=== PATIENT | male | born 1945 | race African-American/Black ===

== ENCOUNTER 2017-03-27 23:36 | Emergency (ER) | payer MEDICARE, MEDICAID ==
[2017-03-28] MEDS ORDERED: Cyclobenzaprine TAB* 10 MG PO ONE (02:02)
--- NOTE | 2017-03-28 02:02 | ED ---
Upper Extremity Pain - HPI Summary HPI Summary: 72M presents with right shoulder and neck pain since . He denies any injury. He denies any fever or headache. He denies any edema. He denies any numbness or tingling. He denies any weakness. He is right handed. He tried Tylenol without relief. He has history of back pain but denies any history of neck pain. He states the pain feels like stiffness and muscular. He has tried heat and cold without relief. He states movement makes it worst. - History of Current Complaint Chief Complaint: Rosa MariaVangie Stated Complaint: RT SHOULDER PAIN Time Seen by Provider: 03/28/17 01:44 - Allergies/Home Medications Allergies/Adverse Reactions: Allergies Allergy/AdvReac Type Severity Reaction Status Date / Time Cefazolin Allergy Severe See Comment Verified 01/21/16 09:44 Enalapril [From Vasotec] Allergy Severe Swelling Verified 01/21/16 09:44 Of Face,Lips,& Throat Levofloxacin [From Levaquin] Allergy Severe See Comment Verified 01/21/16 09:44 Tamsulosin [From Flomax] Allergy Unknown Unknown Verified 01/21/16 09:44 Reaction Details Pioglitazone [From Actos] AdvReac Mild See Comment Verified 01/21/16 09:44 PMH/Surg Hx/FS Hx/Imm Hx Endocrine/Hematology History: Reports: Hx Diabetes Cardiovascular History: Reports: Hx Coronary Artery Disease, Hx Hypercholesterolemia, Hx Hypertension, Hx Syncope - THIS ADMIT Respiratory History: Reports: Hx Sleep Apnea GI History: Reports: Hx Gastroesophageal Reflux Disease, Hx Ulcer History: Reports: Hx Benign Prostatic Hyperplasia - PROSTATE SURGERY Musculoskeletal History: Reports: Hx Arthritis, Hx Orthopedic Injury - right knee injury with chronic pain Neurological History: Reports: Hx Developmental Delay Denies: Hx Seizures, Hx Transient Ischemic Attacks (TIA) Psychiatric History: Reports: Hx Depression, Hx Inpatient Treatment - may 1992 for depression- 5 days Denies: Hx Anxiety, Hx Suicide Attempt, Hx Substance Abuse - Cancer History Cancer Type, Location and Year: PROSTATE 2006 Hx Chemotherapy: No Hx Radiation Therapy: No - Surgical History Surgery Procedure, Year, and Place: prostate surgery 2006 Hx Anesthesia Reactions: No - Immunization History Date of Tetanus Vaccine: unk Date of Influenza Vaccine: unk Infectious Disease History: No Infectious Disease History: Reports: Hx Hepatitis - B Denies: Traveled Outside the [place] in Last 30 Days - Family History Known Family History: Positive: Diabetes - Social History Alcohol Use: None Substance Use Type: Reports: None Smoking Status (MU): Never Smoked Tobacco Review of Systems Negative: Fever Negative: Chest Pain Negative: Shortness Of Breath Positive: Myalgia - neck pain and right shoulder pain All Other Systems Reviewed And Are Negative: Yes Physical Exam Triage Information Reviewed: Yes Vital Signs On Initial Exam: Initial Vitals Temp Pulse Resp BP Pulse Ox 98.5 F 86 18 159/88 95 03/27/17 23:44 03/27/17 23:44 03/27/17 23:44 03/27/17 23:44 03/27/17 23:44 Vital Signs Reviewed: Yes Appearance: Positive: Well-Appearing Skin: Positive: Warm, Dry Head/Face: Positive: Normal Head/Face Inspection Eyes: Positive: Normal, Conjunctiva Clear Respiratory/Lung Sounds: Positive: Clear to Auscultation, Breath Sounds Present Cardiovascular: Positive: Normal, RRR Musculoskeletal: Positive: Strength/ROM Intact - right shoulder with pain, Other - able to push off behind, neg stevens, neg yearsons, tenderness over right trapezius, no midline tenderness neck, good digital printer strength, sensation grossly intact, capillary refill<2 secs, good pulses Neurological: Positive: Sensory/Motor Intact - biceps - Dasia Coma Scale Coma Scale Total: 15 Diagnostics - Vital Signs Vital Signs Temp Pulse Resp BP Pulse Ox 03/27/17 23:44 98.5 F 86 18 159/88 95 - Laboratory Lab Statement: Any lab studies that have been ordered have been reviewed, and results considered in the medical decision making process. - Radiology shoulder Xray Interpretation: No Acute Changes Radiology Interpretation Completed By: ED Physician Course/Dx - Course Course Of Treatment: 72M presents with right shoulder and neck pain since . He denies any injury. He denies any fever or headache. He denies any edema. He denies any numbness or tingling. He denies any weakness. He is right handed. He tried Tylenol without relief. He has history of back pain but denies any history of neck pain. He states the pain feels like stiffness and muscular. He has tried heat and cold without relief. He states movement makes it worst.on exam has tenderness over right trapezius. full ROM of shoulder with pain, neurovascular intact. will try muscle relaxer and follow up with primary. patient understand and agrees with plan. - Diagnoses Differential Diagnosis/HQI/PQRI: Positive: Fracture (Closed), Strain, Sprain Provider Diagnoses: Right shoulder pain, Neck pain Discharge - Discharge Plan Condition: Good Disposition: HOME Prescriptions: Cyclobenzaprine TAB* [Flexeril 10 MG TAB*] 10 mg PO TID PRN #15 tab PRN Reason: Pain Patient Education Materials: Shoulder Pain (ED) Referrals: Arnaud Calloway MD [Primary Care Provider] - Additional Instructions: Take muscle relaxers three times a day, caution as can make drowsy Use Tylenol for pain every 6 hours ice/heat area, move as much as possible Follow up with primary within 5 days Return to ED if develop any new or worsening symptoms
[2017-03-28 03:05] VITALS: BP 170/85
--- NOTE | 2017-03-28 08:15 | RAD ---
HISTORY: Right shoulder pain COMPARISONS: None VIEWS: 4, Frontal internal rotation, external rotation, outlet, and axillary views of the right shoulder FINDINGS: BONE DENSITY: Normal. BONES: There is no displaced fracture. JOINTS: There is no arthropathy. ALIGNMENT: There is no dislocation. SOFT TISSUES: Unremarkable. OTHER FINDINGS: None. IMPRESSION: NO ACUTE OSSEOUS INJURY. IF SYMPTOMS PERSIST, RECOMMEND REPEAT IMAGING.
== END 2017-03-28 03:00 | disposition home or self-care (01) ==
LOC: ED 23:36
DX: M54.2 Cervicalgia (principal); M25.511 Pain in right shoulder; B19.10 Unspecified viral hepatitis B without hepatic coma; R62.50 Unspecified lack of expected normal physiological development in childhood; F32.9 Major depressive disorder, single episode, unspecified; Z85.46 Personal history of malignant neoplasm of prostate; E11.9 Type 2 diabetes mellitus without complications; I25.10 Atherosclerotic heart disease of native coronary artery without angina pectoris; K21.9 Gastro-esophageal reflux disease without esophagitis; E78.00 Pure hypercholesterolemia, unspecified; I10 Essential (primary) hypertension; N40.0 Benign prostatic hyperplasia without lower urinary tract symptoms; X58.XXXA Exposure to other specified factors, initial encounter; Y92.9 Unspecified place or not applicable
CPT/HCPCS: 99282; A9270-GY

== ENCOUNTER 2018-12-30 03:47 | Emergency (ER) | payer MEDICARE, MEDICAID ==
[2018-12-30] MEDS ORDERED: Ondansetron ODT TAB* 4 MG PO ONE (03:50)
[2018-12-30] MEDS ORDERED: Morphine 4 MG/ML VIAL (1 ml) 4 MG/ML VIAL IV ONE (03:50)
--- NOTE | 2018-12-30 04:04 | ED ---
Back Pain - HPI Summary HPI Summary: This pt is a 73 Y/ M presenting to [facility] brought in by EMS for a CC of low back pain. He states that his back pain has been present for the last 2 weeks and has been increasing since the onset. He states that he was walking to the bathroom today when he fell down and landed on his back [employer]. He states that he has both back and neck pain that was increased after the fall. He also states that he hit his L arm when he fell but denies pain. He denies any fevers, chills , N/V, SOB, headaches, and sore throat. He states that he has a PMHx of diabetes and HTN. He has no pertinent SHx. - History of Current Complaint Chief Complaint: EDFall Stated Complaint: FALL PER EMS Time Seen by Provider: 12/30/18 03:50 Hx Obtained From: Patient Onset/Duration: Sudden Onset Onset/Duration: Still Present Timing: Constant Back Pain Location: Is Diffuse Severity Initially: Severe Severity Currently: Severe Pain Intensity: 9 Pain Scale Used: 0-10 Numeric Character: Sharp Aggravating Symptom(s): Nothing Alleviating Symptom(s): Nothing Associated Signs And Symptoms: Positive: Negative - chills, N/V, SOB, headaches , and sore throat.. Negative: Fever - Allergies/Home Medications Allergies/Adverse Reactions: Allergies Allergy/AdvReac Type Severity Reaction Status Date / Time MS Cefazolin [Cefazolin] Allergy Severe See Comment Verified 01/21/16 09:44 MS Enalapril [From Vasotec] Allergy Severe Swelling Verified 01/21/16 09:44 Of Face,Lips,& Throat MS Levofloxacin Allergy Severe See Comment Verified 01/21/16 09:44 [From Levaquin] MS Tamsulosin [From Flomax] Allergy Unknown Unknown Verified 01/21/16 09:44 Reaction Details MS Pioglitazone [From Actos] AdvReac Mild See Comment Verified 01/21/16 09:44 PMH/Surg Hx/FS Hx/Imm Hx Previously Healthy: Yes Endocrine/Hematology History: Reports: Hx Diabetes Cardiovascular History: Reports: Hx Coronary Artery Disease, Hx Hypercholesterolemia, Hx Hypertension, Hx Syncope - THIS ADMIT Respiratory History: Reports: Hx Sleep Apnea GI History: Reports: Hx Gastroesophageal Reflux Disease, Hx Ulcer History: Reports: Hx Benign Prostatic Hyperplasia - PROSTATE SURGERY Musculoskeletal History: Reports: Hx Arthritis, Hx Orthopedic Injury - right knee injury with chronic pain Neurological History: Reports: Hx Developmental Delay Denies: Hx Seizures, Hx Transient Ischemic Attacks (TIA) Psychiatric History: Reports: Hx Depression, Hx Inpatient Treatment - may 1992 for depression- 5 days Denies: Hx Anxiety, Hx Suicide Attempt, Hx Substance Abuse - Cancer History Cancer Type, Location and Year: PROSTATE 2006 Hx Chemotherapy: No Hx Radiation Therapy: No - Surgical History Surgery Procedure, Year, and Place: prostate surgery 2006 Hx Anesthesia Reactions: No - Immunization History Date of Tetanus Vaccine: unk Date of Influenza Vaccine: unk Infectious Disease History: No Infectious Disease History: Reports: Hx Hepatitis - B Denies: Traveled Outside the [place] in Last 30 Days - Family History Known Family History: Positive: Diabetes - Social History Occupation: Retired Lives: Alone Alcohol Use: None Hx Substance Use: No Substance Use Type: Reports: None Hx Tobacco Use: No Smoking Status (MU): Never Smoked Tobacco Review of Systems Negative: Fever, Chills Negative: Sore Throat Negative: Shortness Of Breath Negative: Vomiting, Nausea Negative: Headache All Other Systems Reviewed And Are Negative: Yes Physical Exam - Summary Physical Exam Summary: Constitutional: Elderly no acute distress Skin: Warm, Dry HENT: Normocephalic, atraumatic. Midface stable, Dentition intact Eyes: EOM normal, PERRL Neck: Positive cervical spine tenderness. Trachea is midline. No stridor; No JVD; No step off; Cardio: Rhythm regular, rate normal Heart sounds normal; Intact distal pulses; The pedal pulses are 2+ and symmetric. Radial pulses are 2+ and symmetric. Pulmonary/Chest wall: Effort normal; Breath sounds normal; Equal chest rise; No flail segment; No rib tenderness; No sternal tenderness Abd: Soft, Appearance normal. No distension; No tenderness Musculoskeletal: Positive midline and paraspinal cervical, thoracic and lumbar tenderness. No step-offs or deformities . No tenderness of the hips, ankles, shoulders, elbows and knees; No joint swelling; Pelvis is stable to lateral compression and rock Neuro: Alert, Oriented x3, GCS 15. Strength 5/5 all extremities. Psych: Mood and affect Normal Triage Information Reviewed: Yes Vital Signs On Initial Exam: Initial Vitals Temp Pulse Resp BP Pulse Ox 97.6 F 102 18 170/105 96 12/30/18 03:52 12/30/18 03:52 12/30/18 03:52 12/30/18 03:52 12/30/18 03:52 Vital Signs Reviewed: Yes Procedures - Sedation Patient Received Moderate/Deep Sedation with Procedure: No Diagnostics - Vital Signs Vital Signs Temp Pulse Resp BP Pulse Ox 12/30/18 03:52 97.6 F 102 18 170/105 96 - Laboratory Lab Statement: Any lab studies that have been ordered have been reviewed, and results considered in the medical decision making process. - CT Thoracic CT CT Interpretation Completed By: Radiologist Summary of CT Findings: No evidence of thoracic spine fracture or dislocation. There is expansile lytic lesion noted of the right fourth rib. Findings are. concerning for a neoplastic process. ED physician has reviewed this report. Lumbar CT CT Interpretation Completed By: Radiologist Summary of CT Findings: There is a 1.3 x 1.2 cm lytic lesion noted involving the inferior L3 vertebral. body. Findings may represent a neoplastic process. ED physician has reviewed this report. Cervical CT CT Interpretation Completed By: Radiologist Summary of CT Findings: There is a chronic appearing defect noted of the posterior aspect of. C1. There is an expansile lytic lesion again noted of the third right rib. ED physician has reviewed this report. Re-Evaluation - Re-Evaluation First Eval Re-Evaluation Time: 06:00 Change: Improved - CT negative for fracture, concern for lytic lesions of the spine, we'll discuss with oncology and plan for outpatient follow-up. Patient ambulated with walker. C Spine Clearance Note Patient was evaluated today for clearance of C-spine precautions. Patient was awake and alert and cooperative for exam. Patient without neurologic symptoms or neck pain. Patient did not exhibit any focal tenderness to direct palpation of the cervical spine. Patient was able to move head in all directions without limitation in the range of motion or without inciting additional pain or discomfort. No midline tenderness. Denies pain, weakness or numbness with flexion, extension, or rotation of the neck. [place] collar removed. C-collar cleared by [employer] Criteria. Based on this examination, C-spine precautions are no longer required and may be discontinued. Back Pain Course/Dx - Course Course Of Treatment: 73 y/o male p/w back pain after fall. Primary survery intact. Secondary w CTL tenderness. No step offs or deformities. L arm abrasion no underlying tenderness. - Check CT CTL spine. Placed in c collar. - Diagnoses Provider Diagnoses: Fall, Back pain, Spinal cord lesion - Provider Notifications Discussed Care Of Patient With: Ashley Singh Time Discussed With Above Provider: 06:40 Instructed by Provider To: Have Pt Call For Appt. Discharge ED - Sign-Out/Discharge Documenting (check all that apply): Patient Departure - discharge - Discharge Plan Condition: Stable Disposition: HOME Prescriptions: Acetaminophen TAB* [Tylenol TAB*] 650 mg PO Q6H PRN #30 tab MDD 4 gm PRN Reason: Pain - Moderate Patient Education Materials: Back Pain (ED) Referrals: Arnaud Calloway MD [Primary Care Provider] - 2 Days Ashley Singh MD [Medical Doctor] - 2 Days Additional Instructions: You were seen in the emergency department for a fall and back pain. Your CT scan did not show any acute cause for pain, you did have some small lesions on your spine and one area of the ribs that or concerning and require follow up. You can follow up with your primary care doctor or oncologist (Dr. Singh) for further workup. If any studies were not completed at the time of discharge you will be called with the relevant results. Please follow up with your primary care doctor in next 2-3 days and return to emergency department for worsening pain, falls, numbness, weakness, bowel or bladder problems, or concerning symptoms. It was a pleasure taking care of you today. - Billing Disposition and Condition Condition: STABLE Disposition: Home - Attestation Statements Document Initiated by Martha: Yes Documenting Scribe: Philip Yadav Provider For Whom Martha is Documenting (Include Credential): Jennifer Martinez MD Scribe Attestation: Philip Proctor, scribed for Jennifer Martinez MD on 12/30/18 at 0715. Scribe Documentation Reviewed: Yes Provider Attestation: The documentation as recorded by the Philip hines accurately reflects the service I personally performed and the decisions made by Jennifer maciel MD Status of Scribe Document: Viewed
[2018-12-30] MEDS ORDERED: Acetaminophen TAB* 325 MG PO ONE (06:20)
[2018-12-30] MEDS ORDERED: Lidocaine PATCH 5%* 1 PATCH TRANSDERM SCH (07:00)
[2018-12-30 07:36] VITALS: BP 160/90
[2018-12-30] MEDS ORDERED: Lidocaine Patch REMOVE* 1 NOTE MISC PATCH OFF SCH (19:00)
== END 2018-12-30 06:45 | disposition home or self-care (01) ==
LOC: ED 03:47
DX: G95.9 Disease of spinal cord, unspecified (principal); W18.30XA Fall on same level, unspecified, initial encounter; Y92.9 Unspecified place or not applicable; E11.9 Type 2 diabetes mellitus without complications; I10 Essential (primary) hypertension; I25.10 Atherosclerotic heart disease of native coronary artery without angina pectoris; E78.00 Pure hypercholesterolemia, unspecified; K21.9 Gastro-esophageal reflux disease without esophagitis; N40.0 Benign prostatic hyperplasia without lower urinary tract symptoms; R62.50 Unspecified lack of expected normal physiological development in childhood; F32.9 Major depressive disorder, single episode, unspecified; Z88.1 Allergy status to other antibiotic agents; Z88.8 Allergy status to other drugs, medicaments and biological substances; Z79.82 Long term (current) use of aspirin; Z79.4 Long term (current) use of insulin; Z79.899 Other long term (current) drug therapy
CPT/HCPCS: 72125; 72128; 72131; 96374; 99282; A9270-GY; J2270

== ENCOUNTER 2018-12-31 08:47 | Emergency (ER) | payer MEDICARE, MEDICAID ==
--- NOTE | 2018-12-31 09:05 | ED ---
Back Pain - HPI Summary HPI Summary: The pt is a 73 yr old male [place] [facility] [place]o [place] and right sided lower back pain beginning several days [employer]. He states that he is weaker than usual and is afraid that he will fall at home. The pt was here yesterday with the same complaints and notes that he was supposed to receive a call from an ED provider yesterday but never received one. He rates his current pain intensity a 6/10. He notes that he takes several medications regularly but did not take them this morning. No aggravating or alleviating factors noted. He has Hx of anemia. - History of Current Complaint Stated Complaint: GENERALIZED WEAKNESS PER EMS Hx Obtained From: Patient Onset/Duration: Sudden Onset, Lasting Days, Still Present Onset/Duration: Started Days Ago, Still Present Timing: Constant, Lasting Days Back Pain Location: Is Discrete @ - right lower back Severity Initially: Moderate Severity Currently: Moderate Pain Intensity: 6 Pain Scale Used: 0-10 Numeric Aggravating Symptom(s): Nothing Alleviating Symptom(s): Nothing Associated Signs And Symptoms: Positive: Weakness - Allergies/Home Medications Allergies/Adverse Reactions: Allergies Allergy/AdvReac Type Severity Reaction Status Date / Time MS Cefazolin [Cefazolin] Allergy Severe See Comment Verified 01/21/16 09:44 MS Enalapril [From Vasotec] Allergy Severe Swelling Verified 01/21/16 09:44 Of Face,Lips,& Throat MS Levofloxacin Allergy Severe See Comment Verified 01/21/16 09:44 [From Levaquin] MS Tamsulosin [From Flomax] Allergy Unknown Unknown Verified 01/21/16 09:44 Reaction Details MS Pioglitazone [From Actos] AdvReac Mild See Comment Verified 01/21/16 09:44 PMH/Surg Hx/FS Hx/Imm Hx Endocrine/Hematology History: Reports: Hx Diabetes Cardiovascular History: Reports: Hx Coronary Artery Disease, Hx Hypercholesterolemia, Hx Hypertension, Hx Syncope - THIS ADMIT Respiratory History: Reports: Hx Sleep Apnea GI History: Reports: Hx Gastroesophageal Reflux Disease, Hx Ulcer History: Reports: Hx Benign Prostatic Hyperplasia - PROSTATE SURGERY Musculoskeletal History: Reports: Hx Arthritis, Hx Orthopedic Injury - right knee injury with chronic pain Neurological History: Reports: Hx Developmental Delay Denies: Hx Seizures, Hx Transient Ischemic Attacks (TIA) Psychiatric History: Reports: Hx Depression, Hx Inpatient Treatment - may 1992 for depression- 5 days Denies: Hx Anxiety, Hx Suicide Attempt, Hx Substance Abuse - Cancer History Cancer Type, Location and Year: PROSTATE 2006 Hx Chemotherapy: No Hx Radiation Therapy: No - Surgical History Surgery Procedure, Year, and Place: prostate surgery 2007 Hx Anesthesia Reactions: No - Immunization History Date of Tetanus Vaccine: unk Date of Influenza Vaccine: unk Infectious Disease History: No Infectious Disease History: Reports: Hx Hepatitis - B Denies: Traveled Outside the [place] in Last 30 Days - Family History Known Family History: Positive: Diabetes - Social History Alcohol Use: None Hx Substance Use: No Substance Use Type: Reports: None Hx Tobacco Use: No Smoking Status (MU): Never Smoked Tobacco Review of Systems Musculoskeletal: Other - pos - back pain Positive: Weakness All Other Systems Reviewed And Are Negative: Yes Physical Exam - Summary Physical Exam Summary: General: Patient is an obese male with some distress secondary to back pain. Skin: [place], warm, dry HEAD AND FACE: No signs of trauma. EYES: PERRLA, EOMI x 2. EARS: Hearing grossly intact. MOUTH: Oropharynx within normal limits. NECK: Supple, trachea is midline, no adenopathy, no JVD. CHEST: Symmetric, no tenderness at palpation LUNGS: CTA bilaterally, no rales, rhonchi or wheezing CVS: RRR, no murmur, rub, or gallop ABDOMEN: soft and Nontender without masses, no guarding or rebound. Bowel sounds are active. No Hepatosplenomegaly. No signs of inguinal hernias. BACK: Patient came in via ambulanve since he is unable to ambulate due to back pain. No signs of trauma, no soft tissue ecchymosis. Positive paraspinal muscle tenderness and vertebral tenderness in the lumbar spine. No masses palpated. No CVAT, no flank ecchymosis . No sacroiliac notch tenderness, No saddle anesthesia. ROM: flexion, extension, lateral bending and rotation limited secondary to pain. Straight Leg Raise: Positive at 45 degrees in the right side. Patellar reflexes: brisk, symmetric Muscle strength lower extremities: Dorsiflexion, plantar flexion of ankles normal. Pulses: Femoral, popliteal, posterior tibial, and pedal pulses strong and palpable. Rectal: Patient refused the exam. Triage Information Reviewed: Yes Vital Signs On Initial Exam: Initial Vitals Temp Pulse Resp BP Pulse Ox 98.0 F 90 16 148/92 97 12/31/18 08:48 12/31/18 08:48 12/31/18 08:48 12/31/18 08:48 12/31/18 08:48 Vital Signs Reviewed: Yes Procedures - Sedation Patient Received Moderate/Deep Sedation with Procedure: No Diagnostics - Vital Signs Vital Signs Temp Pulse Resp BP Pulse Ox 12/31/18 08:48 98.0 F 90 16 148/92 97 - Laboratory Result Diagrams: 12/31/18 09:35 12/31/18 09:35 Lab Statement: Any lab studies that have been ordered have been reviewed, and results considered in the medical decision making process. Back Pain Course/Dx - Course Assessment/Plan: Patient is a 73-year-old male who presents to the emergency room via ambulance with a chief complaint of severe back pain. The patient reports that he is unable to ambulate secondary to the pain. He denies any weakness or numbness in the extremities. He denies any urinary or focal dysfunction. The results are significant for a slight macrocytic normochromic anemia with a hemoglobin 11.9 and hematocrit 35, sodium 133, glucose 201, magnesium 1.3, AST 41, CRP 55.4, total protein 10.3, albumin 2.9, and globulin 7.4. T spine CT done 12/20/18: no evidence of toxic as planned fracture or dislocation. There are expansile lytic lesions noted in the 4th rib. The findings are concerning for a neoplastic process. C spine CT done 12/20/18: no acute cervical spine fracture or dislocation. There is expressible lytic lesions again noted in the third right rib. L spine CT done 12/20/18: there is a 1.31.2 lytic lesions noted involving the inferior L3 vertebral body. Findings may represent neoplastic process. Recommend clinical correlation with MRI may be performed for further evaluation. We ambulated the patient with his walker he has a good steady walk. I discussed my physical exam and findings with Dr. Short from oncology advises for the patient to be discharged home with follow-up with her on . Patient was given Decadron, Toradol and Norflex and actually he reported that the patients pain has significantly improved. He reports that he has pain medications at home. I discussed all the findings and test results with the patient. Patient was instructed to return to the emergency room immediately if any of the symptoms return worsens. Plan of care was discussed with the patient and understands and agrees. All questions were answered at patient satisfaction. There were no further complaints or concerns. Lung exam before discharge: CTA B/L. Good air exchange. No wheezing or crackles heard. CVS: S1 and S2 present. No murmurs appreciated. Patient is alert and oriented x 3. Patient is hemodynamically stable. Patient will be discharged home with follow up PCP in the next 2-3 days - Diagnoses Provider Diagnoses: Back pain - Provider Notifications Discussed Care Of Patient With: Ashley Sethi - Dr. Sethi recommends that pt be discharged home with follow-up with her next . Time Discussed With Above Provider: 13:11 Discharge ED - Sign-Out/Discharge Documenting (check all that apply): Patient Departure - discharge - Discharge Plan Condition: Stable Disposition: HOME Patient Education Materials: Back Pain (ED) Referrals: Arnaud Calloway MD [Primary Care Provider] - 3 Days Ashley Sethi MD [Medical Doctor] - 01/05/19 Additional Instructions: FOLLOW UP WITH YOUR PRIMARY CARE PROVIDER WITHIN [address] FOLLOW UP WITH DR. SETHI NEXT WEDNESDAY. RETURN TO THE ED FOR ANY WORSENING OR NEW SYMPTOMS. - Billing Disposition and Condition Condition: STABLE Disposition: Home - Attestation Statements Document Initiated by Scribe: Yes Documenting Scribe: Micky Rebolledo Provider For Whom Martha is Documenting (Include Credential): Pankaj Segura MD Scribe Attestation: Micky Proctor, scribed for Pankaj Segura MD on 12/31/18 at 1828. Scribe Documentation Reviewed: Yes Provider Attestation: The documentation as recorded by the Micky hines accurately reflects the service I personally performed and the decisions made by me, Pankaj Segura MD Status of Scribe Document: Viewed
[2018-12-31 09:47] LABS: ABS Lymphocytes 0.9 10^3/ul (1.0-4.8); ABS Monocytes 0.6 10^3/ul (0-0.8); ABS Neutrophils 3.6 10^3/ul (1.5-7.7); Eosinophil % 0.1 %; Hematocrit 35 % (42-52); Hemoglobin 11.9 g/dL (14.0-18.0); Lymphocyte % 17.6 %; Mean Corpuscular HGB Conc 35 g/dL (31-36); Mean Corpuscular Hemoglobin 35 pg (27-31); Mean Corpuscular Volume 100 fL (80-94); Mean Platelet Volume 9.9 fL (7.4-10.4); Nucleated Red Blood Cells % 0.1; Platelet Count 125 10^3/uL (150-450); Red Blood Count 3.44 10^6 /uL (4.18-5.48); Red Cell Distribution Width 14 % (10-15); White Blood Count 5.1 10^3/uL (3.5-10.8)
[2018-12-31 10:07] LABS: Albumin 2.9 g/dL (3.2-5.2); Albumin/Globulin Ratio 0.4 (1-3); BUN/Creatinine Ratio 13.6 (8-20); C Reactive Protein 55.49 mg/L (<8.01); Calcium 9.8 mg/dL (8.6-10.3); EGFR African American 79.8 (>60); Globulin 7.4 g/dL (2-4); Magnesium 1.3 mg/dL (1.9-2.7); Total Bilirubin 0.7 mg/dL (0.2-1.0); Total Protein 10.3 g/dL (6.4-8.9)
[2018-12-31] MEDS ORDERED: Magnesium Sulfate 2 GM IV* 2 GM/50 ML BAG IVPB ONE (10:22)
[2018-12-31 10:33] LABS: TSH (Thyroid Stimulating Horm) 0.68 mcIU/mL (0.34-5.60)
[2018-12-31] MEDS ORDERED: Dexamethasone IV* 4 MG/ML 1 ML (4 MG) IV SLOW PU ONE (10:34)
[2018-12-31] MEDS ORDERED: Orphenadrine Citrate IV* 30 MG/ML 2 ML VIAL IV ONE (10:35)
[2018-12-31] MEDS ORDERED: Ketorolac INJ* 30 MG/ML 1 ML VIAL IV PUSH ONE (10:35)
[2018-12-31 11:17] LABS: Urine Appearance Cloudy; Urine Bacteria Absent (Absent); Urine Bilirubin Negative (Negative); Urine Blood 2+ (Negative); Urine Color Yellow; Urine Glucose 3+(>=500 mg/dL) (Negative); Urine Ketones 1+ (Negative); Urine Nitrite Negative (Negative); Urine Protein 1+(30 mg/dL) (Negative); Urine Red Blood Cell 2+(6-10/hpf) (Absent); Urine Specific Gravity 1.014 (1.010-1.030); Urine Squamous Epithelial Cell Present (Absent); Urine Urobilinogen Negative (Negative); Urine White Blood Cell Trace(0-5/hpf) (Absent)
[2018-12-31] MEDS ORDERED: NS 0.9% 1000 ML** 1,000 ML IV ONE (11:46)
[2018-12-31 13:05] LABS: Erythrocyte Sed Rate > 120 mm/Hr (0-19)
[2018-12-31 14:15] VITALS: BP 168/95
== END 2018-12-31 14:15 | disposition home or self-care (01) ==
LOC: ED 08:47
DX: M54.5 Low back pain (principal); R53.1 Weakness; I25.10 Atherosclerotic heart disease of native coronary artery without angina pectoris; E11.9 Type 2 diabetes mellitus without complications; E78.00 Pure hypercholesterolemia, unspecified; I10 Essential (primary) hypertension; R55 Syncope and collapse; Z85.46 Personal history of malignant neoplasm of prostate; K21.9 Gastro-esophageal reflux disease without esophagitis
CPT/HCPCS: 36415; 80053; 81003; 81015; 82550; 83605; 83735; 84443; 85025; 85652; 86140; 87086; 96365; 96375; 99285; J1100; J1885; J2360; J3475

== ENCOUNTER 2019-01-05 15:07 | Inpatient (IN) | payer MEDICARE, MEDICAID ==
[2019-01-05] MEDS: [UNRECOGNIZED DRUG - OTHER] PO PRN (17:28)
[2019-01-05] MEDS: OXYCODONE PO PRN (17:28)
[2019-01-05] MEDS: Enoxaparin(*) 40 MG/0.4 ML SYR SUBCUT SCH (18:31)
[2019-01-05] MEDS ORDERED: Gadoteridol* (CONTRAST) 279.3 MG/ML 10 ML IV ONE (19:37)
[2019-01-05] MEDS: Acetaminophen ADULT LIQ* 650 MG/20.3 ML UDC PO PRN (20:57)
[2019-01-06] MEDS: OXYCODONE PO PRN ×2 (03:50→13:42)
[2019-01-06] MEDS: [UNRECOGNIZED DRUG - OTHER] PO PRN ×2 (03:50→13:42)
[2019-01-06] MEDS: Acetaminophen ADULT LIQ* 650 MG/20.3 ML UDC PO PRN (07:58)
[2019-01-06] MEDS ORDERED: Lorazepam PYXIS KEY PRN (10:35)
[2019-01-06] MEDS ORDERED: LORazepam INJ* 2 MG/ML 1 ML VIAL IV PUSH ONE (10:35)
--- NOTE | 2019-01-06 11:33 | BRIEFOPN ---
Brief Operative/Procedure Note - Operation Details Pre-Op Diagnosis: multiple myeloma Post-Op Diagnosis: multiple myeloma Procedures: bone marrow biopsy/aspiration Surgeon(s)/Proceduralists: Jaspal Hagan PA-C Anesthesia: 1% lidocaine - 15ml Estimated Blood Loss: <5ml Findings: adequate core sample and aspiration collected Complications: difficulty finding correct sampling location which resulted in 3 attempts to collect sample, the final attempt was successful
[2019-01-06] MEDS ORDERED: Dextrose 50% VIAL 50 ml IV PUSH PRN (11:41)
[2019-01-06] MEDS ORDERED: Dexamethasone IV* 4 MG/ML 1 ML (4 MG) IV SLOW PU SCH (12:00)
[2019-01-06] MEDS: Dexamethasone IV* 40 MG in NS 0.9% 50 ML* 50 ML IVPB SCH (13:24)
--- NOTE | 2019-01-06 17:00 | PN ---
Progress Note - Progress Note Date of Service: 01/06/19 SOAP: Subjective: [Alan continues to complain of pain. Somewhat better than yesterday. Otherwise feeling ok. MRI shows no cord impingement but does show an acute/ subacute compression fx of L3 which is likely causing his pain.] Objective: [ Vital Signs: Temp Pulse Resp BP Pulse Ox 97.3 F 81 14 144/71 89 01/06/19 15:15 01/06/19 15:15 01/06/19 15:15 01/06/19 15:15 01/06/19 15:15 Acetaminophen (Tylenol Adult Liq*) 650 mg PO Q6H PRN PRN Reason: PAIN - MILD Last Admin: 01/06/19 07:58 Dose: 650 mg Amlodipine Besylate (Norvasc Tab*) 5 mg PO DAILY [facility] Aspirin (Aspirin Ec Tab*) 81 mg PO DAILY [facility] Atorvastatin Calcium (Lipitor*) 20 mg PO DAILY [facility] Bupropion HCl (Wellbutrin Sr Tab*) 150 mg PO DAILY [facility] Citalopram Hydrobromide (Celexa Tab*) 20 mg PO DAILY [facility] Dextrose (Dextrose 50% Vial 50 Ml*) 25 ml IV PUSH .FOR FS < 60 - SS PRN PRN Reason: FS < 60 Docusate Sodium (Colace Cap*) 200 mg PO DAILY [facility] Enoxaparin Sodium (Lovenox(*)) 40 mg SUBCUT Q24H [facility] Last Admin: 01/05/19 18:31 Dose: 40 mg Gabapentin (Neurontin Cap(*)) 300 mg PO DAILY [facility] Glipizide (Glucotrol Tab*) 10 mg PO DAILY@0730 [facility] Dexamethasone Sodium Phosphate (40 mg/ Sodium Chloride) 60 mls @ 120 mls/hr IVPB DAILY [facility] Stop: 01/09/19 09:29 Last Admin: 01/06/19 13:24 Dose: 120 mls/hr Insulin Human Lispro (Humalog*) 0 units SUBCUT AC [facility]; Protocol Losartan Potassium (Cozaar Tab*) 100 mg PO DAILY [facility] Miscellaneous (Ativan Pyxis Gerard) 1 ea N/A .ATIVAN IV GERARD PRN PRN Reason: PYXIS GERARD Oxycodone HCl (Oxycodone Oral Syr*Concentrte*) 5 mg PO Q6H PRN PRN Reason: Pain - moderate Last Admin: 01/06/19 13:42 Dose: 5 mg Pantoprazole Sodium (Protonix Tab*) 40 mg PO DAILY [facility] Senna (Senokot 8.6 Mg Tab*) 2 tab PO DAILY [facility] Spironolactone (Aldactone Tab*) 25 mg PO DAILY [facility] Exam: Gen: 73 yo male in NAD, lying in hospital bed HEENT: MMM CV: RRR, no m/r/g Resp: CTA, no w/c/r Abd: soft, nonTTP Ext: non TTP Psych: developmental delay, alert and appropriately oriented] Assessment: [This is a 73 yo male with a mild developmental delay with a new diagnosis of multiple myeloma who was hospitalized for intractable pain. MRI does not show any cord compression, but he has multiple lytic lesions with a compression fracture at L3. ] Plan: [1. Back pain - reviewed case with Dr Cotter to consider palliative RT - cont prn oxycodone - start high dose dexamethasone 2. Multiple myeloma - completed staging bone marrow biopsy today (see separate note) - start high dose dexamethasone for palliation - plan to start systemic therapy ELIESER 3. NIDDM] - hold metformin due to elevated Cr - cont glipizide - monitor glucose with high dose dex and cover hyperglycemia with SS humalog 4. HTN - cont home medications 5. Developmental delay - has been living independently with community support Dispo: will likely require JESSICA, requested PT/OT evaluation
[2019-01-06] MEDS: Insulin LISPRO* 1 UNITS UNIT SUBCUT SCH (18:19)
[2019-01-06] MEDS: Enoxaparin(*) 40 MG/0.4 ML SYR SUBCUT SCH (18:21)
[2019-01-07 06:45] LABS: ABS Lymphocytes 0.5 10^3/ul (1.0-4.8); ABS Monocytes 0.3 10^3/ul (0-0.8); ABS Neutrophils 5.4 10^3/ul (1.5-7.7); Hematocrit 33 % (42-52); Hemoglobin 11.3 g/dL (14.0-18.0); Lymphocyte % 7.5 %; Mean Corpuscular HGB Conc 34 g/dL (31-36); Mean Corpuscular Hemoglobin 35 pg (27-31); Mean Corpuscular Volume 101 fL (80-94); Mean Platelet Volume 10.6 fL (7.4-10.4); Nucleated Red Blood Cells % 0.1; Platelet Count 113 10^3/uL (150-450); Red Blood Count 3.26 10^6 /uL (4.18-5.48); Red Cell Distribution Width 14 % (10-15); White Blood Count 6.2 10^3/uL (3.5-10.8)
[2019-01-07 07:07] LABS: Albumin 2.5 g/dL (3.2-5.2); Albumin/Globulin Ratio 0.4 (1-3); Calcium 9.2 mg/dL (8.6-10.3); EGFR African American 93.2 (>60); Globulin 6.7 g/dL (2-4); Potassium 4.3 mmol/L (3.5-5.0); Total Bilirubin 0.4 mg/dL (0.2-1.0); Total Protein 9.2 g/dL (6.4-8.9)
[2019-01-07] MEDS: Citalopram TAB* 20 MG PO SCH (08:18)
[2019-01-07] MEDS: Docusate CAP* 100 MG PO SCH (08:18)
[2019-01-07] MEDS: Aspirin EC TAB* 81 MG TAB.EC PO SCH (08:19)
[2019-01-07] MEDS: Pantoprazole TAB * 40 MG TAB PO SCH (08:19)
[2019-01-07] MEDS: Losartan TAB* 25 MG PO SCH (08:19)
[2019-01-07] MEDS: Senna TAB 8.6 mg* TAB PO SCH (08:19)
[2019-01-07] MEDS: Spironolactone TAB* 25 MG PO SCH (08:19)
[2019-01-07] MEDS: Atorvastatin* 20 MG TAB PO SCH (08:19)
[2019-01-07] MEDS: amLODIPine TAB* 5 MG PO SCH (08:19)
[2019-01-07] MEDS: glipiZIDE TAB* 5 MG PO SCH (08:19)
[2019-01-07] MEDS: Insulin LISPRO* 1 UNITS UNIT SUBCUT SCH ×3 (08:19→17:14)
[2019-01-07] MEDS: Gabapentin CAP(*) 300 MG PO SCH (08:19)
[2019-01-07] MEDS: buPROPion SR TAB.SR* 150 MG PO SCH (08:20)
[2019-01-07] MEDS: Dexamethasone IV* 40 MG in NS 0.9% 50 ML* 50 ML IVPB SCH (08:50)
[2019-01-07] MEDS: Magnesium Hydroxide LIQ* 30 ML UDC PO PRN ×2 (12:27→20:11)
--- NOTE | 2019-01-07 16:21 | PN ---
Progress Note - Progress Note Date of Service: 01/07/19 SOAP: Subjective: [Reports feeling much better today. He has minimal pain and was able to get up to a chair today. He is having trouble with constipation. Feels a little tired with use of the pain medication.] Objective: [ Vital Signs: Temp Pulse Resp BP Pulse Ox 98.2 F 83 18 128/63 98 01/07/19 15:15 01/07/19 15:15 01/07/19 11:15 01/07/19 15:15 01/07/19 15:15 Acetaminophen (Tylenol Adult Liq*) 650 mg PO Q6H PRN PRN Reason: PAIN - MILD Last Admin: 01/06/19 07:58 Dose: 650 mg Amlodipine Besylate (Norvasc Tab*) 5 mg PO DAILY [facility] Last Admin: 01/07/19 08:19 Dose: 5 mg Aspirin (Aspirin Ec Tab*) 81 mg PO DAILY [facility] Last Admin: 01/07/19 08:19 Dose: 81 mg Atorvastatin Calcium (Lipitor*) 20 mg PO DAILY [facility] Last Admin: 01/07/19 08:19 Dose: 20 mg Bupropion HCl (Wellbutrin Sr Tab*) 150 mg PO DAILY [facility] Last Admin: 01/07/19 08:20 Dose: 150 mg Citalopram Hydrobromide (Celexa Tab*) 20 mg PO DAILY [facility] Last Admin: 01/07/19 08:18 Dose: 20 mg Dextrose (Dextrose 50% Vial 50 Ml*) 25 ml IV PUSH .FOR FS < 60 - SS PRN PRN Reason: FS < 60 Docusate Sodium (Colace Cap*) 200 mg PO DAILY [facility] Last Admin: 01/07/19 08:18 Dose: 200 mg Enoxaparin Sodium (Lovenox(*)) 40 mg SUBCUT Q24H [facility] Last Admin: 01/06/19 18:21 Dose: 40 mg Gabapentin (Neurontin Cap(*)) 300 mg PO DAILY [facility] Last Admin: 01/07/19 08:19 Dose: 300 mg Glipizide (Glucotrol Tab*) 10 mg PO DAILY@0730 [facility] Last Admin: 01/07/19 08:19 Dose: 10 mg Dexamethasone Sodium Phosphate (40 mg/ Sodium Chloride) 60 mls @ 120 mls/hr IVPB DAILY [facility] Stop: 01/09/19 09:29 Last Admin: 01/07/19 08:50 Dose: 120 mls/hr Insulin Human Lispro (Humalog*) 0 units SUBCUT AC [facility]; Protocol Last Admin: 01/07/19 12:27 Dose: 12 units Losartan Potassium (Cozaar Tab*) 100 mg PO DAILY [facility] Last Admin: 01/07/19 08:19 Dose: 100 mg Magnesium Hydroxide (Milk Of Magnesia Liq*) 30 ml PO BID PRN PRN Reason: CONSTIPATION Last Admin: 01/07/19 12:27 Dose: 30 ml Miscellaneous (Ativan Pyxis Gerard) 1 ea N/A .ATIVAN IV GERARD PRN PRN Reason: PYXIS GERARD Oxycodone HCl (Oxycodone Oral Syr*Concentrte*) 5 mg PO Q6H PRN PRN Reason: Pain - moderate Last Admin: 01/06/19 13:42 Dose: 5 mg Pantoprazole Sodium (Protonix Tab*) 40 mg PO DAILY [facility] Last Admin: 01/07/19 08:19 Dose: 40 mg Senna (Senokot 8.6 Mg Tab*) 2 tab PO DAILY [facility] Last Admin: 01/07/19 08:19 Dose: 2 tab Spironolactone (Aldactone Tab*) 25 mg PO DAILY [facility] Last Admin: 01/07/19 08:19 Dose: 25 mg Laboratory Results - last 24 hr 01/06/19 01/07/19 01/07/19 17:40 06:22 06:22 WBC 6.2 RBC 3.26 L Hgb 11.3 L Hct 33 L MCV 101 H MCH 35 H MCHC 34 RDW 14 Plt Count 113 L MPV 10.6 H Neut % (Auto) 87.7 Lymph % (Auto) 7.5 Pender % (Auto) 4.7 Eos % (Auto) 0.0 Baso % (Auto) 0.1 Absolute Neuts (auto) 5.4 Absolute Lymphs (auto) 0.5 L Absolute Monos (auto) 0.3 Absolute Eos (auto) 0.0 Absolute Basos (auto) 0.0 Absolute Nucleated RBC 0.0 Nucleated RBC % 0.1 Sodium 130 L Potassium 4.3 Chloride 102 Carbon Dioxide 23 Anion Gap 5 BUN 24 Creatinine 0.96 Est GFR ( Amer) 93.2 Est GFR (Non-Af Amer) 77.0 BUN/Creatinine Ratio 25.0 H Glucose 306 H POC Glucose (mg/dL) 349 H Glucose Meter Confirm Calcium 9.2 Total Bilirubin 0.40 AST 32 ALT 25 Alkaline Phosphatase 78 Total Protein 9.2 H Albumin 2.5 L Globulin 6.7 H Albumin/Globulin Ratio 0.4 L 01/07/19 01/07/19 01/07/19 07:18 11:18 11:42 WBC RBC Hgb Hct MCV MCH MCHC RDW Plt Count MPV Neut % (Auto) Lymph % (Auto) Pender % (Auto) Eos % (Auto) Baso % (Auto) Absolute Neuts (auto) Absolute Lymphs (auto) Absolute Monos (auto) Absolute Eos (auto) Absolute Basos (auto) Absolute Nucleated RBC Nucleated RBC % Sodium Potassium Chloride Carbon Dioxide Anion Gap BUN Creatinine Est GFR ( Amer) Est GFR (Non-Af Amer) BUN/Creatinine Ratio Glucose POC Glucose (mg/dL) 361 H > 444 H* Glucose Meter Confirm 427 H Calcium Total Bilirubin AST ALT Alkaline Phosphatase Total Protein Albumin Globulin Albumin/Globulin Ratio Exam: Gen: 73 yo male in NAD, sitting up in a chair HEENT: MMM CV: RRR, no m/r/g Resp: CTA, no w/c/r Abd: soft, nonTTP Ext: non TTP Psych: developmental delay, alert and appropriately oriented] Assessment: [This is a 73 yo male with a mild developmental delay with a new diagnosis of multiple myeloma who was hospitalized for intractable pain. MRI does not show any cord compression, but he has multiple lytic lesions with a compression fracture at L3. Pain has improved with initiation of high dose dexamethasone. ] Plan: [1. Back pain - reviewed case with Dr Cotter to consider palliative RT - cont prn oxycodone - cont high dose dexamethasone (40 mg IV x 4d) 2. Multiple myeloma - bone marrow biopsy is pending - cont high dose dexamethasone for palliation - plan to start systemic therapy ELIESER 3. NIDDM] - resume metformin as Cr has improved - cont glipizide - monitor glucose with high dose dex and cover hyperglycemia with SS humalog 4. HTN - cont home medications 5. Developmental delay - has been living independently with community support Dispo: will likely require JESSICA, requested PT/OT evaluation. Pending RT consultation Plan: []
[2019-01-07] MEDS: Enoxaparin(*) 40 MG/0.4 ML SYR SUBCUT SCH (17:27)
[2019-01-07] MEDS ORDERED: Insulin LISPRO* 1 UNITS UNIT SUBCUT ONE (18:00)
[2019-01-07] MEDS: metFORMIN* 500 MG TAB PO SCH (20:13)
[2019-01-08] MEDS: Docusate CAP* 100 MG PO SCH (07:31)
[2019-01-08] MEDS: Losartan TAB* 25 MG PO SCH (07:32)
[2019-01-08] MEDS: Magnesium Hydroxide LIQ* 30 ML UDC PO PRN (07:32)
[2019-01-08] MEDS: Acetaminophen ADULT LIQ* 650 MG/20.3 ML UDC PO PRN (07:32)
[2019-01-08] MEDS: Pantoprazole TAB * 40 MG TAB PO SCH (07:32)
[2019-01-08] MEDS: Citalopram TAB* 20 MG PO SCH (07:32)
[2019-01-08] MEDS: metFORMIN* 500 MG TAB PO SCH ×2 (07:32→22:41)
[2019-01-08] MEDS: Aspirin EC TAB* 81 MG TAB.EC PO SCH (07:32)
[2019-01-08] MEDS: Senna TAB 8.6 mg* TAB PO SCH (07:32)
[2019-01-08] MEDS: glipiZIDE TAB* 5 MG PO SCH (07:32)
[2019-01-08] MEDS: Spironolactone TAB* 25 MG PO SCH (07:33)
[2019-01-08] MEDS: Atorvastatin* 20 MG TAB PO SCH (07:33)
[2019-01-08] MEDS: buPROPion SR TAB.SR* 150 MG PO SCH (07:33)
[2019-01-08] MEDS: amLODIPine TAB* 5 MG PO SCH (07:33)
[2019-01-08] MEDS: Gabapentin CAP(*) 300 MG PO SCH (07:33)
[2019-01-08] MEDS: Dexamethasone IV* 40 MG in NS 0.9% 50 ML* 50 ML IVPB SCH (08:13)
[2019-01-08] MEDS: Insulin LISPRO* 1 UNITS UNIT SUBCUT SCH ×3 (08:13→17:22)
[2019-01-08] MEDS ORDERED: Insulin GLARGINE(*) 1 UNITS UNIT SUBCUT SCH (10:00)
--- NOTE | 2019-01-08 10:29 | PN ---
Progress Note - Progress Note Date of Service: 01/08/19 SOAP: Subjective: [Feeling ok this am. He was able to move his bowels. Pain in his back/R side is slightly greater today. He was able to walk a bit with PT yesterday. Noted hyperglycemia with additional of dexamethasone.] Objective: [ Vital Signs: Temp Pulse Resp BP Pulse Ox 97.6 F 78 18 144/69 99 01/08/19 07:15 01/08/19 07:15 01/08/19 07:33 01/08/19 07:15 01/08/19 07:15 Acetaminophen (Tylenol Adult Liq*) 650 mg PO Q6H PRN PRN Reason: PAIN - MILD Last Admin: 01/08/19 07:32 Dose: 650 mg Amlodipine Besylate (Norvasc Tab*) 5 mg PO DAILY [facility] Last Admin: 01/08/19 07:33 Dose: 5 mg Aspirin (Aspirin Ec Tab*) 81 mg PO DAILY [facility] Last Admin: 01/08/19 07:32 Dose: 81 mg Atorvastatin Calcium (Lipitor*) 20 mg PO DAILY [facility] Last Admin: 01/08/19 07:33 Dose: 20 mg Bupropion HCl (Wellbutrin Sr Tab*) 150 mg PO DAILY [facility] Last Admin: 01/08/19 07:33 Dose: 150 mg Citalopram Hydrobromide (Celexa Tab*) 20 mg PO DAILY [facility] Last Admin: 01/08/19 07:32 Dose: 20 mg Dextrose (Dextrose 50% Vial 50 Ml*) 25 ml IV PUSH .FOR FS < 60 - SS PRN PRN Reason: FS < 60 Docusate Sodium (Colace Cap*) 200 mg PO DAILY [facility] Last Admin: 01/08/19 07:31 Dose: 200 mg Enoxaparin Sodium (Lovenox(*)) 40 mg SUBCUT Q24H [facility] Last Admin: 01/07/19 17:27 Dose: 40 mg Gabapentin (Neurontin Cap(*)) 300 mg PO DAILY [facility] Last Admin: 01/08/19 07:33 Dose: 300 mg Glipizide (Glucotrol Tab*) 10 mg PO DAILY@0730 [facility] Last Admin: 01/08/19 07:32 Dose: 10 mg Dexamethasone Sodium Phosphate (40 mg/ Sodium Chloride) 60 mls @ 120 mls/hr IVPB DAILY [facility] Stop: 01/09/19 09:29 Last Admin: 01/08/19 08:13 Dose: 120 mls/hr Insulin Glargine (Lantus(*)) 20 units SUBCUT Q24H [facility] Last Admin: 01/08/19 09:56 Dose: 20 units Insulin Human Lispro (Humalog*) 0 units SUBCUT AC [facility]; Protocol Last Admin: 01/08/19 08:13 Dose: 8 units Losartan Potassium (Cozaar Tab*) 100 mg PO DAILY [facility] Last Admin: 01/08/19 07:32 Dose: 100 mg Magnesium Hydroxide (Milk Of Magnesia Liq*) 30 ml PO BID PRN PRN Reason: CONSTIPATION Last Admin: 01/08/19 07:32 Dose: 30 ml Metformin HCl (Glucophage*) 1,000 mg PO BID [facility] Last Admin: 01/08/19 07:32 Dose: 1,000 mg Miscellaneous (Ativan Pyxis Gerard) 1 ea N/A .ATIVAN IV GERARD PRN PRN Reason: PYXIS GERARD Oxycodone HCl (Oxycodone Oral Syr*Concentrte*) 5 mg PO Q6H PRN PRN Reason: Pain - moderate Last Admin: 01/06/19 13:42 Dose: 5 mg Pantoprazole Sodium (Protonix Tab*) 40 mg PO DAILY [facility] Last Admin: 01/08/19 07:32 Dose: 40 mg Senna (Senokot 8.6 Mg Tab*) 2 tab PO DAILY [facility] Last Admin: 01/08/19 07:32 Dose: 2 tab Spironolactone (Aldactone Tab*) 25 mg PO DAILY [facility] Last Admin: 01/08/19 07:33 Dose: 25 mg Laboratory Results - last 24 hr 01/07/19 01/07/19 01/07/19 11:18 11:42 16:29 POC Glucose (mg/dL) > 444 H* > 444 H* Glucose Meter Confirm 427 H 01/07/19 01/08/19 16:38 07:09 POC Glucose (mg/dL) 340 H Glucose Meter Confirm 510 H* Exam: Gen: 73 yo male in NAD, lying comfortably in a hospital bed HEENT: MMM CV: RRR, no m/r/g Resp: CTA, no w/c/r Abd: soft, nonTTP Ext: non TTP Psych: developmental delay, alert and appropriately oriented] Assessment: [This is a 73 yo male with a mild developmental delay with a new diagnosis of multiple myeloma who was hospitalized for intractable pain. MRI does not show any cord compression, but he has multiple lytic lesions with a compression fracture at L3. Pain has improved with initiation of high dose dexamethasone. ] Plan: [1. Back pain - reviewed case with Dr Cotter to consider palliative RT, consult pending for Wednesday - cont prn oxycodone - cont high dose dexamethasone (40 mg IV x 4d), today is day 3 2. Multiple myeloma - bone marrow biopsy results are pending - cont high dose dexamethasone for palliation - plan to start systemic therapy ELIESER 3. NIDDM with steroid induced hyperglycemia - cont metformin/glipizide - monitor glucose with high dose dex and cover hyperglycemia with SS humalog - add Lantus today 4. HTN - cont home medications 5. Developmental delay - has been living independently with community support Dispo: will likely require JESSICA. Pending RT consultation
--- NOTE | 2019-01-08 11:46 | PN ---
Subjective - Subjective Reason for Note: Progress Note History: Primary care and endocrine consultation: I have been following the events surrounding Scott Rios's admission. We noted he had mild trilineage bone marrow suppression. We ruled out iron/ vitamin B12/folic acid deficiency. He has a slightly elevated reticulocyte count. US liver/spleen ruled out portal hypertension and hypersplenism. He had severe fibrosis of the liver that I initially interpreted as cryptogenic cirrhosis. We referred him to oncology for a bone marrow biopsy and work up for this mild trilineage bone marrow problem. Dr. Terence Singh diagnoses both multiple myeloma and chronic hepatitis B infection. He tells me he developed new, severe, low back pain on Dec 07, 2018. Steroids have helped with this pain. He has been failing as an outpatient. He has lost weight likely due to anorexia secondary to the myeloma and came off insulin therapy (he had taken this for years). He asked us last week if he could be admitted to a SNF as he was not coping. Today he is feeling better with the steroids. His pain is well controlled and his appetite is restored. He has marked hyperglycemia. 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 Compression fracture of L3 vertebra (Acute) S32.030A Diabetes mellitus type 2 (Acute) E11.9 Low back pain (Acute) M54.5 Lytic bone lesions on xray (Acute) M89.9 Multiple myeloma (Acute) C90.00 Steroid-induced hyperglycemia (Acute) R73.9, T38.0X5A Chronic hepatitis B (Chronic) B18.1 Dysconjugate gaze (Chronic) H51.8 Essential hypertension (Chronic) I10 Intellectual disability (Chronic) F79 Knee pain (Chronic) M25.569 Mental retardation (Chronic) F79 Sleep apnea (Chronic) G47.30 Current Medications: Current Medications Acetaminophen (Tylenol Adult Liq*) 650 mg PO Q6H PRN PRN Reason: PAIN - MILD Last Admin: 01/08/19 07:32 Dose: 650 mg Amlodipine Besylate (Norvasc Tab*) 5 mg PO DAILY [facility] Last Admin: 01/08/19 07:33 Dose: 5 mg Aspirin (Aspirin Ec Tab*) 81 mg PO DAILY [facility] Last Admin: 01/08/19 07:32 Dose: 81 mg Atorvastatin Calcium (Lipitor*) 20 mg PO DAILY [facility] Last Admin: 01/08/19 07:33 Dose: 20 mg Bupropion HCl (Wellbutrin Sr Tab*) 150 mg PO DAILY [facility] Last Admin: 01/08/19 07:33 Dose: 150 mg Citalopram Hydrobromide (Celexa Tab*) 20 mg PO DAILY [facility] Last Admin: 01/08/19 07:32 Dose: 20 mg Dextrose (Dextrose 50% Vial 50 Ml*) 25 ml IV PUSH .FOR FS < 60 - SS PRN PRN Reason: FS < 60 Docusate Sodium (Colace Cap*) 200 mg PO DAILY [facility] Last Admin: 01/08/19 07:31 Dose: 200 mg Enoxaparin Sodium (Lovenox(*)) 40 mg SUBCUT Q24H [facility] Last Admin: 01/07/19 17:27 Dose: 40 mg Gabapentin (Neurontin Cap(*)) 300 mg PO DAILY [facility] Last Admin: 01/08/19 07:33 Dose: 300 mg Glipizide (Glucotrol Tab*) 10 mg PO DAILY@0730 [facility] Last Admin: 01/08/19 07:32 Dose: 10 mg Dexamethasone Sodium Phosphate (40 mg/ Sodium Chloride) 60 mls @ 120 mls/hr IVPB DAILY [facility] Stop: 01/09/19 09:29 Last Admin: 01/08/19 08:13 Dose: 120 mls/hr Insulin Glargine (Lantus(*)) 20 units SUBCUT Q24H [facility] Last Admin: 01/08/19 09:56 Dose: 20 units Insulin Human Lispro (Humalog*) 0 units SUBCUT AC [facility]; Protocol Last Admin: 01/08/19 08:13 Dose: 8 units Losartan Potassium (Cozaar Tab*) 100 mg PO DAILY [facility] Last Admin: 01/08/19 07:32 Dose: 100 mg Magnesium Hydroxide (Milk Of Magnesia Liq*) 30 ml PO BID PRN PRN Reason: CONSTIPATION Last Admin: 01/08/19 07:32 Dose: 30 ml Metformin HCl (Glucophage*) 1,000 mg PO BID [facility] Last Admin: 01/08/19 07:32 Dose: 1,000 mg Miscellaneous (Ativan Pyxis Palacios) 1 ea N/A .ATIVAN IV PALACIOS PRN PRN Reason: PYXIS PALACIOS Oxycodone HCl (Oxycodone Oral Syr*Concentrte*) 5 mg PO Q6H PRN PRN Reason: Pain - moderate Last Admin: 01/06/19 13:42 Dose: 5 mg Pantoprazole Sodium (Protonix Tab*) 40 mg PO DAILY [facility] Last Admin: 01/08/19 07:32 Dose: 40 mg Senna (Senokot 8.6 Mg Tab*) 2 tab PO DAILY [facility] Last Admin: 01/08/19 07:32 Dose: 2 tab Spironolactone (Aldactone Tab*) 25 mg PO DAILY [facility] Last Admin: 01/08/19 07:33 Dose: 25 mg - Review of Systems Constitutional Symptoms: Yes: Weakness, Fatigue, No: Fever Pulmonary: Negative: Cough, Sputum, Respiratory Distress Cardiology: Negative: Chest Pain, Shortness of Breath, Palpitations, Swelling of Ankles Gastroenterology: Positive: Constipation Negative: Abdominal Pain, Nausea, Vomiting Genital - Urinary: Negative: Dysuria, Hematuria, Polyuria Home Medications: Home Medications Medication Instructions Recorded Confirmed Type Aspir-81 81 mg PO DAILY 03/07/12 01/05/19 History Celexa TAB* 20 mg PO DAILY 03/07/12 01/05/19 History Multi Complete 1 tab PO DAILY 03/07/12 01/05/19 History Naproxen TAB* 250 mg PO BID 03/07/12 01/05/19 History Prilosec CAP* 20 mg PO DAILY 03/07/12 01/05/19 History Spironolactone TAB* 25 mg PO DAILY 03/07/12 01/05/19 History Vitamin D-3 2,000 i.u. PO DAILY 03/07/12 01/05/19 History buPROPion TAB* 150 mg PO DAILY 03/07/12 01/05/19 History glipiZIDE TAB* 10 mg PO DAILY 03/07/12 01/05/19 History metFORMIN TAB* 1,000 mg PO BID 03/07/12 01/05/19 History Exenatide Microspheres [Bydureon] 2 mg SC WEEKLY 02/03/15 01/05/19 History Losartan TAB* [Cozaar TAB*] 100 mg PO DAILY 02/03/15 01/05/19 History Acetaminophen TAB* [Tylenol TAB*] 650 mg PO Q6H PRN #30 tab MDD 4 gm 12/30/18 Rx Atorvastatin Calcium [Lipitor] 20 mg PO DAILY 01/05/19 01/05/19 History Docusate Sodium 200 mg PO DAILY 01/05/19 01/05/19 History Gabapentin 300 mg PO DAILY 01/05/19 01/05/19 History Potassium Chlor TAB* [Klor Con ER 20 meq PO DAILY 01/05/19 01/05/19 History TAB*] Sennosides [Senna] 2 tab PO DAILY 01/05/19 01/05/19 History amLODIPine TAB* [Norvasc 5 mg TAB*] 5 mg PO DAILY 01/05/19 01/05/19 History Allergies: Allergies Allergy/AdvReac Type Severity Reaction Status Date / Time cefazolin Allergy Severe See Comment Verified 01/05/19 15:08 enalapril Allergy Severe Swelling Verified 01/05/19 15:08 Of Face,Lips,& Throat levofloxacin [From Levaquin] Allergy Severe See Comment Verified 01/05/19 15:08 pioglitazone [From Actos] Allergy Mild See Comment Verified 01/05/19 15:08 tamsulosin [From Flomax] Allergy Unknown Unknown Verified 01/05/19 15:08 Reaction Details Objective - Vital Signs Vital Signs: Vital Signs 01/07/19 01/07/19 01/07/19 15:15 20:13 20:28 Temperature 98.2 F 97.9 F Pulse Rate 83 90 Respiratory 18 20 Rate Blood Pressure 128/63 134/57 (mmHg) O2 Sat by Pulse 98 98 Oximetry 01/08/19 01/08/19 01/08/19 00:18 02:55 06:48 Temperature 97.7 F 97.4 F Pulse Rate 75 87 Respiratory 16 20 18 Rate Blood Pressure 134/60 143/77 (mmHg) O2 Sat by Pulse 97 97 Oximetry 01/08/19 01/08/19 07:15 07:33 Temperature 97.6 F Pulse Rate 78 Respiratory 20 18 Rate Blood Pressure 144/69 (mmHg) O2 Sat by Pulse 99 Oximetry - Intake and Output Intake and Output: Intake & Output 01/05/19 01/06/19 01/07/19 01/08/19 11:59 11:59 11:59 10:59 Intake Total 785 039 9827 Output Total 300 2045 Balance 550 905 -825 Weight 206 lb 7 oz Intake: IV Fluids 20 85 25 NS (0.9%) 20 85 25 IVPB 60 65 NS (0.9%) 60 65 Oral 462 865 2936 Output: Urine 300 2045 Other: Estimated Void Small Medium Date of Last Bowel [id number] Movement # Bowel Movements 0 # Voids 2 3 ADLs: Meal Record Start: 01/05/19 16: 34 Freq: DAILY@0900,1400,1800 Status: Active Protocol: Created 01/05/19 16:34 System (Rec: 01/05/19 16:34 System [id number]) Document 01/05/19 18:00 [id number] (Rec: 01/05/19 19:19 [id number] MED-C09) Document 01/06/19 09:00 [id number] (Rec: 01/06/19 09:18 [id number] MED-C09) Document 01/06/19 14:00 [id number] (Rec: 01/06/19 14:11 [id number] MED-C09) Document 01/06/19 18:00 [id number] (Rec: 01/06/19 18:13 [id number] MED-C09) Document 01/07/19 09:00 [id number] (Rec: 01/07/19 09:58 [id number] MED-C09) Document 01/07/19 14:00 [id number] (Rec: 01/07/19 14:21 [id number] MED-C11) Document 01/08/19 09:00 [id number] (Rec: 01/08/19 11:02 [id number] MED-C09) Intake and Output Start: 01/05/19 16: 34 Freq: DAILY@0600,1400,2200 Status: Active Protocol: Created 01/05/19 16:34 System (Rec: 01/05/19 16:34 System [id number]) Document 01/05/19 22:00 [id number] (Rec: 01/06/19 04:06 [id number] MED-C09) Document 01/06/19 05:53 [id number] (Rec: 01/06/19 05:54 [id number] MED-C09) Document 01/06/19 14:00 [id number] (Rec: 01/06/19 14:24 [id number] MED-M04) Document 01/06/19 22:00 [id number] (Rec: 01/07/19 06:06 [id number] [facility]-C09) Document 01/07/19 06:00 [id number] (Rec: 01/07/19 06:09 [id number] MED-C09) Document 01/07/19 14:00 JULY5 (Rec: 01/07/19 14:21 JULY5 MED-C11) Document 01/07/19 22:00 [id number] (Rec: 01/07/19 22:49 [id number] [facility]-C09) Document 01/08/19 06:00 [id number] (Rec: 01/08/19 06:18 [id number] MED-C04) - Physical Exam General Physical Exam Comment: Alert and oriented, conversational. He is in no acute distress. Foot examination - dystrophic toe nails and dry skin. No ulcers or infections General: No Cyanosis, No Anemia, No Jaundice, No Clubbing Eye Exam: bilateral: EOMI - dysconjugate eye movements Endocrine: No Acromegaly, No Vitiligo, No Flushing, No Acanthosis nigricans, No Violaceious striae, No Bruce Syndrome Lungs and Chest: Yes: Chest Expansion Full, Chest Expansion Symetrica, Percussion Note Resonant, Vessicular Breath Sounds. No: Crackles, Wheezes Heart Rate and Rhythm: Regular Additional Cardiovascular: Yes: Normal Heart Sounds. No: Heart Murmur, Pedal Edema Abdominal Exam: Yes: Soft, Bowel Sounds Present. No: Distention, Abdominal Tenderness - Extremities Cranial Nerves II-XII Intact: Yes Limbs: Normal Tone, Abnormal Power - generalized decreased strength - mild - Neuro Orientation: A/O x3 Psychiatric: Normal Speech: Normal Results - Results Lab Results: Laboratory Results - last 24 hr 01/07/19 01/07/19 01/08/19 16:29 16:38 07:09 POC Glucose (mg/dL) > 444 H* 340 H Glucose Meter Confirm 510 H* 01/08/19 11:13 POC Glucose (mg/dL) 372 H Glucose Meter Confirm Laboratory Tests 01/07/19 01/07/19 01/07/19 06:22 06:22 16:38 WBC 6.2 Hgb 11.3 L Hct 33 L Plt Count 113 L Neut % (Auto) 87.7 Sodium 130 L Potassium 4.3 Chloride 102 Carbon Dioxide 23 BUN 24 Creatinine 0.96 Est GFR ( Amer) 93.2 Glucose 306 H Glucose Meter Confirm 510 H* Calcium 9.2 AST 32 ALT 25 Alkaline Phosphatase 78 Total Protein 9.2 H Albumin 2.5 L Globulin 6.7 H Radiology Results: Patient Name: SCOTT RIOS Medical Record#: [id number] Ordering Physician: Ange Brewer FILM REPRODUCER Acct.#: [id number] : 1945 Age: 73 Sex: M Location: [address] [place] [address] Exam Date: 01/05/19 152 ADM Status: ADM IN Order Information: MRI LUMBAR SPINE W/WO Accession Number: [id number] CPT: 14976 PROCEDURE INFORMATION: Exam: MR Lumbar Spine Without and With Contrast. Exam date and time: 01/05/2019 8:09 PM Clinical history: 73 years old, male; Low back pain; Patient HX: PT has had lower back and pelvic pain for the last week. PT has multiple myeloma; Additional info: Right sided weakness, pain, mult. Myeloma TECHNIQUE: Imaging protocol: Multiplanar magnetic resonance images of the lumbar spine without and with intravenous contrast. Contrast material: PROHANCE; Contrast volume: 19 ml; Contrast route: IV; COMPARISON: SP L WO CT SPINE LUMBAR W/O 12/30/2018 4:31 AM FINDINGS: Mild/moderate compression fracture involving L3 with edema. No significant osseous retropulsion. 1.7 cm focus of abnormal signal and enhancement involving the L2 vertebral body. Remaining marrow signal is heterogeneous. Conus medullaris terminates at T12-L1. No epidural fluid collection. L1-L2: Mild disc bulge without significant central or foraminal stenosis. L2-L3: Mild disc bulge and mild bilateral facet joint arthropathy. No significant central or foraminal stenosis. L3-L4: Mild disc bulge and mild bilateral facet joint arthropathy. No significant central canal stenosis. There is mild bilateral foraminal stenosis. L4-L5: Mild disc bulge with posterior annular tear. There is mild facet joint arthropathy and posterior laxity of ligamentum flavum. Borderline central canal stenosis, moderate right foraminal stenosis and mild to moderate left foraminal stenosis. L5-S1: Mild disc bulge and mild bilateral facet joint arthropathy. No significant central canal stenosis. There is mild to moderate bilateral foraminal stenosis. IMPRESSION: 1. Mild to moderate L3 compression fracture with edema, acute/subacute and progressed from recent CT study. No significant osseous retropulsion. 2. 1.7 cm focus of abnormal signal and enhancement involving the L2 vertebral body corresponding to lytic lesion on CT. Findings is worrisome for neoplasia. Patient Name: SCOTT RIOS Medical Record#: [id number] Ordering Physician: Ange Brewer NP Acct.#: [id number] : 1945 Age: 73 Sex: M Location: [address] [place] [address] Exam Date: 01/05/19 152 ADM Status: ADM IN Order Information: MRI PELVIS W/WO Accession Number: [id number] CPT: 11039 PROCEDURE INFORMATION: Exam: MR Pelvis Without and With Contrast, Musculoskeletal Exam date and time: 01/05/2019 7:53 PM Clinical history: 73 years old, male; Patient HX: PT has had lower back and pelvic pain for the last week. PT has multiple myeloma; Additional info: Right sided weakness, pain, mult. Myeloma TECHNIQUE: Imaging protocol: Magnetic resonance images of the pelvis without and with intravenous contrast. Exam focused on the musculoskeletal system. Contrast material: PROHANCE; Contrast volume: 19 ml; Contrast route: IV; COMPARISON: A/P WO CT ABD/PEL W/O 09/07/2012 2:25 AM FINDINGS: Bladder: Mildly thickwalled urinary bladder which is trabeculated. No producing or stranding. Reproductive: Surgically absent prostate and seminal vesicles. Bones/joints: There are numerous marrow lesions which are hyperintense on T2 and STIR and hypointense on T1 which show enhancement. No associated pathologic fractures. No Soft tissues: Normal. Bowel: Visualized bowel is normal in caliber. Distal colonic diverticula without adjacent inflammatory changes or associated wall thickening. IMPRESSION: 1. Numerous marrow lesions consistent with known multiple myeloma. 2. Distal colonic diverticulosis. To contact [facility] with a general question: [facility] - [phone] For direct physician to physician contact: Physician Hotline - [phone] [facility] ([facility] Facility ID #[id number]) <Electronically signed by Jocelyn Samuel MD in OV> 01/05/192133 Dictated By: Jocelyn Samuel MD Dictated Date/Time: 01/05/191952 Transcribed Date/Time: 01/05/191952 Copy to: Assessment - Problem List Assessment: Patient Problems Bone marrow depression (Acute) Compression fracture of L3 vertebra (Acute) Diabetes mellitus type 2 (Acute) Low back pain (Acute) Lytic bone lesions on xray (Acute) Multiple myeloma (Acute) Steroid-induced hyperglycemia (Acute) Chronic hepatitis B (Chronic) Dysconjugate gaze (Chronic) Essential hypertension (Chronic) Intellectual disability (Chronic) Knee pain (Chronic) Mental retardation (Chronic) Sleep apnea (Chronic) Plan: Diabetes mellitus type 2 (Acute)Steroid-induced hyperglycemia (Acute) He only recently stopped insulin. Has only had basal insulin as an outpatient as he is unable to manage prandial insulin. I think while he is on steroids he should be on a basal/bolus regimen. I will help adjust this. Bone marrow depression (Acute) Compression fracture of L3 vertebra (Acute) Low back pain (Acute) Lytic bone lesions on xray (Acute)Multiple myeloma (Acute) Per BEN Patterson and Ashley Singh MD. Chronic hepatitis B (Chronic) This is likely chronic. He has severe fibrosis of his liver, but no evidence of portal hypertension. Secondary diagnoses Dysconjugate gaze (Chronic) Essential hypertension (Chronic) Intellectual disability (Chronic) Knee pain (Chronic) Mental retardation (Chronic) Sleep apnea (Chronic) I spoke with Scott Rios about the above. He has some insight into his condition and was able to ask me appropriate questions about the treatment. He is interested in medical management. He has a home at [facility], though right now he doesn't feel capable of living there independently. With treatment of his back pain and the myeloma, together with subacute rehabilitation, I think he may be able to return home. I discussed his case at length with BEN Patterson.
[2019-01-08] MEDS ORDERED: Dextrose 50% VIAL 50 ml IV PUSH PRN (12:08)
[2019-01-08] MEDS: Enoxaparin(*) 40 MG/0.4 ML SYR SUBCUT SCH (17:22)
--- NOTE | 2019-01-08 20:21 | RADMED ---
CC: Dr. Calloway; Dr. Singh * RADIATION ONCOLOGY INPATIENT CONSULTATION NOTE: DATE OF CONSULT: 01/06/19 - ROOM #419 DIAGNOSIS: Multiple myeloma. HISTORY OF PRESENT ILLNESS: Alan Rios is a 74-year-old gentleman with history of prostate cancer, found to have bone marrow suppression and recently diagnosed multiple myeloma. He presents with uncontrolled low back pain, and MRI of the lumbar spine performed 01/05/19 identifies pathological compression fracture in the L3 vertebral body. He was referred for consultation regarding palliative radiation therapy. Bone marrow biopsy was performed earlier today, results pending. PAST MEDICAL HISTORY: Diabetes, hyperlipidemia, hypertension, arthritis, hepatitis. MEDICATIONS: Inpatient: 1. Tylenol. 2. Norvasc. 3. Aspirin. 4. Lipitor. 5. Wellbutrin. 6. Celexa. 7. Dexamethasone. 8. Colace. 9. Lovenox. 10. Neurontin. 11. Insulin. 12. Glipizide. 13. Cozaar. 14. Metformin. 15. Oxycodone. 16. Protonix. 17. Aldactone. ALLERGIES: CEFAZOLIN, ENALAPRIL, LEVAQUIN, PIOGLITAZONE, TAMSULOSIN. FAMILY HISTORY: Significant for his sister who had cancer. SOCIAL HISTORY: He is a nonsmoker. REVIEW OF SYSTEMS: As in the history of present illness, otherwise complete review of systems is asked to the patient, without additional contributing findings. PHYSICAL EXAM: Vital Signs: Temperature 97.7, pulse rate 88, respiratory rate 16, blood pressure 144/71. In general, he is awake and alert and responsive, oriented to his medical situation to some degree. Normocephalic, atraumatic. Sclerae are anicteric. Neck is supple. Full range of motion. Midline trachea. No mass palpable in the neck or thyroid. Lungs: Symmetric air entry bilaterally. Cardiovascular: S1, S2. Regular. Abdomen: Soft, nontender. No mass. No organomegaly. Extremities: No cyanosis. Musculoskeletal: Tenderness to palpation over the mid low back, reproducing his pain. Neurologic Exam: Disconjugate gaze. Strength is intact in the upper extremities and symmetrical, with decreased hip flexion on the right lower extremity, potentially limited by pain. ASSESSMENT AND PLAN: Alan Rios is a 74-year-old gentleman with recently diagnosed multiple myeloma and severe back pain attributable to pathological compression fracture in the L3 vertebral body. I did review his history as well as the pathologic and radiographic findings, and discussed at some length with the patient. I explained the potential use of palliative radiation therapy to the spine to try to improve pain control including the logistics and rationale for treatment, risks, benefits, and alternatives as well as the acute and long-term frequent and uncommon toxicities. I did answer his questions to the best of my ability. He is inclined to proceed with palliative radiation therapy as discussed, and did sign informed consent. He will undergo CT simulation today to facilitate treatment planning. For his situation, I recommend 2000 cGy at 400 cGy per fraction, tentative treatment start date 01/09. Thank you for giving me the opportunity to participate in the care of this very pleasant gentleman. [id number]/[facility] #: [id number] HARL[place]
[2019-01-09 06:24] LABS: ABS Lymphocytes 0.5 10^3/ul (1.0-4.8); ABS Monocytes 0.5 10^3/ul (0-0.8); ABS Neutrophils 7.2 10^3/ul (1.5-7.7); Hematocrit 33 % (42-52); Hemoglobin 11.3 g/dL (14.0-18.0); Lymphocyte % 5.6 %; Mean Corpuscular HGB Conc 35 g/dL (31-36); Mean Corpuscular Hemoglobin 35 pg (27-31); Mean Corpuscular Volume 101 fL (80-94); Mean Platelet Volume 11.2 fL (7.4-10.4); Platelet Count 113 10^3/uL (150-450); Red Blood Count 3.22 10^6 /uL (4.18-5.48); Red Cell Distribution Width 14 % (10-15); White Blood Count 8.1 10^3/uL (3.5-10.8)
[2019-01-09 06:42] LABS: Albumin 2.5 g/dL (3.2-5.2); Albumin/Globulin Ratio 0.4 (1-3); BUN/Creatinine Ratio 38.3 (8-20); Calcium 9.2 mg/dL (8.6-10.3); EGFR Non-African American 59.5 (>60); Globulin 5.9 g/dL (2-4); Potassium 4.4 mmol/L (3.5-5.0); Total Bilirubin 0.3 mg/dL (0.2-1.0); Total Protein 8.4 g/dL (6.4-8.9); Uric Acid 8.7 mg/dL (4.4-7.6)
[2019-01-09] MEDS ORDERED: Dexamethasone IV* 4 MG/ML 5 ML VIAL (20 MG) ONE (08:20)
--- NOTE | 2019-01-09 08:30 | PN ---
Subjective - Subjective Reason for Note: Consultation Note History: Endocrinology/primary care: He remains hyperglycemic with FS > 300 mg/dl. He has a good appetite. He has had some pain in his right abdomen radiating from his back. Otherwise, he has no new complaints Current Medications: Current Medications Acetaminophen (Tylenol Adult Liq*) 650 mg PO Q6H PRN PRN Reason: PAIN - MILD Last Admin: 01/08/19 07:32 Dose: 650 mg Amlodipine Besylate (Norvasc Tab*) 5 mg PO DAILY [facility] Last Admin: 01/08/19 07:33 Dose: 5 mg Aspirin (Aspirin Ec Tab*) 81 mg PO DAILY [facility] Last Admin: 01/08/19 07:32 Dose: 81 mg Atorvastatin Calcium (Lipitor*) 20 mg PO DAILY [facility] Last Admin: 01/08/19 07:33 Dose: 20 mg Bupropion HCl (Wellbutrin Sr Tab*) 150 mg PO DAILY [facility] Last Admin: 01/08/19 07:33 Dose: 150 mg Citalopram Hydrobromide (Celexa Tab*) 20 mg PO DAILY [facility] Last Admin: 01/08/19 07:32 Dose: 20 mg Dextrose (Dextrose 50% Vial 50 Ml*) 25 ml IV PUSH .FOR FS < 60 - SS PRN PRN Reason: FS < 60 Docusate Sodium (Colace Cap*) 200 mg PO DAILY [facility] Last Admin: 01/08/19 07:31 Dose: 200 mg Enoxaparin Sodium (Lovenox(*)) 40 mg SUBCUT Q24H [facility] Last Admin: 01/08/19 17:22 Dose: 40 mg Gabapentin (Neurontin Cap(*)) 300 mg PO DAILY [facility] Last Admin: 01/08/19 07:33 Dose: 300 mg Glipizide (Glucotrol Tab*) 10 mg PO DAILY@0730 [facility] Last Admin: 01/08/19 07:32 Dose: 10 mg Dexamethasone Sodium Phosphate (40 mg/ Sodium Chloride) 60 mls @ 120 mls/hr IVPB DAILY [facility] Stop: 01/09/19 09:29 Last Admin: 01/08/19 08:13 Dose: 120 mls/hr Insulin Glargine (Lantus(*)) 20 units SUBCUT Q24H [facility] Last Admin: 01/08/19 09:56 Dose: 20 units Insulin Human Lispro (Humalog*) 12 units SUBCUT [facility]; Protocol Last Admin: 01/08/19 17:22 Dose: 12 units Losartan Potassium (Cozaar Tab*) 100 mg PO DAILY [facility] Last Admin: 01/08/19 07:32 Dose: 100 mg Magnesium Hydroxide (Milk Of Magnesia Liq*) 30 ml PO BID PRN PRN Reason: CONSTIPATION Last Admin: 01/08/19 07:32 Dose: 30 ml Metformin HCl (Glucophage*) 1,000 mg PO BID [facility] Last Admin: 01/08/19 22:41 Dose: 1,000 mg Miscellaneous (Ativan Pyxis Gerard) 1 ea N/A .ATIVAN IV GERARD PRN PRN Reason: PYXIS GERARD Oxycodone HCl (Oxycodone Oral Syr*Concentrte*) 5 mg PO Q6H PRN PRN Reason: Pain - moderate Last Admin: 01/06/19 13:42 Dose: 5 mg Pantoprazole Sodium (Protonix Tab*) 40 mg PO DAILY [facility] Last Admin: 01/08/19 07:32 Dose: 40 mg Senna (Senokot 8.6 Mg Tab*) 2 tab PO DAILY [facility] Last Admin: 01/08/19 07:32 Dose: 2 tab Spironolactone (Aldactone Tab*) 25 mg PO DAILY [facility] Last Admin: 01/08/19 07:33 Dose: 25 mg Home Medications: Home Medications Medication Instructions Recorded Confirmed Type Aspir-81 81 mg PO DAILY 03/07/12 01/05/19 History Celexa TAB* 20 mg PO DAILY 03/07/12 01/05/19 History Multi Complete 1 tab PO DAILY 03/07/12 01/05/19 History Naproxen TAB* 250 mg PO BID 03/07/12 01/05/19 History Prilosec CAP* 20 mg PO DAILY 03/07/12 01/05/19 History Spironolactone TAB* 25 mg PO DAILY 03/07/12 01/05/19 History Vitamin D-3 2,000 i.u. PO DAILY 03/07/12 01/05/19 History buPROPion TAB* 150 mg PO DAILY 03/07/12 01/05/19 History glipiZIDE TAB* 10 mg PO DAILY 03/07/12 01/05/19 History metFORMIN TAB* 1,000 mg PO BID 03/07/12 01/05/19 History Exenatide Microspheres [Bydureon] 2 mg SC WEEKLY 02/03/15 01/05/19 History Losartan TAB* [Cozaar TAB*] 100 mg PO DAILY 02/03/15 01/05/19 History Acetaminophen TAB* [Tylenol TAB*] 650 mg PO Q6H PRN #30 tab MDD 4 gm 12/30/18 Rx Atorvastatin Calcium [Lipitor] 20 mg PO DAILY 01/05/19 01/05/19 History Docusate Sodium 200 mg PO DAILY 01/05/19 01/05/19 History Gabapentin 300 mg PO DAILY 01/05/19 01/05/19 History Potassium Chlor TAB* [Klor Con ER 20 meq PO DAILY 01/05/19 01/05/19 History TAB*] Sennosides [Senna] 2 tab PO DAILY 01/05/19 01/05/19 History amLODIPine TAB* [Norvasc 5 mg TAB*] 5 mg PO DAILY 01/05/19 01/05/19 History Allergies: Allergies Allergy/AdvReac Type Severity Reaction Status Date / Time cefazolin Allergy Severe See Comment Verified 01/05/19 15:08 enalapril Allergy Severe Swelling Verified 01/05/19 15:08 Of Face,Lips,& Throat levofloxacin [From Levaquin] Allergy Severe See Comment Verified 01/05/19 15:08 pioglitazone [From Actos] Allergy Mild See Comment Verified 01/05/19 15:08 tamsulosin [From Flomax] Allergy Unknown Unknown Verified 01/05/19 15:08 Reaction Details Objective - Vital Signs Vital Signs: Vital Signs 01/08/19 01/08/19 01/08/19 11:15 15:15 19:58 Temperature 97.6 F 97.7 F 97.7 F Pulse Rate 71 91 79 Respiratory 18 18 18 Rate Blood Pressure 118/64 111/60 133/65 (mmHg) O2 Sat by Pulse 98 99 97 Oximetry 01/08/19 01/08/19 01/09/19 22:41 23:18 02:49 Temperature 97.6 F 97.2 F Pulse Rate 77 81 Respiratory 20 16 16 Rate Blood Pressure 151/68 148/76 (mmHg) O2 Sat by Pulse 97 97 Oximetry 01/09/19 07:18 Temperature 97.4 F Pulse Rate 75 Respiratory 18 Rate Blood Pressure 142/71 (mmHg) O2 Sat by Pulse 97 Oximetry - Intake and Output Intake and Output: Intake & Output 01/06/19 01/07/19 01/08/19 01/09/19 12:59 12:59 11:59 11:59 Intake Total 1740 Output Total 1950 Balance -210 Weight Intake: IV Fluids NS (0.9%) IVPB NS (0.9%) Oral 1740 Output: Urine 1950 Other: Estimated Void Date of Last Bowel Movement # Bowel Movements 0 Estimated Stool Amount Large # Voids ADLs: Meal Record Start: 01/05/19 16: 34 Freq: DAILY@0900,1400,1800 Status: Active Protocol: Created 01/05/19 16:34 System (Rec: 01/05/19 16:34 System [id number]) Document 01/05/19 18:00 [id number] (Rec: 01/05/19 19:19 [id number] MED-C09) Document 01/06/19 09:00 [id number] (Rec: 01/06/19 09:18 [id number] MED-C09) Document 01/06/19 14:00 [id number] (Rec: 01/06/19 14:11 [id number] MED-C09) Document 01/06/19 18:00 [id number] (Rec: 01/06/19 18:13 [id number] MED-C09) Document 01/07/19 09:00 [id number] (Rec: 01/07/19 09:58 [id number] MED-C09) Document 01/07/19 14:00 [id number] (Rec: 01/07/19 14:21 [id number] MED-C11) Document 01/08/19 09:00 [id number] (Rec: 01/08/19 11:02 [id number] MED-C09) Document 01/08/19 14:00 [id number] (Rec: 01/08/19 14:14 [id number] MED-C09) Document 01/08/19 18:00 [id number] (Rec: 01/08/19 18:46 [id number] MED-C09) Intake and Output Start: 01/05/19 16: 34 Freq: DAILY@0600,1400,2200 Status: Active Protocol: Created 01/05/19 16:34 System (Rec: 01/05/19 16:34 System [id number]) Document 01/05/19 22:00 [id number] (Rec: 01/06/19 04:06 [id number] MED-C09) Document 01/06/19 05:53 [id number] (Rec: 01/06/19 05:54 [id number] MED-C09) Document 01/06/19 14:00 [id number] (Rec: 01/06/19 14:24 [id number] MED-M04) Document 01/06/19 22:00 [id number] (Rec: 01/07/19 06:06 [id number] MED-C09) Document 01/07/19 06:00 [id number] (Rec: 01/07/19 06:09 [id number] MED-C09) Document 01/07/19 14:00 [id number] (Rec: 01/07/19 14:21 [id number] MED-C11) Document 01/07/19 22:00 [id number] (Rec: 01/07/19 22:49 [id number] MED-C09) Document 01/08/19 06:00 [id number] (Rec: 01/08/19 06:18 [id number] MED-C04) Document 01/08/19 14:00 [id number] (Rec: 01/08/19 14:16 [id number] MED-C09) Document 01/08/19 22:00 [id number] (Rec: 01/09/19 02:11 [id number] MED-C09) Document 01/09/19 06:00 [id number] (Rec: 01/09/19 06:16 [id number] MED-C09) Document 01/09/19 07:19 [id number] (Rec: 01/09/19 07:19 [id number] MED-M09) - Physical Exam General Physical Exam Comment: Alert and conversant - aware of his situation General: No Cyanosis, No Anemia, No Jaundice, No Clubbing Lungs and Chest: Yes: Chest Expansion Full, Chest Expansion Symetrica, Vessicular Breath Sounds. No: Crackles, Wheezes Heart Rate and Rhythm: Regular Additional Cardiovascular: Yes: Normal Heart Sounds. No: Heart Murmur, Pedal Edema Abdominal Exam: Yes: Soft, Bowel Sounds Present. No: Distention, Abdominal Tenderness Results - Results Lab Results: Laboratory Results - last 24 hr 01/08/19 01/08/19 01/08/19 11:13 16:16 16:26 WBC RBC Hgb Hct MCV MCH MCHC RDW Plt Count MPV Neut % (Auto) Lymph % (Auto) [place] % (Auto) Eos % (Auto) Baso % (Auto) Absolute Neuts (auto) Absolute Lymphs (auto) Absolute Monos (auto) Absolute Eos (auto) Absolute Basos (auto) Absolute Nucleated RBC Nucleated RBC % Sodium Potassium Chloride Carbon Dioxide Anion Gap BUN Creatinine Est GFR ( Amer) Est GFR (Non-Af Amer) BUN/Creatinine Ratio Glucose POC Glucose (mg/dL) 372 H > 444 H* Glucose Meter Confirm 459 H Uric Acid Calcium Total Bilirubin AST ALT Alkaline Phosphatase Total Protein Albumin Globulin Albumin/Globulin Ratio 01/09/19 01/09/19 01/09/19 05:24 05:24 07:42 WBC 8.1 RBC 3.22 L Hgb 11.3 L Hct 33 L MCV 101 H MCH 35 H MCHC 35 RDW 14 Plt Count 113 L MPV 11.2 H Neut % (Auto) 88.2 Lymph % (Auto) 5.6 [place] % (Auto) 6.2 Eos % (Auto) 0.0 Baso % (Auto) 0.0 Absolute Neuts (auto) 7.2 Absolute Lymphs (auto) 0.5 L Absolute Monos (auto) 0.5 Absolute Eos (auto) 0.0 Absolute Basos (auto) 0.0 Absolute Nucleated RBC 0.0 Nucleated RBC % 0.0 Sodium 131 L Potassium 4.4 Chloride 103 Carbon Dioxide 23 Anion Gap 5 BUN 46 H Creatinine 1.20 H Est GFR ( Amer) 72.0 Est GFR (Non-Af Amer) 59.5 BUN/Creatinine Ratio 38.3 H Glucose 325 H POC Glucose (mg/dL) 332 H Glucose Meter Confirm Uric Acid 8.7 H Calcium 9.2 Total Bilirubin 0.30 AST 27 ALT 27 Alkaline Phosphatase 118 H Total Protein 8.4 Albumin 2.5 L Globulin 5.9 H Albumin/Globulin Ratio 0.4 L Assessment - Problem List Assessment: Patient Problems Bone marrow depression (Acute) Compression fracture of L3 vertebra (Acute) Diabetes mellitus type 2 (Acute) Low back pain (Acute) Lytic bone lesions on xray (Acute) Multiple myeloma (Acute) Steroid-induced hyperglycemia (Acute) Chronic hepatitis B (Chronic) Dysconjugate gaze (Chronic) Essential hypertension (Chronic) Intellectual disability (Chronic) Knee pain (Chronic) Mental retardation (Chronic) Sleep apnea (Chronic) Plan: T2D and steroid induced hyperglycemia: We have not caught up with his insulin requirements. I will significantly increase his basal/bolus protocol Bone marrow depression (Acute) Compression fracture of L3 vertebra (Acute) Low back pain (Acute) Lytic bone lesions on xray (Acute) Multiple myeloma (Acute) I note his uric acid is elevated. I will start him on allopurinol 100 mg. Secondary diagnoses. Chronic hepatitis B (Chronic) Dysconjugate gaze (Chronic) Essential hypertension (Chronic) - BP at the upper end. I will consider altering his medication if this is sustained with the steroid treatment Intellectual disability (Chronic) Knee pain (Chronic) Mental retardation (Chronic) Sleep apnea (Chronic) I discussed the above with the patient.
[2019-01-09] MEDS: Insulin LISPRO* 1 UNITS UNIT SUBCUT SCH (08:48)
[2019-01-09] MEDS: glipiZIDE TAB* 5 MG PO SCH (08:49)
[2019-01-09] MEDS: Gabapentin CAP(*) 300 MG PO SCH (08:51)
[2019-01-09] MEDS: Citalopram TAB* 20 MG PO SCH (08:51)
[2019-01-09] MEDS: Losartan TAB* 25 MG PO SCH (08:51)
[2019-01-09] MEDS: Aspirin EC TAB* 81 MG TAB.EC PO SCH (08:52)
[2019-01-09] MEDS: metFORMIN* 500 MG TAB PO SCH ×2 (08:52→20:27)
[2019-01-09] MEDS: Atorvastatin* 20 MG TAB PO SCH (08:52)
[2019-01-09] MEDS: amLODIPine TAB* 5 MG PO SCH (08:52)
[2019-01-09] MEDS: Spironolactone TAB* 25 MG PO SCH (08:52)
[2019-01-09] MEDS: Docusate CAP* 100 MG PO SCH (08:53)
[2019-01-09] MEDS: Pantoprazole TAB * 40 MG TAB PO SCH (08:53)
[2019-01-09] MEDS: Senna TAB 8.6 mg* TAB PO SCH (08:53)
[2019-01-09] MEDS: Allopurinol TAB* 100 MG PO SCH (08:54)
[2019-01-09] MEDS: buPROPion SR TAB.SR* 150 MG PO SCH (08:58)
[2019-01-09] MEDS ORDERED: Insulin GLARGINE(*) 1 UNITS UNIT SUBCUT SCH (09:00)
[2019-01-09] MEDS: Dexamethasone IV* 40 MG in NS 0.9% 50 ML* 50 ML IVPB SCH (10:40)
[2019-01-09] MEDS ORDERED: Insulin LISPRO* 1 UNITS UNIT SUBCUT SCH ×2 (11:30→12:39)
--- NOTE | 2019-01-09 12:26 | CONS ---
DATE OF CONSULTATION: 01/09/2019. REQUESTING PROVIDER: BEN Patterson. CONSULTING SERVICE: Infectious Disease. REASON FOR CONSULTATION: Hepatitis B infection. IMPRESSION: 1. Chronic hepatitis B, immune intolerant phase, F2-3 by elastography, needing immunosuppressive treatment for myeloma in the near future. 2. Type 2 diabetes. 3. Hyperlipidemia. 4. Recent diagnosis of multiple myeloma. RECOMMENDATIONS: 1. He should be on hepatitis B treatment with upcoming chemotherapy. Because he has a slight increase in his creatinine, I will plan to avoid Tenofovir in the TDF formulation, so his alternatives are Tenofovir TAF or Entecavir. There is no clear benefit to either. Will plan on Entecavir at this point if HIV is negative. 2. Check an HIV antibody HISTORY OF PRESENT ILLNESS: This 74-year-old with some limitation in his ability to provide history which was obtained instead from review of the medical record and discussion with BEN Patterson. He had recent hepatitis B serologies that showed him to be surface antigen positive, core IgM negative with a DNA of 1.4 million, no e antigen or antibody. His hep C antibody was negative. He did not have an HIV antibody. He is here now with pain and to initiate of radiation therapy related to his myeloma diagnosis. Plan is chemotherapy to start in the next week or two. His creatinine here was 1.2, ALT is 27. He did live in group homes as a child. Not sure about blood transfusions. He has no abdominal pain, abdominal distention, or swelling in his legs. He had a CT of his abdomen December 29 that showed low attenuation liver without hepatic masses. He did have an elastography on September 15 that showed an echogenic focus in the right lobe that led to the CT. The fibrosis level is between F2 and F3. PAST MEDICAL HISTORY: Type 2 diabetes, chronic hepatitis B, hyperlipidemia, hypertension, osteoarthritis, prostate cancer status post prostatectomy. MEDICATIONS: 1. Tylenol as needed. 2. Allopurinol. 3. Amlodipine. 4. Aspirin. 5. Lipitor. 6. Bupropion. 7. Citalopram. 8. Docusate. 9. Enoxaparin. 10. Gabapentin. 11. Insulin Glargine. 12. Insulin Lispro. 13. Losartan. 14. Metformin. 15. Pantoprazole. 16. Spironolactone. ALLERGIES: CEFAZOLIN, ENALAPRIL, LEVOFLOXACIN, PIOGLITAZONE, TAMSULOSIN. FAMILY HISTORY: No recurrent infections. His parents are both when he was a child. SOCIAL HISTORY: Lives at [facility]. He has medication support there. He is a nonsmoker. REVIEW OF SYSTEMS: All negative except as noted above to a 12 point review of systems. PHYSICAL EXAM: General: He is awake, not in distress. Vital Signs: Temperature 36.3, heart rate 70, respiratory rate 18, blood pressure 142/71, oxygen saturation 97 percent on room air. Neurologic: He is oriented times three. Follows commands. Answers questions appropriately. HEENT: There is no conjunctival hemorrhage. Oropharynx without lesions. Neck: Supple without mass. Heart: Regular rate and rhythm without murmurs, rubs, or gallops. Lungs : Clear to auscultation bilaterally. Abdomen: Soft, nontender, nondistended. There are bowel sounds present. Skin: There is no rash or splinter hemorrhages. Musculoskeletal: There is no spine tenderness to palpation or joint synovitis. LABORATORY DATA: White blood cell count 8, hemoglobin 11, platelets 113, creatinine 1.2, ALT 27. Please see impressions and recommended as outline above. Thank you for asking me to see Mr. Rios in consultation. [id number]/[facility] #: [id number] HARLAN
[2019-01-09 15:54] LABS: HIV 4th Generation Nonreactive (Nonreactive)
--- NOTE | 2019-01-09 17:24 | PN ---
Progress Note - Progress Note Date of Service: 01/09/19 SOAP: Subjective: [Doing well. Up walking with PT today. Plans to start palliative RT.] Objective: [ Vital Signs: Temp Pulse Resp BP Pulse Ox 97.2 F 91 18 119/59 99 01/09/19 11:29 01/09/19 11:29 01/09/19 11:29 01/09/19 11:29 01/09/19 11:29 Acetaminophen (Tylenol Adult Liq*) 650 mg PO Q6H PRN PRN Reason: PAIN - MILD Last Admin: 01/08/19 07:32 Dose: 650 mg Allopurinol (Zyloprim Tab*) 100 mg PO DAILY [facility] Last Admin: 01/09/19 08:54 Dose: 100 mg Amlodipine Besylate (Norvasc Tab*) 5 mg PO DAILY [facility] Last Admin: 01/09/19 08:52 Dose: 5 mg Aspirin (Aspirin Ec Tab*) 81 mg PO DAILY [facility] Last Admin: 01/09/19 08:52 Dose: 81 mg Atorvastatin Calcium (Lipitor*) 20 mg PO DAILY [facility] Last Admin: 01/09/19 08:52 Dose: 20 mg Bupropion HCl (Wellbutrin Sr Tab*) 150 mg PO DAILY [facility] Last Admin: 01/09/19 08:58 Dose: 150 mg Citalopram Hydrobromide (Celexa Tab*) 20 mg PO DAILY [facility] Last Admin: 01/09/19 08:51 Dose: 20 mg Dextrose (Dextrose 50% Vial 50 Ml*) 25 ml IV PUSH .FOR FS < 60 - SS PRN PRN Reason: FS < 60 Docusate Sodium (Colace Cap*) 200 mg PO DAILY [facility] Last Admin: 01/09/19 08:53 Dose: 200 mg Enoxaparin Sodium (Lovenox(*)) 40 mg SUBCUT Q24H [facility] Last Admin: 01/08/19 17:22 Dose: 40 mg Gabapentin (Neurontin Cap(*)) 300 mg PO DAILY [facility] Last Admin: 01/09/19 08:51 Dose: 300 mg Insulin Glargine (Lantus(*)) 30 units SUBCUT Q12H [facility] Last Admin: 01/09/19 08:49 Dose: 30 units Insulin Human Lispro (Humalog*) 20 units SUBCUT AC [facility] Losartan Potassium (Cozaar Tab*) 100 mg PO DAILY [facility] Last Admin: 01/09/19 08:51 Dose: 100 mg Magnesium Hydroxide (Milk Of Magnesia Liq*) 30 ml PO BID PRN PRN Reason: CONSTIPATION Last Admin: 01/08/19 07:32 Dose: 30 ml Metformin HCl (Glucophage*) 1,000 mg PO BID [facility] Last Admin: 01/09/19 08:52 Dose: 1,000 mg Miscellaneous (Ativan Pyxis Gerard) 1 ea N/A .ATIVAN IV GERARD PRN PRN Reason: PYXIS GERARD Oxycodone HCl (Oxycodone Oral Syr*Concentrte*) 5 mg PO Q6H PRN PRN Reason: Pain - moderate Last Admin: 01/06/19 13:42 Dose: 5 mg Pantoprazole Sodium (Protonix Tab*) 40 mg PO DAILY [facility] Last Admin: 01/09/19 08:53 Dose: 40 mg Senna (Senokot 8.6 Mg Tab*) 2 tab PO DAILY [facility] Last Admin: 01/09/19 08:53 Dose: 2 tab Spironolactone (Aldactone Tab*) 25 mg PO DAILY [facility] Last Admin: 01/09/19 08:52 Dose: 25 mg Laboratory Results - last 24 hr 01/06/19 01/09/19 01/09/19 11:21 05:24 05:24 WBC 8.1 RBC 3.22 L Hgb 11.3 L Hct 33 L MCV 101 H MCH 35 H MCHC 35 RDW 14 Plt Count 113 L MPV 11.2 H Neut % (Auto) 88.2 Lymph % (Auto) 5.6 [place] % (Auto) 6.2 Eos % (Auto) 0.0 Baso % (Auto) 0.0 Absolute Neuts (auto) 7.2 Absolute Lymphs (auto) 0.5 L Absolute Monos (auto) 0.5 Absolute Eos (auto) 0.0 Absolute Basos (auto) 0.0 Absolute Nucleated RBC 0.0 Nucleated RBC % 0.0 Sodium 131 L Potassium 4.4 Chloride 103 Carbon Dioxide 23 Anion Gap 5 BUN 46 H Creatinine 1.20 H Est GFR ( Amer) 72.0 Est GFR (Non-Af Amer) 59.5 BUN/Creatinine Ratio 38.3 H Glucose 325 H POC Glucose (mg/dL) Uric Acid 8.7 H Calcium 9.2 Total Bilirubin 0.30 AST 27 ALT 27 Alkaline Phosphatase 118 H Total Protein 8.4 Albumin 2.5 L Globulin 5.9 H Albumin/Globulin Ratio 0.4 L Flow Intrp 2-8 Markers TNP Flow Intrp 9-15 Marker Flow Intrp 16+ Markers TNP 01/09/19 01/09/19 07:42 12:26 WBC RBC Hgb Hct MCV MCH MCHC RDW Plt Count MPV Neut % (Auto) Lymph % (Auto) [place] % (Auto) Eos % (Auto) Baso % (Auto) Absolute Neuts (auto) Absolute Lymphs (auto) Absolute Monos (auto) Absolute Eos (auto) Absolute Basos (auto) Absolute Nucleated RBC Nucleated RBC % Sodium Potassium Chloride Carbon Dioxide Anion Gap BUN Creatinine Est GFR ( Amer) Est GFR (Non-Af Amer) BUN/Creatinine Ratio Glucose POC Glucose (mg/dL) 332 H 301 H Uric Acid Calcium Total Bilirubin AST ALT Alkaline Phosphatase Total Protein Albumin Globulin Albumin/Globulin Ratio Flow Intrp 2-8 Markers Flow Intrp 9-15 Marker Flow Intrp 16+ Markers Exam: Gen: 73 yo male in NAD, walking with the use of walker with PT assistance HEENT: MMM CV: RRR, no m/r/g Resp: CTA, no w/c/r Abd: soft, nonTTP Ext: non TTP Psych: developmental delay, alert and appropriately oriented] Assessment: [This is a 73 yo male with a mild developmental delay with a new diagnosis of multiple myeloma who was hospitalized for intractable pain. MRI does not show any cord compression, but he has multiple lytic lesions with a compression fracture at L3. Pain has improved with initiation of high dose dexamethasone. ] Plan: [1. Back pain - reviewed case with Dr Cotter who plans to initiate palliative RT to L3 compression fx today - cont prn oxycodone - cont high dose dexamethasone (40 mg IV x 4d), today is day 4 2. Multiple myeloma - bone marrow biopsy results show a hypercellular marrow with 50% cellularity with 44% plasma cells - cont high dose dexamethasone for palliation - plan to start systemic therapy ELIESER 3. Hepatitis B - this is a new dx with associated liver fibrosis - requested ID consultation to help manage in the setting of initiating immune suppressive agents 3. NIDDM with steroid induced hyperglycemia - appreciated Dr Calloway's involvement, cont insulin per Dr Calloway 4. HTN - cont home medications 5. Developmental delay - has been living independently with community support Dispo: will likely require JESSICA. Start palliative RT today]
[2019-01-09] MEDS ORDERED: Insulin LISPRO* 1 UNITS UNIT SUBCUT ONE (17:47)
[2019-01-09] MEDS: Insulin GLARGINE(*) 1 UNITS UNIT SUBCUT SCH (17:50)
[2019-01-09] MEDS: Enoxaparin(*) 40 MG/0.4 ML SYR SUBCUT SCH (17:51)
[2019-01-10] MEDS: Insulin GLARGINE(*) 1 UNITS UNIT SUBCUT SCH (05:03)
[2019-01-10] MEDS ORDERED: Insulin LISPRO* 1 UNITS UNIT SUBCUT SCH (07:30)
--- NOTE | 2019-01-10 07:51 | PN ---
Subjective - Subjective Reason for Note: Consultation Note History: Endocrinology/primary care He stopped his dexamethasone yesterday and his glucose has come down (also with considerably more insulin). He is feeling hungry. He has 3/10 pain in his lower back and right side. Otherwise, he has no new problems. His BP remains a little high Active Problems: Active Problems Hyperuricemia (Acute) E79.0 Current Medications: Current Medications Acetaminophen (Tylenol Adult Liq*) 650 mg PO Q6H PRN PRN Reason: PAIN - MILD Last Admin: 01/08/19 07:32 Dose: 650 mg Allopurinol (Zyloprim Tab*) 100 mg PO DAILY [facility] Last Admin: 01/09/19 08:54 Dose: 100 mg Amlodipine Besylate (Norvasc Tab*) 5 mg PO DAILY [facility] Last Admin: 01/09/19 08:52 Dose: 5 mg Aspirin (Aspirin Ec Tab*) 81 mg PO DAILY [facility] Last Admin: 01/09/19 08:52 Dose: 81 mg Atorvastatin Calcium (Lipitor*) 20 mg PO DAILY [facility] Last Admin: 01/09/19 08:52 Dose: 20 mg Bupropion HCl (Wellbutrin Sr Tab*) 150 mg PO DAILY [facility] Last Admin: 01/09/19 08:58 Dose: 150 mg Citalopram Hydrobromide (Celexa Tab*) 20 mg PO DAILY [facility] Last Admin: 01/09/19 08:51 Dose: 20 mg Dextrose (Dextrose 50% Vial 50 Ml*) 25 ml IV PUSH .FOR FS < 60 - SS PRN PRN Reason: FS < 60 Docusate Sodium (Colace Cap*) 200 mg PO DAILY [facility] Last Admin: 01/09/19 08:53 Dose: 200 mg Enoxaparin Sodium (Lovenox(*)) 40 mg SUBCUT Q24H [facility] Last Admin: 01/09/19 17:51 Dose: 40 mg Gabapentin (Neurontin Cap(*)) 300 mg PO DAILY [facility] Last Admin: 01/09/19 08:51 Dose: 300 mg Insulin Glargine (Lantus(*)) 40 units SUBCUT Q12H [facility] Last Admin: 01/10/19 05:03 Dose: 40 units Insulin Human Lispro (Humalog*) 25 units SUBCUT AC [facility] Losartan Potassium (Cozaar Tab*) 100 mg PO DAILY [facility] Last Admin: 01/09/19 08:51 Dose: 100 mg Magnesium Hydroxide (Milk Of Magnesia Liq*) 30 ml PO BID PRN PRN Reason: CONSTIPATION Last Admin: 01/08/19 07:32 Dose: 30 ml Metformin HCl (Glucophage*) 1,000 mg PO BID [facility] Last Admin: 01/09/19 20:27 Dose: 1,000 mg Miscellaneous (Ativan Pyxis Palacios) 1 ea N/A .ATIVAN IV PALACIOS PRN PRN Reason: PYXIS PALACIOS Oxycodone HCl (Oxycodone Oral Syr*Concentrte*) 5 mg PO Q6H PRN PRN Reason: Pain - moderate Last Admin: 01/06/19 13:42 Dose: 5 mg Pantoprazole Sodium (Protonix Tab*) 40 mg PO DAILY [facility] Last Admin: 01/09/19 08:53 Dose: 40 mg Senna (Senokot 8.6 Mg Tab*) 2 tab PO DAILY [facility] Last Admin: 01/09/19 08:53 Dose: 2 tab Spironolactone (Aldactone Tab*) 25 mg PO DAILY [facility] Last Admin: 01/09/19 08:52 Dose: 25 mg Home Medications: Home Medications Medication Instructions Recorded Confirmed Type Aspir-81 81 mg PO DAILY 03/07/12 01/05/19 History Celexa TAB* 20 mg PO DAILY 03/07/12 01/05/19 History Multi Complete 1 tab PO DAILY 03/07/12 01/05/19 History Naproxen TAB* 250 mg PO BID 03/07/12 01/05/19 History Prilosec CAP* 20 mg PO DAILY 03/07/12 01/05/19 History Spironolactone TAB* 25 mg PO DAILY 03/07/12 01/05/19 History Vitamin D-3 2,000 i.u. PO DAILY 03/07/12 01/05/19 History buPROPion TAB* 150 mg PO DAILY 03/07/12 01/05/19 History glipiZIDE TAB* 10 mg PO DAILY 03/07/12 01/05/19 History metFORMIN TAB* 1,000 mg PO BID 03/07/12 01/05/19 History Exenatide Microspheres [Bydureon] 2 mg SC WEEKLY 02/03/15 01/05/19 History Losartan TAB* [Cozaar TAB*] 100 mg PO DAILY 02/03/15 01/05/19 History Acetaminophen TAB* [Tylenol TAB*] 650 mg PO Q6H PRN #30 tab MDD 4 gm 12/30/18 Rx Atorvastatin Calcium [Lipitor] 20 mg PO DAILY 01/05/19 01/05/19 History Docusate Sodium 200 mg PO DAILY 01/05/19 01/05/19 History Gabapentin 300 mg PO DAILY 01/05/19 01/05/19 History Potassium Chlor TAB* [Klor Con ER 20 meq PO DAILY 01/05/19 01/05/19 History TAB*] Sennosides [Senna] 2 tab PO DAILY 01/05/19 01/05/19 History amLODIPine TAB* [Norvasc 5 mg TAB*] 5 mg PO DAILY 01/05/19 01/05/19 History Allergies: Allergies Allergy/AdvReac Type Severity Reaction Status Date / Time cefazolin Allergy Severe See Comment Verified 01/05/19 15:08 enalapril Allergy Severe Swelling Verified 01/05/19 15:08 Of Face,Lips,& Throat levofloxacin [From Levaquin] Allergy Severe See Comment Verified 01/05/19 15:08 pioglitazone [From Actos] Allergy Mild See Comment Verified 01/05/19 15:08 tamsulosin [From Flomax] Allergy Unknown Unknown Verified 01/05/19 15:08 Reaction Details Objective - Vital Signs Vital Signs: Vital Signs 01/09/19 01/09/19 01/09/19 08:00 08:51 11:00 Temperature Pulse Rate Respiratory 17 17 18 Rate Blood Pressure (mmHg) O2 Sat by Pulse Oximetry 01/09/19 01/09/19 01/09/19 11:29 19:32 20:00 Temperature 97.2 F 97.5 F Pulse Rate 91 89 Respiratory 18 17 17 Rate Blood Pressure 119/59 134/69 (mmHg) O2 Sat by Pulse 99 99 Oximetry 01/09/19 01/10/19 01/10/19 23:18 03:10 07:15 Temperature 97.8 F 97.9 F 97.8 F Pulse Rate 83 76 73 Respiratory 20 20 18 Rate Blood Pressure 135/75 135/69 151/79 (mmHg) O2 Sat by Pulse 99 98 99 Oximetry - Intake and Output Intake and Output: Intake & Output 11/0201/08/19 01/09/19 01/10/19 12:59 11:59 11:59 11:59 Intake Total 2200 285 Output Total 2250 875 Balance -50 -590 Intake: IV Fluids 30 NS (0.9%) 30 IVPB 75 Dexamethasone 75 NS (0.9%) Oral 2200 180 Output: Urine 2250 875 Other: Estimated Void Medium Date of Last Bowel Movement # Bowel Movements 0 0 Estimated Stool Amount Large Large # Voids 1 ADLs: Meal Record Start: 01/05/19 16: 34 Freq: DAILY@0900,1400,1800 Status: Active Protocol: Created 01/05/19 16:34 System (Rec: 01/05/19 16:34 System [id number]) Document 01/05/19 18:00 [id number] (Rec: 01/05/19 19:19 [id number] MED-C09) Document 01/06/19 09:00 [id number] (Rec: 01/06/19 09:18 [id number] MED-C09) Document 01/06/19 14:00 [id number] (Rec: 01/06/19 14:11 [id number] MED-C09) Document 01/06/19 18:00 [id number] (Rec: 01/06/19 18:13 [id number] MED-C09) Document 01/07/19 09:00 [id number] (Rec: 01/07/19 09:58 [id number] MED-C09) Document 01/07/19 14:00 [id number] (Rec: 01/07/19 14:21 [id number] MED-C11) Document 01/08/19 09:00 [id number] (Rec: 01/08/19 11:02 [id number] MED-C09) Document 01/08/19 14:00 [id number] (Rec: 01/08/19 14:14 [id number] MED-C09) Document 01/08/19 18:00 [id number] (Rec: 01/08/19 18:46 [id number] MED-C09) Document 01/09/19 09:00 [id number] (Rec: 01/09/19 11:52 [id number] MED-M09) Document 01/09/19 14:00 [id number] (Rec: 01/09/19 14:20 [id number] MED-C15) Intake and Output Start: 01/05/19 16: 34 Freq: DAILY@0600,1400,2200 Status: Active Protocol: Created 01/05/19 16:34 System (Rec: 01/05/19 16:34 System [id number]) Document 01/05/19 22:00 [id number] (Rec: 01/06/19 04:06 [id number] MED-C09) Document 01/06/19 05:53 [id number] (Rec: 01/06/19 05:54 [id number] MED-C09) Document 01/06/19 14:00 [id number] (Rec: 01/06/19 14:24 [id number] MED-M04) Document 01/06/19 22:00 [id number] (Rec: 01/07/19 06:06 [id number] MED-C09) Document 01/07/19 06:00 [id number] (Rec: 01/07/19 06:09 [id number] MED-C09) Document 01/07/19 14:00 [id number] (Rec: 01/07/19 14:21 [id number] MED-C11) Document 01/07/19 22:00 [id number] (Rec: 01/07/19 22:49 [id number] MED-C09) Document 01/08/19 06:00 [id number] (Rec: 01/08/19 06:18 [id number] MED-C04) Document 01/08/19 14:00 [id number] (Rec: 01/08/19 14:16 [id number] MED-C09) Document 01/08/19 22:00 [id number] (Rec: 01/09/19 02:11 [id number] MED-C09) Document 01/09/19 06:00 [id number] (Rec: 01/09/19 06:16 [id number] MED-C09) Document 01/09/19 07:19 [id number] (Rec: 01/09/19 07:19 [id number] MED-M09) Document 01/09/19 08:00 [id number] (Rec: 01/09/19 14:32 [id number] MED-C15) Document 01/09/19 14:46 [id number] (Rec: 01/09/19 14:46 [id number] MED-C11) Document 01/09/19 19:00 [id number] (Rec: 01/09/19 19:01 [id number] MED-C09) Document 01/10/19 04:07 [id number] (Rec: 01/10/19 04:07 [id number] MED-C11) Document 01/10/19 06:00 [id number] (Rec: 01/10/19 06:28 [id number] MED-C11) Document 01/10/19 07:35 [id number] (Rec: 01/10/19 07:35 [id number] MED-C15) Results - Results Lab Results: Laboratory Results - last 24 hr 01/06/19 01/09/19 01/09/19 11:21 07:42 11:47 POC Glucose (mg/dL) 332 H HIV 1&2 Ab/P24 Ag 4thGn Nonreactive Flow Intrp 2-8 Markers TNP Flow Intrp 9-15 Marker Flow Intrp 16+ Markers TNP 01/09/19 01/09/19 01/10/19 12:26 17:27 04:58 POC Glucose (mg/dL) 301 H 332 H 157 H HIV 1&2 Ab/P24 Ag 4thGn Flow Intrp 2-8 Markers Flow Intrp 9-15 Marker Flow Intrp 16+ Markers 01/10/19 07:26 POC Glucose (mg/dL) 107 H HIV 1&2 Ab/P24 Ag 4thGn Flow Intrp 2-8 Markers Flow Intrp 9-15 Marker Flow Intrp 16+ Markers Radiology Results: Patient Name: SCOTT TOLEDO Medical Record#: [id number] Ordering Physician: Arnaud Calloway MD Acct.#: [id number] : 1945 Age: 74 Sex: M Location: [address] [place] [address] MEDICAL Exam Date: 01/08/19 120 ADM Status: ADM IN Order Information: CHEST PA & LAT 2 VWS Accession Number: [id number] CPT: 43025 INDICATION: Multiple myeloma COMPARISON: March 07, 2012 chest radiograph and December 30, [address] TECHNIQUE: Dual-energy PA and lateral views of the chest were obtained. FINDINGS: The lungs are clear. There is no pleural effusion. The cardiomediastinal silhouette is within normal limits. The upper abdominal contents are normal. Osseous structures are unremarkable. The known right fourth rib lesion is better characterized by recent thoracic spine CT IMPRESSION: 1. No acute cardiac pulmonary process by radiograph. 2. Known right fourth rib lesion better characterized by comparison imaging. <Electronically signed by Alton Estrada MD in OV> 01/08/19 1343 Dictated By: Alton Estrada MD Dictated Date/Time: 01/08/19 1340 Transcribed Date/Time: 01/08/19 1340 Copy to: CC:Arnaud Calloway MD; Issac Hankins MD; Ashley Singh MD Imaging - [facility] Imaging - [facility] Urgent [facility] [address] [address] ph ([phone]) ph ([phone]) ph ([phone]) This report is only to be considered final once signed by the Provider(s) as displayed in the "<Electronically Signed by >" field (s). Absence of a signature indicates the report is in a draft status and still needs to be finalized. In the event this document was created by someone other than the signing Provider, the individual initiating the document will be listed in the "Entered by:" or "Dictated by:" cormier. 1 of 1 EKG Report: EKG 71 sinus rhythm, [place] 177 QTc 430 QRS axis 10 Non-specific T wave abnormalities Assessment - Problem List Assessment: Patient Problems Hyperuricemia (Acute) Bone marrow depression (Acute) Compression fracture of L3 vertebra (Acute) Diabetes mellitus type 2 (Acute) Low back pain (Acute) Lytic bone lesions on xray (Acute) Multiple myeloma (Acute) Steroid-induced hyperglycemia (Acute) Chronic hepatitis B (Chronic) Dysconjugate gaze (Chronic) Essential hypertension (Chronic) Intellectual disability (Chronic) Knee pain (Chronic) Mental retardation (Chronic) Sleep apnea (Chronic) Plan: Steroid-induced hyperglycemia (Acute)Diabetes mellitus type 2 (Acute) Now that he has stopped dexamethasone, I will taper insulin Hyperuricemia (Acute) I started him on allopurinol Bone marrow depression (Acute) Compression fracture of L3 vertebra (Acute) Low back pain (Acute) Per oncology Lytic bone lesions on xray (Acute). Multiple myeloma (Acute) I checked a CXR yesterday -4th rib fracture visualized - already known. Chronic hepatitis B (Chronic) I reviewed Dr. Issac Hankins's consultation. Essential hypertension (Chronic) His BP is a little high, but I expect it will correct now that dexamethasone is stopped. Secondary diagnoses Dysconjugate gaze (Chronic) Intellectual disability (Chronic) Knee pain (Chronic) Mental retardation (Chronic) Sleep apnea (Chronic) I discussed the above with the patient and I agree with the management plan
[2019-01-10] MEDS ORDERED: Insulin GLARGINE(*) 1 UNITS UNIT SUBCUT SCH (08:30)
[2019-01-10] MEDS: buPROPion SR TAB.SR* 150 MG PO SCH (08:38)
[2019-01-10] MEDS: Pantoprazole TAB * 40 MG TAB PO SCH (08:38)
[2019-01-10] MEDS: Citalopram TAB* 20 MG PO SCH (08:38)
[2019-01-10] MEDS: Gabapentin CAP(*) 300 MG PO SCH (08:38)
[2019-01-10] MEDS: Allopurinol TAB* 100 MG PO SCH (08:38)
[2019-01-10] MEDS: Senna TAB 8.6 mg* TAB PO SCH (08:39)
[2019-01-10] MEDS: Docusate CAP* 100 MG PO SCH (08:39)
[2019-01-10] MEDS: Losartan TAB* 25 MG PO SCH (08:39)
[2019-01-10] MEDS: metFORMIN* 500 MG TAB PO SCH ×2 (08:39→20:28)
[2019-01-10] MEDS: amLODIPine TAB* 5 MG PO SCH (08:40)
[2019-01-10] MEDS: Atorvastatin* 20 MG TAB PO SCH (08:40)
[2019-01-10] MEDS: Spironolactone TAB* 25 MG PO SCH (08:40)
[2019-01-10] MEDS: Aspirin EC TAB* 81 MG TAB.EC PO SCH (08:40)
[2019-01-10 08:51] LABS: Calcium 9.1 mg/dL (8.6-10.3); EGFR Non-African American 69.4 (>60); Potassium 4.2 mmol/L (3.5-5.0)
[2019-01-10] MEDS: Acetaminophen ADULT LIQ* 650 MG/20.3 ML UDC PO PRN (09:35)
--- NOTE | 2019-01-10 11:02 | PN ---
Progress Note - Progress Note Date of Service: 01/10/19 SOAP: Subjective: []Still having some pain. Asking about cancer diagnosis. "Can it go away?" Medications: Acetaminophen (Tylenol Adult Liq*) 650 mg PO Q6H PRN PRN Reason: PAIN - MILD Last Admin: 01/10/19 09:35 Dose: 650 mg Allopurinol (Zyloprim Tab*) 100 mg PO DAILY [facility] Last Admin: 01/10/19 08:38 Dose: 100 mg Amlodipine Besylate (Norvasc Tab*) 5 mg PO DAILY [facility] Last Admin: 01/10/19 08:40 Dose: 5 mg Aspirin (Aspirin Ec Tab*) 81 mg PO DAILY [facility] Last Admin: 01/10/19 08:40 Dose: 81 mg Atorvastatin Calcium (Lipitor*) 20 mg PO DAILY [facility] Last Admin: 01/10/19 08:40 Dose: 20 mg Bupropion HCl (Wellbutrin Sr Tab*) 150 mg PO DAILY [facility] Last Admin: 01/10/19 08:38 Dose: 150 mg Citalopram Hydrobromide (Celexa Tab*) 20 mg PO DAILY [facility] Last Admin: 01/10/19 08:38 Dose: 20 mg Dextrose (Dextrose 50% Vial 50 Ml*) 25 ml IV PUSH .FOR FS < 60 - SS PRN PRN Reason: FS < 60 Docusate Sodium (Colace Cap*) 200 mg PO DAILY [facility] Last Admin: 01/10/19 08:39 Dose: 200 mg Enoxaparin Sodium (Lovenox(*)) 40 mg SUBCUT Q24H [facility] Last Admin: 01/09/19 17:51 Dose: 40 mg Gabapentin (Neurontin Cap(*)) 300 mg PO DAILY [facility] Last Admin: 01/10/19 08:38 Dose: 300 mg Insulin Glargine (Lantus(*)) 30 units SUBCUT Q24H [facility] Last Admin: 01/10/19 08:12 Dose: Not Given Insulin Human Lispro (Humalog*) 12 units SUBCUT AC [facility] Losartan Potassium (Cozaar Tab*) 100 mg PO DAILY [facility] Last Admin: 01/10/19 08:39 Dose: 100 mg Magnesium Hydroxide (Milk Of Magnesia Liq*) 30 ml PO BID PRN PRN Reason: CONSTIPATION Last Admin: 01/08/19 07:32 Dose: 30 ml Metformin HCl (Glucophage*) 1,000 mg PO BID [facility] Last Admin: 01/10/19 08:39 Dose: 1,000 mg Miscellaneous (Ativan Pyxis Gerard) 1 ea N/A .ATIVAN IV GERARD PRN PRN Reason: PYXIS GERARD Oxycodone HCl (Oxycodone Oral Syr*Concentrte*) 5 mg PO Q6H PRN PRN Reason: Pain - moderate Last Admin: 01/06/19 13:42 Dose: 5 mg Pantoprazole Sodium (Protonix Tab*) 40 mg PO DAILY [facility] Last Admin: 01/10/19 08:38 Dose: 40 mg Senna (Senokot 8.6 Mg Tab*) 2 tab PO DAILY [facility] Last Admin: 01/10/19 08:39 Dose: 2 tab Spironolactone (Aldactone Tab*) 25 mg PO DAILY [facility] Last Admin: 01/10/19 08:40 Dose: 25 mg Objective: [] Vital Signs Temp Pulse Resp BP Pulse Ox 97.8 F 73 16 151/79 99 01/10/19 07:15 01/10/19 07:15 01/10/19 08:38 01/10/19 07:15 01/10/19 07:15 A&O, Developmental delay, but asking appropriate questions HRR, S1S2 LS clear +BS, abd. soft and non-tender Laboratory Results - last 24 hr 01/06/19 01/09/19 01/09/19 11:21 11:47 12:26 Sodium Potassium Chloride Carbon Dioxide Anion Gap BUN Creatinine Est GFR ( Amer) Est GFR (Non-Af Amer) BUN/Creatinine Ratio Glucose POC Glucose (mg/dL) 301 H Calcium HIV 1&2 Ab/P24 Ag 4thGn Nonreactive Flow Intrp 2-8 Markers TNP Flow Intrp 9-15 Marker Flow Intrp 16+ Markers TNP 01/09/19 01/10/19 01/10/19 17:27 04:58 07:26 Sodium Potassium Chloride Carbon Dioxide Anion Gap BUN Creatinine Est GFR ( Amer) Est GFR (Non-Af Amer) BUN/Creatinine Ratio Glucose POC Glucose (mg/dL) 332 H 157 H 107 H Calcium HIV 1&2 Ab/P24 Ag 4thGn Flow Intrp 2-8 Markers Flow Intrp 9-15 Marker Flow Intrp 16+ Markers 01/10/19 08:24 Sodium 132 L Potassium 4.2 Chloride 105 Carbon Dioxide 26 Anion Gap 1 L BUN 41 H Creatinine 1.05 Est GFR ( Amer) 84.0 Est GFR (Non-Af Amer) 69.4 BUN/Creatinine Ratio 39.0 H Glucose 92 POC Glucose (mg/dL) Calcium 9.1 HIV 1&2 Ab/P24 Ag 4thGn Flow Intrp 2-8 Markers Flow Intrp 9-15 Marker Flow Intrp 16+ Markers Assessment: []73 yo male with newly diagnosed multiple myeloma admitted for intractable pain 2/2 lytic lesion with pathologic fracture @ L3 without cord compression. He received 4 days of high dose IV dex. and has started palliative RT, day 2 of planned 5 fractions today. Plan: []1. Back pain - cont. RT per Dr. [place] of [facility] - cont prn oxycodone - s/p high dose dex 2. Multiple myeloma: reviewed diagnosis with pt. and used analogy of treating diabetes to control the disease, but it would not go away. Usually we can help patients feel better with treatment. - mutations pending, s/p 4 days high dose dex, currently receiving palliative RT , plane to initiate system therapy ELIESER - Preferred treatment would be Daratumumab (IV), Lenalidomide (PO), and Dexamethasone (PO): Daratumumab is a carve out and Lenalidomide and dexamethasone would be covered under drug benefit - Regimen per Lola et al, 2019, N Engl J Med. 2018August 04;380(80):9621-1554. doi: 10.1056/[id number]: IV tanner weekly x8, q2wks x8, then monthly, PO Lenalidomide d1-21 q28d, PO dex. weekly - Other reasonable option would be single agent Lenalidomide D1-21 q28d with PO dex. weekly - Additionally could consider Daratumumab/Bortezomib/Dexamethasone as this would all occur under Medicare benefit and occur in clinic (in terms of SNF requirements) 3. Hepatitis B - new dx with associated liver fibrosis - ID has recommended antiviral during tx. with Entecavir 3. NIDDM with steroid induced hyperglycemia - appreciated Dr Calloway's involvement, cont insulin per Dr Calloway 4. HTN - cont home medications Dispo: bed offer @ [facility] pending d/t planned systemic therapy
[2019-01-10] MEDS: OXYCODONE PO PRN (13:35)
[2019-01-10] MEDS: Insulin LISPRO* 1 UNITS UNIT SUBCUT SCH ×5 (13:35→19:28)
[2019-01-10] MEDS: [UNRECOGNIZED DRUG - OTHER] PO PRN (13:35)
[2019-01-10] MEDS: Ondansetron ODT TAB* 4 MG SL PRN (13:35)
--- NOTE | 2019-01-10 14:28 | PN ---
Progress Note - Progress Note Date of Service: 01/10/19 SOAP: Subjective: CC: hepatitis B HPI: 74 year old man with chronic hepatitis B, recent diagnoses of myeloma and upcoming chemotherapy with risk of flair of hepatitis B. He feels well and has no abdominal pain or decreased appetite. Objective: Vital Signs Temp 36.6 C 01/10/19 07:15 Pulse 73 01/10/19 07:15 Resp 18 01/10/19 13:35 BP 151/79 01/10/19 07:15 Pulse Ox 99 01/10/19 07:15 Intake & Output 01/09/19 01/10/19 01/10/19 18:59 06:59 18:59 Intake Total 565 180 50 Output Total 800 775 100 Balance -235 -595 -50 Intake: IV Fluids 30 NS (0.9%) 30 IVPB 75 Dexamethasone 75 Oral 460 180 50 Output: Urine 800 775 100 Other: Estimated Void Medium # Bowel Movements 1 0 Estimated Stool Amount Large # Voids 1 Gen:awake, no distress HEENT: no thrush Heart:RRR no murmur Lungs:CTA BL Abd:+BS NTND soft Skin: no rash Laboratory Results - last 24 hr 01/06/19 01/09/19 01/09/19 11:21 11:47 17:27 Sodium Potassium Chloride Carbon Dioxide Anion Gap BUN Creatinine Est GFR ( Amer) Est GFR (Non-Af Amer) BUN/Creatinine Ratio Glucose POC Glucose (mg/dL) 332 H Calcium HIV 1&2 Ab/P24 Ag 4thGn Nonreactive Flow Intrp 2-8 Markers TNP Flow Intrp 9-15 Marker Flow Intrp 16+ Markers TNP 01/10/19 01/10/19 01/10/19 04:58 07:26 08:24 Sodium 132 L Potassium 4.2 Chloride 105 Carbon Dioxide 26 Anion Gap 1 L BUN 41 H Creatinine 1.05 Est GFR ( Amer) 84.0 Est GFR (Non-Af Amer) 69.4 BUN/Creatinine Ratio 39.0 H Glucose 92 POC Glucose (mg/dL) 157 H 107 H Calcium 9.1 HIV 1&2 Ab/P24 Ag 4thGn Flow Intrp 2-8 Markers Flow Intrp 9-15 Marker Flow Intrp 16+ Markers 01/10/19 12:57 Sodium Potassium Chloride Carbon Dioxide Anion Gap BUN Creatinine Est GFR ( Amer) Est GFR (Non-Af Amer) BUN/Creatinine Ratio Glucose POC Glucose (mg/dL) 154 H Calcium HIV 1&2 Ab/P24 Ag 4thGn Flow Intrp 2-8 Markers Flow Intrp 9-15 Marker Flow Intrp 16+ Markers Assessment: 1. chronic hepatitis B, ALT normal, HIV negative 2. hepatic fibrosis, F2-3 by elastography 3. multiple myeloma with plans for immunosuppressive treatment Plan: 1. entecavir .5 mg by mouth daily, checking with pharmacy on availability. 2. Check HBeAg/Ab Discussed with Ange Brewer NP
[2019-01-10] MEDS: Enoxaparin(*) 40 MG/0.4 ML SYR SUBCUT SCH (17:36)
[2019-01-10 18:09] LABS: Hepatitis B Surface Antigen Positive (Nonreactive)
[2019-01-10] MEDS ORDERED: Dextrose 50% VIAL 50 ml IV PUSH PRN (18:14)
[2019-01-10 18:27] LABS: Hepatitis B Surface Ab Not Immune (Immune)
[2019-01-11 06:59] LABS: Calcium 9.1 mg/dL (8.6-10.3); EGFR African American 76.4 (>60); EGFR Non-African American 63.1 (>60)
[2019-01-11] MEDS: Insulin LISPRO* 1 UNITS UNIT SUBCUT SCH ×3 (07:40→16:45)
--- NOTE | 2019-01-11 07:47 | PN ---
Subjective - Subjective Reason for Note: Progress Note History: He had some pain last night, but has none this morning. He is hypoglycemic now he has completed the dexamethasone pulse. Otherwise, he is feeling fine. 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 Low back pain (Acute) M54.5 Lytic bone lesions on xray (Acute) M89.9 Compression fracture of L3 vertebra (Acute) S32.030A Multiple myeloma (Acute) C90.00 Diabetes mellitus type 2 (Acute) E11.9 Essential hypertension (Chronic) I10 Knee pain (Chronic) M25.569 Mental retardation (Chronic) F79 Hyperuricemia (Chronic) E79.0 Current Medications: Current Medications Acetaminophen (Tylenol Adult Liq*) 650 mg PO Q6H PRN PRN Reason: PAIN - MILD Last Admin: 01/10/19 09:35 Dose: 650 mg Allopurinol (Zyloprim Tab*) 100 mg PO DAILY [facility] Last Admin: 01/10/19 08:38 Dose: 100 mg Amlodipine Besylate (Norvasc Tab*) 5 mg PO DAILY [facility] Last Admin: 01/10/19 08:40 Dose: 5 mg Aspirin (Aspirin Ec Tab*) 81 mg PO DAILY [facility] Last Admin: 01/10/19 08:40 Dose: 81 mg Atorvastatin Calcium (Lipitor*) 20 mg PO DAILY [facility] Last Admin: 01/10/19 08:40 Dose: 20 mg Bupropion HCl (Wellbutrin Sr Tab*) 150 mg PO DAILY [facility] Last Admin: 01/10/19 08:38 Dose: 150 mg Citalopram Hydrobromide (Celexa Tab*) 20 mg PO DAILY [facility] Last Admin: 01/10/19 08:38 Dose: 20 mg Dextrose (Dextrose 50% Vial 50 Ml*) 25 ml IV PUSH .FOR FS < 60 - SS PRN PRN Reason: FS < 60 Docusate Sodium (Colace Cap*) 200 mg PO DAILY [facility] Last Admin: 01/10/19 08:39 Dose: 200 mg Enoxaparin Sodium (Lovenox(*)) 40 mg SUBCUT Q24H [facility] Last Admin: 01/10/19 17:36 Dose: 40 mg Entecavir (Baraclude (Nf)) 0.5 mg PO DAILY@1000 [facility] Gabapentin (Neurontin Cap(*)) 300 mg PO DAILY [facility] Last Admin: 01/10/19 08:38 Dose: 300 mg Insulin Glargine (Lantus(*)) 30 units SUBCUT Q24H [facility] Last Admin: 01/10/19 08:12 Dose: Not Given Insulin Human Lispro (Humalog*) 0 units SUBCUT [facility]; Protocol Last Admin: 01/11/19 07:40 Dose: Not Given Losartan Potassium (Cozaar Tab*) 100 mg PO DAILY [facility] Last Admin: 01/10/19 08:39 Dose: 100 mg Magnesium Hydroxide (Milk Of Magnesia Liq*) 30 ml PO BID PRN PRN Reason: CONSTIPATION Last Admin: 01/08/19 07:32 Dose: 30 ml Metformin HCl (Glucophage*) 1,000 mg PO BID [facility] Last Admin: 01/10/19 20:28 Dose: 1,000 mg Miscellaneous (Ativan Pyxis Gerard) 1 ea N/A .ATIVAN IV GERARD PRN PRN Reason: PYXIS GERARD Ondansetron HCl (Zofran Odt Tab*) 4 mg SL Q6H PRN PRN Reason: NAUSEA/VOMITING Last Admin: 01/10/19 13:35 Dose: 4 mg Oxycodone HCl (Oxycodone Oral Syr*Concentrte*) 5 mg PO Q6H PRN PRN Reason: Pain - moderate Last Admin: 01/10/19 13:35 Dose: 5 mg Pantoprazole Sodium (Protonix Tab*) 40 mg PO DAILY [facility] Last Admin: 01/10/19 08:38 Dose: 40 mg Senna (Senokot 8.6 Mg Tab*) 2 tab PO DAILY [facility] Last Admin: 01/10/19 08:39 Dose: 2 tab Spironolactone (Aldactone Tab*) 25 mg PO DAILY [facility] Last Admin: 01/10/19 08:40 Dose: 25 mg Home Medications: Home Medications Medication Instructions Recorded Confirmed Type Aspir-81 81 mg PO DAILY 03/07/12 01/05/19 History Celexa TAB* 20 mg PO DAILY 03/07/12 01/05/19 History Multi Complete 1 tab PO DAILY 03/07/12 01/05/19 History Naproxen TAB* 250 mg PO BID 03/07/12 01/05/19 History Prilosec CAP* 20 mg PO DAILY 03/07/12 01/05/19 History Spironolactone TAB* 25 mg PO DAILY 03/07/12 01/05/19 History Vitamin D-3 2,000 i.u. PO DAILY 03/07/12 01/05/19 History buPROPion TAB* 150 mg PO DAILY 03/07/12 01/05/19 History glipiZIDE TAB* 10 mg PO DAILY 03/07/12 01/05/19 History metFORMIN TAB* 1,000 mg PO BID 03/07/12 01/05/19 History Exenatide Microspheres [Bydureon] 2 mg SC WEEKLY 02/03/15 01/05/19 History Losartan TAB* [Cozaar TAB*] 100 mg PO DAILY 02/03/15 01/05/19 History Acetaminophen TAB* [Tylenol TAB*] 650 mg PO Q6H PRN #30 tab MDD 4 gm 12/30/18 Rx Atorvastatin Calcium [Lipitor] 20 mg PO DAILY 01/05/19 01/05/19 History Docusate Sodium 200 mg PO DAILY 01/05/19 01/05/19 History Gabapentin 300 mg PO DAILY 01/05/19 01/05/19 History Potassium Chlor TAB* [Klor Con ER 20 meq PO DAILY 01/05/19 01/05/19 History TAB*] Sennosides [Senna] 2 tab PO DAILY 01/05/19 01/05/19 History amLODIPine TAB* [Norvasc 5 mg TAB*] 5 mg PO DAILY 01/05/19 01/05/19 History Allergies: Allergies Allergy/AdvReac Type Severity Reaction Status Date / Time cefazolin Allergy Severe See Comment Verified 01/05/19 15:08 enalapril Allergy Severe Swelling Verified 01/05/19 15:08 Of Face,Lips,& Throat levofloxacin [From Levaquin] Allergy Severe See Comment Verified 01/05/19 15:08 pioglitazone [From Actos] Allergy Mild See Comment Verified 01/05/19 15:08 tamsulosin [From Flomax] Allergy Unknown Unknown Verified 01/05/19 15:08 Reaction Details Objective - Vital Signs Vital Signs: Vital Signs 01/10/19 01/10/19 01/10/19 08:00 08:38 12:20 Temperature Pulse Rate Respiratory 17 16 16 Rate Blood Pressure (mmHg) O2 Sat by Pulse Oximetry 01/10/19 01/10/19 01/10/19 13:35 15:15 15:30 Temperature 97.5 F Pulse Rate 75 Respiratory 18 16 16 Rate Blood Pressure 107/49 (mmHg) O2 Sat by Pulse 98 Oximetry 01/10/19 01/10/19 01/10/19 19:15 20:00 23:58 Temperature 97.6 F 97.6 F Pulse Rate 73 70 Respiratory 19 19 18 Rate Blood Pressure 119/61 140/66 (mmHg) O2 Sat by Pulse 97 98 Oximetry 01/11/19 03:15 Temperature 97.8 F Pulse Rate 68 Respiratory 19 Rate Blood Pressure 123/69 (mmHg) O2 Sat by Pulse 97 Oximetry - Intake and Output Intake and Output: Intake & Output 01/08/19 01/09/19 01/10/19 01/11/19 11:59 11:59 11:59 11:59 Intake Total 2200 285 1210 Output Total 2250 875 350 Balance -50 -590 860 Intake: IV Fluids 30 NS (0.9%) 30 IVPB 75 Dexamethasone 75 NS (0.9%) Oral 2200 180 1210 Output: Urine 2250 875 350 Other: Estimated Void Medium Medium Date of Last Bowel Movement # Bowel Movements 0 0 0 Estimated Stool Amount Large Large # Voids 1 1 ADLs: Meal Record Start: 01/05/19 16: 34 Freq: DAILY@0900,1400,1800 Status: Active Protocol: Created 01/05/19 16:34 System (Rec: 01/05/19 16:34 System [id number]) Document 01/05/19 18:00 [id number] (Rec: 01/05/19 19:19 [id number] MED-C09) Document 01/06/19 09:00 [id number] (Rec: 01/06/19 09:18 [id number] MED-C09) Document 01/06/19 14:00 [id number] (Rec: 01/06/19 14:11 [id number] MED-C09) Document 01/06/19 18:00 [id number] (Rec: 01/06/19 18:13 [id number] MED-C09) Document 01/07/19 09:00 [id number] (Rec: 01/07/19 09:58 [id number] MED-C09) Document 01/07/19 14:00 [id number] (Rec: 01/07/19 14:21 [id number] MED-C11) Document 01/08/19 09:00 [id number] (Rec: 01/08/19 11:02 [id number] MED-C09) Document 01/08/19 14:00 [id number] (Rec: 01/08/19 14:14 [id number] MED-C09) Document 01/08/19 18:00 [id number] (Rec: 01/08/19 18:46 [id number] MED-C09) Document 01/09/19 09:00 [id number] (Rec: 01/09/19 11:52 [id number] MED-M09) Document 01/09/19 14:00 [id number] (Rec: 01/09/19 14:20 [id number] MED-C15) Document 01/10/19 09:00 [id number] (Rec: 01/10/19 12:34 [id number] MED-C09) Document 01/10/19 13:40 [id number] (Rec: 01/10/19 13:43 [id number] MED-C15) Document 01/10/19 18:00 [id number] (Rec: 01/10/19 21:44 [id number] MED-C11) Intake and Output Start: 01/05/19 16: 34 Freq: DAILY@0600,1400,2200 Status: Active Protocol: Created 01/05/19 16:34 System (Rec: 01/05/19 16:34 System [id number]) Document 01/05/19 22:00 [id number] (Rec: 01/06/19 04:06 [id number] MED-C09) Document 01/06/19 05:53 [id number] (Rec: 01/06/19 05:54 [id number] MED-C09) Document 01/06/19 14:00 [id number] (Rec: 01/06/19 14:24 [id number] MED-M04) Document 01/06/19 22:00 [id number] (Rec: 01/07/19 06:06 [id number] MED-C09) Document 01/07/19 06:00 [id number] (Rec: 01/07/19 06:09 [id number] MED-C09) Document 01/07/19 14:00 [id number] (Rec: 01/07/19 14:21 [id number] MED-C11) Document 01/07/19 22:00 [id number] (Rec: 01/07/19 22:49 [id number] MED-C09) Document 01/08/19 06:00 [id number] (Rec: 01/08/19 06:18 [id number] MED-C04) Document 01/08/19 14:00 [id number] (Rec: 01/08/19 14:16 [id number] MED-C09) Document 01/08/19 22:00 [id number] (Rec: 01/09/19 02:11 [id number] MED-C09) Document 01/09/19 06:00 [id number] (Rec: 01/09/19 06:16 [id number] MED-C09) Document 01/09/19 07:19 [id number] (Rec: 01/09/19 07:19 [id number] MED-M09) Document 01/09/19 08:00 [id number] (Rec: 01/09/19 14:32 [id number] MED-C15) Document 01/09/19 14:46 [id number] (Rec: 01/09/19 14:46 [id number] MED-C11) Document 01/09/19 19:00 [id number] (Rec: 01/09/19 19:01 [id number] MED-C09) Document 01/10/19 04:07 [id number] (Rec: 01/10/19 04:07 [id number] MED-C11) Document 01/10/19 06:00 [id number] (Rec: 01/10/19 06:28 [id number] MED-C11) Document 01/10/19 07:35 [id number] (Rec: 01/10/19 07:35 [id number] MED-C15) Document 01/10/19 14:00 MDW3608 (Rec: 01/10/19 17:44 [id number] MED-C09) Document 01/10/19 18:00 [id number] (Rec: 01/10/19 19:42 [id number] MED-M26) Document 01/10/19 21:44 [id number] (Rec: 01/10/19 21:45 [id number] MED-C11) Document 01/11/19 06:00 [id number] (Rec: 01/11/19 06:27 [id number] MED-C11) - Physical Exam General: No Cyanosis, No Anemia, No Jaundice, No Clubbing Lungs and Chest: Yes: Chest Expansion Full, Chest Expansion Symetrica, Percussion Note Resonant, Vessicular Breath Sounds. No: Crackles, Wheezes Heart Rate and Rhythm: Regular Additional Cardiovascular: Yes: Normal Heart Sounds. No: Heart Murmur, Pedal Edema Abdominal Exam: Yes: Soft. No: Distention, Abdominal Tenderness Results - Results Lab Results: Laboratory Results - last 24 hr 01/06/19 01/10/19 01/10/19 11:21 08:24 08:24 Sodium 132 L Potassium 4.2 Chloride 105 Carbon Dioxide 26 Anion Gap 1 L BUN 41 H Creatinine 1.05 Est GFR ( Amer) 84.0 Est GFR (Non-Af Amer) 69.4 BUN/Creatinine Ratio 39.0 H Glucose 92 POC Glucose (mg/dL) Calcium 9.1 Hepatitis B Antibody Not immune A Hep Bs Antigen Positive A Flow Intrp 2-8 Markers TNP Flow Intrp 9-15 Marker Flow Intrp 16+ Markers TNP 01/10/19 01/10/19 01/10/19 12:57 16:56 20:28 Sodium Potassium Chloride Carbon Dioxide Anion Gap BUN Creatinine Est GFR ( Amer) Est GFR (Non-Af Amer) BUN/Creatinine Ratio Glucose POC Glucose (mg/dL) 154 H 69 L 169 H Calcium Hepatitis B Antibody Hep Bs Antigen Flow Intrp 2-8 Markers Flow Intrp 9-15 Marker Flow Intrp 16+ Markers 01/11/19 01/11/19 06:18 07:25 Sodium 132 L Potassium 4.0 Chloride 105 Carbon Dioxide 25 Anion Gap 2 BUN 41 H Creatinine 1.14 Est GFR ( Amer) 76.4 Est GFR (Non-Af Amer) 63.1 BUN/Creatinine Ratio 36.0 H Glucose 59 L POC Glucose (mg/dL) 82 Calcium 9.1 Hepatitis B Antibody Hep Bs Antigen Flow Intrp 2-8 Markers Flow Intrp 9-15 Marker Flow Intrp 16+ Markers Assessment - Problem List Assessment: Patient Problems Sleep apnea (Chronic) Chronic hepatitis B (Chronic) Dysconjugate gaze (Chronic) Intellectual disability (Chronic) Bone marrow depression (Acute) Low back pain (Acute) Lytic bone lesions on xray (Acute) Compression fracture of L3 vertebra (Acute) Multiple myeloma (Acute) Diabetes mellitus type 2 (Acute) Essential hypertension (Chronic) Knee pain (Chronic) Mental retardation (Chronic) Hyperuricemia (Chronic) Plan: Diabetes mellitus type 2 (Acute) He now has some hypoglycemia. I will stop his lantus and restart glipizide. Bone marrow depression (Acute) Low back pain (Acute)Lytic bone lesions on xray (Acute)Compression fracture of L3 vertebra (Acute)Multiple myeloma (Acute) Per oncology Secondary diagnoses Sleep apnea (Chronic) Chronic hepatitis B (Chronic) Dysconjugate gaze (Chronic) Intellectual disability (Chronic) Essential hypertension (Chronic) Knee pain (Chronic) Mental retardation (Chronic) Hyperuricemia (Chronic) I discussed diabetic control and mobilization with Alan Rios.
[2019-01-11] MEDS: Aspirin EC TAB* 81 MG TAB.EC PO SCH (09:50)
[2019-01-11] MEDS: glipiZIDE TAB* 5 MG PO SCH ×2 (09:50→17:05)
[2019-01-11] MEDS: Senna TAB 8.6 mg* TAB PO SCH (09:50)
[2019-01-11] MEDS: metFORMIN* 500 MG TAB PO SCH ×2 (09:50→22:26)
[2019-01-11] MEDS: buPROPion SR TAB.SR* 150 MG PO SCH (09:50)
[2019-01-11] MEDS: Pantoprazole TAB * 40 MG TAB PO SCH (09:50)
[2019-01-11] MEDS: Citalopram TAB* 20 MG PO SCH (09:50)
[2019-01-11] MEDS: Losartan TAB* 25 MG PO SCH (09:51)
[2019-01-11] MEDS: Spironolactone TAB* 25 MG PO SCH (09:51)
[2019-01-11] MEDS: Docusate CAP* 100 MG PO SCH (09:51)
[2019-01-11] MEDS: Atorvastatin* 20 MG TAB PO SCH (09:52)
[2019-01-11] MEDS: Gabapentin CAP(*) 300 MG PO SCH (09:52)
[2019-01-11] MEDS: Acetaminophen ADULT LIQ* 650 MG/20.3 ML UDC PO PRN ×2 (09:54→17:05)
[2019-01-11] MEDS: Allopurinol TAB* 100 MG PO SCH (09:54)
[2019-01-11] MEDS: amLODIPine TAB* 5 MG PO SCH (09:54)
[2019-01-11] MEDS: ENTECAVIR 0.5 MG PO SCH (09:55)
[2019-01-11 11:36] LABS: Albumin 28 %; Albumin/Globulin Ratio 0.38; Gamma Globulin 42 %; Total Protein Concentration 34 mg/dL; Total Protein(PEP) Urine 510 mg/24 h (<229)
[2019-01-11 11:57] LABS: Urine Appearance Clear; Urine Bilirubin Negative (Negative); Urine Blood Negative (Negative); Urine Color Yellow; Urine Glucose Negative (Negative); Urine Ketones Negative (Negative); Urine Nitrite Negative (Negative); Urine Protein Negative (Negative); Urine Specific Gravity 1.021 (1.010-1.030); Urine Urobilinogen Negative (Negative)
[2019-01-11] MEDS: OXYCODONE PO PRN (13:23)
[2019-01-11] MEDS: [UNRECOGNIZED DRUG - OTHER] PO PRN (13:23)
--- NOTE | 2019-01-11 15:38 | PN ---
Progress Note - Progress Note Date of Service: 01/11/19 SOAP: Subjective: feels "lousy"today with right sided lower back pain. continues to have little insight into illness "so you can take it away?" "so you can cure it". continues to report baseline foot numbness and tingling Objective: Vital Signs Temp Pulse Resp BP Pulse Ox 97.2 F 67 18 128/68 99 01/11/19 11:15 01/11/19 11:15 01/11/19 15:25 01/11/19 11:15 01/11/19 11:15 Perr eomi op poor dentition cta s1 s2 nl soft obese nt no LE edema did not ambulate clear developmental delay Laboratory Results - last 24 hr 01/07/19 01/10/19 01/10/19 00:00 08:24 16:56 Sodium Potassium Chloride Carbon Dioxide Anion Gap BUN Creatinine Est GFR ( Amer) Est GFR (Non-Af Amer) BUN/Creatinine Ratio Glucose POC Glucose (mg/dL) 69 L Calcium Urine Color Urine Appearance Urine pH Ur Specific Coats Urine Protein Urine Ketones Urine Blood Urine Nitrate Urine Bilirubin Urine Urobilinogen Ur Leukocyte Esterase U Collection Duration 24 Urine Total Volume 1500 Ur Total Protein Conc 34 Urine Glucose Urine Total Protein 510 H Urine Albumin (PEP) 28 Ur Albumin/Globulin 0.38 U Inerd-0-Fblorjhb 5 U Pdxma-9-Tyobfian 10 U Beta Globulin 15 U Gamma Globulin 42 U PEP M-Russ 88 U PEP M-Russ 2 83 Urine PEP Impression See comment Hepatitis B Antibody Not immune A Hep Bs Antigen Positive A 01/10/19 01/11/19 01/11/19 20:28 06:18 07:25 Sodium 132 L Potassium 4.0 Chloride 105 Carbon Dioxide 25 Anion Gap 2 BUN 41 H Creatinine 1.14 Est GFR ( Amer) 76.4 Est GFR (Non-Af Amer) 63.1 BUN/Creatinine Ratio 36.0 H Glucose 59 L POC Glucose (mg/dL) 169 H 82 Calcium 9.1 Urine Color Urine Appearance Urine pH Ur Specific Coats Urine Protein Urine Ketones Urine Blood Urine Nitrate Urine Bilirubin Urine Urobilinogen Ur Leukocyte Esterase U Collection Duration Urine Total Volume Ur Total Protein Conc Urine Glucose Urine Total Protein Urine Albumin (PEP) Ur Albumin/Globulin U Etpgr-6-Ansrcwer U Mhldw-0-Lkmtctbc U Beta Globulin U Gamma Globulin U PEP M-Russ U PEP M-Russ 2 Urine PEP Impression Hepatitis B Antibody Hep Bs Antigen 01/11/19 01/11/19 11:16 11:48 Sodium Potassium Chloride Carbon Dioxide Anion Gap BUN Creatinine Est GFR ( Amer) Est GFR (Non-Af Amer) BUN/Creatinine Ratio Glucose POC Glucose (mg/dL) 124 H Calcium Urine Color Yellow Urine Appearance Clear Urine pH 5.0 Ur Specific Coats 1.021 Urine Protein Negative Urine Ketones Negative Urine Blood Negative Urine Nitrate Negative Urine Bilirubin Negative Urine Urobilinogen Negative Ur Leukocyte Esterase Negative U Collection Duration Urine Total Volume Ur Total Protein Conc Urine Glucose Negative Urine Total Protein Urine Albumin (PEP) Ur Albumin/Globulin U Egjmn-3-Vlulgtlz U Qdmbt-1-Puwykyth U Beta Globulin U Gamma Globulin U PEP M-Russ U PEP M-Russ 2 Urine PEP Impression Hepatitis B Antibody Hep Bs Antigen Acetaminophen (Tylenol Adult Liq*) 650 mg PO Q6H PRN PRN Reason: PAIN - MILD Last Admin: 01/11/19 09:54 Dose: 650 mg Allopurinol (Zyloprim Tab*) 100 mg PO DAILY [facility] Last Admin: 01/11/19 09:54 Dose: 100 mg Amlodipine Besylate (Norvasc Tab*) 5 mg PO DAILY [facility] Last Admin: 01/11/19 09:54 Dose: 5 mg Aspirin (Aspirin Ec Tab*) 81 mg PO DAILY [facility] Last Admin: 01/11/19 09:50 Dose: 81 mg Atorvastatin Calcium (Lipitor*) 20 mg PO DAILY [facility] Last Admin: 01/11/19 09:52 Dose: 20 mg Bupropion HCl (Wellbutrin Sr Tab*) 150 mg PO DAILY [facility] Last Admin: 01/11/19 09:50 Dose: 150 mg Citalopram Hydrobromide (Celexa Tab*) 20 mg PO DAILY [facility] Last Admin: 01/11/19 09:50 Dose: 20 mg Dextrose (Dextrose 50% Vial 50 Ml*) 25 ml IV PUSH .FOR FS < 60 - SS PRN PRN Reason: FS < 60 Docusate Sodium (Colace Cap*) 200 mg PO DAILY [facility] Last Admin: 01/11/19 09:51 Dose: 200 mg Enoxaparin Sodium (Lovenox(*)) 40 mg SUBCUT Q24H [facility] Last Admin: 01/10/19 17:36 Dose: 40 mg Entecavir (Baraclude (Nf)) 0.5 mg PO DAILY@1000 [facility] Last Admin: 01/11/19 09:55 Dose: 0.5 mg Gabapentin (Neurontin Cap(*)) 300 mg PO DAILY [facility] Last Admin: 01/11/19 09:52 Dose: 300 mg Glipizide (Glucotrol Tab*) 5 mg PO 0800,1700 [facility] Last Admin: 01/11/19 09:50 Dose: 5 mg Insulin Human Lispro (Humalog*) 0 units SUBCUT [facility]; Protocol Last Admin: 01/11/19 11:52 Dose: Not Given Losartan Potassium (Cozaar Tab*) 100 mg PO DAILY [facility] Last Admin: 01/11/19 09:51 Dose: 100 mg Magnesium Hydroxide (Milk Of Magnesia Liq*) 30 ml PO BID PRN PRN Reason: CONSTIPATION Last Admin: 01/08/19 07:32 Dose: 30 ml Metformin HCl (Glucophage*) 1,000 mg PO BID [facility] Last Admin: 01/11/19 09:50 Dose: 1,000 mg Miscellaneous (Ativan Pyxis Gerard) 1 ea N/A .ATIVAN IV GERARD PRN PRN Reason: PYXIS GERARD Ondansetron HCl (Zofran Odt Tab*) 4 mg SL Q6H PRN PRN Reason: NAUSEA/VOMITING Last Admin: 01/10/19 13:35 Dose: 4 mg Oxycodone HCl (Oxycodone Oral Syr*Concentrte*) 5 mg PO Q6H PRN PRN Reason: Pain - moderate Last Admin: 01/11/19 13:23 Dose: 5 mg Pantoprazole Sodium (Protonix Tab*) 40 mg PO DAILY [facility] Last Admin: 01/11/19 09:50 Dose: 40 mg Senna (Senokot 8.6 Mg Tab*) 2 tab PO DAILY [facility] Last Admin: 01/11/19 09:50 Dose: 2 tab Spironolactone (Aldactone Tab*) 25 mg PO DAILY [facility] Last Admin: 01/11/19 09:51 Dose: 25 mg Assessment: 73 yo male with newly diagnosed multiple myeloma admitted for intractable pain 2 /2 lytic lesion with pathologic fracture @ L3 without cord compression. He received 4 days of high dose IV dex. and has started palliative RT, day 3 of planned 5 fractions today. His disposition is complicated by his limited ability to participate in his own care (cannot self administer meds) and limited regimens that do not require oral therapy. He can NOT get velcade 2/2 baseline neuropathy. I have asked social work to discuss with DSS what options we have. Plan: 1. Back pain - cont. RT per Dr. Cotter of [facility] - cont prn oxycodone - s/p high dose dex 2. Multiple myeloma: reviewed for the 4th time with the patient that this is not curable and our hopes would be to minimize disease burden and prolong life. He does not understand this clearly. - mutations pending, s/p 4 days high dose dex, currently receiving palliative RT , plane to initiate system therapy ELIES[facility] - Preferred treatment would be Daratumumab (IV), Lenalidomide (PO), and Dexamethasone (PO): Daratumumab is a carve out and Lenalidomide and dexamethasone would be covered under drug benefit - Regimen per Lola et al, 2019, N Engl J Med. 2018August 04;380(79):8378-2234. doi: 10.1056/[id number]: IV tanner weekly x8, q2wks x8, then monthly, PO Lenalidomide d1-21 q28d, PO dex. weekly - Other reasonable option would be single agent Lenalidomide D1-21 q28d with PO dex. weekly unclear if he can get these while residing in a SNF. 3. Hepatitis B - new dx with associated liver fibrosis - ID has recommended antiviral during tx. with Entecavir (which is also a relatively costly PO medication) 3. NIDDM with steroid induced hyperglycemia - appreciated Dr Calloway's involvement, cont insulin per Dr Calloway 4. HTN - cont home medications
[2019-01-11] MEDS: Enoxaparin(*) 40 MG/0.4 ML SYR SUBCUT SCH (17:05)
[2019-01-12 05:35] LABS: ABS Lymphocytes 0.7 10^3/ul (1.0-4.8); ABS Monocytes 0.4 10^3/ul (0-0.8); ABS Neutrophils 2.8 10^3/ul (1.5-7.7); Eosinophil % 0.3 %; Hematocrit 35 % (42-52); Hemoglobin 11.7 g/dL (14.0-18.0); Lymphocyte % 17.1 %; Mean Corpuscular HGB Conc 34 g/dL (31-36); Mean Corpuscular Hemoglobin 35 pg (27-31); Mean Corpuscular Volume 103 fL (80-94); Mean Platelet Volume 11.1 fL (7.4-10.4); Nucleated Red Blood Cells % 0.2; Platelet Count 113 10^3/uL (150-450); Red Blood Count 3.39 10^6 /uL (4.18-5.48); Red Cell Distribution Width 14 % (10-15); White Blood Count 3.9 10^3/uL (3.5-10.8)
[2019-01-12 05:50] LABS: Albumin 2.5 g/dL (3.2-5.2); Albumin/Globulin Ratio 0.5 (1-3); BUN/Creatinine Ratio 29.7 (8-20); EGFR African American 87.9 (>60); EGFR Non-African American 72.6 (>60); Potassium 4.1 mmol/L (3.5-5.0); Total Bilirubin 0.4 mg/dL (0.2-1.0); Total Protein 7.5 g/dL (6.4-8.9)
[2019-01-12] MEDS: Insulin LISPRO* 1 UNITS UNIT SUBCUT SCH ×3 (07:41→17:39)
[2019-01-12] MEDS: glipiZIDE TAB* 5 MG PO SCH ×2 (07:53→17:40)
--- NOTE | 2019-01-12 09:27 | PN ---
Progress Note - Progress Note Date of Service: 01/12/19 SOAP: Subjective: []Feeling well. Pain mostly controlled. No questions today. Medications: Acetaminophen (Tylenol Adult Liq*) 650 mg PO Q6H PRN PRN Reason: PAIN - MILD Last Admin: 01/11/19 17:05 Dose: 650 mg Allopurinol (Zyloprim Tab*) 100 mg PO DAILY [facility] Last Admin: 01/11/19 09:54 Dose: 100 mg Amlodipine Besylate (Norvasc Tab*) 5 mg PO DAILY [facility] Last Admin: 01/11/19 09:54 Dose: 5 mg Aspirin (Aspirin Ec Tab*) 81 mg PO DAILY [facility] Last Admin: 01/11/19 09:50 Dose: 81 mg Atorvastatin Calcium (Lipitor*) 20 mg PO DAILY [facility] Last Admin: 01/11/19 09:52 Dose: 20 mg Bupropion HCl (Wellbutrin Sr Tab*) 150 mg PO DAILY [facility] Last Admin: 01/11/19 09:50 Dose: 150 mg Citalopram Hydrobromide (Celexa Tab*) 20 mg PO DAILY [facility] Last Admin: 01/11/19 09:50 Dose: 20 mg Dextrose (Dextrose 50% Vial 50 Ml*) 25 ml IV PUSH .FOR FS < 60 - SS PRN PRN Reason: FS < 60 Docusate Sodium (Colace Cap*) 200 mg PO DAILY [facility] Last Admin: 01/11/19 09:51 Dose: 200 mg Enoxaparin Sodium (Lovenox(*)) 40 mg SUBCUT Q24H [facility] Last Admin: 01/11/19 17:05 Dose: 40 mg Entecavir (Baraclude (Nf)) 0.5 mg PO DAILY@1000 [facility] Last Admin: 01/11/19 09:55 Dose: 0.5 mg Gabapentin (Neurontin Cap(*)) 300 mg PO DAILY [facility] Last Admin: 01/11/19 09:52 Dose: 300 mg Glipizide (Glucotrol Tab*) 5 mg PO 0800,1700 [facility] Last Admin: 01/12/19 07:53 Dose: 5 mg Insulin Human Lispro (Humalog*) 0 units SUBCUT AC [facility]; Protocol Last Admin: 01/12/19 07:41 Dose: Not Given Losartan Potassium (Cozaar Tab*) 100 mg PO DAILY [facility] Last Admin: 01/11/19 09:51 Dose: 100 mg Magnesium Hydroxide (Milk Of Magnesia Liq*) 30 ml PO BID PRN PRN Reason: CONSTIPATION Last Admin: 01/08/19 07:32 Dose: 30 ml Metformin HCl (Glucophage*) 1,000 mg PO BID [facility] Last Admin: 01/11/19 22:26 Dose: 1,000 mg Miscellaneous (Ativan Pyxis Gerard) 1 ea N/A .ATIVAN IV GERARD PRN PRN Reason: PYXIS GERARD Ondansetron HCl (Zofran Odt Tab*) 4 mg SL Q6H PRN PRN Reason: NAUSEA/VOMITING Last Admin: 01/10/19 13:35 Dose: 4 mg Oxycodone HCl (Oxycodone Oral Syr*Concentrte*) 5 mg PO Q6H PRN PRN Reason: Pain - moderate Last Admin: 01/11/19 13:23 Dose: 5 mg Pantoprazole Sodium (Protonix Tab*) 40 mg PO DAILY [facility] Last Admin: 01/11/19 09:50 Dose: 40 mg Senna (Senokot 8.6 Mg Tab*) 2 tab PO DAILY [facility] Last Admin: 01/11/19 09:50 Dose: 2 tab Spironolactone (Aldactone Tab*) 25 mg PO DAILY [facility] Last Admin: 01/11/19 09:51 Dose: 25 mg Objective: [] Vital Signs Temp Pulse Resp BP Pulse Ox 98.0 F 75 14 148/75 99 01/12/19 07:17 01/12/19 07:17 01/12/19 07:17 01/12/19 07:17 01/12/19 07:17 Alert and oriented HRR, S1S2 LS clear +BS, abd. soft and non-tender Laboratory Results - last 24 hr 01/07/19 01/11/19 01/11/19 00:00 11:16 11:48 WBC RBC Hgb Hct MCV MCH MCHC RDW Plt Count MPV Neut % (Auto) Lymph % (Auto) [place] % (Auto) Eos % (Auto) Baso % (Auto) Absolute Neuts (auto) Absolute Lymphs (auto) Absolute Monos (auto) Absolute Eos (auto) Absolute Basos (auto) Absolute Nucleated RBC Nucleated RBC % Sodium Potassium Chloride Carbon Dioxide Anion Gap BUN Creatinine Est GFR ( Amer) Est GFR (Non-Af Amer) BUN/Creatinine Ratio Glucose POC Glucose (mg/dL) 124 H Calcium Total Bilirubin AST ALT Alkaline Phosphatase Total Protein Albumin Globulin Albumin/Globulin Ratio Urine Color Yellow Urine Appearance Clear Urine pH 5.0 Ur Specific [place] 1.021 Urine Protein Negative Urine Ketones Negative Urine Blood Negative Urine Nitrate Negative Urine Bilirubin Negative Urine Urobilinogen Negative Ur Leukocyte Esterase Negative U Collection Duration 24 Urine Total Volume 1500 Ur Total Protein Conc 34 Urine Glucose Negative Urine Total Protein 510 H Urine Albumin (PEP) 28 Ur Albumin/Globulin 0.38 U Owjfq-1-Uvbomont 5 U Uwdhh-5-Hlthaiwm 10 U Beta Globulin 15 U Gamma Globulin 42 U PEP M-Russ 88 U PEP M-Russ 2 83 Urine PEP Impression See comment 01/11/19 01/12/19 01/12/19 16:37 04:50 04:50 WBC 3.9 RBC 3.39 L Hgb 11.7 L Hct 35 L MCV 103 H MCH 35 H MCHC 34 RDW 14 Plt Count 113 L MPV 11.1 H Neut % (Auto) 71.7 Lymph % (Auto) 17.1 [place] % (Auto) 10.8 Eos % (Auto) 0.3 Baso % (Auto) 0.1 Absolute Neuts (auto) 2.8 Absolute Lymphs (auto) 0.7 L Absolute Monos (auto) 0.4 Absolute Eos (auto) 0.0 Absolute Basos (auto) 0.0 Absolute Nucleated RBC 0.0 Nucleated RBC % 0.2 Sodium 133 L Potassium 4.1 Chloride 106 Carbon Dioxide 24 Anion Gap 3 BUN 30 H Creatinine 1.01 Est GFR ( Amer) 87.9 Est GFR (Non-Af Amer) 72.6 BUN/Creatinine Ratio 29.7 H Glucose 74 POC Glucose (mg/dL) 109 H Calcium 9.0 Total Bilirubin 0.40 AST 24 ALT 24 Alkaline Phosphatase 81 Total Protein 7.5 Albumin 2.5 L Globulin 5.0 H Albumin/Globulin Ratio 0.5 L Urine Color Urine Appearance Urine pH Ur Specific [place] Urine Protein Urine Ketones Urine Blood Urine Nitrate Urine Bilirubin Urine Urobilinogen Ur Leukocyte Esterase U Collection Duration Urine Total Volume Ur Total Protein Conc Urine Glucose Urine Total Protein Urine Albumin (PEP) Ur Albumin/Globulin U Udmnb-5-Ylnyucku U Sksfn-0-Siuhpmzm U Beta Globulin U Gamma Globulin U PEP M-Russ U PEP M-Russ 2 Urine PEP Impression Assessment: []73 yo male with newly diagnosed multiple myeloma admitted for intractable pain 2/2 lytic lesion with pathologic fracture @ L3 without cord compression. He received 4 days of high dose IV dex. and has started palliative RT, day 4 of planned 5 fractions today with pain appearing improved. Plan: []1. Back pain 2/2 pathologic compression fracture @ L3 - cont. RT per Dr. Cotter of [facility] - cont prn oxycodone - s/p high dose dex 2. Multiple myeloma - bone marrow with 44% plasma cell, LDH 212, albumin 2.5 beta-2 microglobulin pending, mutations pending - Preferred treatment would be Daratumumab (IV), Lenalidomide (PO), and Dexamethasone (PO): Daratumumab is a carve out and Lenalidomide and dexamethasone would be covered under drug benefit - Regimen per Lola et al, 2019, N Engl J Med. 2018August 04;380(02):[id number]. doi: 10.1056/[id number]: IV tanner weekly x8, q2wks x8, then monthly, PO Lenalidomide d1-21 q28d, PO dex. weekly - Other reasonable option would be single agent Lenalidomide D1-21 q28d with PO dex. weekly 3. Hepatitis B - new dx with associated liver fibrosis - ID has recommended antiviral during tx. with Entecavir 3. NIDDM with steroid induced hyperglycemia - cont insulin per Dr Calloway 4. HTN - cont home medications Dispo: should be stable for d/c to [facility] 01/13 after RT, however complicated by limited cognitive ability and need for oral chemotherapy in the future. Case management assisting with safe discharge, bed offers pending
[2019-01-12 09:44] LABS: Magnesium 1.4 mg/dL (1.9-2.7)
[2019-01-12] MEDS: metFORMIN* 500 MG TAB PO SCH ×2 (09:52→21:12)
[2019-01-12] MEDS: Spironolactone TAB* 25 MG PO SCH (09:52)
[2019-01-12] MEDS: Pantoprazole TAB * 40 MG TAB PO SCH (10:00)
[2019-01-12] MEDS: buPROPion SR TAB.SR* 150 MG PO SCH (10:01)
[2019-01-12] MEDS: Atorvastatin* 20 MG TAB PO SCH (10:02)
[2019-01-12] MEDS: ENTECAVIR 0.5 MG PO SCH (10:04)
[2019-01-12] MEDS: Losartan TAB* 25 MG PO SCH (10:05)
[2019-01-12] MEDS: Allopurinol TAB* 100 MG PO SCH (10:05)
[2019-01-12] MEDS: Docusate CAP* 100 MG PO SCH (10:06)
[2019-01-12] MEDS: Gabapentin CAP(*) 300 MG PO SCH (10:06)
[2019-01-12] MEDS: Aspirin EC TAB* 81 MG TAB.EC PO SCH (10:07)
[2019-01-12] MEDS: Senna TAB 8.6 mg* TAB PO SCH (10:09)
[2019-01-12] MEDS: amLODIPine TAB* 5 MG PO SCH (10:10)
[2019-01-12] MEDS: Citalopram TAB* 20 MG PO SCH (10:10)
[2019-01-12] MEDS: Acetaminophen ADULT LIQ* 650 MG/20.3 ML UDC PO PRN ×2 (13:28→21:12)
[2019-01-12] MEDS: Enoxaparin(*) 40 MG/0.4 ML SYR SUBCUT SCH (17:40)
[2019-01-13] MEDS: Insulin LISPRO* 1 UNITS UNIT SUBCUT SCH ×3 (07:38→18:14)
[2019-01-13] MEDS: Acetaminophen ADULT LIQ* 650 MG/20.3 ML UDC PO PRN ×2 (08:36→20:38)
[2019-01-13] MEDS: Docusate CAP* 100 MG PO SCH (08:38)
[2019-01-13] MEDS: buPROPion SR TAB.SR* 150 MG PO SCH (08:39)
[2019-01-13] MEDS: Atorvastatin* 20 MG TAB PO SCH (08:40)
[2019-01-13] MEDS: Spironolactone TAB* 25 MG PO SCH (08:40)
[2019-01-13] MEDS: Losartan TAB* 25 MG PO SCH (08:41)
[2019-01-13] MEDS: glipiZIDE TAB* 5 MG PO SCH ×2 (08:42→18:15)
[2019-01-13] MEDS: Aspirin EC TAB* 81 MG TAB.EC PO SCH (08:42)
[2019-01-13] MEDS: Gabapentin CAP(*) 300 MG PO SCH (08:42)
[2019-01-13] MEDS: Pantoprazole TAB * 40 MG TAB PO SCH (08:43)
[2019-01-13] MEDS: amLODIPine TAB* 5 MG PO SCH (08:43)
[2019-01-13] MEDS: Allopurinol TAB* 100 MG PO SCH (08:43)
[2019-01-13] MEDS: Citalopram TAB* 20 MG PO SCH (08:44)
[2019-01-13] MEDS: Senna TAB 8.6 mg* TAB PO SCH (08:45)
[2019-01-13] MEDS: metFORMIN* 500 MG TAB PO SCH ×2 (08:46→20:38)
[2019-01-13] MEDS: ENTECAVIR 0.5 MG PO SCH (10:33)
--- NOTE | 2019-01-13 10:38 | PN ---
Progress Note - Progress Note Date of Service: 01/13/19 SOAP: Subjective: CC: Chronic Hepatitis B HPI: Mr. Rios is a 74 yo male with PMH significant myeloma, and chronic hepatitis B. Reports right hip pain, feels it is better with ice. No complaints. Denies fever, chills, nausea, vomiting, diarrhea, or ABD pain. Objective: Vital Signs - 8 hr 01/13/19 01/13/19 01/13/19 03:53 07:15 07:38 Temperature 97.6 F 97.9 F Pulse Rate 80 77 Respiratory 16 16 16 Rate Blood Pressure 146/77 139/72 (mmHg) O2 Sat by Pulse 100 100 Oximetry Physical Exam: General: NAD, sitting up in chair Neurological: Alert and Oriented x 3 HEENT: Moist MM, no thrush Cardiovascular: Heart rate regular Respiratory: Lung sounds clear Abdominal: Bowel sounds present; ABD soft, large, non tender Skin: No rash Laboratory Last Values WBC 3.9 10^3/uL (3.5-10.8) 01/12/19 04:50 RBC 3.39 10^6 /uL (4.18-5.48) L 01/12/19 04:50 Hgb 11.7 g/dL (14.0-18.0) L 01/12/19 04:50 Hct 35 % (42-52) L 01/12/19 04:50 MCV 103 fL (80-94) H 01/12/19 04:50 MCH 35 pg (27-31) H 01/12/19 04:50 MCHC 34 g/dL (31-36) 01/12/19 04:50 RDW 14 % (10-15) 01/12/19 04:50 Plt Count 113 10^3/uL (150-450) L 01/12/19 04:50 MPV 11.1 fL (7.4-10.4) H 01/12/19 04:50 Neut % (Auto) 71.7 % 01/12/19 04:50 Lymph % (Auto) 17.1 % 01/12/19 04:50 [place] % (Auto) 10.8 % 01/12/19 04:50 Eos % (Auto) 0.3 % 01/12/19 04:50 Baso % (Auto) 0.1 % 01/12/19 04:50 Absolute Neuts (auto) 2.8 10^3/ul (1.5-7.7) 01/12/19 04:50 Absolute Lymphs (auto) 0.7 10^3/ul (1.0-4.8) L 01/12/19 04:50 Absolute Monos (auto) 0.4 10^3/ul (0-0.8) 01/12/19 04:50 Absolute Eos (auto) 0.0 10^3/ul (0-0.6) 01/12/19 04:50 Absolute Basos (auto) 0.0 10^3/ul (0-0.2) 01/12/19 04:50 Absolute Nucleated RBC 0.0 10^3/ul 01/12/19 04:50 Nucleated RBC % 0.2 01/12/19 04:50 Sodium 133 mmol/L (135-145) L 01/12/19 04:50 Potassium 4.1 mmol/L (3.5-5.0) 01/12/19 04:50 Chloride 106 mmol/L (101-111) 01/12/19 04:50 Carbon Dioxide 24 mmol/L (22-32) 01/12/19 04:50 Anion Gap 3 mmol/L (2-11) 01/12/19 04:50 BUN 30 mg/dL (6-24) H 01/12/19 04:50 Creatinine 1.01 mg/dL (0.67-1.17) 01/12/19 04:50 Est GFR ( Amer) 87.9 (>60) 01/12/19 04:50 Est GFR (Non-Af Amer) 72.6 (>60) 01/12/19 04:50 BUN/Creatinine Ratio 29.7 (8-20) H 01/12/19 04:50 Glucose 74 mg/dL (70-100) 01/12/19 04:50 POC Glucose (mg/dL) 114 mg/dL (70-100) H 01/13/19 07:30 Glucose Meter Confirm 459 mg/dL (70-100) H 01/08/19 16:26 Uric Acid 8.7 mg/dL (4.4-7.6) H 01/09/19 05:24 Calcium 9.0 mg/dL (8.6-10.3) 01/12/19 04:50 Magnesium 1.4 mg/dL (1.9-2.7) L 01/12/19 04:50 Total Bilirubin 0.40 mg/dL (0.2-1.0) 01/12/19 04:50 AST 24 U/L (13-39) 01/12/19 04:50 ALT 24 U/L (7-52) 01/12/19 04:50 Alkaline Phosphatase 81 U/L (34-104) 01/12/19 04:50 Total Protein 7.5 g/dL (6.4-8.9) 01/12/19 04:50 Albumin 2.5 g/dL (3.2-5.2) L 01/12/19 04:50 Globulin 5.0 g/dL (2-4) H 01/12/19 04:50 Albumin/Globulin Ratio 0.5 (1-3) L 01/12/19 04:50 Urine Color Yellow 01/11/19 11:16 Urine Appearance Clear 01/11/19 11:16 Urine pH 5.0 (5-9) 01/11/19 11:16 Ur Specific [place] 1.021 (1.010-1.030) 01/11/19 11:16 Urine Protein Negative (Negative) 01/11/19 11:16 Urine Ketones Negative (Negative) 01/11/19 11:16 Urine Blood Negative (Negative) 01/11/19 11:16 Urine Nitrate Negative (Negative) 01/11/19 11:16 Urine Bilirubin Negative (Negative) 01/11/19 11:16 Urine Urobilinogen Negative (Negative) 01/11/19 11:16 Ur Leukocyte Esterase Negative (Negative) 01/11/19 11:16 U Collection Duration 24 h 01/07/19 00:00 Urine Total Volume 1500 mL 01/07/19 00:00 Ur Total Protein Conc 34 mg/dL 01/07/19 00:00 Urine Glucose Negative (Negative) 01/11/19 11:16 Urine Total Protein 510 mg/24 h (<229) H 01/07/19 00:00 Urine Albumin (PEP) 28 % 01/07/19 00:00 Ur Albumin/Globulin 0.38 01/07/19 00:00 U Hjoux-2-Lfqwpeml 5 % 01/07/19 00:00 U Evfxg-4-Noqeyhdg 10 % 01/07/19 00:00 U Beta Globulin 15 % 01/07/19 00:00 U Gamma Globulin 42 % 01/07/19 00:00 U PEP M-Russ 88 mg/24 h 01/07/19 00:00 U PEP M-Russ 2 83 mg/24 h 01/07/19 00:00 Urine PEP Impression See comment 01/07/19 00:00 Hepatitis B Antibody Not immune (Immune) A 01/10/19 08:24 Hep Bs Antigen Positive (Nonreactive) A 01/10/19 08:24 HIV 1&2 Ab/P24 Ag 4thGn Nonreactive (Nonreactive) 01/09/19 11:47 Flow Intrp 2-8 Markers TNP 01/06/19 11:21 Flow Intrp 9-15 Marker 01/06/19 11:21 Flow Intrp 16+ Markers TNP 01/06/19 11:21 Assessment: 1. Chronic hepatitis B. With hepatic fibrosis - F2-3 by elastography. Normal ALT. HIV negative. HBeAg/Ab pending. 2. Multiple myeloma. Plans for immunosuppressive treatment Plan: Continue Entecavir daily. Discussed with EBN Patterson.
[2019-01-13] MEDS ORDERED: oxyCODONE ORAL.SOLN* 5 MG/5 ML UDC PO PRN (11:53)
[2019-01-13] MEDS: Ondansetron ODT TAB* 4 MG SL PRN (12:48)
[2019-01-13] MEDS ORDERED: oxyCODONE ORAL.SOLN* 5 MG/5 ML UDC PO ONE (13:15)
[2019-01-13 14:19] LABS: Plasma Cell Dis Res Summary Abnormal; Plasma Cell Prolif Dis Source RPIC
--- NOTE | 2019-01-13 17:09 | PN ---
Progress Note - Progress Note Date of Service: 01/13/19 SOAP: Subjective: [No changes today. Reports that he still has significant R sided back pain. Getting up with PT. ] Objective: [ Vital Signs: Temp Pulse Resp BP Pulse Ox 98 F 82 16 129/63 100 01/13/19 11:13 01/13/19 11:13 01/13/19 13:34 01/13/19 11:13 01/13/19 11:13 Acetaminophen (Tylenol Adult Liq*) 650 mg PO Q6H PRN PRN Reason: PAIN - MILD Last Admin: 01/13/19 08:36 Dose: 650 mg Allopurinol (Zyloprim Tab*) 100 mg PO DAILY [facility] Last Admin: 01/13/19 08:43 Dose: 100 mg Amlodipine Besylate (Norvasc Tab*) 5 mg PO DAILY [facility] Last Admin: 01/13/19 08:43 Dose: 5 mg Aspirin (Aspirin Ec Tab*) 81 mg PO DAILY [facility] Last Admin: 01/13/19 08:42 Dose: 81 mg Atorvastatin Calcium (Lipitor*) 20 mg PO DAILY [facility] Last Admin: 01/13/19 08:40 Dose: 20 mg Bupropion HCl (Wellbutrin Sr Tab*) 150 mg PO DAILY [facility] Last Admin: 01/13/19 08:39 Dose: 150 mg Citalopram Hydrobromide (Celexa Tab*) 20 mg PO DAILY [facility] Last Admin: 01/13/19 08:44 Dose: 20 mg Dextrose (Dextrose 50% Vial 50 Ml*) 25 ml IV PUSH .FOR FS < 60 - SS PRN PRN Reason: FS < 60 Docusate Sodium (Colace Cap*) 200 mg PO DAILY [facility] Last Admin: 01/13/19 08:38 Dose: 200 mg Enoxaparin Sodium (Lovenox(*)) 40 mg SUBCUT Q24H [facility] Last Admin: 01/12/19 17:40 Dose: 40 mg Entecavir (Baraclude (Nf)) 0.5 mg PO DAILY@1000 [facility] Last Admin: 01/13/19 10:33 Dose: 0.5 mg Gabapentin (Neurontin Cap(*)) 300 mg PO DAILY [facility] Last Admin: 01/13/19 08:42 Dose: 300 mg Glipizide (Glucotrol Tab*) 5 mg PO 0800,1700 [facility] Last Admin: 01/13/19 08:42 Dose: 5 mg Insulin Human Lispro (Humalog*) 0 units SUBCUT AC [facility]; Protocol Last Admin: 01/13/19 12:29 Dose: 2 units Losartan Potassium (Cozaar Tab*) 100 mg PO DAILY [facility] Last Admin: 01/13/19 08:41 Dose: 100 mg Magnesium Hydroxide (Milk Of Magnesia Liq*) 30 ml PO BID PRN PRN Reason: CONSTIPATION Last Admin: 01/08/19 07:32 Dose: 30 ml Metformin HCl (Glucophage*) 1,000 mg PO BID [facility] Last Admin: 01/13/19 08:46 Dose: 1,000 mg Miscellaneous (Ativan Pyxis Gerard) 1 ea N/A .ATIVAN IV GERARD PRN PRN Reason: PYXIS GERARD Ondansetron HCl (Zofran Odt Tab*) 4 mg SL Q6H PRN PRN Reason: NAUSEA/VOMITING Last Admin: 01/13/19 12:48 Dose: 4 mg Oxycodone HCl (Oxycodone Oral.Soln*) 5 mg PO Q4H PRN PRN Reason: PAIN - MODERATE Last Admin: 01/13/19 12:30 Dose: 5 mg Pantoprazole Sodium (Protonix Tab*) 40 mg PO DAILY [facility] Last Admin: 01/13/19 08:43 Dose: 40 mg Senna (Senokot 8.6 Mg Tab*) 2 tab PO DAILY [facility] Last Admin: 01/13/19 08:45 Dose: 2 tab Spironolactone (Aldactone Tab*) 25 mg PO DAILY [facility] Last Admin: 01/13/19 08:40 Dose: 25 mg Exam: Gen: relatively well appearing, sitting up in a chair in NAD HEENT: MMM CV: RRR, no m/r/g Resp: CTA, no w/c/r Abd: soft nonTTP Assessment: []73 yo male with newly diagnosed multiple myeloma admitted for intractable pain 2/2 lytic lesion with pathologic fracture @ L3 without cord compression. He received 4 days of high dose IV dex. and has started palliative RT, day 5 of planned 5 fractions today with pain appearing improved. Plan: []1. Back pain 2/2 pathologic compression fracture @ L3 - cont. RT per Dr. Cotter of [facility] - cont prn oxycodone - s/p high dose dex 2. Multiple myeloma - bone marrow with 44% plasma cell, LDH 212, albumin 2.5 beta-2 microglobulin pending, mutations pending - Preferred treatment would be Daratumumab (IV), Lenalidomide (PO), and Dexamethasone (PO): Daratumumab is a carve out and Lenalidomide and dexamethasone would be covered under drug benefit - Regimen per Shereeon et al, 2019, N Engl J Med. 2018August 04;380(03):9559-2338. doi: 10.1056/[id number]: IV tanner weekly x8, q2wks x8, then monthly, PO Lenalidomide d1-21 q28d, PO dex. weekly - Other reasonable option would be single agent Lenalidomide D1-21 q28d with PO dex. weekly 3. Hepatitis B - new dx with associated liver fibrosis - ID has recommended antiviral during tx. with Entecavir 3. NIDDM with steroid induced hyperglycemia - cont insulin per Dr Calloway 4. HTN - cont home medications Dispo: appropriate for [facility], CM/SW involved in dc planning
[2019-01-13] MEDS: Enoxaparin(*) 40 MG/0.4 ML SYR SUBCUT SCH (18:15)
[2019-01-13] MEDS: oxyCODONE ORAL.SOLN* 5 MG/5 ML UDC PO PRN (20:46)
[2019-01-13 21:35] LABS: Kappa Free Light Chain 8.91 mg/dL; Lambda Free Light Chain 0.56 mg/dL
[2019-01-14] MEDS: Ondansetron ODT TAB* 4 MG SL PRN ×2 (07:31→21:31)
[2019-01-14] MEDS: Insulin LISPRO* 1 UNITS UNIT SUBCUT SCH ×3 (08:25→16:50)
[2019-01-14] MEDS: amLODIPine TAB* 5 MG PO SCH (08:43)
[2019-01-14] MEDS: glipiZIDE TAB* 5 MG PO SCH ×2 (08:44→17:25)
[2019-01-14] MEDS: Gabapentin CAP(*) 300 MG PO SCH (08:44)
[2019-01-14] MEDS: Aspirin EC TAB* 81 MG TAB.EC PO SCH (08:44)
[2019-01-14] MEDS: Citalopram TAB* 20 MG PO SCH (08:44)
[2019-01-14] MEDS: Pantoprazole TAB * 40 MG TAB PO SCH (08:45)
[2019-01-14] MEDS: Losartan TAB* 25 MG PO SCH (08:45)
[2019-01-14] MEDS: Spironolactone TAB* 25 MG PO SCH (08:45)
[2019-01-14] MEDS: buPROPion SR TAB.SR* 150 MG PO SCH (08:46)
[2019-01-14] MEDS: Docusate CAP* 100 MG PO SCH (08:46)
[2019-01-14] MEDS: Atorvastatin* 20 MG TAB PO SCH (08:46)
[2019-01-14] MEDS: metFORMIN* 500 MG TAB PO SCH ×2 (08:46→21:31)
[2019-01-14] MEDS: Senna TAB 8.6 mg* TAB PO SCH (08:46)
[2019-01-14] MEDS: Allopurinol TAB* 100 MG PO SCH (10:44)
[2019-01-14] MEDS: ENTECAVIR 0.5 MG PO SCH (10:45)
[2019-01-14] MEDS: oxyCODONE ORAL.SOLN* 5 MG/5 ML UDC PO PRN ×2 (11:08→21:33)
[2019-01-14] MEDS: Enoxaparin(*) 40 MG/0.4 ML SYR SUBCUT SCH (17:25)
[2019-01-14] MEDS: Acetaminophen ADULT LIQ* 650 MG/20.3 ML UDC PO PRN (21:32)
[2019-01-15] MEDS: Insulin LISPRO* 1 UNITS UNIT SUBCUT SCH ×3 (07:47→17:48)
[2019-01-15] MEDS: oxyCODONE ORAL.SOLN* 5 MG/5 ML UDC PO PRN ×2 (09:12→17:47)
[2019-01-15] MEDS: Aspirin EC TAB* 81 MG TAB.EC PO SCH (09:15)
[2019-01-15] MEDS: amLODIPine TAB* 5 MG PO SCH (09:15)
[2019-01-15] MEDS: metFORMIN* 500 MG TAB PO SCH ×2 (09:17→19:23)
[2019-01-15] MEDS: Ondansetron ODT TAB* 4 MG SL PRN (09:19)
[2019-01-15] MEDS: glipiZIDE TAB* 5 MG PO SCH ×2 (10:15→17:48)
[2019-01-15] MEDS: Spironolactone TAB* 25 MG PO SCH (10:16)
[2019-01-15] MEDS: Losartan TAB* 25 MG PO SCH (10:17)
[2019-01-15] MEDS: Pantoprazole TAB * 40 MG TAB PO SCH (10:18)
[2019-01-15] MEDS: Gabapentin CAP(*) 300 MG PO SCH (10:18)
[2019-01-15] MEDS: Citalopram TAB* 20 MG PO SCH (11:14)
[2019-01-15] MEDS: Atorvastatin* 20 MG TAB PO SCH (11:14)
[2019-01-15] MEDS: ENTECAVIR 0.5 MG PO SCH (11:15)
[2019-01-15] MEDS: buPROPion SR TAB.SR* 150 MG PO SCH (11:15)
[2019-01-15] MEDS: Docusate CAP* 100 MG PO SCH (11:16)
[2019-01-15] MEDS: Allopurinol TAB* 100 MG PO SCH (11:18)
[2019-01-15] MEDS: Senna TAB 8.6 mg* TAB PO SCH (11:18)
[2019-01-15] MEDS: Enoxaparin(*) 40 MG/0.4 ML SYR SUBCUT SCH (17:48)
[2019-01-15] MEDS ORDERED: [UNRECOGNIZED DRUG - OTHER] PO ONE (21:00)
[2019-01-15] MEDS ORDERED: OXYCODONE PO ONE (21:00)
[2019-01-16] MEDS: oxyCODONE ORAL.SOLN* 5 MG/5 ML UDC PO PRN ×4 (03:04→21:20)
[2019-01-16] MEDS: Ondansetron ODT TAB* 4 MG SL PRN (08:04)
[2019-01-16] MEDS: Insulin LISPRO* 1 UNITS UNIT SUBCUT SCH ×3 (08:05→17:24)
[2019-01-16] MEDS: glipiZIDE TAB* 5 MG PO SCH ×2 (08:06→17:24)
[2019-01-16] MEDS: Gabapentin CAP(*) 300 MG PO SCH (08:06)
[2019-01-16] MEDS: Pantoprazole TAB * 40 MG TAB PO SCH (08:06)
[2019-01-16] MEDS: Spironolactone TAB* 25 MG PO SCH (08:07)
[2019-01-16] MEDS: Losartan TAB* 25 MG PO SCH (08:59)
[2019-01-16] MEDS: Atorvastatin* 20 MG TAB PO SCH (09:38)
[2019-01-16] MEDS: Citalopram TAB* 20 MG PO SCH (09:38)
[2019-01-16] MEDS: metFORMIN* 500 MG TAB PO SCH ×2 (09:38→21:20)
[2019-01-16] MEDS: amLODIPine TAB* 5 MG PO SCH (10:43)
[2019-01-16] MEDS: Allopurinol TAB* 100 MG PO SCH (10:43)
[2019-01-16] MEDS: Aspirin EC TAB* 81 MG TAB.EC PO SCH (10:44)
[2019-01-16] MEDS: Docusate CAP* 100 MG PO SCH (10:45)
[2019-01-16] MEDS: buPROPion SR TAB.SR* 150 MG PO SCH (11:14)
[2019-01-16] MEDS: Senna TAB 8.6 mg* TAB PO SCH (11:21)
[2019-01-16] MEDS: ENTECAVIR 0.5 MG PO SCH (11:21)
--- NOTE | 2019-01-16 11:31 | PN ---
Progress Note - Progress Note Date of Service: 01/16/19 SOAP: Subjective: []Still having pain despite use of oxycodone liquid, 10 mg, though routinely only getting approx. 2x/day. BM yesterday and denies upset stomach. Up walking with nursing, no difficulty. No other concerns voiced. Medications: Acetaminophen (Tylenol Adult Liq*) 650 mg PO Q6H PRN PRN Reason: PAIN - MILD Last Admin: 01/14/19 21:32 Dose: 650 mg Allopurinol (Zyloprim Tab*) 100 mg PO DAILY [facility] Last Admin: 01/16/19 10:43 Dose: 100 mg Amlodipine Besylate (Norvasc Tab*) 5 mg PO DAILY [facility] Last Admin: 01/16/19 10:43 Dose: 5 mg Aspirin (Aspirin Ec Tab*) 81 mg PO DAILY [facility] Last Admin: 01/16/19 10:44 Dose: 81 mg Atorvastatin Calcium (Lipitor*) 20 mg PO DAILY [facility] Last Admin: 01/16/19 09:38 Dose: 20 mg Bupropion HCl (Wellbutrin Sr Tab*) 150 mg PO DAILY [facility] Last Admin: 01/16/19 11:14 Dose: 150 mg Citalopram Hydrobromide (Celexa Tab*) 20 mg PO DAILY [facility] Last Admin: 01/16/19 09:38 Dose: 20 mg Dextrose (Dextrose 50% Vial 50 Ml*) 25 ml IV PUSH .FOR FS < 60 - SS PRN PRN Reason: FS < 60 Docusate Sodium (Colace Cap*) 200 mg PO DAILY [facility] Last Admin: 01/16/19 10:45 Dose: 200 mg Enoxaparin Sodium (Lovenox(*)) 40 mg SUBCUT Q24H [facility] Last Admin: 01/15/19 17:48 Dose: 40 mg Entecavir (Baraclude (Nf)) 0.5 mg PO DAILY@1000 [facility] Last Admin: 01/16/19 11:21 Dose: 0.5 mg Gabapentin (Neurontin Cap(*)) 300 mg PO DAILY [facility] Last Admin: 01/16/19 08:06 Dose: 300 mg Glipizide (Glucotrol Tab*) 5 mg PO 0800,1700 [facility] Last Admin: 01/16/19 08:06 Dose: 5 mg Insulin Human Lispro (Humalog*) 0 units SUBCUT [facility]; Protocol Last Admin: 01/16/19 08:05 Dose: Not Given Losartan Potassium (Cozaar Tab*) 100 mg PO DAILY [facility] Last Admin: 01/16/19 08:59 Dose: 100 mg Magnesium Hydroxide (Milk Of Magndelmy Liq*) 30 ml PO BID PRN PRN Reason: CONSTIPATION Last Admin: 01/08/19 07:32 Dose: 30 ml Metformin HCl (Glucophage*) 1,000 mg PO BID [facility] Last Admin: 01/16/19 09:38 Dose: 1,000 mg Miscellaneous (Ativan Pyxis Gerard) 1 ea N/A .ATIVAN IV GERARD PRN PRN Reason: PYXIS GERARD Ondansetron HCl (Zofran Odt Tab*) 4 mg SL Q6H PRN PRN Reason: NAUSEA/VOMITING Last Admin: 01/16/19 08:04 Dose: 4 mg Oxycodone HCl (Oxycodone Oral.Soln*) 10 mg PO Q4H PRN PRN Reason: PAIN - MODERATE Last Admin: 01/16/19 08:03 Dose: 10 mg Pantoprazole Sodium (Protonix Tab*) 40 mg PO DAILY [facility] Last Admin: 01/16/19 08:06 Dose: 40 mg Senna (Senokot 8.6 Mg Tab*) 2 tab PO DAILY [facility] Last Admin: 01/16/19 11:21 Dose: 2 tab Spironolactone (Aldactone Tab*) 25 mg PO DAILY [facility] Last Admin: 01/16/19 08:07 Dose: 25 mg Objective: [] Vital Signs Temp Pulse Resp BP Pulse Ox 97.5 F 80 16 131/60 96 01/16/19 11:22 01/16/19 11:22 01/16/19 11:22 01/16/19 11:22 01/16/19 11:22 Alert and oriented, cognitive limitation HRR, S1S2 LS clear +BS, abd. soft and non-tender Laboratory Results - last 24 hr 01/15/19 01/15/19 01/16/19 12:27 16:23 07:56 POC Glucose (mg/dL) 186 H 195 H 89 Assessment: []73 yo male with newly diagnosed multiple myeloma admitted for intractable pain 2/2 lytic lesion with pathologic fracture @ L3 without cord compression. He received 4 days of high dose IV dex. and palliative RT 5/5 fractions completed 01/13. Pain has improved, though remains fairly persistent despite use of oxycodone. Plan: []1. Back pain 2/2 pathologic compression fracture @ L3 - s/p RT and high dose dex - recommend adding Fentanyl 12 mcg q72hrs, monitoring for new onset confusion with low threshold to stop - cont prn oxycodone 2. Multiple myeloma - bone marrow with 44% plasma cell, LDH 212, albumin 2.5 beta-2 microglobulin 3.42, kappa light chains 8.91, kappa/lamda ratio 15.9 - Preferred treatment would be Daratumumab (IV), Lenalidomide (PO), and Dexamethasone (PO): Daratumumab is a carve out and Lenalidomide and dexamethasone would be covered under drug benefit - Regimen per Lola et al, 2019, N Engl J Med. 2018August 04;380(87):5610-6813. doi: 10.1056/[id number]: IV tanner weekly x8, q2wks x8, then monthly, PO Lenalidomide d1-21 q28d, PO dex. weekly - Other reasonable option would be single agent Lenalidomide D1-21 q28d with PO dex. weekly 3. Hepatitis B - new dx with associated liver fibrosis - ID has recommended antiviral during tx. with Entecavir 3. NIDDM with steroid induced hyperglycemia - cont insulin per Dr Calloway 4. HTN - cont home medications Dispo: appropriate for [facility], CM/SW involved in dc planning
[2019-01-16] MEDS: fentaNYL PATCH 12 MCG/HR TRANSDERM SCH (12:25)
[2019-01-16] MEDS: Enoxaparin(*) 40 MG/0.4 ML SYR SUBCUT SCH (17:24)
[2019-01-16] MEDS: fentaNYL Patch Check Q Shift 1 NOTE SCH (19:43)
[2019-01-16 20:32] LABS: Urine TP Concentration 13 mg/dL
[2019-01-17] MEDS: oxyCODONE ORAL.SOLN* 5 MG/5 ML UDC PO PRN ×3 (01:35→20:45)
[2019-01-17] MEDS: fentaNYL Patch Check Q Shift 1 NOTE SCH ×2 (06:24→18:37)
[2019-01-17] MEDS: Losartan TAB* 25 MG PO SCH (08:20)
[2019-01-17] MEDS: metFORMIN* 500 MG TAB PO SCH ×2 (08:20→20:45)
[2019-01-17] MEDS: Allopurinol TAB* 100 MG PO SCH (08:20)
[2019-01-17] MEDS: Pantoprazole TAB * 40 MG TAB PO SCH (08:21)
[2019-01-17] MEDS: Docusate CAP* 100 MG PO SCH (08:21)
[2019-01-17] MEDS: buPROPion SR TAB.SR* 150 MG PO SCH (08:21)
[2019-01-17] MEDS: Aspirin EC TAB* 81 MG TAB.EC PO SCH (08:21)
[2019-01-17] MEDS: Atorvastatin* 20 MG TAB PO SCH (08:21)
[2019-01-17] MEDS: Senna TAB 8.6 mg* TAB PO SCH (08:21)
[2019-01-17] MEDS: Gabapentin CAP(*) 300 MG PO SCH (08:21)
[2019-01-17] MEDS: amLODIPine TAB* 5 MG PO SCH (08:21)
[2019-01-17] MEDS: glipiZIDE TAB* 5 MG PO SCH ×2 (08:21→17:27)
[2019-01-17] MEDS: Citalopram TAB* 20 MG PO SCH (08:21)
[2019-01-17] MEDS: Spironolactone TAB* 25 MG PO SCH (08:22)
[2019-01-17] MEDS: Insulin LISPRO* 1 UNITS UNIT SUBCUT SCH ×3 (08:22→17:27)
[2019-01-17] MEDS: Ondansetron ODT TAB* 4 MG SL PRN (08:30)
[2019-01-17] MEDS: ENTECAVIR 0.5 MG PO SCH (10:19)
--- NOTE | 2019-01-17 10:34 | PN ---
Progress Note - Progress Note Date of Service: 01/17/19 SOAP: Subjective: []Tells me pain is a little better today. No questions or concerns. Medications: Acetaminophen (Tylenol Adult Liq*) 650 mg PO Q6H PRN PRN Reason: PAIN - MILD Last Admin: 01/14/19 21:32 Dose: 650 mg Allopurinol (Zyloprim Tab*) 100 mg PO DAILY [facility] Last Admin: 01/17/19 08:20 Dose: 100 mg Amlodipine Besylate (Norvasc Tab*) 5 mg PO DAILY [facility] Last Admin: 01/17/19 08:21 Dose: 5 mg Aspirin (Aspirin Ec Tab*) 81 mg PO DAILY [facility] Last Admin: 01/17/19 08:21 Dose: 81 mg Atorvastatin Calcium (Lipitor*) 20 mg PO DAILY [facility] Last Admin: 01/17/19 08:21 Dose: 20 mg Bupropion HCl (Wellbutrin Sr Tab*) 150 mg PO DAILY [facility] Last Admin: 01/17/19 08:21 Dose: 150 mg Citalopram Hydrobromide (Celexa Tab*) 20 mg PO DAILY [facility] Last Admin: 01/17/19 08:21 Dose: 20 mg Dextrose (Dextrose 50% Vial 50 Ml*) 25 ml IV PUSH .FOR FS < 60 - SS PRN PRN Reason: FS < 60 Docusate Sodium (Colace Cap*) 200 mg PO DAILY [facility] Last Admin: 01/17/19 08:21 Dose: 200 mg Enoxaparin Sodium (Lovenox(*)) 40 mg SUBCUT Q24H [facility] Last Admin: 01/16/19 17:24 Dose: 40 mg Entecavir (Baraclude (Nf)) 0.5 mg PO DAILY@1000 [facility] Last Admin: 01/16/19 11:21 Dose: 0.5 mg Fentanyl (Duragesic Patch 12 Mcg/Hr *) 12 mcg TRANSDERM Q72H [facility] Last Admin: 01/16/19 12:25 Dose: 12 mcg Gabapentin (Neurontin Cap(*)) 300 mg PO DAILY [facility] Last Admin: 01/17/19 08:21 Dose: 300 mg Glipizide (Glucotrol Tab*) 5 mg PO 0800,1700 [facility] Last Admin: 01/17/19 08:21 Dose: 5 mg Insulin Human Lispro (Humalog*) 0 units SUBCUT AC [facility]; Protocol Last Admin: 01/17/19 08:22 Dose: 1 units Losartan Potassium (Cozaar Tab*) 100 mg PO DAILY [facility] Last Admin: 01/17/19 08:20 Dose: 100 mg Magnesium Hydroxide (Milk Of Magnesia Liq*) 30 ml PO BID PRN PRN Reason: CONSTIPATION Last Admin: 01/08/19 07:32 Dose: 30 ml Metformin HCl (Glucophage*) 1,000 mg PO BID [facility] Last Admin: 01/17/19 08:20 Dose: 1,000 mg Miscellaneous (Ativan Pyxis Gerard) 1 ea N/A .ATIVAN IV GERARD PRN PRN Reason: PYXIS GERARD Ondansetron HCl (Zofran Odt Tab*) 4 mg SL Q6H PRN PRN Reason: NAUSEA/VOMITING Last Admin: 01/17/19 08:30 Dose: 4 mg Oxycodone HCl (Oxycodone Oral.Soln*) 10 mg PO Q4H PRN PRN Reason: PAIN - MODERATE Last Admin: 01/17/19 01:35 Dose: 10 mg Pantoprazole Sodium (Protonix Tab*) 40 mg PO DAILY [facility] Last Admin: 01/17/19 08:21 Dose: 40 mg Pharmacy Profile Note (Fentanyl Patch Check Q Shift) 1 note N/A 0700,1900 [facility] Last Admin: 01/17/19 06:24 Dose: 1 note Senna (Senokot 8.6 Mg Tab*) 2 tab PO DAILY [facility] Last Admin: 01/17/19 08:21 Dose: 2 tab Spironolactone (Aldactone Tab*) 25 mg PO DAILY [facility] Last Admin: 01/17/19 08:22 Dose: 25 mg Objective: [] Vital Signs Temp Pulse Resp BP Pulse Ox 97.8 F 81 16 141/68 95 01/17/19 07:15 01/17/19 07:15 01/17/19 10:17 01/17/19 07:15 01/17/19 07:15 Alert and oriented, cognitive limitations HRR, S1S2 LS clear +BS, abd. soft and non-tender +PP=bilat., no edema Laboratory Results - last 24 hr 01/16/19 01/16/19 01/16/19 11:31 16:29 17:06 POC Glucose (mg/dL) 142 H 150 H Urine Collection Time 24 Urine Total Volume 950 Ur Total Protein Conc 13 Ur Total Protein 24 Hr 123 01/17/19 07:12 POC Glucose (mg/dL) 138 H Urine Collection Time Urine Total Volume Ur Total Protein Conc Ur Total Protein 24 Hr Assessment: []73 yo male with newly diagnosed multiple myeloma admitted for intractable pain 2/2 lytic lesion with pathologic fracture @ L3 without cord compression. He received 4 days of high dose IV dex. and palliative RT 5/5 fractions completed 01/13. Remains inpt. d/t need for SNF placement. Pain slightly improved today with addition of Fentanyl patch yesterday. Plan: []1. Back pain 2/2 pathologic compression fracture @ L3 - s/p RT and high dose dex - Fentanyl 12 mcg q72hrs, monitor closely for confusion with low threshold to stop - cont prn oxycodone 2. Multiple myeloma: goal of starting therapy next week - bone marrow with 44% plasma cell, LDH 212, albumin 2.5 beta-2 microglobulin 3.42, kappa light chains 8.91, kappa/lamda ratio 15.9 - Preferred treatment would be Daratumumab (IV), Lenalidomide (PO), and Dexamethasone (PO): Daratumumab is a carve out and Lenalidomide and dexamethasone would be covered under drug benefit - Regimen per Facon et al, 2019, N Engl J Med. 2018August 04;380(29):9168-0114. doi: 10.1056/[id number]: IV tanner weekly x8, q2wks x8, then monthly, PO Lenalidomide d1-21 q28d, PO dex. weekly - Other reasonable option would be single agent Lenalidomide D1-21 q28d with PO dex. weekly 3. Hepatitis B - new dx with associated liver fibrosis - ID has recommended antiviral during tx. with Entecavir 3. NIDDM with steroid induced hyperglycemia - cont insulin per Dr Calloway 4. HTN - cont home medications Dispo: CM/SW involved in dc planning for placement
--- NOTE | 2019-01-17 10:54 | PN ---
Progress Note - Progress Note Date of Service: 01/17/19 SOAP: Subjective: CC: Chronic Hepatitis B HPI: Mr. Rios is a 74 yo male with PMH significant myeloma, and chronic hepatitis B. Reports right hip pain, feels it is better with ice. No complaints. Denies fever, chills, nausea, vomiting, diarrhea, or ABD pain. Continues to have right back/side pain this is in the setting of compression fracture and recent bone bx. States that the pain is improving. Objective: Vital Signs - 8 hr 01/17/19 01/17/19 01/17/19 03:15 03:48 07:15 Temperature 97.8 F 97.8 F Pulse Rate 86 81 Respiratory 19 18 20 Rate Blood Pressure 131/73 141/68 (mmHg) O2 Sat by Pulse 96 95 Oximetry Physical Exam: General: NAD, sitting up in chair Neurological: Alert and Oriented x 3 HEENT: Moist MM, no thrush Cardiovascular: Heart rate regular Respiratory: Lung sounds clear Abdominal: Bowel sounds present; ABD soft, large, non tender Skin: No rash Laboratory Last Values WBC 3.9 10^3/uL (3.5-10.8) 01/12/19 04:50 RBC 3.39 10^6 /uL (4.18-5.48) L 01/12/19 04:50 Hgb 11.7 g/dL (14.0-18.0) L 01/12/19 04:50 Hct 35 % (42-52) L 01/12/19 04:50 MCV 103 fL (80-94) H 01/12/19 04:50 MCH 35 pg (27-31) H 01/12/19 04:50 MCHC 34 g/dL (31-36) 01/12/19 04:50 RDW 14 % (10-15) 01/12/19 04:50 Plt Count 113 10^3/uL (150-450) L 01/12/19 04:50 MPV 11.1 fL (7.4-10.4) H 01/12/19 04:50 Neut % (Auto) 71.7 % 01/12/19 04:50 Lymph % (Auto) 17.1 % 01/12/19 04:50 [place] % (Auto) 10.8 % 01/12/19 04:50 Eos % (Auto) 0.3 % 01/12/19 04:50 Baso % (Auto) 0.1 % 01/12/19 04:50 Absolute Neuts (auto) 2.8 10^3/ul (1.5-7.7) 01/12/19 04:50 Absolute Lymphs (auto) 0.7 10^3/ul (1.0-4.8) L 01/12/19 04:50 Absolute Monos (auto) 0.4 10^3/ul (0-0.8) 01/12/19 04:50 Absolute Eos (auto) 0.0 10^3/ul (0-0.6) 01/12/19 04:50 Absolute Basos (auto) 0.0 10^3/ul (0-0.2) 01/12/19 04:50 Absolute Nucleated RBC 0.0 10^3/ul 01/12/19 04:50 Nucleated RBC % 0.2 01/12/19 04:50 Sodium 133 mmol/L (135-145) L 01/12/19 04:50 Potassium 4.1 mmol/L (3.5-5.0) 01/12/19 04:50 Chloride 106 mmol/L (101-111) 01/12/19 04:50 Carbon Dioxide 24 mmol/L (22-32) 01/12/19 04:50 Anion Gap 3 mmol/L (2-11) 01/12/19 04:50 BUN 30 mg/dL (6-24) H 01/12/19 04:50 Creatinine 1.01 mg/dL (0.67-1.17) 01/12/19 04:50 Est GFR ( Amer) 87.9 (>60) 01/12/19 04:50 Est GFR (Non-Af Amer) 72.6 (>60) 01/12/19 04:50 BUN/Creatinine Ratio 29.7 (8-20) H 01/12/19 04:50 Glucose 74 mg/dL (70-100) 01/12/19 04:50 POC Glucose (mg/dL) 138 mg/dL (70-100) H 01/17/19 07:12 Glucose Meter Confirm 459 mg/dL (70-100) H 01/08/19 16:26 Uric Acid 8.7 mg/dL (4.4-7.6) H 01/09/19 05:24 Calcium 9.0 mg/dL (8.6-10.3) 01/12/19 04:50 Magnesium 1.4 mg/dL (1.9-2.7) L 01/12/19 04:50 Total Bilirubin 0.40 mg/dL (0.2-1.0) 01/12/19 04:50 AST 24 U/L (13-39) 01/12/19 04:50 ALT 24 U/L (7-52) 01/12/19 04:50 Alkaline Phosphatase 81 U/L (34-104) 01/12/19 04:50 Total Protein 7.5 g/dL (6.4-8.9) 01/12/19 04:50 Albumin 2.5 g/dL (3.2-5.2) L 01/12/19 04:50 Globulin 5.0 g/dL (2-4) H 01/12/19 04:50 Albumin/Globulin Ratio 0.5 (1-3) L 01/12/19 04:50 Dggd-6-Cuuofccstjnbv 3.42 mcg/mL H 01/12/19 11:44 Urine Color Yellow 01/11/19 11:16 Urine Appearance Clear 01/11/19 11:16 Urine pH 5.0 (5-9) 01/11/19 11:16 Ur Specific [place] 1.021 (1.010-1.030) 01/11/19 11:16 Urine Protein Negative (Negative) 01/11/19 11:16 Urine Ketones Negative (Negative) 01/11/19 11:16 Urine Blood Negative (Negative) 01/11/19 11:16 Urine Nitrate Negative (Negative) 01/11/19 11:16 Urine Bilirubin Negative (Negative) 01/11/19 11:16 Urine Urobilinogen Negative (Negative) 01/11/19 11:16 Ur Leukocyte Esterase Negative (Negative) 01/11/19 11:16 Urine Collection Time 24 hr 01/16/19 16:29 Urine Total Volume 950 mL 01/16/19 16:29 U Collection Duration 24 h 01/07/19 00:00 Urine Total Volume 1500 mL 01/07/19 00:00 Ur Total Protein Conc 13 mg/dL 01/16/19 16:29 Ur Total Protein 24 Hr 123 mg/24Hr (0-165) 01/16/19 16:29 Urine Glucose Negative (Negative) 01/11/19 11:16 Urine Total Protein 510 mg/24 h (<229) H 01/07/19 00:00 Urine Albumin (PEP) 28 % 01/07/19 00:00 Ur Albumin/Globulin 0.38 01/07/19 00:00 U Saqal-6-Dwrkajdv 5 % 01/07/19 00:00 U Udfju-1-Achuzyth 10 % 01/07/19 00:00 U Beta Globulin 15 % 01/07/19 00:00 U Gamma Globulin 42 % 01/07/19 00:00 U PEP M-Russ 88 mg/24 h 01/07/19 00:00 U PEP M-Russ 2 83 mg/24 h 01/07/19 00:00 Urine PEP Impression See comment 01/07/19 00:00 [place] Light Chain 8.91 mg/dL H 01/12/19 11:44 Lambda Light Chain 0.5600 mg/dL L 01/12/19 11:44 [place]/Lambda Ratio 15.9 H 01/12/19 11:44 Hepatitis B Antibody Not immune (Immune) A 01/10/19 08:24 Hep Bs Antigen Positive (Nonreactive) A 01/10/19 08:24 HIV 1&2 Ab/P24 Ag 4thGn Nonreactive (Nonreactive) 01/09/19 11:47 Plas Cell Prol Dis Spec Bone marrow 01/06/19 11:21 Plas Cell Prol Dis Source Rpic 01/06/19 11:21 Plas Cell Prol Ref Reason See comment 01/06/19 11:21 Plas Cell Prol Dis Method See comment 01/06/19 11:21 Plasma Cell Prolif Disord See comment 01/06/19 11:21 Plas Cell Prol Res Sum Abnormal 01/06/19 11:21 Plas Cell Prol Res Table See comment 01/06/19 11:21 Plas Cell Prol Dis Interp See comment 01/06/19 11:21 Plas Cell Prol Add Info Not Reportable 01/06/19 11:21 Plas Cell Prol Disclaimer See comment 01/06/19 11:21 Plas Cell ProlReleased By See comment 01/06/19 11:21 Flow Intrp 2-8 Markers TNP 01/06/19 11:21 Flow Intrp 9-15 Marker 01/06/19 11:21 Flow Intrp 16+ Markers TNP 01/06/19 11:21 Assessment: 1. Chronic hepatitis B. With hepatic fibrosis - F2-3 by elastography. Normal ALT. HIV negative. HBeAg/Ab pending (will be drawn today). 2. Multiple myeloma. Plans for immunosuppressive treatment Plan: Continue Entecavir daily, will continue indefinite due to the risk of a Hepatitis B flair if the medication is stopped.
[2019-01-17] MEDS: Enoxaparin(*) 40 MG/0.4 ML SYR SUBCUT SCH (17:27)
[2019-01-18] MEDS: fentaNYL Patch Check Q Shift 1 NOTE SCH ×2 (06:09→19:00)
[2019-01-18] MEDS: oxyCODONE ORAL.SOLN* 5 MG/5 ML UDC PO PRN ×3 (06:13→21:02)
[2019-01-18] MEDS: amLODIPine TAB* 5 MG PO SCH (08:47)
[2019-01-18] MEDS: Allopurinol TAB* 100 MG PO SCH (08:48)
[2019-01-18] MEDS: Spironolactone TAB* 25 MG PO SCH (08:48)
[2019-01-18] MEDS: Aspirin EC TAB* 81 MG TAB.EC PO SCH (08:48)
[2019-01-18] MEDS: Docusate CAP* 100 MG PO SCH (08:48)
[2019-01-18] MEDS: Atorvastatin* 20 MG TAB PO SCH (08:48)
[2019-01-18] MEDS: Pantoprazole TAB * 40 MG TAB PO SCH (08:48)
[2019-01-18] MEDS: ENTECAVIR 0.5 MG PO SCH (08:48)
[2019-01-18] MEDS: Losartan TAB* 25 MG PO SCH (08:48)
[2019-01-18] MEDS: Citalopram TAB* 20 MG PO SCH (08:48)
[2019-01-18] MEDS: metFORMIN* 500 MG TAB PO SCH ×2 (08:48→20:13)
[2019-01-18] MEDS: Senna TAB 8.6 mg* TAB PO SCH (08:48)
[2019-01-18] MEDS: buPROPion SR TAB.SR* 150 MG PO SCH (08:49)
[2019-01-18] MEDS: Gabapentin CAP(*) 300 MG PO SCH (08:49)
[2019-01-18] MEDS: glipiZIDE TAB* 5 MG PO SCH ×2 (08:49→17:21)
[2019-01-18] MEDS: Insulin LISPRO* 1 UNITS UNIT SUBCUT SCH ×3 (08:59→17:16)
--- NOTE | 2019-01-18 12:50 | PN ---
Progress Note - Progress Note Date of Service: 01/18/19 SOAP: Subjective: continues to have little insight into his disease. reports that he has RLQ pain but then says he is doing much better walking around today Objective: Vital Signs Temp Pulse Resp BP Pulse Ox 97.7 F 90 16 136/57 99 01/18/19 11:15 01/18/19 11:15 01/18/19 11:15 01/18/19 11:15 01/18/19 11:15 sitting up in nad perr eomi op dry CTA bl s1 s2 nl soft nt +Bs no le edema grossly nonfocal pleasant but clearly impaired Laboratory Results - last 24 hr 01/17/19 01/18/19 01/18/19 17:15 08:22 11:42 POC Glucose (mg/dL) 185 H 142 H 172 H Acetaminophen (Tylenol Adult Liq*) 650 mg PO Q6H PRN PRN Reason: PAIN - MILD Last Admin: 01/14/19 21:32 Dose: 650 mg Allopurinol (Zyloprim Tab*) 100 mg PO DAILY [facility] Last Admin: 01/18/19 08:48 Dose: 100 mg Amlodipine Besylate (Norvasc Tab*) 5 mg PO DAILY [facility] Last Admin: 01/18/19 08:47 Dose: 5 mg Aspirin (Aspirin Ec Tab*) 81 mg PO DAILY [facility] Last Admin: 01/18/19 08:48 Dose: 81 mg Atorvastatin Calcium (Lipitor*) 20 mg PO DAILY [facility] Last Admin: 01/18/19 08:48 Dose: 20 mg Bupropion HCl (Wellbutrin Sr Tab*) 150 mg PO DAILY [facility] Last Admin: 01/18/19 08:49 Dose: 150 mg Citalopram Hydrobromide (Celexa Tab*) 20 mg PO DAILY [facility] Last Admin: 01/18/19 08:48 Dose: 20 mg Dextrose (Dextrose 50% Vial 50 Ml*) 25 ml IV PUSH .FOR FS < 60 - SS PRN PRN Reason: FS < 60 Docusate Sodium (Colace Cap*) 200 mg PO DAILY [facility] Last Admin: 01/18/19 08:48 Dose: 200 mg Enoxaparin Sodium (Lovenox(*)) 40 mg SUBCUT Q24H [facility] Last Admin: 01/17/19 17:27 Dose: 40 mg Entecavir (Baraclude (Nf)) 0.5 mg PO DAILY@1000 [facility] Last Admin: 01/18/19 08:48 Dose: 0.5 mg Fentanyl (Duragesic Patch 12 Mcg/Hr *) 12 mcg TRANSDERM Q72H [facility] Last Admin: 01/16/19 12:25 Dose: 12 mcg Gabapentin (Neurontin Cap(*)) 300 mg PO DAILY [facility] Last Admin: 01/18/19 08:49 Dose: 300 mg Glipizide (Glucotrol Tab*) 5 mg PO 0800,1700 [facility] Last Admin: 01/18/19 08:49 Dose: 5 mg Insulin Human Lispro (Humalog*) 0 units SUBCUT [facility]; Protocol Last Admin: 01/18/19 12:22 Dose: 2 units Losartan Potassium (Cozaar Tab*) 100 mg PO DAILY [facility] Last Admin: 01/18/19 08:48 Dose: 100 mg Magnesium Hydroxide (Milk Of Magnesia Liq*) 30 ml PO BID PRN PRN Reason: CONSTIPATION Last Admin: 01/08/19 07:32 Dose: 30 ml Metformin HCl (Glucophage*) 1,000 mg PO BID [facility] Last Admin: 01/18/19 08:48 Dose: 1,000 mg Miscellaneous (Ativan Pyxis Gerard) 1 ea N/A .ATIVAN IV GERARD PRN PRN Reason: PYXIS GERARD Ondansetron HCl (Zofran Odt Tab*) 4 mg SL Q6H PRN PRN Reason: NAUSEA/VOMITING Last Admin: 01/17/19 08:30 Dose: 4 mg Oxycodone HCl (Oxycodone Oral.Soln*) 10 mg PO Q4H PRN PRN Reason: PAIN - MODERATE Last Admin: 01/18/19 06:13 Dose: 10 mg Pantoprazole Sodium (Protonix Tab*) 40 mg PO DAILY [facility] Last Admin: 01/18/19 08:48 Dose: 40 mg Pharmacy Profile Note (Fentanyl Patch Check Q Shift) 1 note N/A 0700,1900 [facility] Last Admin: 01/18/19 06:09 Dose: 1 note Senna (Senokot 8.6 Mg Tab*) 2 tab PO DAILY [facility] Last Admin: 01/18/19 08:48 Dose: 2 tab Spironolactone (Aldactone Tab*) 25 mg PO DAILY [facility] Last Admin: 01/18/19 08:48 Dose: 25 mg Assessment: 73 yo male with newly diagnosed multiple myeloma admitted for intractable pain 2 /2 lytic lesion with pathologic fracture @ L3 without cord compression. He received 4 days of high dose IV dex. and palliative RT 5/5 fractions completed 01/13. Remains inpt. d/t need for SNF placement. Patient will need SW, case management and DSS involved as if he can not receive treatment in the SNF he should be hospice, and it is not clear to me that this is appropriate just based on inability to receive medication due to cost. He will need to stay inpatient until this is decided. Plan: 1. Back pain 2/2 pathologic compression fracture @ L3 - s/p RT and high dose dex - Fentanyl 12 mcg q72hrs, monitor closely for confusion with low threshold to stop - cont prn oxycodone 2. Multiple myeloma: goal of starting therapy next week if able to figure out above - bone marrow with 44% plasma cell, LDH 212, albumin 2.5 beta-2 microglobulin 3.42, kappa light chains 8.91, kappa/lamda ratio 15.9 - Preferred treatment would be Daratumumab (IV), Lenalidomide (PO), and Dexamethasone (PO): Daratumumab is a carve out and Lenalidomide and dexamethasone would be covered under drug benefit - Regimen per Sheereon et al, 2019, N Engl J Med. 2018August 04;380(77):[id number]. doi: 10.1056/[id number]: IV tanenr weekly x8, q2wks x8, then monthly, PO Lenalidomide d1-21 q28d, PO dex. weekly - Other reasonable option would be single agent Lenalidomide D1-21 q28d with PO dex. weekly 3. Hepatitis B - new dx with associated liver fibrosis - ID has recommended antiviral during tx. with Entecavir 3. NIDDM with steroid induced hyperglycemia - cont insulin per Dr Calloway 4. HTN - cont home medications Dispo: CM/SW involved in dc planning for placement, would involve DSS as well
[2019-01-18 12:56] LABS: Hepatitis Be Antigen Negative (Negative)
[2019-01-18 13:14] LABS: Hepatitis Be Antibody Positive (Negative)
[2019-01-18 13:25] LABS: BM Chromosome Source RPIC; BM Result Summary Abnormal
[2019-01-18] MEDS: Magnesium Hydroxide LIQ* 30 ML UDC PO PRN (14:24)
[2019-01-18] MEDS: Enoxaparin(*) 40 MG/0.4 ML SYR SUBCUT SCH (17:20)
[2019-01-18] MEDS: Ondansetron ODT TAB* 4 MG SL PRN (20:33)
[2019-01-19 06:09] LABS: ABS Eosinophils 0.1 10^3/ul (0-0.6); ABS Lymphocytes 0.7 10^3/ul (1.0-4.8); ABS Monocytes 0.6 10^3/ul (0-0.8); Eosinophil % 2.6 %; Hematocrit 30 % (42-52); Hemoglobin 10.4 g/dL (14.0-18.0); Lymphocyte % 20.4 %; Mean Corpuscular HGB Conc 35 g/dL (31-36); Mean Corpuscular Hemoglobin 36 pg (27-31); Mean Corpuscular Volume 101 fL (80-94); Mean Platelet Volume 10.8 fL (7.4-10.4); Platelet Count 110 10^3/uL (150-450); Red Blood Count 2.92 10^6 /uL (4.18-5.48); Red Cell Distribution Width 14 % (10-15); White Blood Count 3.4 10^3/uL (3.5-10.8)
[2019-01-19 06:29] LABS: Albumin 2.5 g/dL (3.2-5.2); Albumin/Globulin Ratio 0.6 (1-3); BUN/Creatinine Ratio 20.7 (8-20); Calcium 8.6 mg/dL (8.6-10.3); EGFR African American 97.9 (>60); EGFR Non-African American 80.9 (>60); Globulin 4.4 g/dL (2-4); Potassium 4.1 mmol/L (3.5-5.0); Total Bilirubin 0.3 mg/dL (0.2-1.0); Total Protein 6.9 g/dL (6.4-8.9)
[2019-01-19] MEDS: fentaNYL Patch Check Q Shift 1 NOTE SCH ×2 (06:58→19:32)
[2019-01-19] MEDS: oxyCODONE ORAL.SOLN* 5 MG/5 ML UDC PO PRN ×2 (07:17→21:57)
[2019-01-19] MEDS: Insulin LISPRO* 1 UNITS UNIT SUBCUT SCH ×3 (07:17→18:33)
[2019-01-19] MEDS: Ondansetron ODT TAB* 4 MG SL PRN ×2 (07:17→21:56)
[2019-01-19] MEDS: glipiZIDE TAB* 5 MG PO SCH ×2 (07:38→18:33)
[2019-01-19] MEDS: Allopurinol TAB* 100 MG PO SCH (09:00)
[2019-01-19] MEDS: amLODIPine TAB* 5 MG PO SCH (09:01)
[2019-01-19] MEDS: Losartan TAB* 25 MG PO SCH (09:01)
[2019-01-19] MEDS: Atorvastatin* 20 MG TAB PO SCH (09:03)
[2019-01-19] MEDS: Citalopram TAB* 20 MG PO SCH (09:03)
--- NOTE | 2019-01-19 09:11 | PN ---
Progress Note - Progress Note Date of Service: 01/19/19 SOAP: Subjective: []Pain is a little better today. Hopeful he "can get the medication Dr. Singh is working on." No concerns voiced by nursing in rounds. Medications: Acetaminophen (Tylenol Adult Liq*) 650 mg PO Q6H PRN PRN Reason: PAIN - MILD Last Admin: 01/14/19 21:32 Dose: 650 mg Allopurinol (Zyloprim Tab*) 100 mg PO DAILY [facility] Last Admin: 01/19/19 09:00 Dose: 100 mg Amlodipine Besylate (Norvasc Tab*) 5 mg PO DAILY [facility] Last Admin: 01/19/19 09:01 Dose: 5 mg Aspirin (Aspirin Ec Tab*) 81 mg PO DAILY [facility] Last Admin: 01/18/19 08:48 Dose: 81 mg Atorvastatin Calcium (Lipitor*) 20 mg PO DAILY [facility] Last Admin: 01/19/19 09:03 Dose: 20 mg Bupropion HCl (Wellbutrin Sr Tab*) 150 mg PO DAILY [facility] Last Admin: 01/18/19 08:49 Dose: 150 mg Citalopram Hydrobromide (Celexa Tab*) 20 mg PO DAILY [facility] Last Admin: 01/19/19 09:03 Dose: 20 mg Dextrose (Dextrose 50% Vial 50 Ml*) 25 ml IV PUSH .FOR FS < 60 - SS PRN PRN Reason: FS < 60 Docusate Sodium (Colace Cap*) 200 mg PO DAILY [facility] Last Admin: 01/18/19 08:48 Dose: 200 mg Enoxaparin Sodium (Lovenox(*)) 40 mg SUBCUT Q24H [facility] Last Admin: 01/18/19 17:20 Dose: 40 mg Entecavir (Baraclude (Nf)) 0.5 mg PO DAILY@1000 [facility] Last Admin: 01/18/19 08:48 Dose: 0.5 mg Fentanyl (Duragesic Patch 12 Mcg/Hr *) 12 mcg TRANSDERM Q72H [facility] Last Admin: 01/16/19 12:25 Dose: 12 mcg Gabapentin (Neurontin Cap(*)) 300 mg PO DAILY [facility] Last Admin: 01/18/19 08:49 Dose: 300 mg Glipizide (Glucotrol Tab*) 5 mg PO 0800,1700 [facility] Last Admin: 01/19/19 07:38 Dose: 5 mg Insulin Human Lispro (Humalog*) 0 units SUBCUT [facility]; Protocol Last Admin: 01/19/19 07:17 Dose: Not Given Losartan Potassium (Cozaar Tab*) 100 mg PO DAILY [facility] Last Admin: 01/19/19 09:01 Dose: 100 mg Magnesium Hydroxide (Milk Of Magnesia Liq*) 30 ml PO BID PRN PRN Reason: CONSTIPATION Last Admin: 01/18/19 14:24 Dose: 30 ml Metformin HCl (Glucophage*) 1,000 mg PO BID [facility] Last Admin: 01/18/19 20:13 Dose: 1,000 mg Miscellaneous (Ativan Pyxis Palacios) 1 ea N/A .ATIVAN IV PALACIOS PRN PRN Reason: PYXIS PALACIOS Ondansetron HCl (Zofran Odt Tab*) 4 mg SL Q6H PRN PRN Reason: NAUSEA/VOMITING Last Admin: 01/19/19 07:17 Dose: 4 mg Oxycodone HCl (Oxycodone Oral.Soln*) 10 mg PO Q4H PRN PRN Reason: PAIN - MODERATE Last Admin: 01/19/19 07:17 Dose: 10 mg Pantoprazole Sodium (Protonix Tab*) 40 mg PO DAILY [facility] Last Admin: 01/18/19 08:48 Dose: 40 mg Pharmacy Profile Note (Fentanyl Patch Check Q Shift) 1 note N/A 0700,1900 [facility] Last Admin: 01/19/19 06:58 Dose: 1 note Senna (Senokot 8.6 Mg Tab*) 2 tab PO DAILY [facility] Last Admin: 01/18/19 08:48 Dose: 2 tab Spironolactone (Aldactone Tab*) 25 mg PO DAILY [facility] Last Admin: 01/18/19 08:48 Dose: 25 mg Objective: [] Vital Signs Temp Pulse Resp BP Pulse Ox 98.4 F 80 10 132/65 98 01/19/19 08:22 01/19/19 08:22 01/19/19 08:22 01/19/19 08:22 01/19/19 08:22 Alert and involved in discussion but is not able to understand situation in depth HRR, S1S2 LS clear +BS, abd. soft and non-tender Laboratory Results - last 24 hr 01/06/19 01/17/19 01/18/19 11:21 12:22 11:42 WBC RBC Hgb Hct MCV MCH MCHC RDW Plt Count MPV Neut % (Auto) Lymph % (Auto) Weakley % (Auto) Eos % (Auto) Baso % (Auto) Absolute Neuts (auto) Absolute Lymphs (auto) Absolute Monos (auto) Absolute Eos (auto) Absolute Basos (auto) Absolute Nucleated RBC Nucleated RBC % Sodium Potassium Chloride Carbon Dioxide Anion Gap BUN Creatinine Est GFR ( Amer) Est GFR (Non-Af Amer) BUN/Creatinine Ratio Glucose POC Glucose (mg/dL) 172 H Calcium Total Bilirubin AST ALT Alkaline Phosphatase Total Protein Albumin Globulin Albumin/Globulin Ratio Hepatitis Be Antibody Positive A Hepatitis Be Antigen Negative BM Chromosome Specimen Bone marrow BM Chromo Refer Reason See comment BM Chromosome Source Rpic BM Chromosome Method See comment Banding Technique See comment BM Chromosome Analysis See comment BM Chromosome Res Sum Abnormal BM Chromosome Interp See comment BM Chromo Add Info Not Reportable BM Chromo Release By See comment 01/18/19 01/18/19 01/19/19 15:31 17:12 05:21 WBC 3.4 L RBC 2.92 L Hgb 10.4 L Hct 30 L MCV 101 H MCH 36 H MCHC 35 RDW 14 Plt Count 110 L MPV 10.8 H Neut % (Auto) 59.8 Lymph % (Auto) 20.4 Weakley % (Auto) 17.1 Eos % (Auto) 2.6 Baso % (Auto) 0.1 Absolute Neuts (auto) 2.0 Absolute Lymphs (auto) 0.7 L Absolute Monos (auto) 0.6 Absolute Eos (auto) 0.1 Absolute Basos (auto) 0.0 Absolute Nucleated RBC 0.0 Nucleated RBC % 0.0 Sodium Potassium Chloride Carbon Dioxide Anion Gap BUN Creatinine Est GFR ( Amer) Est GFR (Non-Af Amer) BUN/Creatinine Ratio Glucose POC Glucose (mg/dL) 160 H 124 H Calcium Total Bilirubin AST ALT Alkaline Phosphatase Total Protein Albumin Globulin Albumin/Globulin Ratio Hepatitis Be Antibody Hepatitis Be Antigen BM Chromosome Specimen BM Chromo Refer Reason BM Chromosome Source BM Chromosome Method Banding Technique BM Chromosome Analysis BM Chromosome Res Sum BM Chromosome Interp BM Chromo Add Info BM Chromo Release By 01/19/19 01/19/19 05:21 07:16 WBC RBC Hgb Hct MCV MCH MCHC RDW Plt Count MPV Neut % (Auto) Lymph % (Auto) Weakley % (Auto) Eos % (Auto) Baso % (Auto) Absolute Neuts (auto) Absolute Lymphs (auto) Absolute Monos (auto) Absolute Eos (auto) Absolute Basos (auto) Absolute Nucleated RBC Nucleated RBC % Sodium 132 L Potassium 4.1 Chloride 104 Carbon Dioxide 26 Anion Gap 2 BUN 19 Creatinine 0.92 Est GFR ( Amer) 97.9 Est GFR (Non-Af Amer) 80.9 BUN/Creatinine Ratio 20.7 H Glucose 80 POC Glucose (mg/dL) 84 Calcium 8.6 Total Bilirubin 0.30 AST 26 ALT 28 Alkaline Phosphatase 77 Total Protein 6.9 Albumin 2.5 L Globulin 4.4 H Albumin/Globulin Ratio 0.6 L Hepatitis Be Antibody Hepatitis Be Antigen BM Chromosome Specimen BM Chromo Refer Reason BM Chromosome Source BM Chromosome Method Banding Technique BM Chromosome Analysis BM Chromosome Res Sum BM Chromosome Interp BM Chromo Add Info BM Chromo Release By Assessment: []73 yo male with newly diagnosed multiple myeloma admitted for intractable pain 2/2 lytic lesion with pathologic fracture @ L3 without cord compression. He received 4 days of high dose IV dex. and palliative RT 5/5 fractions completed 01/13. He is doing very well and remains inpt. due to difficulty with placement. Discussed with case management and SW at length today regarding safe plan. Mr. Rios's cognitive ability limits his understanding of his diagnosis and ability to manage medications. His pain has been limiting his functional ability, however he is improving s/p RT and with improved pain management and PT. I recommend JESSICA for 1 more week with plan to transition to long-term care at which time Rx coverage should not be an issue. SW will review with DSS ( [facility] the [facility]) that if we are not able to secure placement it would not be possible to treat him effectively and he would ultimately need hospice, a measure that we feel is inappropriate in the setting of a new diagnosis of Multiple Myeloma not having failed first line therapy, without complete bone marrow and renal failure, and a R-ISS score of 1 with OS 82% and PFS 52%. In any event his DSS team will need to be involved with further decision making ( such as consents versus code status). Plan: []1. Back pain 2/2 pathologic compression fracture @ L3 - s/p RT and high dose dex - Fentanyl 12 mcg q72hrs, appears to be tolerating well - cont prn oxycodone 2. Multiple myeloma: goal of starting therapy within a week or so - see above recommendations - bone marrow with 44% plasma cell, LDH 212, albumin 2.5, beta-2 microglobulin 3.42, kappa light chains 8.91, kappa/lamda ratio 15.9, FISH neg. for del(17p), t (4;14), and t(14;16) - Preferred treatment would be Daratumumab (IV), Lenalidomide (PO), and Dexamethasone (PO): Daratumumab is a carve out and Lenalidomide and dexamethasone would be covered under drug benefit - Regimen per Lola et al, 2019, N Engl J Med. 2018August 04;380(26):9143-4124. doi: 10.1056/[id number]: IV tanner weekly x8, q2wks x8, then monthly, PO Lenalidomide d1-21 q28d, PO dex. weekly - Other reasonable option would be single agent Lenalidomide D1-21 q28d with PO dex. weekly 3. Hepatitis B - new dx with associated liver fibrosis - ID has recommended antiviral during tx. with Entecavir 3. NIDDM with steroid induced hyperglycemia - cont insulin per Dr Calloway 4. HTN - cont home medications Dispo: CM/SW involved in dc planning for placement, requested DSS become more aggressively involved d/t placement now holding up d/c
[2019-01-19] MEDS: buPROPion SR TAB.SR* 150 MG PO SCH (10:07)
[2019-01-19] MEDS: metFORMIN* 500 MG TAB PO SCH ×2 (11:00→21:47)
[2019-01-19] MEDS: ENTECAVIR 0.5 MG PO SCH (11:01)
[2019-01-19] MEDS: Aspirin EC TAB* 81 MG TAB.EC PO SCH (11:01)
[2019-01-19] MEDS: Spironolactone TAB* 25 MG PO SCH (11:01)
[2019-01-19] MEDS: Docusate CAP* 100 MG PO SCH (11:01)
[2019-01-19] MEDS: Gabapentin CAP(*) 300 MG PO SCH (11:01)
[2019-01-19] MEDS: Pantoprazole TAB * 40 MG TAB PO SCH (11:06)
[2019-01-19] MEDS: Senna TAB 8.6 mg* TAB PO SCH (11:07)
[2019-01-19] MEDS: fentaNYL PATCH 12 MCG/HR TRANSDERM SCH (11:43)
[2019-01-19] MEDS: Enoxaparin(*) 40 MG/0.4 ML SYR SUBCUT SCH (18:33)
[2019-01-20] MEDS: Acetaminophen ADULT LIQ* 650 MG/20.3 ML UDC PO PRN (06:38)
[2019-01-20] MEDS: fentaNYL Patch Check Q Shift 1 NOTE SCH ×2 (07:02→19:08)
[2019-01-20] MEDS: ENTECAVIR 0.5 MG PO SCH (09:43)
[2019-01-20] MEDS: Ondansetron ODT TAB* 4 MG SL PRN (09:44)
[2019-01-20] MEDS: amLODIPine TAB* 5 MG PO SCH (09:45)
[2019-01-20] MEDS: Gabapentin CAP(*) 300 MG PO SCH (09:45)
[2019-01-20] MEDS: Docusate CAP* 100 MG PO SCH (09:45)
[2019-01-20] MEDS: Citalopram TAB* 20 MG PO SCH (09:45)
[2019-01-20] MEDS: Atorvastatin* 20 MG TAB PO SCH (09:46)
[2019-01-20] MEDS: Aspirin EC TAB* 81 MG TAB.EC PO SCH (09:46)
[2019-01-20] MEDS: Allopurinol TAB* 100 MG PO SCH (09:46)
[2019-01-20] MEDS: buPROPion SR TAB.SR* 150 MG PO SCH (09:46)
[2019-01-20] MEDS: glipiZIDE TAB* 5 MG PO SCH ×2 (09:47→17:43)
[2019-01-20] MEDS: Pantoprazole TAB * 40 MG TAB PO SCH (09:47)
[2019-01-20] MEDS: Losartan TAB* 25 MG PO SCH (09:47)
[2019-01-20] MEDS: Spironolactone TAB* 25 MG PO SCH (09:47)
[2019-01-20] MEDS: metFORMIN* 500 MG TAB PO SCH ×2 (09:47→22:25)
[2019-01-20] MEDS: Senna TAB 8.6 mg* TAB PO SCH (09:48)
[2019-01-20] MEDS: oxyCODONE ORAL.SOLN* 5 MG/5 ML UDC PO PRN (09:48)
[2019-01-20] MEDS: Insulin LISPRO* 1 UNITS UNIT SUBCUT SCH ×3 (09:50→17:43)
--- NOTE | 2019-01-20 12:29 | PN ---
Progress Note - Progress Note Date of Service: 01/20/19 SOAP: Subjective: [Still in pain. He had trouble sleeping last night because of the pain. Seems to be tolerating the fentanyl patch well. He reports he's not taking the oral pain medication freq because he doesn't think it helps much.] Objective: [ Vital Signs: Temp Pulse Resp BP Pulse Ox 97.5 F 87 18 119/63 98 01/20/19 11:09 01/20/19 11:09 01/20/19 11:09 01/20/19 11:09 01/20/19 11:09 Acetaminophen (Tylenol Adult Liq*) 650 mg PO Q6H PRN PRN Reason: PAIN - MILD Last Admin: 01/20/19 06:38 Dose: 650 mg Allopurinol (Zyloprim Tab*) 100 mg PO DAILY [facility] Last Admin: 01/20/19 09:46 Dose: 100 mg Amlodipine Besylate (Norvasc Tab*) 5 mg PO DAILY [facility] Last Admin: 01/20/19 09:45 Dose: 5 mg Aspirin (Aspirin Ec Tab*) 81 mg PO DAILY [facility] Last Admin: 01/20/19 09:46 Dose: 81 mg Atorvastatin Calcium (Lipitor*) 20 mg PO DAILY [facility] Last Admin: 01/20/19 09:46 Dose: 20 mg Bupropion HCl (Wellbutrin Sr Tab*) 150 mg PO DAILY [facility] Last Admin: 01/20/19 09:46 Dose: 150 mg Citalopram Hydrobromide (Celexa Tab*) 20 mg PO DAILY [facility] Last Admin: 01/20/19 09:45 Dose: 20 mg Dextrose (Dextrose 50% Vial 50 Ml*) 25 ml IV PUSH .FOR FS < 60 - SS PRN PRN Reason: FS < 60 Docusate Sodium (Colace Cap*) 200 mg PO DAILY [facility] Last Admin: 01/20/19 09:45 Dose: 200 mg Enoxaparin Sodium (Lovenox(*)) 40 mg SUBCUT Q24H [facility] Last Admin: 01/19/19 18:33 Dose: 40 mg Entecavir (Baraclude (Nf)) 0.5 mg PO DAILY@1000 [facility] Last Admin: 01/20/19 09:43 Dose: 0.5 mg Fentanyl (Duragesic Patch 12 Mcg/Hr *) 25 mcg TRANSDERM Q72H [facility] Gabapentin (Neurontin Cap(*)) 300 mg PO DAILY [facility] Last Admin: 01/20/19 09:45 Dose: 300 mg Glipizide (Glucotrol Tab*) 5 mg PO 0800,1700 [facility] Last Admin: 01/20/19 09:47 Dose: 5 mg Insulin Human Lispro (Humalog*) 0 units SUBCUT [facility]; Protocol Last Admin: 01/20/19 09:50 Dose: 1 units Losartan Potassium (Cozaar Tab*) 100 mg PO DAILY [facility] Last Admin: 01/20/19 09:47 Dose: 100 mg Magnesium Hydroxide (Milk Of Magnesia Liq*) 30 ml PO BID PRN PRN Reason: CONSTIPATION Last Admin: 01/18/19 14:24 Dose: 30 ml Metformin HCl (Glucophage*) 1,000 mg PO BID [facility] Last Admin: 01/20/19 09:47 Dose: 1,000 mg Miscellaneous (Ativan Pyxis Gerard) 1 ea N/A .ATIVAN IV GERARD PRN PRN Reason: PYXIS GERARD Ondansetron HCl (Zofran Odt Tab*) 4 mg SL Q6H PRN PRN Reason: NAUSEA/VOMITING Last Admin: 01/20/19 09:44 Dose: 4 mg Oxycodone HCl (Oxycodone Oral.Soln*) 10 mg PO Q4H PRN PRN Reason: PAIN - MODERATE Last Admin: 01/20/19 09:48 Dose: 10 mg Pantoprazole Sodium (Protonix Tab*) 40 mg PO DAILY [facility] Last Admin: 01/20/19 09:47 Dose: 40 mg Pharmacy Profile Note (Fentanyl Patch Check Q Shift) 1 note N/A 0700,1900 [facility] Last Admin: 01/20/19 07:02 Dose: 1 note Senna (Senokot 8.6 Mg Tab*) 2 tab PO DAILY [facility] Last Admin: 01/20/19 09:48 Dose: 2 tab Spironolactone (Aldactone Tab*) 25 mg PO DAILY [facility] Last Admin: 01/20/19 09:47 Dose: 25 mg Laboratory Results - last 24 hr 01/19/19 01/19/19 01/20/19 11:48 17:41 07:46 POC Glucose (mg/dL) 192 H 173 H 135 H 01/20/19 11:56 POC Glucose (mg/dL) 194 H Assessment: []73 yo male with newly diagnosed multiple myeloma admitted for intractable pain 2/2 lytic lesion with pathologic fracture @ L3 without cord compression. He received 4 days of high dose IV dex. and palliative RT 5/5 fractions completed 01/13. He continues to complain of pain, clinically doing well and remains inpt. due to difficulty with placement. Plan: []1. Back pain 2/2 pathologic compression fracture @ L3 - s/p 5 fractions RT and high dose dex - increase Fentanyl patch to 25 mcg q72hrs, appears to be tolerating well - cont prn oxycodone 2. Multiple myeloma: goal of starting therapy following completion of subacute rehab (within 30d of discharge from the hospital) - bone marrow with 44% plasma cell, LDH 212, albumin 2.5, beta-2 microglobulin 3.42, kappa light chains 8.91, kappa/lamda ratio 15.9, FISH neg. for del(17p), t (4;14), and t(14;16) - Preferred treatment would be Daratumumab (IV), Revlimid (PO), and Dexamethasone (PO): Daratumumab is a carve out and Revlimid and dexamethasone would be covered under drug benefit (authorization obtained) - Regimen per Facon et al, 2019, N Engl J Med. 2018August 04;380(72):5355-7494. doi: 10.1056/[id number]: IV tanner weekly x8, q2wks x8, then monthly, PO Lenalidomide d1-21 q28d, PO dex. weekly - Other reasonable option would be single agent Lenalidomide D1-21 q28d with PO dex. weekly 3. Hepatitis B - new dx with associated liver fibrosis - ID has recommended antiviral during tx. with Entecavir 3. NIDDM with steroid induced hyperglycemia - cont insulin per Dr Calloway 4. HTN - cont home medications Dispo: CM/SW involved in dc planning for placement. Reviewed case with [facility] and hopeful for a bed offer soon. Reviewed plan of care with primary oncologist, Dr Ashley Singh, who agrees with the above.
[2019-01-20] MEDS ORDERED: fentaNYL PATCH 25 MCG/HR TRANSDERM SCH (13:00)
[2019-01-20] MEDS: Enoxaparin(*) 40 MG/0.4 ML SYR SUBCUT SCH (17:43)
--- NOTE | 2019-01-20 21:12 | DS ---
CC: Dr. Arnaud Calloway * DISCHARGE SUMMARY: DATE OF ADMISSION: 01/05/19 DATE OF DISCHARGE: 01/20/19 PRIMARY CARE PROVIDER: Dr. Arnaud Calloway. CONSULTING RADIATION ONCOLOGIST: Dr. Wiley Cotter. ATTENDING PHYSICIAN AND PRIMARY ONCOLOGIST: Dr. Francisco MD * (DICTATED BY BEN URIBE) DISCHARGING PROVIDER: BEN Uribe PRIMARY DISCHARGE DIAGNOSES: 1. Intractable back pain secondary to pathologic fracture at L3 secondary to multiple myeloma. 2. Hepatitis B with associated liver fibrosis. 3. Msr-[id number] diabetes complicated by steroid-induced hyperglycemia this hospitalization. 4. Hypertension. HOSPITAL IMAGING: Lumbar spine MRI on 01/05/19 shows mild to moderate L3 compression fracture with edema, acute/subacute and progressed from recent CT study, no significant osseous retropulsion and a 1.7 cm focus of abnormal signal and enhancement involving the L2 vertebral body corresponding to a lytic lesion on CT. Pelvis MRI on 01/05/19 shows numerous marrow lesions consistent with known multiple myeloma and distal colonic diverticulosis. Chest x-ray on 01/08/19 shows no acute findings. HOSPITAL COURSE: This is a 74-year-old gentleman recently referred to Dr. Singh for pancytopenia found to have multiple myeloma and noted to have a new diagnosis of hepatitis B. The patient presented to the oncology office for routine followup and was very uncomfortable with complaints of back pain. He had been seen on approximately 3 occasions over the preceding couple of weeks in the emergency department with complaints of back pain. He was subsequently admitted to the hospital for pain management and further evaluation of his multiple myeloma. The patient was subsequently found to have pathologic fracture of L3 and subsequently received 5 fractions of palliative radiation on 01/09/19 through and palliative high-dose dexamethasone over that period of time as well. The patient was subsequently titrated up immediate release oxycodone and eventually added a fentanyl patch for pain control with reasonable results. The patient has a significant developmental delay, but has been able to live independently in the community out of [place] with his medications dispensed by [facility] and close monitoring by his primary care provider, Dr. Calloway as well as involvement of [facility]. During this hospitalization, it became quite clear that the patient was unable to continue to thrive in an independent setting and required additional nursing supervision at least while initiating systemic therapy for his multiple myeloma due to disability from this disease. The patient participated in physical therapy during this hospitalization and was able to regain some of his lost mobility. Cornerstone of treating multiple myeloma is systemic therapy generally with a combination of oral and IV medications. Dr. Singh recommended a regimen with daratumumab, Revlimid, and dexamethasone. Due to the extreme expense of these medications, discharge planning was a major barrier during this hospitalization. After extensive coordination with Social Work and case management, the patient was offered a bed at [facility] where he was planning on participating in subacute rehab with transition to long-term placement. DISPOSITION AND FOLLOWUP PLAN: The patient is being discharged to [facility] for subacute rehab in anticipation of his transitioning to a long-term care scenario. The patient would very much like to return to the independent setting of his apartment if at possible in the future. He will follow up with Dr. Singh in approximately 2 weeks to reevaluate his performance status and initiate systemic therapy when he has completed the rehab phase of his retirement placement. BEN URIBE [id number]/[facility] #: [id number] HARL[place]
[2019-01-20] MEDS: Magnesium Hydroxide LIQ* 30 ML UDC PO PRN (22:36)
[2019-01-21] MEDS: fentaNYL Patch Check Q Shift 1 NOTE SCH (06:55)
[2019-01-21] MEDS: Ondansetron ODT TAB* 4 MG SL PRN (07:55)
[2019-01-21] MEDS: Docusate CAP* 100 MG PO SCH (07:55)
[2019-01-21] MEDS: Losartan TAB* 25 MG PO SCH (07:55)
[2019-01-21] MEDS: Pantoprazole TAB * 40 MG TAB PO SCH (07:55)
[2019-01-21] MEDS: Citalopram TAB* 20 MG PO SCH (07:56)
[2019-01-21] MEDS: buPROPion SR TAB.SR* 150 MG PO SCH (07:56)
[2019-01-21] MEDS: Gabapentin CAP(*) 300 MG PO SCH (07:56)
[2019-01-21] MEDS: metFORMIN* 500 MG TAB PO SCH (07:56)
[2019-01-21] MEDS: Senna TAB 8.6 mg* TAB PO SCH (07:56)
[2019-01-21] MEDS: Aspirin EC TAB* 81 MG TAB.EC PO SCH (07:57)
[2019-01-21] MEDS: Spironolactone TAB* 25 MG PO SCH (07:57)
[2019-01-21] MEDS: Allopurinol TAB* 100 MG PO SCH (07:57)
[2019-01-21] MEDS: amLODIPine TAB* 5 MG PO SCH (07:57)
[2019-01-21] MEDS: glipiZIDE TAB* 5 MG PO SCH (07:57)
[2019-01-21] MEDS: Insulin LISPRO* 1 UNITS UNIT SUBCUT SCH ×2 (07:57→11:55)
[2019-01-21] MEDS: Atorvastatin* 20 MG TAB PO SCH (08:34)
[2019-01-21] MEDS: ENTECAVIR 0.5 MG PO SCH (08:35)
[2019-01-21 12:07] VITALS: BP 106/62
== END 2019-01-21 14:28 | disposition home or self-care (01) | DRG 841 ==
LOC: MED 15:22
PROVIDERS: ADMIT Internal Medicine Hematology & Oncology; ATTEND Internal Medicine Hematology & Oncology
PROC: 07DR3ZX Extraction of Iliac Bone Marrow, Percutaneous Approach, Diagnostic (ICD-10-PCS; principal; 2019-01-06)
PROC: DPYC7ZZ Contact Radiation of Other Bone (ICD-10-PCS; 2019-01-09)
DX: C90.00 Multiple myeloma not having achieved remission (principal); F70 Mild intellectual disabilities; G47.30 Sleep apnea, unspecified; M84.58XA Pathological fracture in neoplastic disease, other specified site, initial encounter for fracture; B18.1 Chronic viral hepatitis B without delta-agent; E11.65 Type 2 diabetes mellitus with hyperglycemia; K74.0 Hepatic fibrosis; K57.30 Diverticulosis of large intestine without perforation or abscess without bleeding; Y92.239 Unspecified place in hospital as the place of occurrence of the external cause; T38.0X5A Adverse effect of glucocorticoids and synthetic analogues, initial encounter; E78.5 Hyperlipidemia, unspecified; I10 Essential (primary) hypertension; M19.90 Unspecified osteoarthritis, unspecified site; Z85.46 Personal history of malignant neoplasm of prostate; Z90.79 Acquired absence of other genital organ(s); Z88.1 Allergy status to other antibiotic agents; Z88.8 Allergy status to other drugs, medicaments and biological substances
CPT/HCPCS: 36415; 38222; 71046; 72158; 72197; 77014; 80048; 80053; 81003; 81479; 82232; 82947; 83735; 83883; 84156; 84166; 84550; 85025; 85060; 85097; 86706; 86707; 87340; 87350; 87389; 88184; 88187; 88188; 88189; 88237; 88271; 88305; 88311; 88313; 93005; 97530; 99223; 99232; 99233; A9270-GY; A9579; G8978-GP-CK; G8979-GP-CH; G8979-GP-CI; J1100; J1650; J1815; J2060

== ENCOUNTER 2019-03-01 21:01 | Emergency (ER) | payer MEDICARE, MEDICAID ==
[2019-03-01] MEDS ORDERED: NS 0.9% 1000 ML** 1,000 ML IV ONE ×2 (21:18→22:12)
--- NOTE | 2019-03-01 21:26 | ED ---
Complex/Multi-Sys Presentation - HPI Summary HPI Summary: This patient is a 74 year old male presenting to [facility] from intermediate with a chief complaint of general weakness. Patient is undergoing chemotherapy for multiple myeloma. Patient has a developmental delay and is a poor historian. He reports back pain. This patient is a level 5 caveat due to developmental delay. - History Of Current Complaint Chief Complaint: EDWeakness Time Seen by Provider: 03/01/19 21:18 Hx Obtained From: Patient Hx From Patient Unobtainable Due To: Other - Developmental Delay Associated Signs And Symptoms: Positive: Weakness - Allergies/Home Medications Allergies/Adverse Reactions: Allergies Allergy/AdvReac Type Severity Reaction Status Date / Time cefazolin Allergy Severe See Comment Verified 01/05/19 15:08 enalapril Allergy Severe Swelling Verified 01/05/19 15:08 Of Face,Lips,& Throat levofloxacin [From Levaquin] Allergy Severe See Comment Verified 01/05/19 15:08 pioglitazone [From Actos] Allergy Mild See Comment Verified 01/05/19 15:08 tamsulosin [From Flomax] Allergy Unknown Unknown Verified 01/05/19 15:08 Reaction Details PMH/Surg Hx/FS Hx/Imm Hx Endocrine/Hematology History: Reports: Hx Diabetes Cardiovascular History: Reports: Hx Coronary Artery Disease, Hx Hypercholesterolemia, Hx Hypertension, Hx Syncope - THIS ADMIT Denies: Hx Pacemaker/ICD Respiratory History: Reports: Hx Sleep Apnea GI History: Reports: Hx Gastroesophageal Reflux Disease, Hx Ulcer History: Reports: Hx Benign Prostatic Hyperplasia - PROSTATE SURGERY Denies: Hx Dialysis, Hx Renal Disease Musculoskeletal History: Reports: Hx Arthritis, Hx Orthopedic Injury - right knee injury with chronic pain Sensory History: Reports: Hx Contacts or Glasses Denies: Hx Hearing Aid Opthamlomology History: Reports: Hx Contacts or Glasses Neurological History: Reports: Hx Developmental Delay Denies: Hx Seizures, Hx Transient Ischemic Attacks (TIA) Psychiatric History: Reports: Hx Depression, Hx Inpatient Treatment - may 1992 for depression- 5 days Denies: Hx Anxiety, Hx Panic Disorder, Hx Suicide Attempt, Hx Substance Abuse - Cancer History Cancer Type, Location and Year: PROSTATE 2006 Hx Chemotherapy: No Hx Radiation Therapy: No - Surgical History Surgery Procedure, Year, and Place: prostate surgery 2006. right cataract Hx Anesthesia Reactions: No - Immunization History Date of Tetanus Vaccine: unk Date of Influenza Vaccine: unk Infectious Disease History: Unable to Obtain/Confirm Infectious Disease History: Reports: Hx Hepatitis - B Denies: Traveled Outside the [place] in Last 30 Days - Family History Known Family History: Positive: Diabetes - Social History Alcohol Use: None Hx Substance Use: No Substance Use Type: Reports: None Hx Tobacco Use: No Smoking Status (MU): Never Smoked Tobacco - Additional Comments History Additional Comments: PMH is a level 5 caveat due to developmental delay. Review of Systems - ROS Summary Review of Systems Summary: ROS is a level 5 caveat due to developmental delay. Aspir-81 81 mg PO DAILY 03/07/12 [History Confirmed 01/05/19] Celexa TAB* 20 mg PO DAILY 03/07/12 [History Confirmed 01/05/19] Multi Complete 1 tab PO DAILY 03/07/12 [History Confirmed 01/05/19] Naproxen TAB* 250 mg PO BID 03/07/12 [History Confirmed 01/05/19] Prilosec CAP* 20 mg PO DAILY 03/07/12 [History Confirmed 01/05/19] Spironolactone TAB* 25 mg PO DAILY 03/07/12 [History Confirmed 01/05/19] Vitamin D-3 2,000 i.u. PO DAILY 03/07/12 [History Confirmed 01/05/19] buPROPion TAB* 150 mg PO DAILY 03/07/12 [History Confirmed 01/05/19] glipiZIDE TAB* 10 mg PO DAILY 03/07/12 [History Confirmed 01/05/19] metFORMIN TAB* 1,000 mg PO BID 03/07/12 [History Confirmed 01/05/19] Exenatide Microspheres [Bydureon Pen] 2 mg SC WEEKLY 02/03/15 [History Confirmed 01/05/19] Losartan TAB* [Cozaar TAB*] 100 mg PO DAILY 02/03/15 [History Confirmed 01/05/19 ] Acetaminophen TAB* [Tylenol TAB*] 650 mg PO Q6H PRN #30 tab MDD 4 gm 12/30/18 [ Rx Confirmed 01/05/19] Atorvastatin Calcium [Lipitor] 20 mg PO DAILY 01/05/19 [History Confirmed ] Docusate Sodium 200 mg PO DAILY 01/05/19 [History Confirmed 01/05/19] Gabapentin 300 mg PO DAILY 01/05/19 [History Confirmed 01/05/19] Potassium Chlor TAB* [Klor Con ER TAB 10 MEQ*] 20 meq PO DAILY 01/05/19 [ History Confirmed 01/05/19] Sennosides [Senna] 2 tab PO DAILY 01/05/19 [History Confirmed 01/05/19] amLODIPine TAB* [Norvasc 5 mg TAB*] 5 mg PO DAILY 01/05/19 [History Confirmed ] Allopurinol TAB* [Zyloprim 100 MG TAB*] 100 mg PO DAILY tab 01/20/19 [Rx] Entecavir(NF) [Baraclude (NF)] 0.5 mg PO DAILY@1000 tab 01/20/19 [Rx] fentaNYL PATCH 25 MCG/HR* [Duragesic PATCH 25 Mcg/Hr*] 25 mcg TRANSDERM Q72H patch 01/20/19 [Rx] oxyCODONE ORAL.SOLN* [Oxycodone ORAL.SOLN 5 mg/5 ml *] 10 mg PO Q4H PRN udc [Rx] Positive: Other - Back pain Positive: Weakness All Other Systems Reviewed And Are Negative: No Physical Exam - Summary Physical Exam Summary: General: Elderly Male, mildly ill appearing. Sleepy, difficult to understand. HEENT: Normocephalic, Atraumatic. Eyes: Conjuctiva normal, PERRL. Oropharynx: Clear, mucous membranes very dry, (-) exudates. Neck: Soft, FROM, (-) lymphadenopathy, (-) thyromegaly, (-) JVD. Cardiovascular: Normal sinus rhythm, (-) murmur. Lungs: Clear to auscultation, decreased breath sounds bilaterally (-) wheezes, ( -) rales, roncherus chough. Abdomen: Soft, non-tender, non-distended, (-) organomegaly, normal bowel sounds. Back: (-) CVA tenderness Extremities: No edema. Skin: Warm, dry, (-) rash. Neuro: No focal deficits, patient awakens to voice. Psychiatric: Mood normal, flat affect very sleepy. Triage Information Reviewed: Yes Vital Signs On Initial Exam: Initial Vitals Temp Pulse Resp BP Pulse Ox 98.5 F 117 24 152/96 94 03/01/19 21:08 03/01/19 21:08 03/01/19 21:08 03/01/19 21:08 03/01/19 21:08 Vital Signs Reviewed: Yes Procedures - Sedation Patient Received Moderate/Deep Sedation with Procedure: No Diagnostics - Vital Signs Vital Signs Temp Pulse Resp BP Pulse Ox 03/01/19 21:08 98.5 F 117 24 152/96 94 - Laboratory Result Diagrams: 03/01/19 21:42 03/01/19 21:42 Lab Statement: Any lab studies that have been ordered have been reviewed, and results considered in the medical decision making process. - EKG 2145 Cardiac Rate: Tachycardia - 119 BPM EKG Rhythm: Sinus Tachycardia Summary of EKG Findings: No STEMI. ED Physician has reviewed and interpreted this EKG. Complex Multi-Symp Course/Dx Course Of Treatment: 74-year-old male arrives by ambulance from intermediate for weakness and dehydration. Patient is a chemotherapy patient for multiple myeloma. Has not been eating or drinking. Patient is alert and oriented upon arrival and answering questions from the nurse. When I saw the patient he is sleepy and somewhat uncooperative. His workup demonstrates persistent low white blood cell count. Normal lactic acid. Negative chest x-ray and urine. Patient given 2 L normal saline. Morphine for pain. Discharged back to intermediate. Follow up with PCP. Follow-up sooner for any worsening symptoms. - Diagnoses Provider Diagnoses: Weakness, Dehydration Discharge ED - Sign-Out/Discharge Documenting (check all that apply): Patient Departure - Discharge - Discharge Plan Condition: Stable Disposition: HOME Patient Education Materials: Dehydration (ED) Referrals: Arnaud Calloway MD [Primary Care Provider] - Additional Instructions: Return to ED with new or worsening symptoms. - Billing Disposition and Condition Condition: STABLE Disposition: Home - Attestation Statements Document Initiated by Martha: Yes Documenting Scribe: Chicho Addison Provider For Whom Martha is Documenting (Include Credential): Svitlana Coy MD Scribe Attestation: Chicho Proctor scribed for Svitlana Coy MD on 03/02/19 at 0513. Scribe Documentation Reviewed: Yes Provider Attestation: The documentation as recorded by the Chicho hines accurately reflects the service I personally performed and the decisions made by me, Svitlana Coy MD Status of Scribe Document: Viewed
[2019-03-01] MEDS ORDERED: Albuterol/Ipratropium NEB.SOL* Albuterol 2.5 MG/Ipratropium 0.5 MG 3 ML INH ONE (21:52)
--- OUTSIDE RECORDS SUMMARY | 2019-03-01 22:05 | XMS REPORT ---
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 04-24 Rosas mellitus mellitus [id number] without without complicatio complicatio ns ns Athscl Athscl Diagnosis Active Keke heart heart 04-24 Rosas disease of disease of [id number] [place] coronary coronary artery w/o artery w/o ang pctrs ang 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 [facility]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 Keke (current) (current) 04-24 Ralph use of use of [id number] insulin insulin Obstructive Obstructive Diagnosis Active Keke sleep apnea sleep apnea 04-24 Ralph (adult) (adult) [id number] (pediatric) (pediatric) F70 F70 Diagnosis Active Keke 04-24 Ralph [id number] Cardio edema Cardiovasc Resolve 2018-10-06 Mayuri pérez d 2 15:05:00 Laratta 15:00: [id number] Cardio knowledge/s Cardiovasc Resolve 2018-10-06 Mayuri pérez d 04-24 15:05:00 Laratta deficit: pt 15:00: [id number] 00 Respiratory lung sounds Respirator Resolve 2018-10-06 Mayuri deficit y d 04-24 15:05:00 Laratta 15:00: [id number] 00 Endo/Chuck insulin Endo/Chuck Resolve 2017-04-15 Mayuri admn d 2 09:00:00 Laratta dependence 15:00: [id number] 00 Endo/Chuck diabetic Endo/Chuck Resolve 2017-04-15 Mayuri foot care d 2-17 09:00:00 Laratta 15:00: [id number] 00 Endo/Chuck knowledge/s Endo/Chuck Resolve 2016-2017-04-15 Mayuri kill d 2-17 09:00:00 Laratta deficit 15:00: [id number] hypo/hyperg 00 lycemia: pt Elimination urinary Eliminatio Resolve 2017-04-15 Mayuri incontinenc n d 2-17 09:00:00 Laratta e 15:00: [id number] 00 Safety knowledge/s Safety Resolve 2017-01-27 Mayuri kill d 2-17 12:05:00 Laratta deficit: pt 15:00: [id number] 00 Safety fall risk Safety Resolve 2017-01-27 Mayuri factor d 2-17 12:05:00 Laratta present 15:00: [id number] 00 Safety risk for Safety Resolve 2017-01-27 Mayuri hospitaliza d 2-17 12:05:00 Laratta tion 15:00: [id number] 00 Medication oral med Meds Resolve 2017-02-16 Mayuri assistance d 2-17 13:30:00 Laratta required 15:00: [id number] 00 Medication injectable Meds Resolve 2017-02-16 Mayuri med d 2-17 13:30:00 Laratta assistance 15:00: [id number] required 00 Medication knowledge/s Meds Resolve 2017-02-16 Mayuri kill d 2-17 13:30:00 Laratta deficit: pt 15:00: [id number] 00 Diagnoses knowledge/s Diagnoses Resolve 2018-10-06 Mayuri kill d 2-17 15:05:00 Laratta deficit: pt 15:00: [id number] 00 Musculoskel knowledge/s Musculoske Resolve 2017-01-27 Mayuri etal kill letal d 2-17 12:05:00 Laratta deficit: pt 15:00: [id number] 00 Musculoskel requires Musculoske Resolve 2017-01-27 Mayuri etal human letal d 2-17 12:05:00 Laratta assist to 15:00: [id number] leave home 00 Elimination catheter Eliminatio Resolve 2016-10-27 Mayuri present n d 6-16 12:40:00 Laratta 15:00: [id number] 00 Integument skin Integument Resolve 2018-10-06 Georgina integrity d 8- 15:05:00 Goldy risk 12:40: [id number] 00 Medication potential Meds Resolve 2017-02-16 Sara clinically d 9-12 13:30:00 Seager significant 15:00: [id number] medication 00 issue Elimination urinary Eliminatio Unknown 2016-03 Meghann incontinenc n - Claus e 12:05: [id number] 00 Safety risk for Safety Resolve 2016-032017-02-16 Sara hospitaliza d - 13:30:00 Seager tion 15:00: [id number] 00 Neuro impaired Neuro/Emot Resolve 2016-032018-10-06 Meghann anderson-ma ion d 04-19 15:05:00 Claus angle 13:30: [id number] 00 Safety fall risk Safety Resolve 2016-032017-02-16 Meghann factor d - 13:30:00 Claus present 13:30: [id number] 00 Safety risk for Safety Resolve 2016-032017-03-23 Sara hospitaliza d -19 14:10:00 Seager tion 15:00: [id number] 00 Medication knowledge/s Meds Resolve 2016-032017-03-23 Sara kill d - 14:10:00 Seager deficit: pt 15:00: [id number] 00 Nutrition nutritional Nutrition Resolve 2017-04-15 Meghann restriction d -16 09:00:00 Claus s 14:10: [id number] 00 Medication oral med Meds Resolve 2018-10-06 Meghann assistance d -16 15:05:00 Claus required 14:10: [id number] 00 Medication injectable Meds Resolve 2018-10-06 Meghann med d -16 15:05:00 Claus assistance 14:10: [id number] required 00 Safety risk for Safety Resolve 2017-05-19 Meghann hospitaliza d 1-19 10:47:00 Claus tion 11:30: [id number] 00 Pain knowledge/s Pain Mgmt Resolve 2017-04-15 Sara kill d 1-23 09:00:00 Seager deficit: pt 10:47: [id number] 00 Safety fall risk Safety Resolve 2017-05-19 Meghann factor d 2-08 10:47:00 Claus present 09:00: [id number] 00 Pain knowledge/s Pain Mgmt Resolve 2018-02-08 Sara kill d 2-13 14:48:00 Seager deficit: pt 15:00: [id number] 00 Endo/Chuck anti-coagul Endo/Chuck Resolve 2018-10-06 Meghann ation d 3-14 15:05:00 Claus therapy 10:47: [id number] 00 Nutrition nutritional Nutrition Resolve 2018-10-06 Meghann restriction d 3-14 15:05:00 Claus s 10:47: [id number] 00 Elimination urinary Eliminatio Resolve 2018-10-06 Meghann incontinenc n d 3-14 15:05:00 Claus e 10:47: [id number] 00 Safety risk for Safety Resolve 2018-08-09 Sara hospitaliza d 3-20 13:00:00 Seager tion 14:00: [id number] 00 Endo/Chuck glucose Endo/Chuck Resolve 2018-10-06 Yoselyn testing d 4-13 15:05:00 Cathie dependence 12:00: [id number] 00 Activity ADL Activity Resolve 2018-10-06 Yoselyn assistance d 4-13 15:05:00 Cathie required 12:00: [id number] 00 Safety fall risk Safety Resolve 2018-08-09 Yoselyn factor d 4-13 13:00:00 Cathie present 12:00: [id number] 00 Musculoskel transfer Musculoske Resolve 2018-10-06 Jovana etal assistance letal d 4-13 15:05:00 Guidelli required 12:00: [id number] 00 Pain frequent Pain Mgmt Resolve 2018-08-09 Meghann pain d 6-12 13:00:00 Reba 13:29: [id number] 00 Safety safety Safety Resolve 2018-08-09 Bonnie hazards d 6-15 13:00:00 Samuel present 14:31: [id number] 00 Safety sanitation Safety Resolve 2018-08-09 Bonnie hazards d 6 13:00:00 Samuel present 14:31: [id number] 00 Safety knowledge/s Safety Resolve 2018-08-09 Bonnie kill d 6 13:00:00 Samuel deficit: pt 14:31: [id number] 00 Balance/End balance/internship coordinator PT/OT: Resolve 2017-09-24 Bonnie mishra rdination Balance/En d 08-20 11:05:00 Samuel deficit durance 14:31: [id number] 00 Balance/End endurance PT/OT: Resolve 2017-09-24 Bonnie mishra deficit Balance/En d 08-20 11:05:00 Samuel durance 14:31: [id number] 00 Balance/End knowledge/s PT/OT: Resolve 2017-09-24 Bonnie mishra kill Balance/En d 08-20 11:05:00 Samuel deficit: pt durance 14:31: [id number] 00 Environment knowledge/s PT/OT: Resolve 2017-09-24 Bonniedafne cunningham Environmen d 08-20 11:05:00 Samuel deficit: pt t 14:31: [id number] 00 Gait/Locomo knowledge/s PT/OT: Resolve 2017-09-24 Bonnie tion kill Gait/Locom d 08-20 11:05:00 Samuel problems deficit: pt otion 14:31: [id number] 00 Endo/Chuck insulin Endo/Chuck Resolve 2018-10-06 Meghann admn d 09-07 15:05:00 Reba dependence 15:04: [id number] 00 Balance/End knowledge/s PT/OT: Resolve 2017-09-24 Bonnie mishra kill Balance/En d 09-24 11:05:00 Samuel deficit: cg durance 11:05: [id number] 00 Gait/Locomo gait PT/OT: Active Bonnie tion deficit Gait/Locom 09-24 Samuel problems otion 11:05: [id number] 00 Pain knowledge/s Pain Mgmt Resolve 2018-08-09 Rhiannon Smith kill d 2- 13:00:00 Temo deficit: pt 15:00: [id number] 00 Musculoskel requires Musculoske Resolve 2018-10-06 Meghann etal human letal d 2 15:05:00 Claus assist to 15:00: [id number] leave home 00 Medication potential Meds Resolve 2018-10-06 Sara clinically d 2 15:05:00 Seager significant 14:30: [id number] medication 00 issue Activity self-care Activity Resolve 2018-10-06 Meghann deficit d 4- 15:05:00 Platinum 13:25: [id number] 00 Safety can be left Safety Resolve 2018-10-06 Meghann alone for d 06-09 15:05:00 Platinum only short 13:25: [id number] periods 00 Safety fire risk Safety Resolve 2018-08-09 Meghann present d 5-14 13:00:00 Platinum 14:34: [id number] 00 Safety knowledge/s Safety Resolve 2018-10-06 Sara kill d 6- 15:05:00 Seager deficit: pt 13:34: [id number] 00 Safety risk for Safety Resolve 2018-10-06 Sara hospitaliza d 6-11 15:05:00 Seager tion 13:34: [id number] 00 Pain frequent Pain Mgmt Resolve 2018-10-06 Meghann pain d 10-06 15:05:00 Reba 15:05: [id number] 00 Safety fall risk Safety Resolve 2018-10-06 Viridiana factor d 8 15:05:00 Regeczi present 15:05: [id number] 00 Pain knowledge/s Pain Mgmt Resolve 2018-11-08 Sara kill d 8- 14:38:00 Seager deficit: pt 09:24: [id number] 00 Diagnoses knowledge/s Diagnoses Active Sara kill 8-13 Seager deficit: pt 09:30: [id number] 00 Safety knowledge/s Safety Active Sonja A. kill 8-20 Gehm-Nemir deficit: pt 11:13: e 00 [id number] Safety risk for Safety Active Sonja bertrand 8-20 Ge-Nemir tion 11:13: e 00 [id number] Safety can be left Safety Active Keke alone for 9-03 Rosas only short 14:38: [id number] periods 00 Pain frequent Pain Mgmt Active 2018-03 Keke pain 0-01 Rosas 14:00: [id number] 00 Respiratory lung sounds Respirator Active 2018-03 Keke deficit y 0- Rosas 14:00: [id number] 00 Safety fall risk Safety Active 2018-03 Keke factor 0- Rosas present 14:00: [id number] 00 Safety cannot be Safety Active 2018-03 Keke left alone 0- Rosas 20:00: [id number] 00 Safety fire risk Safety Active 2018-03 Keke present 0- Rosas 20:00: [id number] 00 Allergies, Adverse Reactions, Alerts Allergy Name Allergy Status Severity Reaction(s) Onset Inactive Treating Comments Type Date Date Clinician cefazolin Base Active Unknown Reaction Mayuri Ingredient Unknown 2- Laratta [id number] enalapril Base Active Unknown Reaction Mayuri Ingredient Unknown 2- Laratta [id number] levofloxacin Base Active Unknown Reaction Mayuri Ingredient Unknown - Laratta [id number] tamsulosin Base Active Unknown Reaction Mayuri Ingredient Unknown 2- Laratta [id number] Medications Ordered Filled Start Stop Current Ordering Indication Dosage Frequency Signature Comments Components Medication Medication Date Date Medication? Clinician (SIG) Name Name naproxen naproxen 2019- No Law 1 Unknown 250 mg 250 mg 04-24 MD,Arnaud tablet tablet tablet PriLOSEC 20 PriLOSEC 20 2019- No Law 1 Unknown mg mg 04-24 MD,Arnaud capsule capsule,del capsule,del ayed ayed release release spironolact spironolact 2019- No Law 1 Unknown one 25 mg one 25 mg 04-24 MD,Arnaud tablet tablet tablet Tylenol 325 Tylenol 325 2019- No Law 2 Unknown mg tablet mg tablet 04-24 MD,Arnaud tablets glipiZIDE glipiZIDE 2019- No Law 1 Unknown 10 mg 10 mg 04-24 MD,Arnaud tablet tablet tablet metFORMIN metFORMIN 2018- No Law 2 Unknown 500 mg 500 mg 04-24 MD,Arnaud tablets tablet tablet Daily Daily 2019- No Law 1 Unknown Vitamins/Ir Vitamins/Ir 04-24 MD,Arnaud tablet on/Beta on/Beta Carot Carot Wellbutrin Wellbutrin 2019- No Law 1 Unknown SR 150 mg SR 150 mg 04-24 MD,Arnaud tablet tablet, 12 tablet, 12 hr hr sustained-r sustained-r elease elease Aspirin Aspirin 2019- No Law 1 Unknown Low-Strengt Low-Strengt 04-24 MD,Arnaud tablet h 81 mg h 81 mg chewable chewable tablet tablet Ventolin Ventolin 2017- No Law 2 puffs Unknown HFA 90 HFA 90 04-24 MD,Arnaud mcg/actuati mcg/actuati on aerosol on aerosol inhaler inhaler Vitamin D3 Vitamin D3 2018- No Law 1 Unknown 2,000 unit 2,000 unit 04-24 MD,Arnaud tablet tablet tablet Miralax 17 Miralax 17 2019- No Law 1 cap Unknown gram/dose gram/dose 04-24 MD,Arnaud full in oral powder oral powder liquid Tessalon Tessalon 2019- No Law 1 Unknown Perles 100 Perles 100 04-24 MD,Arnaud capsule mg capsule mg capsule econazole 1 econazole 1 2019- No Law 1 Cream Unknown % topical % topical 04-24 MD,Arnaud cream cream Bydureon 2 Bydureon 2 2018- No Law 2 MG SC Unknown mg/0.65 mL mg/0.65 mL 04-24 MD,Arnaud subcutaneou subcutaneou s pen s pen injector injector losartan losartan 2019- No Law 1 Unknown 100 mg 100 mg 04-24 MD,Arnaud tablet tablet tablet atenolol 50 atenolol 50 2017- No Law 1 Unknown mg tablet mg tablet 04-24 MD,Arnaud tablet ammonium ammonium 2019- No Law 1 Unknown lactate 12 lactate 12 04-24 MD,Arnaud Externa % lotion % lotion l Cream Lasix 40 mg Lasix 40 mg 2019- No Law 1 Unknown tablet tablet 04-24 MD,Arnaud tablet potassium potassium 2018- No Law 1 Unknown chloride ER chloride ER 04-24 MD,Arnaud tablet 20 mEq 20 mEq tablet,exte tablet,exte nded nded release release gabapentin gabapentin 2019- No Law 1 Unknown 300 mg 300 mg 04-24 MD,Arnaud capsule capsule capsule Lantus Lantus 2017- No Law 30 Unknown U-100 U-100 04-24 MD,Arnaud solutio Insulin 100 Insulin 100 n unit/mL unit/mL subcutaneou subcutaneou s solution s solution CeleXA 20 CeleXA 20 2019- No Law 1 Unknown mg tablet mg tablet 04-24 MD,Arnaud tablet atorvastati atorvastati 2019- No Law 1 tab Unknown n 20 mg n 20 mg 04-24 MD,Arnaud tablet tablet Doc-Q-Lace Doc-Q-Lace 2018- No Law 1 Unknown 100 mg 100 mg 07-21 MD,Arnaud capsule capsule capsule Tylenol-Cod Tylenol-Cod 2019- No Law 1 Unknown eine #3 300 eine #3 300 07-21 MD,Arnaud tablet mg-30 mg mg-30 mg tablet tablet methylPREDN methylPREDN 2017- No Law Unknown Unknown ISolone 4 ISolone 4 07-31 MD,Arnaud mg tablets mg tablets in a dose in a dose pack pack amLODIPine amLODIPine 2017- No Law 1 Unknown 10 mg 10 mg 08-06 MD,Arnaud tablet tablet tablet CPAP CPAP 2019- No Law room Unknown 10-27 MD,Arnaud air Lantus Lantus 2017- No Law 35 unit Unknown U-100 U-100 11-13 MD,Arnaud Insulin 100 Insulin 100 unit/mL unit/mL subcutaneou subcutaneou s solution s solution Lantus Lantus 2018- No Law 32 unit Unknown U-100 U-100 11-17 MD,Arnaud Insulin 100 Insulin 100 unit/mL unit/mL subcutaneou subcutaneou s solution s solution Doc-Q-Lace Doc-Q-Lace 2018- No Law 1 Unknown 100 mg 100 mg 03-19 04- MD,Arnaud capsule capsule capsule cyclobenzap cyclobenzap 2019- No Law 1 Unknown rine 10 mg rine 10 mg 03-30 08- MD,Arnaud tablet tablet tablet Lantus Lantus 2018- No Law 32 unit Unknown U-100 U-100 03-23 MD,Arnaud Insulin 100 Insulin 100 unit/mL unit/mL subcutaneou subcutaneou s solution s solution Lantus Lantus 2018- No Law 28 unit Unknown U-100 U-100 05-18 MD,Arnaud Insulin 100 Insulin 100 unit/mL unit/mL subcutaneou subcutaneou s solution s solution Lantus Lantus 2018- No Law 23 unit Unknown U-100 U-100 06-01 07 MD,Arnaud Insulin 100 Insulin 100 unit/mL unit/mL subcutaneou subcutaneou s solution s solution Doc-Q-Lace Doc-Q-Lace 2018- No Law 2 caps Unknown 100 mg 100 mg 06-11- MD,Arnaud capsule capsule senna 8.6 senna 8.6 2018- No Law 2 Unknown mg tablet mg tablet 06-11- MD,Arnaud tablets amLODIPine amLODIPine 2018- No Law Unknown Unknown 10 mg 10 mg 08-31- MD,Arnaud tablet tablet Lantus Lantus 2018- No Law Unknown Unknown U-100 U-100 09-14 12- MD,Arnaud Insulin 100 Insulin 100 unit/mL unit/mL subcutaneou subcutaneou s solution s solution potassium potassium 2017-03- No Law Unknown Unknown chloride ER chloride ER 0- MD,Arnaud 10 mEq 10 mEq tablet,exte tablet,exte nded nded release release Bydureon 2 Bydureon 2 2017-03- No Law Unknown Unknown mg/0.65 mL mg/0.65 mL 0- MD,Arnaud subcutaneou subcutaneou s pen s pen injector injector amLODIPine amLODIPine 2017-03- No Law Unknown Unknown 5 mg tablet 5 mg tablet 01-05 MD,Arnaud Tameztus 2017-03- No Law Unknown Unknown U-100 U-100 04-18 MD,Arnaud Insulin 100 Insulin 100 unit/mL unit/mL subcutaneou subcutaneou s solution s solution CeleXA 20 CeleXA 20 2018- No Law Unknown Unknown mg tablet mg tablet 04-26 MD,Arnaud glipiZIDE glipiZIDE 2018- No Law Unknown Unknown 10 mg 10 mg 05-10 MD,Arnaud tablet tablet Lantus Lantus 2018- No Law Unknown Unknown U-100 U-100 05-10 MD,Arnaud Insulin 100 Insulin 100 unit/mL unit/mL subcutaneou subcutaneou s solution s solution CeleXA 20 CeleXA 20 2018- No Law Unknown Unknown mg tablet mg tablet 04-26 MD,Arnaud glipiZIDE glipiZIDE 2018- No Law Unknown Unknown 10 mg 10 mg 05-10 MD,Arnaud tablet tablet ibuprofen ibuprofen 2018- No Law Unknown Unknown 200 mg 200 mg 10-11 MD,Arnaud tablet tablet Vital Signs Vital Name Observation Time Observation Value Comments SYSTOLIC mm[Hg] 2018-04-13 18:04:10 180 mm[Hg] mm[Hg] Method: Stand DIASTOLIC mm[Hg] 2018-04-13 18:04:10 90 mm[Hg] mm[Hg] Method: Stand Procedures This patient has no known procedures. Results This patient has no known results.
[2019-03-01 22:08] LABS: Hematocrit 30 % (42-52); Hemoglobin 10.3 g/dL (14.0-18.0); Mean Corpuscular HGB Conc 34 g/dL (31-36); Mean Corpuscular Hemoglobin 35 pg (27-31); Mean Corpuscular Volume 103 fL (80-94); Mean Platelet Volume 11.3 fL (7.4-10.4); Platelet Count 126 10^3/uL (150-450); Red Blood Count 2.91 10^6 /uL (4.18-5.48); Red Cell Distribution Width 15 % (10-15); White Blood Count 2.3 10^3/uL (3.5-10.8)
[2019-03-01 22:11] LABS: Albumin 2.9 g/dL (3.2-5.2); Albumin/Globulin Ratio 0.5 (1-3); BUN/Creatinine Ratio 36.7 (8-20); Calcium 10.9 mg/dL (8.6-10.3); EGFR African American 66.8 (>60); EGFR Non-African American 55.2 (>60); Globulin 5.6 g/dL (2-4); Potassium 4.3 mmol/L (3.5-5.0); Total Bilirubin 0.7 mg/dL (0.2-1.0); Total Protein 8.5 g/dL (6.4-8.9)
[2019-03-01 22:14] LABS: Troponin I 0.01 ng/mL (<0.03)
[2019-03-01 22:35] LABS: Urine Appearance Cloudy; Urine Bilirubin Negative (Negative); Urine Blood 1+ (Negative); Urine Color Yellow; Urine Glucose 3+(>=500 mg/dL) (Negative); Urine Ketones Trace (Negative); Urine Nitrite Negative (Negative); Urine Protein Negative (Negative); Urine Specific Gravity 1.024 (1.010-1.030); Urine Urobilinogen Negative (Negative)
[2019-03-01 22:38] LABS: ABS Lymphocytes 0.2 10^3/ul (1.0-4.8); ABS Monocytes 0.5 10^3/ul (0-0.8); ABS Neutrophils 1.5 10^3/ul (1.5-7.7); Eosinophil % 0.4 %; Lymphocyte % 8.9 %; Nucleated Red Blood Cells % 0.1
[2019-03-01 22:41] LABS: Urine Bacteria Absent (Absent); Urine Red Blood Cell 1+(3-5/hpf) (Absent); Urine White Blood Cell Trace(0-5/hpf) (Absent)
[2019-03-02] MEDS ORDERED: Morphine 4 MG/ML VIAL (1 ml) 4 MG/ML VIAL IV ONE (00:15)
[2019-03-02 04:17] VITALS: BP 152/89
== END 2019-03-02 02:54 | disposition home or self-care (01) ==
LOC: ED 21:01
DX: E86.0 Dehydration (principal); E11.9 Type 2 diabetes mellitus without complications; I25.10 Atherosclerotic heart disease of native coronary artery without angina pectoris; E78.00 Pure hypercholesterolemia, unspecified; I10 Essential (primary) hypertension; K21.9 Gastro-esophageal reflux disease without esophagitis; N40.0 Benign prostatic hyperplasia without lower urinary tract symptoms; R62.50 Unspecified lack of expected normal physiological development in childhood; Z79.82 Long term (current) use of aspirin; Z79.84 Long term (current) use of oral hypoglycemic drugs; Z79.899 Other long term (current) drug therapy; Z88.1 Allergy status to other antibiotic agents; Z88.8 Allergy status to other drugs, medicaments and biological substances
CPT/HCPCS: 36415; 80053; 81003; 81015; 83605; 84484; 85025; 85060; 87040; 87086; 93005; 96361; 96374; 99284; A9270-GY; J2270

== ENCOUNTER 2019-03-02 14:01 | Emergency (ER) | payer MEDICARE, MEDICAID ==
--- NOTE | 2019-03-02 14:32 | ED ---
Altered Mental Status - HPI Summary HPI Summary: The patient is a 74 y/o M arriving by ambulance to [facility] with a chief complaint of AMS and weakness. custodial states that he is not ambulating as usual, and all of his extremities are weak. He was seen in the ED last night for similar symptoms and was administered 2L IV fluids, Morphine, and Albuterol, and he had an EKG. He states back pain. PMHx: DM, CAD, HLD, HTN, COPD, BPH, developmental delay, hepatitis B, multiple myeloma with chemotherapy. Nonsmoker , no EtOH, no substance use. Medications reviewed. Allergies noted. Level 5 Caveat: patient presents with AMS and has history of developmental delay , he is a poor historian. History obtained from medical records and EMS. - History Of Current Complaint Stated Complaint: AMS/POS STROKE PER EMS Time Seen by Provider: 03/02/19 14:23 Hx Obtained From: EMS, Medical Records Hx From Patient Unobtainable Due To: Altered Mental Status - Level 5 Caveat Onset/Duration: Unknown, Still Present Associated Signs And Symptoms: Positive: Weakness Related History: Other: - in ED last night for similar symptoms - Allergies/Home Medications Allergies/Adverse Reactions: Allergies Allergy/AdvReac Type Severity Reaction Status Date / Time cefazolin Allergy Severe See Comment Verified 01/05/19 15:08 enalapril Allergy Severe Swelling Verified 01/05/19 15:08 Of Face,Lips,& Throat levofloxacin [From Levaquin] Allergy Severe See Comment Verified 01/05/19 15:08 pioglitazone [From Actos] Allergy Mild See Comment Verified 01/05/19 15:08 tamsulosin [From Flomax] Allergy Unknown Unknown Verified 01/05/19 15:08 Reaction Details Home Medications: Home Medications Aspirin EC TAB* [Ecotrin EC Low Dose 81 MG*] 81 mg PO DAILY 03/02/19 [History Confirmed 03/02/19] Atorvastatin* [Lipitor*] 20 mg PO DAILY 03/02/19 [History Confirmed 03/02/19] Bupropion XL* [Wellbutrin XL *] 150 mg PO DAILY 03/02/19 [History Confirmed ] Cholecalciferol (Vitamin D3) [Vitamin D3] 2,000 unit PO DAILY 03/02/19 [History Confirmed 03/02/19] Citalopram TAB* [CeleXA TAB*] 20 mg PO DAILY 03/02/19 [History Confirmed ] Docusate CAP* [Colace Cap*] 100 mg PO DAILY 03/02/19 [History Confirmed 03/02/19 ] Emollient Combination No.72 [Eucerin Intensive Repair] 1 applic TOPICAL BID [History Confirmed 03/02/19] Entecavir(NF) [Baraclude (NF)] 0.5 mg PO DAILY 03/02/19 [History Confirmed 03/02] Exenatide Microspheres [Bydureon] 2 mg SUBCUT MO 03/02/19 [History Confirmed ] Gabapentin CAP(*) [Neurontin 300 CAP(*)] 300 mg PO DAILY 03/02/19 [History Confirmed 03/02/19] Lenalidomide (NF) [Revlimid (NF)] 25 mg PO DAILY 03/02/19 [History Confirmed ] Multivitamins/Minerals TAB* [Theragran/minerals TAB*] 1 tab PO DAILY 03/02/19 [ History Confirmed 03/02/19] Naproxen TAB* [Naprosyn 250 mg TAB*] 250 mg PO BID 03/02/19 [History Confirmed 03/02/19] Omeprazole CAP (NF) [Prilosec CAP* 20 MG] 20 mg PO DAILY 03/02/19 [History Confirmed 03/02/19] Ondansetron TAB* [Zofran 4 MG Tab*] 4 mg PO Q8HR PRN 03/02/19 [History Confirmed 03/02/19] Polyethylene Glycol 3350* [Miralax*] 17 gm PO DAILY 03/02/19 [History Confirmed 03/02/19] Senna TAB 8.6 mg* [Senokot 8.6 mg TAB*] 2 tab PO DAILY 03/02/19 [History Confirmed 03/02/19] Spironolactone TAB* [Aldactone TAB*] 25 mg PO DAILY 03/02/19 [History Confirmed 03/02/19] glipiZIDE TAB* [Glucotrol TAB*] 10 mg PO DAILY 03/02/19 [History Confirmed 03/02] guaiFENesin ER TAB [Mucinex*] 600 mg PO BID PRN 03/02/19 [History Confirmed ] metFORMIN* [Glucophage 1000 MG TAB *] 1,000 mg PO BID 03/02/19 [History Confirmed 03/02/19] traMADol TAB* [Ultram*] 50 mg PO Q6HR PRN 03/02/19 [History Confirmed 03/02/19] PMH/Surg Hx/FS Hx/Imm Hx Endocrine/Hematology History: Reports: Hx Diabetes Cardiovascular History: Reports: Hx Coronary Artery Disease, Hx Hypercholesterolemia, Hx Hypertension, Hx Syncope - THIS ADMIT Denies: Hx Pacemaker/ICD Respiratory History: Reports: Hx Chronic Obstructive Pulmonary Disease (COPD), Hx Sleep Apnea Denies: Hx Asthma GI History: Reports: Hx Gastroesophageal Reflux Disease, Hx Ulcer History: Reports: Hx Benign Prostatic Hyperplasia - PROSTATE SURGERY Denies: Hx Dialysis, Hx Renal Disease Musculoskeletal History: Reports: Hx Arthritis, Hx Orthopedic Injury - right knee injury with chronic pain Sensory History: Reports: Hx Contacts or Glasses Denies: Hx Hearing Aid Opthamlomology History: Reports: Hx Contacts or Glasses Neurological History: Reports: Hx Developmental Delay Denies: Hx Seizures, Hx Transient Ischemic Attacks (TIA) Psychiatric History: Reports: Hx Depression, Hx Inpatient Treatment - may 1992 for depression- 5 days Denies: Hx Anxiety, Hx Panic Disorder, Hx Suicide Attempt, Hx Substance Abuse - Cancer History Cancer Type, Location and Year: PROSTATE 2006 Hx Chemotherapy: No Hx Radiation Therapy: No - Surgical History Surgical History: Yes Surgery Procedure, Year, and Place: prostate surgery 2006. right cataract Hx Anesthesia Reactions: No - Immunization History Date of Tetanus Vaccine: unk Date of Influenza Vaccine: unk Infectious Disease History: Reports: Hx Hepatitis - B - Family History Known Family History: Positive: Diabetes - Social History Alcohol Use: None Hx Substance Use: No Substance Use Type: Reports: None Hx Tobacco Use: No Smoking Status (MU): Never Smoked Tobacco Review of Systems Positive: Other - back pain Neurological: Other - AMS, not amulating as usual Positive: Weakness All Other Systems Reviewed And Are Negative: No - Comments Additional Review of Systems Comments: Level 5 Caveat secondary to AMS Physical Exam - Summary Physical Exam Summary: Appearance: The patient is well-nourished in no acute distress and in no acute pain. Skin: The skin is warm and dry, and skin color reflects adequate perfusion. HEENT: The head is normocephalic and atraumatic. The pupils are equal and reactive. The conjunctivae are clear and without drainage. Nares are patent and without drainage. Mouth reveals moist mucous membranes, and the throat is without erythema and exudate. The external ears are intact. The ear canals are patent and without drainage. The tympanic membranes are intact. Neck: The neck is supple with full range of motion and non-tender. There are no carotid bruits. There is no neck vein distension. Respiratory: Chest is non-tender. Lungs are clear to auscultation and breath sounds are symmetrical and equal. Cardiovascular: Heart is regular rate and rhythm. There is no murmur or rub auscultated. There is no peripheral edema and pulses are symmetrical and equal. Abdomen: The abdomen is soft and non-tender. There are normal bowel sounds heard in all four quadrants and there is no organomegaly palpated. Musculoskeletal: There is no back tenderness noted. Extremities are non-tender with full range of motion. There is good capillary refill. There is no peripheral edema or calf tenderness elicited. Neurological: Patient is uncooperative, but he has his eyes open. Patient seems to use his right upper extremity less than the left one. We are unable to get him to use either lower extremity. Cranial nerves are grossly intact. Deep tendon reflexes are symmetrical and equal in all four extremities. Psychiatric: The patient has an appropriate affect and does not exhibit any anxiety or depression. Triage Information Reviewed: Yes Vital Signs Reviewed: Yes Completion Of Physical Exam Limited Due To: Altered Mental Status, Level 5 - [place] Coma Scale Best Eye Response: 4 - Spontaneous Best Motor Response: 1 - None Best Verbal Response: 4 - Confused Coma Scale Total: 9 Procedures - Sedation Patient Received Moderate/Deep Sedation with Procedure: No Diagnostics - Laboratory Result Diagrams: 03/02/19 14:46 03/02/19 14:46 Lab Statement: Any lab studies that have been ordered have been reviewed, and results considered in the medical decision making process. - Radiology CXR (Screening for MRI) Radiology Interpretation Completed By: Radiologist Summary of Radiographic Findings: Impression: No metallic foreign body. ED physician has reviewed this report. Skull XR (Screening for MRI) Radiology Interpretation Completed By: Radiologist Summary of Radiographic Findings: Impression: No metallic foreign body. ED physician has reviewed this report. KUB XR (Screening for MRI) Radiology Interpretation Completed By: Radiologist Summary of Radiographic Findings: Impression: No radiographic contraindication to MRI. ED physician has reviewed this report. Brain MRI Radiology Interpretation Completed By: Radiologist Summary of Radiographic Findings: Impression: 1. Tiny acute lacunar infarct left thalamus. 2. Age-related atrophy and moderate chronic small vessel ischemic disease. ED physician has reviewed this report. Cervical Spine MRI Radiology Interpretation Completed By: Radiologist Summary of Radiographic Findings: Impression: 1. Moderate multilevel cervical spondylopathy including cord compression and myelopathy at C3-C4. Possible compression of the bilateral C4, left C5, and bilateral C7 nerve roots. 2. Diffuse osseous metastases. ED physician has reviewed this report. - CT Brain CT CT Interpretation Completed By: Radiologist Summary of CT Findings: Impression: Age-appropriate atrophy. Chronic ischemic white matter change is noted. ED physician has reviewed this report. Altered Mental Statu Course/Dx - Course Course Of Treatment: Mr. Rios was not moving his right arm or his bilateral legs on arrival to the department. Because of his history there is a concern for cervical lesions and ordered MRI scan. I spoke with Dr. Martinez who recommended the MRI be with contrast. MRI returned with cord compression from metastatic lesions cervical spine forward placed in hard collar. At this point I have contacted [facility] for transfer as we have no neurosurgeons available at this time and we're awaiting a call back. - Diagnoses Provider Diagnoses: Cervical spinal cord compression - Provider Notifications Discussed Care Of Patient With: Marce Martinez - neurology Time Discussed With Above Provider: 16:00 Instructed by Provider To: Other - I discussed the patient's case with Dr. Martinez , and he will come see the patient in the ED. He recommends MRIs of the brain and c-spine with contrast. Transfer initiated at 2200 with [facility]. Reason For Transfer: Specialty available at [facility] but not electronic prepress operator. - patient needs neurosurgery - Critical Care Time Critical Care Time: 30-74 min Discharge ED - Sign-Out/Discharge Documenting (check all that apply): Patient Departure - Discharge Plan Condition: Guarded Disposition: TRANS HIGHER LVL OF CARE FAC Referrals: Arnaud Calloway MD [Primary Care Provider] - - Billing Disposition and Condition Condition: GUARDED Disposition: Trans Higher Lvl of Care Fac - Attestation Statements Document Initiated by Scribe: Yes Documenting Scribe: Marilee Gay Provider For Whom Scribe is Documenting (Include Credential): Dr. Kartik Lopez MD Scribe Attestation: I, Marilee Gay, scribed for Dr. Kartik Lopez MD on 03/02/19 at 2231. Scribe Documentation Reviewed: Yes Provider Attestation: The documentation as recorded by the Marilee hines accurately reflects the service I personally performed and the decisions made by me, Dr. Kartik Lopez MD Status of Scrzoë Document: Viewed
[2019-03-02 15:27] LABS: Albumin 2.7 g/dL (3.2-5.2); Albumin/Globulin Ratio 0.6 (1-3); BUN/Creatinine Ratio 41.9 (8-20); C Reactive Protein 360.59 mg/L (<8.01); EGFR African American 74.1 (>60); EGFR Non-African American 61.3 (>60); Globulin 4.7 g/dL (2-4); Potassium 3.9 mmol/L (3.5-5.0); Total Bilirubin 0.6 mg/dL (0.2-1.0); Total Protein 7.4 g/dL (6.4-8.9)
[2019-03-02] MEDS: NS 0.9% 1000 ML** 1,000 ML IV ONE (15:42)
[2019-03-02 15:43] LABS: Hematocrit 28 % (42-52); Hemoglobin 9.7 g/dL (14.0-18.0); Mean Corpuscular HGB Conc 34 g/dL (31-36); Mean Corpuscular Hemoglobin 35 pg (27-31); Mean Corpuscular Volume 103 fL (80-94); Mean Platelet Volume 11.6 fL (7.4-10.4); Platelet Count 115 10^3/uL (150-450); Red Blood Count 2.73 10^6 /uL (4.18-5.48); Red Cell Distribution Width 15 % (10-15)
[2019-03-02] MEDS: NS 0.45% 1000 ML BAG* 1,000 ML IV SCH (16:15)
[2019-03-02 16:49] LABS: Microcytosis 1+; Polychromasia 1+
[2019-03-02 16:50] LABS: ABS Lymphocytes 0.1 10^3/ul (1.0-4.8); ABS Monocytes 0.6 10^3/ul (0-0.8); ABS Neutrophils 1.2 10^3/ul (1.5-7.7); Eosinophil % 1.7 %; Lymphocyte % 7.2 %; Nucleated Red Blood Cells % 0.1
--- NOTE | 2019-03-02 18:55 | PN ---
Subjective Date of Service: 03/02/19 Length of Stay: 1 Days This is a Neurology Consultation note. Neurology was consulted by Dr. Kartik Lopez to evaluate the patient's generalized weakness. Interval History: History of Present Illness: 74-year-old right-handed man who lives in a jail, ambulates with a walker at baseline, who presented with generalized weakness, predominately involving the right upper and bilateral lower extremities. The patient cannot provide a medical history due to underlying psychomotor slowing and unable to speak fluently. He mumbled to the examiner during the interview, at times appropriately. The patient was recently diagnosed with multiple myeloma 01/2019 and hepatitis B. He was evaluated by Dr. Singh and Dr. Vinson last month. He presented in January with back pain and was found to have a pathological compression fracture at L3. Pain control was recommended and he was sent back to rehab/ jail. The patient presented to the ED on 03/01/2019 for generalized weakness. He was infused with IV fluids and sent back to his living facility. He presents again with worsening weakness. The patient is barely moving the right arm or legs. He can move the left arm but still with weakness. He has dysconjugate gaze which I don't know if it's new or old. He has severe psychomotor delay and responds inconsistently to command. He is incontinent of both urine and stool. He reports that this is new. He denied any double vision or headaches. The patient's CT head without contrast showed diffuse severe extensive white matter small vessel disease involving the right more than the left subcortical region. He also has moderate to severe cerebellar atrophy. I reviewed a CT of the cervical spine completed on 01/2019. While the report read as "multilevel degenerative disc disease" the image shows severe multilevel spinal stenosis. The patient's CRP today was significant high in the 360. The patient is pancytopenic. He is afebrile. Review of Systems: The patient cannot provide a ROS due to cognitive slowing. Family History: Unchanged from Admission - Both parents when he was a child. The patient is unable to provide further details. Social History: Unchanged from Admission - None smoker. Lives in a jail since childhood. Past Medical History: Unchanged from Admission - Multiple myeloma, hypertension , dyslipidemia, BPH, developmental delay Objective Active Medications: Sodium Chloride (Ns 0.45% 1000 Ml Bag*) 1,000 mls @ 175 mls/hr IV PER RATE SAVAGE Last Admin: 03/02/19 16:15 Dose: 175 mls/hr Home medications: Losartan TAB* [Cozaar TAB*] 100 mg PO DAILY 02/03/15 [History Confirmed 03/02/19 ] Acetaminophen TAB* [Tylenol TAB*] 650 mg PO Q6H PRN #30 tab MDD 4 gm 12/30/18 [ Rx Confirmed 03/02/19] Potassium Chlor TAB* [Klor Con ER TAB 10 MEQ*] 20 meq PO DAILY 01/05/19 [ History Confirmed 03/02/19] amLODIPine TAB* [Norvasc 5 mg TAB*] 5 mg PO DAILY 01/05/19 [History Confirmed ] Allopurinol TAB* [Zyloprim 100 MG TAB*] 100 mg PO DAILY tab 01/20/19 [Rx Confirmed 03/02/19] fentaNYL PATCH 25 MCG/HR* [Duragesic PATCH 25 Mcg/Hr*] 25 mcg TRANSDERM Q72H patch 01/20/19 [Rx Confirmed 03/02/19] Aspirin EC TAB* [Ecotrin EC Low Dose 81 MG*] 81 mg PO DAILY 03/02/19 [History Confirmed 03/02/19] Atorvastatin* [Lipitor*] 20 mg PO DAILY 03/02/19 [History Confirmed 03/02/19] Bupropion XL* [Wellbutrin XL *] 150 mg PO DAILY 03/02/19 [History Confirmed ] Cholecalciferol (Vitamin D3) [Vitamin D3] 2,000 unit PO DAILY 03/02/19 [History Confirmed 03/02/19] Citalopram TAB* [CeleXA TAB*] 20 mg PO DAILY 03/02/19 [History Confirmed ] Docusate CAP* [Colace Cap*] 100 mg PO DAILY 03/02/19 [History Confirmed 03/02/19 ] Emollient Combination No.72 [Eucerin Intensive Repair] 1 applic TOPICAL BID [History Confirmed 03/02/19] Entecavir(NF) [Baraclude (NF)] 0.5 mg PO DAILY 03/02/19 [History Confirmed 03/02] Exenatide Microspheres [Bydureon] 2 mg SUBCUT MO 03/02/19 [History Confirmed ] Gabapentin CAP(*) [Neurontin 300 CAP(*)] 300 mg PO DAILY 03/02/19 [History Confirmed 03/02/19] Lenalidomide (NF) [Revlimid (NF)] 25 mg PO DAILY 03/02/19 [History Confirmed ] Multivitamins/Minerals TAB* [Theragran/minerals TAB*] 1 tab PO DAILY 03/02/19 [ History Confirmed 03/02/19] Naproxen TAB* [Naprosyn 250 mg TAB*] 250 mg PO BID 03/02/19 [History Confirmed 03/02/19] Omeprazole CAP (NF) [Prilosec CAP* 20 MG] 20 mg PO DAILY 03/02/19 [History Confirmed 03/02/19] Ondansetron TAB* [Zofran 4 MG Tab*] 4 mg PO Q8HR PRN 03/02/19 [History Confirmed 03/02/19] Polyethylene Glycol 3350* [Miralax*] 17 gm PO DAILY 03/02/19 [History Confirmed 03/02/19] Senna TAB 8.6 mg* [Senokot 8.6 mg TAB*] 2 tab PO DAILY 03/02/19 [History Confirmed 03/02/19] Spironolactone TAB* [Aldactone TAB*] 25 mg PO DAILY 03/02/19 [History Confirmed 03/02/19] glipiZIDE TAB* [Glucotrol TAB*] 10 mg PO DAILY 03/02/19 [History Confirmed 03/02] guaiFENesin ER TAB [Mucinex*] 600 mg PO BID PRN 03/02/19 [History Confirmed ] metFORMIN* [Glucophage 1000 MG TAB *] 1,000 mg PO BID 03/02/19 [History Confirmed 03/02/19] traMADol TAB* [Ultram*] 50 mg PO Q6HR PRN 03/02/19 [History Confirmed 03/02/19] Vital Signs 03/02/19 03/02/19 03/02/19 14:10 14:33 14:34 Temperature 99.6 F Pulse Rate 107 109 108 Respiratory 25 25 26 Rate Blood Pressure 143/81 143/81 (mmHg) O2 Sat by Pulse 97 96 97 Oximetry 03/02/19 03/02/19 03/02/19 15:02 15:03 15:33 Temperature Pulse Rate 104 105 Respiratory 11 21 23 Rate Blood Pressure 126/76 131/91 (mmHg) O2 Sat by Pulse 97 Oximetry 03/02/19 03/02/19 03/02/19 16:00 16:03 16:33 Temperature Pulse Rate 102 101 Respiratory 23 22 23 Rate Blood Pressure 142/80 139/82 (mmHg) O2 Sat by Pulse 93 89 Oximetry 03/02/19 03/02/19 03/02/19 17:00 17:03 17:33 Temperature Pulse Rate 96 Respiratory 27 23 21 Rate Blood Pressure 140/85 151/87 (mmHg) O2 Sat by Pulse 94 Oximetry 03/02/19 18:00 Temperature Pulse Rate 99 Respiratory 26 Rate Blood Pressure (mmHg) O2 Sat by Pulse 92 Oximetry Intake and Output Last 24 Hours 02/28/19 03/01/19 03/02/19 03/03/19 06:59 06:59 06:59 06:59 Weight 240 lb Neurology Exam: General: Chronic ill appearing man who is disheveled and has foul odor. HEENT: Normocephelic/atraumatic, sclera anicteric, mucous membranes moist Neck: Supple Chest: Clear to auscultation bilaterally Cardiovascular: Regular rate and rhythm without murmurs, rubs, gallops Extremities: No clubbing, cyanosis, or edema Neurological Findings: Awake, alert to self but not place or time. He has moderate-severe psychomotor slowing. Speech: moderate dysarthria. Cranial Nerve: PERRL. Bilateral dysconjugate gaze with weakness to right more than left medial adduction bilaterally. Motor: R/L: Shoulder abduction:2/4 elbow flexion and extension:3 and 3/4 and 4 Wrist flexion and extension: 3 and 3 / 4 and 4 Finger abduction: 3/4 Hip flexion: 2/2 knee flexion and extension: 2 and 2/ 2 and 2 Ankle dorsiflexion and plantar flexion: 1 and 1 /2 and 2 Sensation: patient does not cooperate Deep Tendon Reflex: absent throughout Coordination: does not cooperate Gait: unable to ambulate due to generalized weakness Result Diagrams: 03/02/19 14:46 03/02/19 14:46 Assessment/Plan Mr. Alan Rios is a 74-year-old man with reported history developmental delay, who was recently placed on antiviral therapy for hepatitis, and was diagnosed with multiple myeloma with L3 pathological compression fracture who presents with worsening gait and generalized weakness. The patient's examination is notable for dysconjugate gaze with bilateral EMETERIO ( unclear if this is old or new but it was not noted on previous hospitalization) , quadriparesis involving the right arm and bilateral lower extremities to a greater extent, and incontinence. A CT of the cervical spine completed on 12/2018 is notable for multilevel degenerative disc disease of the cervical spine, worse at C3-4. MRI C spine was not done at that time. On laboratory, the patient has an elevated CRP suggestive of an underlying inflammatory process. Other causes of elevated inflammatory marker would be due to multiple myeloma or hepatitis. However, I would suspect the elevation in CRP would be the same as last month, unless it correlates with disease progression. The patient is presenting with multiple medical issues that are outlined below: 1. Quadriparesis of unclear duration: evaluate for cervical spondylosis with spinal cord compression, leptomeningeal myelomatosis, or cervical abscess in he setting of positive inflammatory markers. 2. Dysconjugate gaze: it's unclear if this is a new finding on examination. Depending on the acutely of the symptom, leptomeningeal carcinomatosis or cranial nerve palsies, or pontine stroke should be further evaluated. 3. Elevated CRP attributable to multiple myeloma, hepatitis B, but underlying inflammatory/infectious conditions needs to be ruled out. Recommendations: - Stat MRI brain and C spine with and without contrast. If there is evidence of spinal cord compression, the patient needs urgent neurosurgical consultation. - If the above imaging is negative, the patient needs an LP to evaluate for leptomeningeal disease or cryptococcal meningitis. - The patient should not be hospitalized until we rule out any NSG causes of his presentation as we don't have neurosurgical coverage at [facility]. - Neuro checks every one hour - Please obtain B12 and ESR levels. - Please contact me with the results once imaging studies are completed. Discussed in details with Dr. Lopez. ADDENDUM: the patient was found to have cervical spinal cord compression at C3- 4. He was transferred to a tertiary center where neurosurgery coverage is available.
[2019-03-02] MEDS: Gadoteridol* (CONTRAST) 279.3 MG/ML 10 ML IV ONE (21:04)
--- NOTE | 2019-03-02 22:51 | ED ---
Progress - Progress Note Progress Note: Receiving sign-out from Dr. Lopez at shift change 2200 pending transfer acceptance to [facility]. Dr. Tellez, Emergency Physician at [facility], accepted the patient for transfer to their emergency room. Course/Dx - Course Course Of Treatment: Mr. Rios was not moving his right arm or his bilateral legs on arrival to the department. Because of his history there is a concern for cervical lesions and ordered MRI scan. I spoke with Dr. Martinez who recommended the MRI be with contrast. MRI returned with cord compression from metastatic lesions cervical spine forward placed in hard collar. At this point I have contacted [facility] for transfer as we have no neurosurgeons available at this time and we're awaiting a call back. Signout received from Dr. Lopez. I personally spoke to the ED at [facility] and they accepted patient for transfer. - Diagnoses Provider Diagnoses: Cervical spinal cord compression - Provider Notifications Time Discussed With Above Provider: 16:00 Instructed by Provider To: Other - I discussed the patient's case with Dr. Martinez , and he will come see the patient in the ED. He recommends MRIs of the brain and c-spine with contrast. Transfer initiated at 2200 with [facility]. Reason For Transfer: Specialty available at [facility] but not property consultant. - patient needs neurosurgery - Critical Care Time Critical Care Time: 30-74 min Discharge ED - Sign-Out/Discharge Documenting (check all that apply): Patient Departure - Transfer - Discharge Plan Condition: Guarded Disposition: TRANS HIGHER LVL OF CARE FAC Referrals: Arnaud Calloway MD [Primary Care Provider] - - Billing Disposition and Condition Condition: GUARDED Disposition: Trans Higher Lvl of Care Fac - Attestation Statements Document Initiated by Martha: Yes Documenting Scribe: Chicho Addison Provider For Whom Martha is Documenting (Include Credential): Morales Huitron MD Scribe Attestation: Chicho Proctor scribed for Morales Huitron MD on 03/03/19 at 0050. Scribe Documentation Reviewed: Yes Provider Attestation: The documentation as recorded by the Chicho hines accurately reflects the service I personally performed and the decisions made by me, Morales Huitron MD Status of Scribe Document: Viewed
[2019-03-03 03:11] VITALS: BP 147/78
== END 2019-03-03 03:11 | disposition short-term general hospital (02) ==
LOC: ED 14:01
DX: G95.29 Other cord compression (principal); E11.9 Type 2 diabetes mellitus without complications; I25.10 Atherosclerotic heart disease of native coronary artery without angina pectoris; E78.5 Hyperlipidemia, unspecified; E78.00 Pure hypercholesterolemia, unspecified; I10 Essential (primary) hypertension; J44.9 Chronic obstructive pulmonary disease, unspecified; N40.0 Benign prostatic hyperplasia without lower urinary tract symptoms; R62.50 Unspecified lack of expected normal physiological development in childhood; K21.9 Gastro-esophageal reflux disease without esophagitis; F32.9 Major depressive disorder, single episode, unspecified; Z86.19 Personal history of other infectious and parasitic diseases; Z85.79 Personal history of other malignant neoplasms of lymphoid, hematopoietic and related tissues; Z79.82 Long term (current) use of aspirin; Z79.84 Long term (current) use of oral hypoglycemic drugs; Z79.899 Other long term (current) drug therapy; Z88.1 Allergy status to other antibiotic agents; Z88.8 Allergy status to other drugs, medicaments and biological substances
CPT/HCPCS: 36415; 70250; 70450; 70551; 71045; 72156; 74018; 80053; 85025; 85060; 86140; 96360; 96361; 99285; A9579

== ENCOUNTER 2019-04-19 23:12 | Emergency (ER) | payer MEDICARE, OTHER, MEDICAID ==
--- NOTE | 2019-04-19 23:25 | ED ---
Upper Extremity Pain - HPI Summary HPI Summary: This pt is a 74 Y/O M presenting to [facility] following a fall he sustained out of bed [employer]. Pt was brought in by EMS after he was found face down on the floor by the [facility] staff. He states that he fell on his R shoulder and currently has increased pain that is rated a 5/10 in severity and swelling to his R shoulder as well. Pt arrives in a neck brace. He denies any headaches, N/V , or pain to his lower extremities. He has a PMHx of a recent R shoulder fracture, CAD, HTN, and current anticoagulation medications. He states that movement and palpitations aggravate his pain but states no alleviating factors. - History of Current Complaint Chief Complaint: EDFall Stated Complaint: FALL PER EMS Time Seen by Provider: 04/19/19 23:14 Hx Obtained From: Patient Mechanism Of Injury: Other - fell out of bed Onset/Duration: Still Present Timing: Constant Severity Initially: Moderate Severity Currently: Moderate - 5/10 Pain Location: Shoulder - R Aggravating Factor(s): Movement, Other - palpitation Alleviating Factor(s): Nothing Associated Signs & Symptoms: Positive: Negative - headache, lower extremity pain , Swelling - R shoulder. Negative: Nausea, Vomiting - Allergies/Home Medications Allergies/Adverse Reactions: Allergies Allergy/AdvReac Type Severity Reaction Status Date / Time cefazolin Allergy Severe See Comment Verified 01/05/19 15:08 enalapril Allergy Severe Swelling Verified 01/05/19 15:08 Of Face,Lips,& Throat levofloxacin [From Levaquin] Allergy Severe See Comment Verified 01/05/19 15:08 pioglitazone [From Actos] Allergy Mild See Comment Verified 01/05/19 15:08 tamsulosin [From Flomax] Allergy Unknown Unknown Verified 01/05/19 15:08 Reaction Details PMH/Surg Hx/FS Hx/Imm Hx Previously Healthy: Yes Endocrine/Hematology History: Reports: Hx Diabetes Cardiovascular History: Reports: Hx Coronary Artery Disease, Hx Hypercholesterolemia, Hx Hypertension, Hx Syncope - THIS ADMIT Denies: Hx Pacemaker/ICD Respiratory History: Reports: Hx Chronic Obstructive Pulmonary Disease (COPD), Hx Sleep Apnea Denies: Hx Asthma GI History: Reports: Hx Gastroesophageal Reflux Disease, Hx Ulcer History: Reports: Hx Benign Prostatic Hyperplasia - PROSTATE SURGERY Denies: Hx Dialysis, Hx Renal Disease Musculoskeletal History: Reports: Hx Arthritis, Hx Orthopedic Injury - right knee injury with chronic pain Sensory History: Reports: Hx Contacts or Glasses Denies: Hx Hearing Aid Opthamlomology History: Reports: Hx Contacts or Glasses Neurological History: Reports: Hx Developmental Delay Denies: Hx Seizures, Hx Transient Ischemic Attacks (TIA) Psychiatric History: Reports: Hx Depression, Hx Inpatient Treatment - may 1992 for depression- 5 days Denies: Hx Anxiety, Hx Panic Disorder, Hx Suicide Attempt, Hx Substance Abuse - Cancer History Cancer Type, Location and Year: PROSTATE 2006 Hx Chemotherapy: No Hx Radiation Therapy: No - Surgical History Surgical History: Yes Surgery Procedure, Year, and Place: prostate surgery 2006. right cataract Hx Anesthesia Reactions: No - Immunization History Date of Tetanus Vaccine: unk Date of Influenza Vaccine: unk Immunizations Up to Date: Yes Infectious Disease History: No Infectious Disease History: Reports: Hx Hepatitis - B Denies: Traveled Outside the in Last 30 Days - Family History Known Family History: Positive: Diabetes - Social History Occupation: Disabled Lives: At [facility] Alcohol Use: None Hx Substance Use: No Substance Use Type: Reports: None Hx Tobacco Use: No Smoking Status (MU): Never Smoked Tobacco Review of Systems Negative: Vomiting, Nausea Musculoskeletal: Negative - Lower Extremitiy pain Positive: Other - R shoudler swelling and pain Negative: Headache All Other Systems Reviewed And Are Negative: Yes Physical Exam - Summary Physical Exam Summary: Appearance: Well-appearing, Well-nourished, lying in bed comfortably Skin: Warm, dry, no obvious rash Eyes: sclera anicteric, no conjunctival pallor ENT: mucous membranes moist, pharynx appears normal, dry blood about the nares and mouth without active bleeding. No other signs of head trauma Neck: Supple, nontender Respiratory: Clear to auscultation, no signs of respiratory distress Cardiovascular: Normal S1, S2. No murmurs. Normal distal pulses in tibial and radial bilaterally. Abdomen: Soft, nontender, normal active bowel sounds present Musculoskeletal: swelling and tenderness about the proximal humerus and an inability to move the R arm due to pain, remainder of his extremity exam is normal and without signs of trauma. Neurological: A&Ox3, awake and alert, mentation is normal, speech is fluent and appropriate Psychiatric: affect is normal, does not appear anxious or depressed GCS: 15 Triage Information Reviewed: Yes Vital Signs On Initial Exam: Initial Vitals Temp Pulse Resp BP Pulse Ox 97.4 F 88 19 154/85 95 04/19/19 23:13 04/19/19 23:13 04/19/19 23:13 04/19/19 23:13 04/19/19 23:13 Vital Signs Reviewed: Yes - [place] Coma Scale Best Eye Response: 4 - Spontaneous Best Motor Response: 6 - Obeys Commands Best Verbal Response: 5 - Oriented Coma Scale Total: 15 Procedures - Sedation Patient Received Moderate/Deep Sedation with Procedure: No Diagnostics - Vital Signs Vital Signs Temp Pulse Resp BP Pulse Ox 04/19/19 23:13 97.4 F 88 19 154/85 95 - Laboratory Lab Statement: Any lab studies that have been ordered have been reviewed, and results considered in the medical decision making process. - Radiology Shoulder X-Ray Radiology Interpretation Completed By: ED Physician Summary of Radiographic Findings: No acute fracture or break. Pending offical review. Course/Dx - Course Course Of Treatment: This pt is a 74 Y/O M presenting to [facility] following a fall he sustained out of bed [employer]. Pt was brought in by EMS after he was found face down on the floor by the [facility] staff. He states that he fell on his R shoulder and currently has increased pain that is rated a 5/10 in severity and swelling to his R shoulder as well. Pt arrives in a neck brace. He denies any headaches, N/V, or pain to his lower extremities. He has a PMHx of a recent R shoulder fracture, CAD, HTN, and current anticoagulation medications. His PE found that he has swelluing and tenderness about the proximal humerous and an inability to move the R arm due to pain. He has dry blood about the nares and mouth wuithout active bleeding. No other signs of head trauma. The remainder of his extremity exam is normal and without signs of truama. His Shoulder X-Ray shows no acute fracture or break. He will be discharged home with a Dx of a shoulder Sprain. - Diagnoses Provider Diagnoses: Shoulder sprain Discharge ED - Sign-Out/Discharge Documenting (check all that apply): Patient Departure - discharge - Discharge Plan Condition: Good Disposition: HOME Patient Education Materials: Shoulder Sprain (ED) Referrals: Anne Dyer MD [Primary Care Provider] - If Needed Additional Instructions: PLEASE FOLLOW UP WITH YOUR PRIMARY CARE PROVIDER IF NEEDED AND RETURN TO THE EMERGENCY DEPARTMENT FOR ANY NEW OR WORSENING SYMPTOMS. - Billing Disposition and Condition Condition: GOOD Disposition: Home - Attestation Statements Document Initiated by Martha: Yes Documenting Scribe: Philip Yadav Provider For Whom Martha is Documenting (Include Credential): Kartik Danielle MD Scribe Attestation: Philip Proctor, scribed for Kartik Danielle MD on 04/21/19 at 0355. Scribe Documentation Reviewed: Yes Provider Attestation: The documentation as recorded by the Philip hines accurately reflects the service I personally performed and the decisions made by me, Kartik Danielle MD Status of Scribe Document: Viewed
--- OUTSIDE RECORDS SUMMARY | 2019-04-20 00:14 | XMS REPORT | Summary of Care ---
:1945 Author Organization [facility] Address [address] [place] [address] Care Team Providers Name Role Phone Arnaud Calloway MD Primary Care Provider Encounter Details Date Type Department Care Team Description 03/17/2019 Procedure visit [facility] RADIATION Chicho Amaya Multiple myeloma not ONCOLOGY A, having achieved [address] [facility] remission (Primary [facility] Cancer Room 222 Dx) Center [address] [place] [phone] Allergies Active Allergy Reactions Severity Noted Date Comments Cefazolin 03/03/2019 Enalapril 03/03/2019 Levofloxacin 03/03/2019 Pioglitazone 03/03/2019 Tamsulosin 03/03/2019 documented as of this encounter (statuses as of 03/17/2019) Medications Medication Sig Dispensed Refills Start Date End Date Status Losartan Potassium 50 Take 100 mg by 0 Suspended MG Oral Tablet mouth daily (COZAAR) Potassium Chloride Take 20 mEq by 0 Suspended Taylor ER 20 MEQ Oral mouth Two Times Tablet Extended Daily Release (K-DUR,KLOR-CON) amLODIPine Besylate 5 Take 5 mg by 0 Suspended MG Oral Tablet mouth daily (NORVASC) Aspirin 81 MG Oral Take 81 mg by 0 Suspended Tablet mouth daily Atorvastatin Calcium Take 20 mg by 0 Suspended 20 MG Oral Tablet mouth daily (LIPITOR) buPROPion HCl ER (SR) Take 150 mg by 0 Suspended 150 MG Oral Tablet mouth Two Times Extended Release 12 Daily Hour (WELLBUTRIN SR) Vitamin D Take 2,000 Units 0 Suspended (Cholecalciferol) 25 by mouth daily MCG (1000 UT) Oral Capsule Citalopram Take 20 mg by 0 Suspended Hydrobromide 20 MG mouth daily Oral Tablet (CELEXA) Docusate Sodium 100 Take 100 mg by 0 Suspended MG Oral Capsule mouth Two Times (COLACE) Daily Emollient Base Apply topically 0 Suspended External Cream as needed (BIAFINE) Entecavir 0.5 MG Oral Take 0.5 mg by 0 Suspended Tablet (BARACLUDE) mouth daily Exenatide ER 2 MG Inject 2 mg into 0 Suspended Subcutaneous the skin every 7 Pen-injector (seven) days (BYDUREON) Gabapentin 300 MG Take 300 mg by 0 Suspended Oral Capsule mouth Three (NEURONTIN) times daily Lenalidomide 25 MG Take by mouth 0 Suspended Oral Capsule Multiple Take by mouth 0 Suspended Vitamins-Minerals (MULTIVITAMIN ADULT PO) Naproxen 250 MG Oral Take 250 mg by 0 Suspended Tablet (NAPROSYN) mouth Two times daily with meals Omeprazole 20 MG Oral Take 20 mg by 0 Suspended Capsule Delayed mouth daily Release (PriLOSEC) Ondansetron HCl 4 MG Take 4 mg by 0 Suspended Oral Tablet (ZOFRAN) mouth every 8 (eight) hours as needed for Nausea Polyethylene Glycol Take 17 g by 0 Suspended 3350 Oral Packet mouth daily (MIRALAX) Please substitute bottle for packets, if packets are unavailable. Senna 8.6 MG Oral Take 2 tablets 0 Suspended Tablet by mouth nightly Spironolactone 25 MG Take 25 mg by 0 Suspended Oral Tablet mouth daily (ALDACTONE) glipiZIDE 5 MG Oral Take 10 mg by 0 Suspended Tablet (GLUCOTROL) mouth Two times daily before breakfast and dinner guaiFENesin ER 600 MG Take 1,200 mg by 0 Suspended Oral Tablet Extended mouth Two Times Release 12 Hour Daily (MUCINEX) metFORMIN HCl 1000 MG Take 1,000 mg by 0 Suspended Oral Tablet mouth Two times (GLUCOPHAGE) daily with meals traMADol HCl 50 MG Take 50 mg by 0 Suspended Oral Tablet (ULTRAM) mouth every 6 (six) hours as needed for Pain documented as of this encounter (statuses as of 03/17/2019) Active Problems Problem Noted Date Oropharyngeal dysphagia 03/15/2019 Ischemic stroke 03/04/2019 Multiple myeloma in relapse 03/04/2019 Acute encephalopathy 03/04/2019 Spinal stenosis of lumbar region with neurogenic claudication 03/04/2019 Hypernatremia 03/04/2019 Atelectasis, right 03/04/2019 Type 2 diabetes mellitus, without long-term current use of insulin 03/04/2019 Essential hypertension 03/04/2019 Major depressive disorder 03/04/2019 Gastroesophageal reflux disease without esophagitis 03/04/2019 Hypercholesterolemia 03/04/2019 Spinal cord compression 03/03/2019 Cervical spinal cord compression 03/03/2019 Diagnosis unknown documented as of this encounter (statuses as of 03/17/2019) Social History Tobacco Use Types Packs/Day Years Used Date Never Smoker Alcohol Use Drinks/Week oz/Week Comments Not Currently Sex Assigned at Date Recorded Not on file Job Start Date Occupation Industry Not on file Not on file Not on file Travel History Travel Start Travel End No recent travel history available. documented as of this encounter Last Filed Vital Signs Not on filedocumented in this encounter Progress Notes Chicho Amaya MD - 03/17/2019 12:45 PM EST Radiation Oncology On-Treatment Visit Note Alan is currently undergoing a course of Radiation Therapy. He was seen by me after treatment today. Image Guided Radiation Therapy imaging reviewed. Diagnosis: Multiple myeloma ECOG Performance Status: 4 - Bedbound Prior Therapy: Treatment Site: T7-T9 spine Treatment intent: Palliative Dose in cGy No. of fractions Current Dose 2400 8 Prescribed Dose 3000 10 There is not a planned External beam boost boost. He is not receiving concurrent systemic therapy. No flowsheet data found. Vitals: Vitals - 1 value per visit 03/03/2019 03/06/2019 03/17/2019 SYSTOLIC - - 148 DIASTOLIC - - 81 PULSE - - 91 TEMPERATURE - - 97.9 RESPIRATIONS - - 18 Weight (kg) 91.309 kg - - HEIGHT - 182.9 cm - SPO2 - - 97 BODY MASS INDEX 27.3 kg/m2 - - PAIN SCALE - SCORE - - 0 Medications: No current facility-administered medications for this visit. No current outpatient medications on file. Facility-Administered Medications Ordered in Other Visits Medication Dose Route Frequency Provider Last Rate Last Dose acetaminophen (TYLENOL) 160 MG/5ML solution (ADULT) 650 mg 650 mg Oral Q6H Yoselyn Cantu NP 650 mg at 03/17/19 1636 aspirin chewable tablet 81 mg 81 mg Oral Daily Sasha Perez MD Stopped at 03/15/19 1507 atorvastatin (LIPITOR) tablet 20 mg 20 mg Oral Daily Sasha Perez MD Stopped at 03/15/19 1507 buPROPion (WELLBUTRIN) tablet 75 mg 75 mg Oral BID Sathish Covington MD Stopped at 03/15/19 1508 citalopram (CELEXA) tablet 20 mg 20 mg Oral Daily Sasha Perez MD 20 mg at 03/14/19 0952 clopidogrel (PLAVIX) tablet 75 mg 75 mg Oral Daily Mina Summers MD Stopped at 03/15/19 1508 dexamethasone (DECADRON) injection 4 mg 4 mg Intravenous Q6H Elijah Mota, DO 4 mg at 03/17/19 1636 dextrose 5 % infusion Intravenous Continuous Elijah Mota, DO 75 mL/ hr at 03/17/19 1346 dextrose 50 % IV solution 25 mL 25 mL Intravenous PRN KWAN Olivas enoxaparin sodium (LOVENOX) injection 40 mg 40 mg Subcutaneous Daily Saad Baer Jr., MD 40 mg at 03/17/19 0952 entecavir (BARACLUDE) tablet 0.5 mg 0.5 mg Oral Daily Sasha Perez MD Stopped at 03/15/201409 glucagon (human recombinant) (GLUCAGEN) injection 1 mg 1 mg Intramuscular PRN KWAN Olivas glucose (GLUTOSE) 40 % oral gel 15 g 15 g Oral PRN KWAN Olivas sodium chloride (preservative free) 0.9 % flush 10 mL 10 mL Intravenous PRN Mina Summers MD 10 mL at 03/09/19 1242 And heparin lock flush 10 UNIT/ML injection 20 Units 20 Units Intravenous PRN Mina Summers MD20 Units at 03/13/19 0922 And sodium chloride (preservative free) 0.9 % flush 10 mL 10 mL Intravenous Q12H Mina Summers MD 10 mL at 03/17/19 0511 And heparin lock flush 10 UNIT/ML injection 20 Units 20 Units Intravenous Q12H Mina Summers MD 20 Units at 03/17/19 0508 sodium chloride (preservative free) 0.9 % flush 10 mL 10 mL Intravenous PRN KWAN Kim And heparin lock flush 10 UNIT/ML injection 20 Units 20 Units Intravenous PRN KWAN Kim And sodium chloride (preservative free) 0.9 % flush 10 mL 10 mL Intravenous Q12H Melikindra Ayers, MICHELEBS 10 mL at 03/17/19 1347 And heparin lock flush 10 UNIT/ML injection 20 Units 20 Units Intravenous Q12H Melikindra Ayers, MBBS 20 Units at 03/17/19 1347 insulin glargine (LANTUS) injection 20 Units 20 Units Subcutaneous QAM Jasmin Ocasio MD 20Units at 03/17/19 0952 insulin lispro (HumaLOG) injection MEDIUM DOSE EATING INSULIN patients 1- 16 Units 1-16 UnitsSubcutaneous 3 x Daily with Meals Vernon Stringer MD lidocaine (XYLOCAINE) 1 % injection 5 mL 5 mL Subcutaneous Once PRN Mina Summers MD 4 mL at 03/05/19 1649 lidocaine (XYLOCAINE) 1 % injection 5 mL 5 mL Subcutaneous Once PRN KWAN Kim lidocaine (XYLOCAINE) 1 % injection 5 mL 5 mL Subcutaneous Once PRN Sohail Ghotra MD losartan (COZAAR) tablet 100 mg 100 mg Oral Daily Sasha Perez MD Stopped at 03/15/19 1509 pantoprazole (PROTONIX) injection 40 mg 40 mg Intravenous Daily Sathish Covington MD 40 mgat 03/17/19 0951 senna 8.6 MG 2 tablet 2 tablet Oral Nightly Sasha Perez MD 2 tablet at 03/11/19 2228 sodium chloride (preservative free) 0.9 % flush 10 mL 10 mL Intravenous PRN Sohail Ghotra MD And sodium chloride (preservative free) 0.9 % flush 10 mL 10 mL Intravenous PRN Sohail Ghotra MD sodium chloride 0.9 % bolus 1,000 mL 1,000 mL Intravenous Once Jaz Vann NP [START ON 03/18/2019] vancomycin (VANCOCIN) infusion 1,500 mg/300 mL ( premix) 1,500 mg Intravenous Q24H Zev R Strait, PharmD Clinical Evaluation: Subjective He is tolerating therapy without difficulty.He opens eyes and says yes and no, can not lift legs gainst gravity. He is having Cspine MRI Image Review Reviewed images have been satisfactory. Changes made as necessary. Impression and Plan: Alan is tolerating radiation therapy as expected. We reviewed what to expect from ongoing treatment. He was counseled, encouraged , and questions wereaddressed. We will continue radiation therapy as planned. Chicho Amaya M.D., documented in this encounter Plan of Treatment Health Maintenance Due Date Last Done Comments MMR Vaccines (1 of 1 - Standard 01/08/1946 series) Varicella Vaccines (1 of 2 - 01/08/1946 2-dose childhood series) DTaP,Tdap,and Td Vaccines (1 - 1954 Tdap) Diabetic Foot Exam 1965 Dilated Retinal Exam 1965 Urine Microalbumin 1965 Hepatitis B Vaccines (1 of 3 - 1966 Risk 3-dose series) Colon Cancer Screening 10 yrs 1997 Zoster Vaccines (1 of 2) 1997 Pneumococcal Vaccine: 65+ Years (1 01/08/2012 of 2 - PCV13) Influenza Vaccine 12/06/2018 Hemoglobin A1c 09/02/2019 03/03/2019 Lipid Disorder Screening 03/04/2020 03/04/2019 Hepatitis C Screening (B. Completed 03/03/201919448527-8167) HIB Vaccines Aged Out No longer eligible based on patient's age to complete this topic Hepatitis A Vaccines Aged Out No longer eligible based on patient's age to complete this topic IPV Vaccines Aged Out No longer eligible based on patient's age to complete this topic Pneumococcal Vaccine: Pediatrics Aged Out No longer eligible based on (0 to 5 Years) and At-Risk patient's age to complete Patients (6 to 64 Years) this topic documented as of this encounter Results Not on filedocumented in this encounter Visit Diagnoses Diagnosis Multiple myeloma not having achieved remission - Primary Multiple myeloma, without mention of having achieved remission documented in this encounter Additional Health Concerns Infection Noted Time Resolved Time 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
--- OUTSIDE RECORDS SUMMARY | 2019-04-20 00:14 | XMS REPORT | Summary of Care ---
:1945 Author Organization [facility] Address [address] [place] [address] Care Team Providers Name Role Phone Arnaud Calloway MD Primary Care Provider Reason for Visit Reason Comments Simulation Encounter Details Date Type Department Care Team Description 03/06/2019 Procedure visit [facility] RADIATION Lara Bai, Spinal cord ONCOLOGY compression [address] [facility] [address] [facility] [address] Center 1[address] [place] [phone] Allergies Active Allergy Reactions Severity Noted Date Comments Cefazolin 03/03/2019 Enalapril 03/03/2019 Levofloxacin 03/03/2019 Pioglitazone 03/03/2019 Tamsulosin 03/03/2019 documented as of this encounter (statuses as of 03/06/2019) Medications Medication Sig Dispensed Refills Start Date [...] as of this encounter (statuses as of 03/06/2019) Active Problems Problem Noted Date Ischemic stroke 03/04/2019 Multiple myeloma in relapse 03/04/2019 Acute encephalopathy 03/04/2019 Spinal stenosis of lumbar region with neurogenic claudication 03/04/2019 Hypernatremia 03/04/2019 Atelectasis, right 03/04/2019 Type 2 diabetes mellitus, without long-term current use of insulin 03/04/2019 Essential hypertension 03/04/2019 Major depressive disorder 03/04/2019 Gastroesophageal reflux disease without esophagitis 03/04/2019 Hypercholesterolemia 03/04/2019 Spinal cord compression 03/03/2019 Cervical spinal cord compression 03/03/2019 documented as of this encounter (statuses as of 03/06/2019) Social History Tobacco Use Types Packs/Day Years [...] on filedocumented in this encounter Progress Notes Danni Hines MD - 03/06/2019 11:00 AM EST Radiation Oncology CT Simulation Note Indication Alan Rios is a 74 y.o. male who was diagnosed with multiple myeloma. He presents 03/06/[address] Simulation to plan a course of radiation therapy. CT Simulation Note He was placed on the CT simulator table in the supine position. The thorax was centered in the fieldof view.A Wing board was used for positioning. Radiopaque BB's were used to vicki the approximate isocenter. CT floor polisher was obtained to ensure that the intended treatment area was included in scan. No contrast was administered. Multiple axial images were obtained from the entire region of interest which were reviewed for image quality. The scanned images were transmitted to the treatment planning system. Alan tolerated the simulationwithout any complications. Lara Becerril MD. was present for the entire procedure. Danni Hines MD Radiation Oncology Resident, PGY-IV I was present for the entire procedure and I agree with the resident's note. Lara Bai MD Clinical Microbiologist Department of Radiation Oncology [facility] documented in this encounter Plan of Treatment Not on filedocumented as of this encounter Procedures Procedure Name Priority Date/Time Associated Diagnosis Comments CT SIMULATION AT RAD Routine 03/06/2019 12:15 PM Spinal cord compression ONC (IN OFFICE) EST documented in this encounter Results CT Simulation At Rad Onc (In Office) (03/06/2019 12:15 PM EST) Specimen Performing Organization Address City/State/Zipcode Phone Number [facility] [address] [place] [address] documented in this encounter Visit Diagnoses Diagnosis Spinal cord compression Unspecified disease of spinal cord documented in this encounter
--- OUTSIDE RECORDS SUMMARY | 2019-04-20 00:14 | XMS REPORT | Summary of Care ---
:1945 Author Organization [facility] Address [address] [place] [address] Care Team Providers Name Role Phone Arnaud Calloway MD Primary Care Provider Encounter Details Date Type Department Care Team Description 03/09/2019 Procedure visit [facility] RADIATION Ritesh Scott, Multiple myeloma not having achieved remission (Primary Dx); ONCOLOGY Spinal cord compression [address] [facility] [address] [facility] [address] [place] [id number] Allergies Active Allergy Reactions Severity Noted Date Comments Cefazolin 03/03/2019 Enalapril 03/03/2019 Levofloxacin 03/03/2019 Pioglitazone 03/03/2019 Tamsulosin 03/03/2019 documented as of this encounter (statuses as of 03/09/2019) Medications Medication Sig Dispensed Refills Start Date [...] as of this encounter (statuses as of 03/09/2019) Active Problems Problem Noted Date Ischemic stroke [...] as of this encounter (statuses as of 03/09/2019) Social History Tobacco Use Types Packs/Day Years [...] on filedocumented in this encounter Progress Notes Ritesh Scott MD - 03/09/2019 5:00 PM EST Radiation Oncology On-Treatment Visit Note Alan is currently undergoing a course of Radiation Therapy. He was seen by me after treatment today. Image Guided Radiation Therapy imaging reviewed. Diagnosis: Cancer Staging No matching staging information was found for the patient. ECOG Performance Status: 4 - Bedbound Prior Therapy: Lumbar spine RT Treatment Site: T7-T9 Treatment intent: Palliative Dose in cGy No. of fractions Current Dose 900 3 Prescribed Dose 3000 10 There is not a planned External beam boost boost. He is not receiving concurrent systemic therapy. No flowsheet data found. Vitals: Vitals - 1 value per visit 03/03/2019 03/06/2019 03/09/2019 SYSTOLIC - - 155 DIASTOLIC - - 85 PULSE - - 81 TEMPERATURE - - 98.2 RESPIRATIONS - - 16 Weight (kg) 91.309 kg - - HEIGHT - 182.9 cm - SPO2 - - 96 BODY MASS INDEX 27.3 kg/m2 - - PAIN SCALE - SCORE - - 0 Medications: No current facility-administered medications for this visit. No current outpatient medications on file. Facility-Administered Medications Ordered in Other Visits Medication Dose Route Frequency Provider Last Rate Last Dose amlodipine (NORVASC) tablet 10 mg 10 mg Oral Daily Mina Summers MD 10 mg at 03/08/19 0840 aspirin chewable tablet 81 mg 81 mg Oral Daily Sasha Perez MD 81 mg at 03/08/19 0839 atorvastatin (LIPITOR) tablet 20 mg 20 mg Oral Daily Sasha Perez MD 20 mg at 03/08/19 0840 buPROPion (WELLBUTRIN XL) 24 hr tablet 150 mg 150 mg Oral Daily Sasha Perez MD 150 mg at03/08/19 0840 citalopram (CELEXA) tablet 20 mg 20 mg Oral Daily Sasha Perez MD 20 mg at 03/08/19 0840 clopidogrel (PLAVIX) tablet 75 mg 75 mg Oral Daily Mina Summers MD 75 mg at 03/08/19 0839 dexamethasone (DECADRON) injection 4 mg 4 mg Intravenous Q6H KWAN Olivas 4 mg at03/09/19 1242 dextrose 5 % and 0.9 % NaCl with KCl 20 mEq infusion Intravenous Continuous Sathish Covington MD 75 mL/hr at 03/09/19 1624 dextrose 50 % IV solution 25 mL 25 mL Intravenous PRN KWAN Olivas enoxaparin sodium (LOVENOX) injection 40 mg 40 mg Subcutaneous Daily Saad Baer Jr., MD 40 mg at 03/09/19 0853 entecavir (BARACLUDE) tablet 0.5 mg 0.5 mg Oral Daily Sasha Perez MD 0.5 mg at 03/08/19 0849 glucagon (human recombinant) (GLUCAGEN) injection 1 mg [...] Intravenous PRN Mina Summers MD20 Units at 03/09/19 1242 And sodium chloride (preservative free) 0.9 % flush 10 mL 10 mL Intravenous Q12H Mina Summers MD 10 mL at 03/09/19 1624 And heparin lock flush 10 UNIT/ML injection 20 Units 20 Units Intravenous Q12H Mina Summers MD 20 Units at 03/09/19 1625 insulin glargine (LANTUS) injection 15 Units 15 Units Subcutaneous QAM Mina Summers MD 15Units at 03/09/19 0853 insulin lispro (HUMALOG) injection MEDIUM DOSE NPO INSULIN patients 1-10 Units 1-10 Units Subcutaneous Q4H Terry Christianson MD 4 Units at 03/09/19 1242 lidocaine (XYLOCAINE) 1 % injection 5 mL 5 mL Subcutaneous Once PRN Mina Summers MD 4 mL at 03/05/19 1649 losartan (COZAAR) tablet 100 mg 100 mg Oral Daily Sasha Perez MD 100 mg at 03/08/19 0839 pantoprazole (PROTONIX) EC tablet 20 mg 20 mg Oral Daily Sasha Perez MD 20 mg at 03/08/19 0840 senna 8.6 MG 2 tablet 2 tablet Oral Nightly Sasha Perez MD 2 tablet at 03/07/19 8776 Clinical Evaluation: Subjective He is tolerating therapy without difficulty. He reports no reaction to radiation therapy. Energy level is good . Objective Weight is stable. No acute distress Image Review Reviewed images have been satisfactory. Changes made as necessary. Impression and Plan: Alan is tolerating radiation therapy as expected. We reviewed what to expect from ongoing treatment. He was counseled, encouraged , and questions wereaddressed. We will continue radiation therapy as planned. Ritesh Scott MD documented in this encounter Plan of Treatment [...] 03/04/2020 03/04/2019 Hepatitis C Screening (B. Completed 03/03/2019 [id number]) HIB Vaccines Aged Out No longer eligible [...] myeloma, without mention of having achieved remission Spinal cord compression Unspecified disease of spinal cord documented in this encounter
[2019-04-20 02:11] VITALS: BP 184/90
== END 2019-04-20 02:10 | disposition home or self-care (01) ==
LOC: ED 23:12
DX: S43.401A Unspecified sprain of right shoulder joint, initial encounter (principal); W06.XXXA Fall from bed, initial encounter; Y92.122 Bedroom in nursing home as the place of occurrence of the external cause; I25.10 Atherosclerotic heart disease of native coronary artery without angina pectoris; I10 Essential (primary) hypertension; E11.9 Type 2 diabetes mellitus without complications; E78.00 Pure hypercholesterolemia, unspecified; J44.9 Chronic obstructive pulmonary disease, unspecified; K21.9 Gastro-esophageal reflux disease without esophagitis; N40.0 Benign prostatic hyperplasia without lower urinary tract symptoms; R62.50 Unspecified lack of expected normal physiological development in childhood; F32.9 Major depressive disorder, single episode, unspecified; Z85.46 Personal history of malignant neoplasm of prostate; Z88.1 Allergy status to other antibiotic agents; Z88.8 Allergy status to other drugs, medicaments and biological substances
CPT/HCPCS: 99283

== ENCOUNTER 2019-05-23 17:27 | Inpatient (IN) | payer MEDICARE, OTHER, MEDICAID ==
[2019-05-23] MEDS ORDERED: NS 0.9% 1000 ML** 1,000 ML IV.FLUID IV ONE (17:30)
--- NOTE | 2019-05-23 17:36 | ED ---
Neurological HPI - HPI Summary HPI Summary: 74 year old M presenting to [facility] via EMS with a chief complaint of being non- verbal since earlier today. The patient is a resident at [facility] and reportedly normally speaks. Per EMS, on their arrival the patient had a blood pressure of 68/40, a pulse in the 100s, and a fever. The patient responds to painful stimuli. Medication list reviewed. Allergy list reviewed. THE HPI IS LIMITED DUE TO LEVEL 5 CAVEAT - Non-verbal. Home Medications Medication Instructions Recorded Confirmed Type Losartan TAB* [Cozaar TAB*] 100 mg PO DAILY 02/03/15 03/02/19 History Acetaminophen TAB* [Tylenol TAB*] 650 mg PO Q6H PRN #30 tab MDD 4 gm 12/30/18 Rx Potassium Chlor TAB* [Klor Con ER 20 meq PO DAILY 01/05/19 03/02/19 History TAB 10 MEQ*] amLODIPine TAB* [Norvasc 5 mg TAB*] 5 mg PO DAILY 01/05/19 03/02/19 History Allopurinol TAB* [Zyloprim 100 MG 100 mg PO DAILY tab 01/20/19 03/02/19 Rx TAB*] fentaNYL PATCH 25 MCG/HR* 25 mcg TRANSDERM Q72H patch 01/20/19 03/02/19 Rx [Duragesic PATCH 25 Mcg/Hr*] Aspirin EC TAB* [Ecotrin EC Low 81 mg PO DAILY 03/02/19 03/02/19 History Dose 81 MG*] Atorvastatin* [Lipitor*] 20 mg PO DAILY 03/02/19 03/02/19 History Bupropion XL* [Wellbutrin XL *] 150 mg PO DAILY 03/02/19 03/02/19 History Cholecalciferol (Vitamin D3) 2,000 unit PO DAILY 03/02/19 03/02/19 History [Vitamin D3] Citalopram TAB* [CeleXA TAB*] 20 mg PO DAILY 03/02/19 03/02/19 History Docusate CAP* [Colace Cap*] 100 mg PO DAILY 03/02/19 03/02/19 History Emollient Combination No.72 1 applic TOPICAL BID 03/02/19 03/02/19 History [Eucerin Intensive Repair] Entecavir(NF) [Baraclude (NF)] 0.5 mg PO DAILY 03/02/19 03/02/19 History Exenatide Microspheres [Bydureon] 2 mg SUBCUT MO 03/02/19 03/02/19 History Gabapentin CAP(*) [Neurontin 300 300 mg PO DAILY 03/02/19 03/02/19 History CAP(*)] Lenalidomide (NF) [Revlimid (NF)] 25 mg PO DAILY 03/02/19 03/02/19 History Multivitamins/Minerals TAB* 1 tab PO DAILY 03/02/19 03/02/19 History [Theragran/minerals TAB*] Naproxen TAB* [Naprosyn 250 mg 250 mg PO BID 03/02/19 03/02/19 History TAB*] Omeprazole CAP (NF) [Prilosec CAP* 20 mg PO DAILY 03/02/19 03/02/19 History 20 MG] Ondansetron TAB* [Zofran 4 MG Tab*] 4 mg PO Q8HR PRN 03/02/19 03/02/19 History Polyethylene Glycol 3350* 17 gm PO DAILY 03/02/19 03/02/19 History [Miralax*] Senna TAB 8.6 mg* [Senokot 8.6 mg 2 tab PO DAILY 03/02/19 03/02/19 History TAB*] Spironolactone TAB* [Aldactone 25 mg PO DAILY 03/02/19 03/02/19 History TAB*] glipiZIDE TAB* [Glucotrol TAB*] 10 mg PO DAILY 03/02/19 03/02/19 History guaiFENesin ER TAB [Mucinex*] 600 mg PO BID PRN 03/02/19 03/02/19 History metFORMIN* [Glucophage 1000 MG TAB 1,000 mg PO BID 03/02/19 03/02/19 History *] traMADol TAB* [Ultram*] 50 mg PO Q6HR PRN 03/02/19 03/02/19 History - History of Current Complaint Stated Complaint: UNRESPONSIVE PER EMS Time Seen by Provider: 05/23/19 17:30 Hx Obtained From: EMS Onset/Duration: Started hours ago Timing: Constant Associated Signs and Symptoms: Positive: Fever - Allergy/Home Medications Allergies/Adverse Reactions: Allergies Allergy/AdvReac Type Severity Reaction Status Date / Time cefazolin Allergy Severe See Comment Verified 01/05/19 15:08 enalapril Allergy Severe Swelling Verified 01/05/19 15:08 Of Face,Lips,& Throat levofloxacin [From Levaquin] Allergy Severe See Comment Verified 01/05/19 15:08 pioglitazone [From Actos] Allergy Mild See Comment Verified 01/05/19 15:08 tamsulosin [From Flomax] Allergy Unknown Unknown Verified 01/05/19 15:08 Reaction Details Home Medications: Home Medications Losartan TAB* [Cozaar TAB*] 50 mg PO DAILY 02/03/15 [History Confirmed 05/23/19] Aspirin EC TAB* [Ecotrin EC Low Dose 81 MG*] 81 mg PO DAILY 03/02/19 [History Confirmed 05/23/19] Bupropion XL* [Wellbutrin XL *] 150 mg PO BID 03/02/19 [History Confirmed ] Citalopram TAB* [CeleXA TAB*] 20 mg PO DAILY 03/02/19 [History Confirmed ] Emollient Combination No.72 [Eucerin Intensive Repair] 1 applic TOPICAL BID [History Confirmed 05/23/19] Gabapentin CAP(*) [Neurontin 300 CAP(*)] 300 mg PO TID 03/02/19 [History Confirmed 05/23/19] Omeprazole CAP (NF) [Prilosec CAP* 20 MG] 20 mg PO DAILY 03/02/19 [History Confirmed 05/23/19] Ondansetron TAB* [Zofran 4 MG Tab*] 4 mg PO Q8HR PRN 03/02/19 [History Confirmed 05/23/19] Polyethylene Glycol 3350* [Miralax*] 17 gm PO DAILY 03/02/19 [History Confirmed 05/23/19] Senna TAB 8.6 mg* [Senokot 8.6 mg TAB*] 2 tab PO BEDTIME 03/02/19 [History Confirmed 05/23/19] Spironolactone TAB* [Aldactone TAB*] 50 mg PO DAILY 03/02/19 [History Confirmed 05/23/19] Bisacodyl 10 mg SUPP [Dulcolax Supp*] 10 mg NM DAILY PRN 05/23/19 [History Confirmed 05/23/19] Dexamethasone TAB* [Decadron TAB*] 2 mg PO DAILY 05/23/19 [History Confirmed ] Dexamethasone TAB* [Decadron TAB*] 4 mg PO DAILY 05/23/19 [History Confirmed ] Entecavir(NF) [Baraclude (NF)] 0.5 mg PO DAILY 05/23/19 [History Confirmed 05/22] Fluticasone NASAL SPRAY 50MCG* [Flonase NASAL SPRAY 50MCG*] 2 spray BOTH NARES DAILY 05/23/19 [History Confirmed 05/23/19] Fondaparinux* [Arixtra*] 2.5 mg SUBCUT DAILY 05/23/19 [History Confirmed ] Furosemide TAB* [Lasix TAB*] 80 mg PO DAILY 05/23/19 [History Confirmed 05/23/19 ] HYDRcod/ACET. 7.5/325 DONTUSE [Lortab Elixir 7.5/325 per 15 ml *] 15 ml PO TID 05/23/19 [History Confirmed 05/23/19] Insulin GLARGINE(*) [Lantus 100 units/ml 10 ml VIAL (*)] 30 units SUBCUT DAILY 05/23/19 [History Confirmed 05/23/19] Insulin LISPRO* [HumaLOG 100 units/ml 3 ml VIAL *] 2 - 10 units SUBCUT AC [History Confirmed 05/23/19] Ipratropium/Albuterol Sulfate [Iprat-Albut 0.5-3(2.5) mg/3 ml] 3 ml INH Q4HR PRN 05/23/19 [History Confirmed 05/23/19] Morphine ORAL.CONC BULK BOT* [Roxanol ORAL.CONC Bottle*] 0.25 ml PO Q3HR PRN [History Confirmed 05/23/19] Scopolamine 1.5 mg* PATCH* [Transderm-Scop 1.5 mg Patch*] 1 patch TRANSDERM Q72H 05/23/19 [History Confirmed 05/23/19] PMH/Surg Hx/FS Hx/Imm Hx Endocrine/Hematology History: Reports: Hx Diabetes Cardiovascular History: Reports: Hx Coronary Artery Disease, Hx Hypercholesterolemia, Hx Hypertension, Hx Syncope - THIS ADMIT Denies: Hx Pacemaker/ICD Respiratory History: Reports: Hx Chronic Obstructive Pulmonary Disease (COPD), Hx Sleep Apnea Denies: Hx Asthma GI History: Reports: Hx Gastroesophageal Reflux Disease, Hx Ulcer History: Reports: Hx Benign Prostatic Hyperplasia - PROSTATE SURGERY Denies: Hx Dialysis, Hx Renal Disease Musculoskeletal History: Reports: Hx Arthritis, Hx Orthopedic Injury - right knee injury with chronic pain Sensory History: Reports: Hx Contacts or Glasses Denies: Hx Hearing Aid Opthamlomology History: Reports: Hx Contacts or Glasses Neurological History: Reports: Hx Developmental Delay Denies: Hx Seizures, Hx Transient Ischemic Attacks (TIA) Psychiatric History: Reports: Hx Depression, Hx Inpatient Treatment - may 1992 for depression- 5 days Denies: Hx Anxiety, Hx Panic Disorder, Hx Suicide Attempt, Hx Substance Abuse - Cancer History Cancer Type, Location and Year: PROSTATE 2006 Hx Chemotherapy: No Hx Radiation Therapy: No - Surgical History Surgery Procedure, Year, and Place: prostate surgery 2006. right cataract Hx Anesthesia Reactions: No - Immunization History Date of Tetanus Vaccine: unk Date of Influenza Vaccine: unk Infectious Disease History: Reports: Hx Hepatitis - B - Family History Known Family History: Positive: Diabetes - Social History Alcohol Use: None Hx Substance Use: No Substance Use Type: Reports: None Hx Tobacco Use: No Smoking Status (MU): Never Smoked Tobacco Review of Systems - ROS Summary Review of Systems Summary: THE ROS IS LIMITED DUE TO LEVEL 5 CAVEAT - Non-verbal. Positive: Fever Positive: Other - Low blood pressure Neurological/Mental Status: Other - Non-verbal All Other Systems Reviewed And Are Negative: No Physical Exam - Summary Physical Exam Summary: THE Physical Exam IS LIMITED DUE TO LEVEL 5 CAVEAT - Non-verbal. Constitutional: Well-developed, Well-nourished. Skin: He has a stage 3 sacral ulcer with surrounding erythema and purulent foul smelling discharge. HENT: Normocephalic; Atraumatic Eyes: Conjunctiva normal Neck: Musculoskeletal ROM normal neck. (-) JVD, (-) Stridor, (-) Tracheal deviation Cardio: Rhythm regular, rate normal, Heart sounds normal; Intact distal pulses; Radial pulses are 2+ and symmetric. (-) Murmur Pulmonary/Chest wall: Effort normal. (-) Respiratory distress, (-) Wheezes, (-) Rales Abd: Soft, (-) tenderness, (-) Distension, (-) Guarding, (-) Rebound Musculoskeletal: (-) Edema Lymph: (-) Cervical adenopathy Neuro: Opens eyes to verbal stimuli but does not respond verbally. Triage Information Reviewed: Yes Vital Signs Reviewed: Yes Procedures - Sedation Patient Received Moderate/Deep Sedation with Procedure: No - Central Line Left Femoral Central Line Lumen: triple Central Line Procedure: betadine prep, sterile drapes applied Central Line Position: femoral (L) Anesthesia: Lidocaine cc's of anesthesia: 3 Complications: Multiple attempts at a left subclavian CVL were unsuccessful Diagnostics - Laboratory Result Diagrams: 05/23/19 17:42 05/23/19 17:42 Lab Statement: Any lab studies that have been ordered have been reviewed, and results considered in the medical decision making process. - Radiology Chest x-ray Radiology Interpretation Completed By: ED Physician Summary of Radiographic Findings: Chest x-ray is grossly unchanged from prior chest x-ray. ED physician has reviewed and interpreted this report. - EKG 17:43 Cardiac Rate: NL - 95 BPM EKG Rhythm: Sinus Rhythm Summary of EKG Findings: ED physician has reviewed and interpreted this EKG. Re-Evaluation - Re-Evaluation First Eval Re-Evaluation Time: 20:29 Comment: The patient's 3rd IV blew, he is still hypotensive, will put in a central line. Course/Dx - Course Course Of Treatment: Patient is here with hypotension and fever at his group home. Patient is minimally verbal at baseline nonverbal today. Patient was very hypotensive with EMS and received 1 L of IV fluids with them. Patient received 3 L of IV fluids here. Patient is treated empirically with vancomycin and Zosyn. Patient had 3 IVs placed and they all infiltrated. Patient eventually received a triple lumen in his left femoral vein. Patient is admitted to the hospitalist service - Diagnoses Provider Diagnoses: Multiple myeloma, Hypoalbuminemia, Sacral decubitus ulcer, Sepsis, Hypotension , Elevated lactic acid level - Physician Notifications Discussed Care Of Patient With: Nilsa Rowland Time Discussed With Above Provider: 19:30 Instructed by Provider To: Other - Discussed with Dr. Rowland who accepts the patient for admission. - Critical Care Time Critical Care Time: 30-74 min - 60 minutes Discharge ED - Sign-Out/Discharge Documenting (check all that apply): Patient Departure - Discharge Plan Condition: Stable Disposition: ADMITTED TO [facility] - Billing Disposition and Condition Condition: STABLE Disposition: Admitted to [facility] - Attestation Statements Document Initiated by Carlosibrenetta: Yes Documenting Scribe: Elenita Martinez Provider For Whom Martha is Documenting (Include Credential): Morales Huitron MD Scribe Attestation: Elenita Proctor, scribed for Morales Huitron MD on 05/23/19 at 2136. Scribe Documentation Reviewed: Yes Provider Attestation: The documentation as recorded by the Elenita hines accurately reflects the service I personally performed and the decisions made by me, Morales Huitron MD Status of Scribe Document: Viewed
[2019-05-23] MEDS ORDERED: Piperacillin/Tazobac ADVAN(*) 3.375 GM in NS 0.9% 100 ML* 100 ML IVPB ONE ×2 (17:39→21:02)
[2019-05-23] MEDS ORDERED: Vancomycin(*) 1,500 MG in NS 0.9% 250 ML* 250 ML IVPB ONE (17:39)
[2019-05-23 18:11] LABS: ABS Lymphocytes 0.4 10^3/ul (1.0-4.8); ABS Monocytes 1.3 10^3/ul (0-0.8); ABS Neutrophils 16.5 10^3/ul (1.5-7.7); Eosinophil % 0.1 %; Hematocrit 33 % (42-52); Hemoglobin 10.6 g/dL (14.0-18.0); Lymphocyte % 2.2 %; Mean Corpuscular HGB Conc 33 g/dL (31-36); Mean Corpuscular Hemoglobin 34 pg (27-31); Mean Corpuscular Volume 105 fL (80-94); Mean Platelet Volume 9.8 fL (7.4-10.4); Platelet Count 149 10^3/uL (150-450); Red Cell Distribution Width 17 % (10-15); White Blood Count 18.2 10^3/uL (3.5-10.8)
[2019-05-23 18:15] LABS: Activated Partial Thrombo Time 31.3 seconds (26.0-38.0); INR 1.36 (0.82-1.09)
[2019-05-23 18:18] LABS: ALT 26 U/L (7-52); AST 22 U/L (13-39); Albumin 2.3 g/dL (3.2-5.2); Albumin/Globulin Ratio 0.5 (1-3); Alkaline Phosphatase 105 U/L (34-104); Anion Gap 6 mmol/L (2-11); BUN/Creatinine Ratio 25.3 (8-20); Blood Urea Nitrogen 37 mg/dL (6-24); CO2 Carbon Dioxide 30 mmol/L (22-32); Chloride 101 mmol/L (101-111); EGFR African American 57.4 (>60); EGFR Non-African American 47.5 (>60); Globulin 4.2 g/dL (2-4); Glucose 131 mg/dL (70-100); Potassium 4.4 mmol/L (3.5-5.0); Sodium 137 mmol/L (135-145); Total Protein 6.5 g/dL (6.4-8.9)
--- OUTSIDE RECORDS SUMMARY | 2019-05-23 18:18 | XMS REPORT | Continuity of Care Document ---
:1945 External Reference #:[id number] Author Name Anne Dyer MD (transmitted by agent of provider Bonnie Whipple ) Address [address] [place] [address] Care Team Providers Name Role Phone Arnaud Calloway MD - Endocrinology, Care Team Information Digital Product Manager Diabetes & Metabolism Problems Active Problems Provider Date Chest pain Ruben De Santiago M.D., [facility], [facility] Onset: 11/28/2013 Social History Type Date Description Comments Sex Unknown ETOH Use Denies alcohol use Tobacco Use Start: Unknown Patient has never smoked Exercise Type/Frequency Exercises regularly Walks Allergies, Adverse Reactions, Alerts Active Allergies Reaction Severity Comments Date Vasotec per [facility] paper chart 11/27/2013 Flomax per [facility] paper chart 11/27/2013 Levaquin atn 11/28/2013 Keflex 11/28/2013 Actos weight gain 11/28/2013 Medications Active Medications SIG Qnty Indications Ordering Date Provider Morphine Sulfate 5 mg (0.25 mL) PO/SL 120ml Ellyn 04/24/2019 (Concentrate) every 3 hours as LITO Galindo 20mg/ml needed (please Solution dispense syringes) Naproxen 1 tab po b.i.d 50tabs Unknown 250mg Tablets Glucose Management as directed Unknown Tablets Cpap every night at Unknown bedtime Multivitamin With daily Unknown Iron Acetaminophen 1-2 tablet po as 100tabs Unknown 325mg needed Tablets Vitamin D-3 1 cap po daily Unknown 2000mg Bupropion HCL 1 tablet po daily Unknown 150mg Miralax 17 gm every day 238gm Unknown 3350NF Powder mixed w/ 8 oz water/juice Prilosec 1 by mouth every day 90caps Unknown 20mg Capsules DR Negron apply every day as 45gm Unknown 0.1% Cream needed Ventolin HFA 2 puffs by mouth 1units Unknown four times a day as 108(90Base) mcg/Act needed Aerosol Compazine 1 tablet po qid prn Unknown 5mg Tablets Chlorthalidone 1 tablet po once a 90tabs Unknown 50mg day Tablets Spironolactone 1 by mouth every day 30tabs Unknown 25mg Tablets Cardizem CD 1 by mouth every 30tabs Unknown 240mg morning Tablets Aspirin 1 by mouth every day Unknown 81mg Tablets Bydureon inject contents of 1 4units Unknown 2mg Suspension vial subcutaneously Rec weekly Lantus 40 units as directed 2vials Unknown 100Unit/ML Solution Metformin HCL 2 tablet by mouth Unknown 500mg twice a day Tablets Glipizide 1 by mouth twice a Unknown 10mg Tablets day Medications Administered in Office Medication SIG Qnty Indications Ordering Provider Date Depomedrol 40MG Kj Santiago MD 01/23/2016 Injection Inj, Regadenoson, 0.1 MG Eduardo Zuniga M.D. 12/11/2013 Injection Inj, Regadenoson, 0.1 MG Ruben De Santiago M.D., 12/11/2013 Injection SUPRIYA GARZA Technetium TC 99M Eduardo Zuniga M.D. 12/11/2013 Tetrofosmin, Per Unit Dose Up To 40 Millicuries Injection Technetium TC 99M Ruben De Santiago M.D., 12/11/2013 Tetrofosmin, Per Unit Dose SUPRIYA GARZA Up To 40 Millicuries Injection Immunizations Description No Information Available Vital Signs Date Vital Result Comment 03/17/2016 11:08am Height 71 inches 5'11" Weight 260.00 lb Respiratory Rate 18 /min Pain Level 3 BMI (Body Mass Index) 36.3 kg/m2 02/06/2016 10:04am Height 71 inches 5'11" Weight 260.00 lb Pain Level 5 BMI (Body Mass Index) 36.3 kg/m2 Results Test Acquired Date Facility Test Result H/L Range Note Basic Metabolic 04/18/2019 [facility] Sodium 135 mmol/L Normal 135-145 1 Panel [address] [place] [address] [phone] Potassium 4.3 mmol/L Normal 3.5-5.0 Chloride 102 mmol/L Normal 101-111 Co2 Carbon Dioxide 29 mmol/L Normal 22-32 Anion Gap 4 mmol/L Normal 2-11 Glucose 153 mg/dL High 70-100 Blood Urea Nitrogen 6 mg/dL Normal 6-24 Creatinine 0.55 mg/dL Low 0.67-1.17 BUN/Creatinine Ratio 10.9 Normal 8-20 Calcium 7.7 mg/dL Low 8.6-10.3 Egfr Non- 146.4 >60 Egfr 177.2 >60 2 CBC No Diff 04/11/2019 [facility] White Blood 3.7 10^3/uL Normal 3.5-10.8 3 [address] [facility] [place] [address] [phone] Red Blood Count 2.23 10^6/uL Low 4.18-5.48 Hemoglobin 7.4 g/dL Low 14.0-18.0 Hematocrit 23 % Low 42-52 Mean Corpuscular Volume 102 fL High 80-94 Mean Corpuscular Hemoglobin 33 pg High 27-31 Mean Corpuscular HGB Conc 33 g/dL Normal 31-36 Red Cell Distribution Width 21 % High 10-15 Platelet Count 171 10^3/uL Normal 150-450 Mean Platelet Volume 10.0 fL Normal 7.4-10.4 Basic Metabolic 04/11/2019 [facility] Sodium 136 mmol/L Normal 135-145 Panel [address] [place] [address] [phone] Potassium 4.3 mmol/L Normal 3.5-5.0 Chloride 104 mmol/L Normal 101-111 Co2 Carbon Dioxide 30 mmol/L Normal 22-32 Anion Gap 2 mmol/L Normal 2-11 Glucose 138 mg/dL High 70-100 Blood Urea Nitrogen 7 mg/dL Normal 6-24 Creatinine 0.63 mg/dL Low 0.67-1.17 BUN/Creatinine Ratio 11.1 Normal 8-20 Calcium 7.4 mg/dL Low 8.6-10.3 Egfr Non- 125.2 >60 Egfr 151.5 >60 4 1 [id number] 2 Because ethnic data is not always readily available, this report includes an eGFR for both -Americans and non- Americans. The National Kidney Disease Education Program (NKDEP) does not endorse the use of the MDRD equation for patients that are not between the ages of 18 and 70, are , have extremes of body size, muscle mass, or nutritional status, or are non- or non-. According to the National Kidney Foundation, irrespective of diagnosis, the stage of the disease is based on the level of kidney function: Stage Description GFR(mL/min/1.73 m(2)) 1 Kidney damage with normal or decreased GFR 90 2 Kidney damage with mild decrease in GFR 60-89 3 Moderate decrease in GFR 30-59 4 Severe decrease in GFR 15-29 5 Kidney failure <15 (or dialysis) 3 [id number] 4 Because ethnic data is not always readily available, this report includes an eGFR for both -Americans and non- Americans. The National Kidney Disease Education Program (NKDEP) does not endorse the use of the MDRD equation for patients that are not between the ages of 18 and 70, are , have extremes of body size, muscle mass, or nutritional status, or are non- or non-. According to the National Kidney Foundation, irrespective of diagnosis, the stage of the disease is based on the level of kidney function: Stage Description GFR(mL/min/1.73 m(2)) 1 Kidney damage with normal or decreased GFR 90 2 Kidney damage with mild decrease in GFR 60-89 3 Moderate decrease in GFR 30-59 4 Severe decrease in GFR 15-29 5 Kidney failure <15 (or dialysis) Procedures Date Code Description Status 01/08/2019 13835 EKG, Interpretation Only Completed Medical Devices Description No Information Available Encounters Type Date Location Provider Dx Diagnosis [place]02/[place] C90.00 Multiple myeloma 8:00a MD Gomez not having achieved remission E11.65 Type 2 diabetes mellitus with hyperglycemia G95.29 Other cord compression I10 Essential (primary) hypertension S32.039A Unsp fracture of third lumbar vertebra, init for clos fx R13.10 Dysphagia, unspecified K73.9 Chronic hepatitis, unspecified Office Visit 04/20/2019 9:00a Miky Lepe Anne Veloz W06.xxxA Fall from bed, Lety Dyer MD initial encounter R05 Cough M54.2 Cervicalgia S00.03xA Contusion of scalp, initial encounter E11.622 Type 2 diabetes mellitus with other skin ulcer G95.20 Unspecified cord compression Office Visit 04/07/2019 8:15a Miky Veloz E11.649 Type 2 diabetes Lety Dyer MD mellitus with hypoglycemia without coma R60.1 Generalized edema Office Visit 04/03/2019 8:[place] M48.02 Spinal stenosis, Lety Dyer MD cervical region C90.00 Multiple myeloma not having achieved remission E11.622 Type 2 diabetes mellitus with other skin ulcer I10 Essential (primary) hypertension E43 Unspecified severe protein-calorie malnutrition S32.039A Unsp fracture of third lumbar vertebra, init for clos fx I63.9 Cerebral infarction, unspecified R60.1 Generalized edema R13.10 Dysphagia, unspecified J44.9 Chronic obstructive pulmonary disease, unspecified E78.5 Hyperlipidemia, unspecified K73.9 Chronic hepatitis, unspecified D64.9 Anemia, unspecified Office Visit 03/02/2019 [facility] Marce Martinez, G95.29 Other cord 7:00a Clinic compression M47.12 Other spondylosis with myelopathy, cervical region Office Visit 01/17/2019 [facility] Renetta Naidu B18.1 Chronic viral 11:58a For Infectious Omer, [employer] hepatitis B Diseases without delta-agent K74.0 Hepatic fibrosis C90.00 Multiple myeloma not having achieved remission Office Visit 01/13/2019 [facility] Renetta Naidu B18.1 Chronic viral 11:05a For Infectious Tello, [employer] hepatitis B Diseases without delta-agent K74.0 Hepatic fibrosis C90.00 Multiple myeloma not having achieved remission Office Visit 01/10/2019 10:16a [facility] Red Morales B18.1 Chronic viral Infectious Nikolai Vinson hepatitis B Diseases without delta-agent K74.0 Hepatic fibrosis C90.00 Multiple myeloma not having achieved remission Office Visit 01/09/2019 10:13a [facility] Issac Morales B18.1 Chronic viral Infectious Nikolai Vnison hepatitis B Diseases without delta-agent K74.0 Hepatic fibrosis C90.00 Multiple myeloma not having achieved remission Assessments Date Code Description Provider 05/02/2019 C90.00 Multiple myeloma not having achieved Anne Dyer MD remission 05/02/2019 E11.65 Type 2 diabetes mellitus with Anne Dyer MD hyperglycemia 05/02/2019 G95.29 Other cord compression Anne Dyer MD 05/02/2019 I10 Essential (primary) hypertension Anne Dyer MD 05/02/2019 S32.039A Unspecified fracture of third lumbar Anne Dyer MD vertebra, initial encounter for closed fracture 05/02/2019 R13.10 Dysphagia, unspecified Anne Dyer MD 05/02/2019 K73.9 Chronic hepatitis, unspecified Anne Dyer MD 04/20/2019 W06.xxxA Fall from bed, initial encounter Anne Dyer MD 04/20/2019 R05 Cough Anne Dyer MD 04/20/2019 M54.2 Cervicalgia Anne Dyer MD 04/20/2019 S00.03xA Contusion of scalp, initial Anne Dyer MD encounter 04/20/2019 E11.622 Type 2 diabetes mellitus with other Anne Dyer MD skin ulcer 04/20/2019 G95.20 Unspecified cord compression Anne Dyer MD 04/07/2019 E11.649 Type 2 diabetes mellitus with Anne Dyer MD hypoglycemia without coma 04/07/2019 R60.1 Generalized edema Anne Dyer MD 04/03/2019 M48.02 Spinal stenosis, cervical region Anne Dyer MD 04/03/2019 C90.00 Multiple myeloma not having achieved Anne Dyer MD remission 04/03/2019 E11.622 Type 2 diabetes mellitus with other Anne Dyer MD skin ulcer 04/03/2019 I10 Essential (primary) hypertension Anne Dyer MD 04/03/2019 E43 Unspecified severe protein-calorie Anne Dyer MD malnutrition 04/03/2019 S32.039A Unspecified fracture of third lumbar Anne Dyer MD vertebra, initial encounter for closed fracture 04/03/2019 I63.9 Cerebral infarction, unspecified Anne Dyer MD 04/03/2019 R60.1 Generalized edema Anne Dyer MD 04/03/2019 R13.10 Dysphagia, unspecified Anne Dyer MD 04/03/2019 J44.9 Chronic obstructive pulmonary Anne Dyer MD disease, unspecified 04/03/2019 E78.5 Hyperlipidemia, unspecified Anne Dyer MD 04/03/2019 K73.9 Chronic hepatitis, unspecified Anne Dyer MD 04/03/2019 D64.9 Anemia, unspecified Anne Dyer MD 03/02/2019 G95.29 Other cord compression Marce Martinez MD 03/02/2019 M47.12 Other spondylosis with myelopathy, Marce Martinez MD cervical region 01/17/2019 B18.1 Chronic viral hepatitis B without Renettaindra Tello , [employer] delta-agent 01/17/2019 K74.0 Hepatic fibrosis Renetta Tello, [employer] 01/17/2019 C90.00 Multiple myeloma not having achieved Renetta Evangelista Tello, [employer] remission 01/13/2019 B18.1 Chronic viral hepatitis B without Renettaindra Tello , [employer] delta-agent 01/13/2019 K74.0 Hepatic fibrosis Renetta Tello, [employer] 01/13/2019 C90.00 Multiple myeloma not having achieved Renettaindra Tello, [employer] remission 01/10/2019 B18.1 Chronic viral hepatitis B without Issac Vinson M.D. delta-agent 01/10/2019 K74.0 Hepatic fibrosis Issac Vinson M.D. 01/10/2019 C90.00 Multiple myeloma not having achieved Issac Vinson M.D. remission 01/09/2019 B18.1 Chronic viral hepatitis B without Issac Vinson M.D. delta-agent 01/09/2019 K74.0 Hepatic fibrosis Issac Vinson M.D. 01/09/2019 C90.00 Multiple myeloma not having achieved Issac Vinson M.D. remission 01/08/2019 R94.31 Abnormal electrocardiogram [ECG] Karolyn Crawford M.D. [EKG] Plan of Treatment No Information Available Functional Status Description No Information Available Mental Status Description No Information Available Referrals Description No Information Available
[2019-05-23 18:21] LABS: Troponin I 0.04 ng/mL (<0.03)
[2019-05-23] MEDS ORDERED: NS 0.9% 1000 ML** 1,000 ML IV ONE (18:22)
[2019-05-23 18:26] LABS: Alcohol < 10 mg/dL (<10)
[2019-05-23 18:38] LABS: TSH (Thyroid Stimulating Horm) 3.71 mcIU/mL (0.34-5.60)
[2019-05-23] MEDS ORDERED: NS 0.9% 250 ML* 250 ML ONE (19:23)
[2019-05-23 19:55] LABS: Urine Appearance Clear; Urine Bilirubin Negative (Negative); Urine Blood Negative (Negative); Urine Color Yellow; Urine Glucose 3+(>=500 mg/dL) (Negative); Urine Ketones Negative (Negative); Urine Nitrite Negative (Negative); Urine Protein Negative (Negative); Urine Specific Gravity 1.013 (1.010-1.030); Urine Urobilinogen Negative (Negative)
[2019-05-23] MEDS ORDERED: Al Hydrox/Mg Hydrox/Simet LIQ* 30 ML UDC PO PRN (20:52)
[2019-05-23] MEDS ORDERED: Vancomycin(*) 1,000 MG in NS 0.9% 250 ML* 250 ML IVPB ONE (21:03)
[2019-05-23] MEDS ORDERED: Albuterol/Ipratropium NEB.SOL* Albuterol 2.5 MG/Ipratropium 0.5 MG 3 ML INH PRN (21:09)
[2019-05-23] MEDS ORDERED: Ondansetron TAB* 4 MG PO PRN (21:09)
[2019-05-23] MEDS ORDERED: Dextrose 50% Syringe 50 ML* 25 GM/50 ML SYRINGE IV PUSH PRN (21:25)
[2019-05-23] MEDS ORDERED: Zosyn per Pharmacy* NOTE FOLLOW UP SCH (22:00)
[2019-05-23] MEDS ORDERED: Scopolamine 1.5 mg* PATCH TRANSDERM SCH (22:00)
[2019-05-23] MEDS ORDERED: Norepinephrine 16MCG/ML IVPRE* 4,000 MCG/250 ML BAG IV SCH (22:00)
[2019-05-23] MEDS ORDERED: Vancomycin per Pharmacy* NOTE FOLLOW UP SCH (22:00)
[2019-05-23] MEDS ORDERED: Heparin VIAL(*) 5000 UNITS/ML VIAL (FIVE THOUSAND) SUBCUT SCH (22:00)
[2019-05-23 22:10] LABS: Troponin I 0.03 ng/mL (<0.03)
[2019-05-23] MEDS: NS 0.9% 1000 ML** 1,000 ML IV SCH (22:10)
[2019-05-23] MEDS: methylPREDNISolone SOD 40 MG* 1 ML VIAL IV SCH (22:41)
[2019-05-23 22:46] LABS: Influenza A Molecular Negative (Negative); Influenza B Molecular Negative (Negative)
[2019-05-23] MEDS: ZOSYN 3.375 GM Q8H per EXTENDED INFUSION IVPB SCH ×2 (23:09)
--- NOTE | 2019-05-23 23:37 | HP ---
CC: Dr. Anne Hunter, [facility]; Dr. Singh; Dr. Calloway* HISTORY AND PHYSICAL: DATE OF ADMISSION: 05/23/19 PRIMARY CARE PROVIDER: Dr. Anne Hunter, [facility]. CHIEF COMPLAINT: Altered mentation. HISTORY OF PRESENT ILLNESS: Alan Rios is a 74-year-old male a resident of [facility]. The patient currently is nonverbal. His baseline is history of developmental delay, but he apparently is able to converse without any problems at baseline. 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 Once again, he is currently a senior living resident and he was brought into the ED with altered mentation and inability to speak. The patient was noted to have hypotension, marked leukocytosis and acute renal failure. At this point, the working diagnosis and likely source of the patient's sepsis is likely decubitus ulcer, although he also appears to have right middle lobe infiltrate on his x- ray. Once again, the patient currently is nonverbal. I have scant medical records available to me from outpatient clinics and Dr. Hunter, the patient' s [place] physician notes. PAST MEDICAL HISTORY: The remaining of the patient's past medical history is obtained from past medical records available to me and include: 1. Quadriplegia due to C-spine compression lesions from multiple myeloma. 2. Chronic pain due to multiple myeloma, placed on Decadron at the end of April [address] Hunter. 3. History of developmental delay. The patient is grijalva of the [facility]. 4. Diabetes type 2. 5. Anemia. 6. CVA. 7. History of dyslipidemia. 8. Hepatitis B with liver fibrosis. 9. Hypertension. 10. History of L3 compression fracture. 11. Osteoarthritis. 12. Obstructive sleep apnea. 13. BPH. 14. COPD, not known oxygen at baseline. 15. Gastroesophageal reflux disease. 16. Developmental delay. MEDICATIONS: At home/[facility] include: 1. Aldactone 50 mg daily. 2. Senna 2 tablets at bedtime. 3. Zofran on a p.r.n. basis. 4. Scopolamine patch 1 patch transdermally every 72 hours. 5. Omeprazole 20 mg daily. 6. Morphine oral concentrate 0.25 mL every 3 hours p.r.n. 7. MiraLAX 17 g daily. 8. Losartan 50 mg daily. 9. Lortab Elixir 15 mL p.o. t.i.d. that is 7.5/325 mg per 15 mL. 10. DuoNeb on a p.r.n. basis nebulizers. 11. Insulin glargine 30 units daily. 12. Furosemide 80 mg daily. 13. Insulin lispro sliding scale with each meal. 14. Neurontin 300 mg 3 times a day. 15. Flonase nasal spray 2 sprays both nostrils daily. 16. Eucerin cream b.i.d. to affected skin. 17. Entecavir 0.5 mg daily. 18. Decadron 4 mg daily. 19. Celexa 20 mg daily. 20. Wellbutrin XL 150 mg b.i.d. 21. Dulcolax suppository on a p.r.n. basis. 22. Aspirin 81 mg daily. 23. Arixtra 2.5 mg daily. Unfortunately, we are not aware of the indication for the patient's Arixtra. ALLERGIES: Allergies noted on his medical records include CEFAZOLIN, ENALAPRIL , LEVOFLOXACIN, PIOGLITAZONE and TAMSULOSIN. FAMILY HISTORY: Unobtainable. The patient is grijalva of the [facility] and a full code. SOCIAL HISTORY: Unobtainable. Currently, the patient is quadriplegic and Michelle lift dependent and lives in [facility]. REVIEW OF SYSTEMS: Please see history of present illness. Otherwise unobtainable from this nonverbal patient. PHYSICAL EXAMINATION GENERAL: The patient is a 74-year-old male, who is lying in bed with eyes closed. He is resisting eye opening. When I asked him to open his mouth, he was able to do so minimally, but he was not able to stick his tongue. His face appears to be symmetrical, but once again the patient is basically not following commands as well and nonverbal. VITAL SIGNS: Blood pressure of 139/56, heart rate of 88 and regular, respiratory rate 20, oxygen saturation 100% on 2 L of oxygen nasal cannula, temperature of 99.7. HEENT: Head: Atraumatic, normocephalic. Eyes: Pupils are equal, reactive to light bilaterally. Oropharynx with dry mucous membranes. NECK: Supple. No JVD. No bruits bilaterally. RESPIRATORY: Clear to auscultation bilaterally. CARDIOVASCULAR: Regular rate and rhythm. No murmur. ABDOMEN: Soft, nontender. Bowel sounds are present in all 4 quadrants. EXTREMITIES: There is no edema. Pulses are +2 bilaterally. No clubbing or cyanosis. NEURO EVALUATION: The patient is nonverbal. His face appears to be symmetrical and pupils are reactive to light bilaterally. His Babinski's are nonreactive. He is flaccid in bilateral lower extremities. His bilateral upper extremities, he is unable to follow commands with handgrip and is basically flaccid also. SKIN: On evaluation of the skin, the patient has decubitus ulcers on bilateral sacral regions of 4 cm each, more extensive on the left than on the right. Both of the decubiti are covered with slough and unstageable. They are foul smelling. There is no evidence of cellulitis. DIAGNOSTIC STUDIES/LAB DATA: Sodium of 137, potassium 4.4, chloride 101, carbon dioxide 30, BUN 37, creatinine 1.46. Liver function tests were unremarkable. Alkaline phosphatase of 105, lactic acid of 3.4. Troponin of 0.04. Albumin of 2.3, globulin of 4.2. CBC: White blood cell count of 18.2, hemoglobin of 10.6, hematocrit of 33, MCV of 105, platelets of 149. The patient's urinalysis obtained via catheter, Jaffe catheter was placed in the ED. Fasting glucose otherwise unremarkable. Please note that the patient' s glucose level in the ED was 131. Serum alcohol level was below detectable. The patient's portable chest x-ray showed questionable right middle lung infiltrate. That was reviewed by myself prior to the official radiologist report. The patient's EKG showed sinus tachycardia with a heart rate of 95 beats per minute with no significant ST changes. CT of the head is pending at the time of dictation. ASSESSMENT AND PLAN: 1. The patient currently is in a septic shock. Despite being resuscitated with intravenous fluids, he continues to be hypotensive. His lactic acid is above 3. He is going to be placed on intensive care unit. Treated with Levophed. Continued on IV fluid boluses and intravenous hydration. He was treated with broad-spectrum antibiotics including Zosyn. He cannot take CEPHALOSPORINS due to his allergy profile. We will also add vancomycin. At this point, the source of his infection is possible pneumonia. Also, it appears that his decubiti on his sacrum are foul smelling and likely infected. Blood cultures will be obtained. We will follow up with reevaluation of lactic acid in a couple of hours. At this point, the patient is a full code. He is a grijalva of [facility]. 2. In regard of the patient's multiple myeloma, the patient was on Decadron outpatient. At this point, I will place him on stress dose of Solu-Medrol intravenously with IV Protonix for GI prophylaxis while on IV steroids. It is possible that his hypotension could be related to that also. At this point once again, the patient is a full code. 3. The patient's elevation of troponin is likely due to demand ischemia. 4. The patient's acute renal failure is likely due to sepsis. 5. The patient is quadriplegic at baseline. Currently is nonverbal. He is on Arixtra for an unknown indication, I suspect may be DVT. At this point, I will obtain CT of the brain to evaluate further and to rule out bleed. At this point , his encephalopathy is likely related to infection, although stroke could also be on differential. 6. For DVT prophylaxis, the patient is going to be continued on Arixtra. 7. The patient is full code. The patient is quadriplegic. He is grijalva of the [facility]. I do not think he would be a good candidate for resuscitation/CPR if that were to be necessary. I will ask Dr. Elizabeth Portillo for palliative care consultation in regard of possibility of making the patient do not resuscitate and possibly hospice. 8. For his diabetic management, the patient is going to be placed on insulin sliding scale. His Lantus is going to be held. TIME SPENT: Approximately 75 minutes was spent on admission of this patient, more than half that time was spent [id number] with the patient in the patient' s evaluation and history taking. [id number]/[facility] #: [id number] HARLAN
--- NOTE | 2019-05-24 00:16 | PN ---
Sepsis Event Evaluation Date of Evaluation: 05/23/19 Time of Evaluation: 22:00 Current Stage of Sepsis: Septic Shock Vital Signs - Last 12 Hours: Vital Signs - 12 hr Temp Pulse Resp BP Pulse Ox 05/24/19 00:00 99.0 F 91 17 104/53 94 05/23/19 23:50 99.0 F 90 18 101/51 93 05/23/19 23:45 99.0 F 92 18 102/51 92 05/23/19 23:40 99.0 F 92 18 106/54 94 05/23/19 23:35 99.0 F 89 18 94/50 97 05/23/19 23:30 99.0 F 90 19 94/54 96 05/23/19 23:25 99.0 F 90 19 104/50 95 05/23/19 23:20 99.0 F 91 18 89/49 95 05/23/19 23:15 99.0 F 91 19 99/60 96 05/23/19 23:10 99.0 F 91 19 102/63 93 05/23/19 23:05 98.8 F 90 18 97/49 96 05/23/19 23:00 98.8 F 95 19 97/55 100 05/23/19 22:55 98.8 F 91 19 99/53 96 05/23/19 22:52 20 05/23/19 22:50 98.8 F 84 18 94/49 97 05/23/19 22:45 98.8 F 90 18 92/75 99 05/23/19 22:40 99.0 F 91 18 119/66 99 05/23/19 22:35 99.0 F 93 17 132/66 100 05/23/19 22:31 99.0 F 91 18 118/71 98 05/23/19 22:18 99.1 F 90 77/48 100 05/23/19 22:10 99.1 F 90 18 77/48 100 05/23/19 22:05 99.1 F 91 19 79/55 100 05/23/19 22:03 99.1 F 90 19 100 05/23/19 22:00 18 05/23/19 21:38 99.3 F 89 20 80/54 100 05/23/19 21:33 99.5 F 89 20 88/57 100 05/23/19 21:28 99.5 F 90 20 83/56 100 03/17/20 21:23 99.5 F 89 22 81/55 100 20 21:18 99.5 F 90 18 91/54 100 20 21:13 99.7 F 89 21 87/51 100 20 21:08 99.7 F 92 21 81/59 100 20 21:03 99.7 F 91 21 87/57 100 05/23/19 21:00 99.7 F 93 22 100 20 20:58 99.7 F 94 22 73/50 100 20 20:53 99.7 F 92 21 90/46 100 20 20:48 99.7 F 93 22 84/46 100 20 20:43 99.7 F 21 93/52 20 20:38 99.7 F 22 102/54 20 20:23 99.7 F 20 79/56 20 20:18 99.7 F 22 83/58 05/23/19 20:13 99.5 F 89 17 92/57 100 05/23/19 20:08 99.5 F 89 20 85/54 100 05/23/19 20:03 99.5 F 88 23 85/56 100 05/23/19 20:00 88 19 100 05/23/19 19:53 89 21 84/55 100 20 19:48 90 20 82/60 100 20 19:43 88 23 83/53 100 20 19:38 88 19 86/50 100 20 19:33 83 21 84/53 100 20 19:28 88 21 83/56 100 20 19:25 84/62 0320 19:23 90 19 84/60 99 20 19:18 88 18 86/58 96 20 19:13 93 19 79/54 92 20 19:08 89 22 81/56 95 20 19:03 87 21 78/58 1720 19:00 89 20 96 1720 18:58 91 21 82/58 97 20 18:55 93 21 83/58 100 03/17/20 18:43 93 27 66/45 99 05/23/19 18:38 92 18 77/49 100 05/23/19 18:33 91 22 73/52 100 05/23/19 18:28 91 21 79/51 100 05/23/19 18:23 93 19 73/48 100 05/23/19 18:18 94 21 80/51 100 05/23/19 18:13 95 21 69/47 100 05/23/19 18:08 95 22 70/48 100 05/23/19 18:03 92 24 78/48 100 05/23/19 17:58 99.0 F 93 23 69/46 100 Lactic Acid: 05/23/19 05/23/19 17:42 21:30 Lactic Acid 3.4 H* 1.9 - Cardiopulmonary Exam Capillary Refill: Immediate Respiratory: Clear to Auscultation Cardiovascular: NL Sounds; No Murmurs; No JVD, RRR - Peripheral Pulse Exam Radial Pulses: Bilateral Normal Pedal Pulses: Bilateral Normal Posterior Tibial Pulse: Bilateral Normal Femoral Pulses: Bilateral Normal - Skin Exam Skin Exam: Normal Turgor - Dasia Coma Scale Best Eye Response: 2 - To Pain Best Motor Response: 4 - Withdraws Best Verbal Response: 1 - None Coma Scale Total: 7 Assess/Plan/Problems-Billing Assessment:
[2019-05-24] MEDS: Insulin LISPRO* 1 UNITS UNIT SUBCUT SCH ×5 (00:22→20:41)
[2019-05-24] MEDS: NS 0.9% 1000 ML** 1,000 ML IV SCH ×2 (05:03→11:57)
[2019-05-24 05:15] LABS: Hematocrit 29 % (42-52); Hemoglobin 9.3 g/dL (14.0-18.0); Mean Corpuscular HGB Conc 33 g/dL (31-36); Mean Corpuscular Hemoglobin 34 pg (27-31); Mean Corpuscular Volume 105 fL (80-94); Mean Platelet Volume 9.6 fL (7.4-10.4); Platelet Count 121 10^3/uL (150-450); Red Blood Count 2.72 10^6 /uL (4.18-5.48); Red Cell Distribution Width 17 % (10-15)
[2019-05-24 05:28] LABS: BUN/Creatinine Ratio 28.1 (8-20); EGFR African American 76.4 (>60); EGFR Non-African American 63.1 (>60); Potassium 4.1 mmol/L (3.5-5.0)
[2019-05-24 05:42] LABS: ABS Lymphocytes 0.1 10^3/ul (1.0-4.8); ABS Monocytes 0.6 10^3/ul (0-0.8); ABS Neutrophils 17.2 10^3/ul (1.5-7.7); Lymphocyte % 0.8 %
[2019-05-24] MEDS: methylPREDNISolone SOD 40 MG* 1 ML VIAL IV SCH ×2 (06:01→14:37)
[2019-05-24] MEDS: ZOSYN 3.375 GM Q8H per EXTENDED INFUSION IVPB SCH ×6 (06:01→23:15)
[2019-05-24] MEDS: Vancomycin(*) 1,250 MG in NS 0.9% 250 ML* 250 ML IV SCH ×2 (08:32→20:37)
[2019-05-24] MEDS: Acetaminophen TAB* 325 MG PO PRN (08:37)
[2019-05-24] MEDS: Fondaparinux* 2.5 MG/0.5 ML SYRINGE SUBCUT SCH (08:37)
[2019-05-24] MEDS: Aspirin EC TAB* 81 MG TAB.EC PO SCH (08:37)
[2019-05-24] MEDS: Fluticasone NASAL SPRAY 50MCG* 16 gm SPRAY BTL BOTH NARES SCH (08:37)
[2019-05-24] MEDS: Gabapentin CAP(*) 300 MG PO SCH ×3 (08:37→20:40)
[2019-05-24] MEDS: Citalopram TAB* 20 MG PO SCH (08:37)
[2019-05-24] MEDS: Polyethylene Glycol 3350* 17 GM PACKET PO SCH (08:37)
[2019-05-24] MEDS: ENTECAVIR 0.5 MG PO SCH (08:38)
[2019-05-24] MEDS ORDERED: Pantoprazole IV* 40 MG IV SCH (09:00)
[2019-05-24] MEDS ORDERED: BuPROPion XL* 150 MG TAB.XL PO SCH (09:00)
--- NOTE | 2019-05-24 10:16 | PN ---
Progress Note - Progress Note Date of Service: 05/24/19 SOAP: Subjective: patient very well known to our service. IgG kappa MM with admission to [facility] after cycle 1 of daratumumab/rrevlimid/dexamethasone with acute cervical cord compression. He saw me in early April at which time I did not feel that he was appropriate for any further therapy and recommended DNR and hospice. His pillowcase maker Jarad was working on this. Apparently this has not occurred to date and he is now admitted with sepsis, in the ICU sp pressors, though improving. Clinically this am he can follow simple commands and is requesting food. Objective: Vital Signs Temp Pulse Resp BP Pulse Ox 97.2 F 86 17 111/72 98 05/24/19 08:15 05/24/19 08:45 05/24/19 08:45 05/24/19 08:45 05/24/19 08:45 sitting up w c collar in place op dry cta anteriorly s1 s2 nl soft, nontender no LE edema moves arms at instruction right weaker than left LE minimal movement Laboratory Results - last 24 hr 05/23/19 05/23/19 05/23/19 17:42 17:42 17:42 WBC 18.2 H RBC 3.10 L Hgb 10.6 L Hct 33 L MCV 105 H MCH 34 H MCHC 33 RDW 17 H Plt Count 149 L MPV 9.8 Neut % (Auto) 90.4 Lymph % (Auto) 2.2 Murray % (Auto) 7.1 Eos % (Auto) 0.1 Baso % (Auto) 0.2 Absolute Neuts (auto) 16.5 H Absolute Lymphs (auto) 0.4 L Absolute Monos (auto) 1.3 H Absolute Eos (auto) 0.0 Absolute Basos (auto) 0.0 Absolute Nucleated RBC 0.0 Nucleated RBC % 0.0 INR (Anticoag Therapy) 1.36 H APTT 31.3 Sodium 137 Potassium 4.4 Chloride 101 Carbon Dioxide 30 Anion Gap 6 BUN 37 H Creatinine 1.46 H Est GFR ( Amer) 57.4 Est GFR (Non-Af Amer) 47.5 BUN/Creatinine Ratio 25.3 H Glucose 131 H POC Glucose (mg/dL) Lactic Acid Calcium 9.0 Total Bilirubin 0.40 AST 22 ALT 26 Alkaline Phosphatase 105 H Ammonia Troponin I 0.04 H* Total Protein 6.5 Albumin 2.3 L Globulin 4.2 H Albumin/Globulin Ratio 0.5 L TSH 3.71 Urine Color Urine Appearance Urine pH Ur Specific [place] Urine Protein Urine Ketones Urine Blood Urine Nitrate Urine Bilirubin Urine Urobilinogen Ur Leukocyte Esterase Urine Glucose Urine Ascorbic Acid Serum Alcohol < 10 Influenza A (Rapid) Influenza B (Rapid) 05/23/19 05/23/19 05/23/19 17:42 17:50 19:40 WBC RBC Hgb Hct MCV MCH MCHC RDW Plt Count MPV Neut % (Auto) Lymph % (Auto) Murray % (Auto) Eos % (Auto) Baso % (Auto) Absolute Neuts (auto) Absolute Lymphs (auto) Absolute Monos (auto) Absolute Eos (auto) Absolute Basos (auto) Absolute Nucleated RBC Nucleated RBC % INR (Anticoag Therapy) APTT Sodium Potassium Chloride Carbon Dioxide Anion Gap BUN Creatinine Est GFR ( Amer) Est GFR (Non-Af Amer) BUN/Creatinine Ratio Glucose POC Glucose (mg/dL) Lactic Acid 3.4 H* Calcium Total Bilirubin AST ALT Alkaline Phosphatase Ammonia 30 Troponin I Total Protein Albumin Globulin Albumin/Globulin Ratio TSH Urine Color Yellow Urine Appearance Clear Urine pH 6.0 Ur Specific [place] 1.013 Urine Protein Negative Urine Ketones Negative Urine Blood Negative Urine Nitrate Negative Urine Bilirubin Negative Urine Urobilinogen Negative Ur Leukocyte Esterase Negative Urine Glucose 3+(>=500 mg/dl) A Urine Ascorbic Acid * A Serum Alcohol Influenza A (Rapid) Influenza B (Rapid) 05/23/19 05/23/19 05/23/19 21:30 21:30 22:15 WBC RBC Hgb Hct MCV MCH MCHC RDW Plt Count MPV Neut % (Auto) Lymph % (Auto) Murray % (Auto) Eos % (Auto) Baso % (Auto) Absolute Neuts (auto) Absolute Lymphs (auto) Absolute Monos (auto) Absolute Eos (auto) Absolute Basos (auto) Absolute Nucleated RBC Nucleated RBC % INR (Anticoag Therapy) APTT Sodium Potassium Chloride Carbon Dioxide Anion Gap BUN Creatinine Est GFR ( Amer) Est GFR (Non-Af Amer) BUN/Creatinine Ratio Glucose POC Glucose (mg/dL) Lactic Acid 1.9 Calcium Total Bilirubin AST ALT Alkaline Phosphatase Ammonia Troponin I 0.03 H* Total Protein Albumin Globulin Albumin/Globulin Ratio TSH Urine Color Urine Appearance Urine pH Ur Specific [place] Urine Protein Urine Ketones Urine Blood Urine Nitrate Urine Bilirubin Urine Urobilinogen Ur Leukocyte Esterase Urine Glucose Urine Ascorbic Acid Serum Alcohol Influenza A (Rapid) Negative Influenza B (Rapid) Negative 05/24/19 05/24/19 05/24/19 00:20 05:00 05:00 WBC 18.0 H RBC 2.72 L Hgb 9.3 L Hct 29 L MCV 105 H MCH 34 H MCHC 33 RDW 17 H Plt Count 121 L MPV 9.6 Neut % (Auto) 95.6 Lymph % (Auto) 0.8 Murray % (Auto) 3.4 Eos % (Auto) 0.0 Baso % (Auto) 0.2 Absolute Neuts (auto) 17.2 H Absolute Lymphs (auto) 0.1 L Absolute Monos (auto) 0.6 Absolute Eos (auto) 0.0 Absolute Basos (auto) 0.0 Absolute Nucleated RBC 0.0 Nucleated RBC % 0.0 INR (Anticoag Therapy) APTT Sodium 138 Potassium 4.1 Chloride 107 Carbon Dioxide 26 Anion Gap 5 BUN 32 H Creatinine 1.14 Est GFR ( Amer) 76.4 Est GFR (Non-Af Amer) 63.1 BUN/Creatinine Ratio 28.1 H Glucose 100 POC Glucose (mg/dL) 107 H Lactic Acid Calcium 8.0 L Total Bilirubin AST ALT Alkaline Phosphatase Ammonia Troponin I Total Protein Albumin Globulin Albumin/Globulin Ratio TSH Urine Color Urine Appearance Urine pH Ur Specific [place] Urine Protein Urine Ketones Urine Blood Urine Nitrate Urine Bilirubin Urine Urobilinogen Ur Leukocyte Esterase Urine Glucose Urine Ascorbic Acid Serum Alcohol Influenza A (Rapid) Influenza B (Rapid) Acetaminophen (Tylenol Tab*) 650 mg PO Q4H PRN PRN Reason: PAIN-MILD/TEMP >/= 100.4 Last Admin: 05/24/19 08:37 Dose: 650 mg Al Hydrox/Mg Hydrox/Simethicone (Maalox Plus*) 30 ml PO Q6H PRN PRN Reason: INDIGESTION Albuterol/Ipratropium (Duoneb (Albuterol 2.5 Mg/Ipratropium 0.5 Mg)) 1 neb INH Q4HR PRN PRN Reason: SHORTNESS OF BREATH Aspirin (Aspirin Ec Tab*) 81 mg PO DAILY [facility] Last Admin: 05/24/19 08:37 Dose: 81 mg Bisacodyl (Dulcolax Supp*) 10 mg CA DAILY PRN PRN Reason: CONSTIPATION Bupropion HCl (Wellbutrin Xl *) 150 mg PO BID [facility] Last Admin: 05/24/19 08:38 Dose: Not Given Citalopram Hydrobromide (Celexa Tab*) 20 mg PO DAILY [facility] Last Admin: 05/24/19 08:37 Dose: 20 mg Dextrose (D50w Syringe 50 Ml*) 12.5 gm IV PUSH .FOR FS < 60 - SS PRN PRN Reason: FS < 60 Entecavir (Baraclude (Nf)) 0.5 mg PO DAILY [facility] Last Admin: 05/24/19 08:38 Dose: Not Given Fluticasone Propionate (Flonase Nasal [place] 50mcg*) 2 spray BOTH NARES DAILY [facility] Last Admin: 05/24/19 08:37 Dose: 2 spray Fondaparinux (Arixtra*) 2.5 mg SUBCUT DAILY [facility] Last Admin: 05/24/19 08:37 Dose: 2.5 mg Gabapentin (Neurontin Cap(*)) 300 mg PO TID [facility] Last Admin: 05/24/19 08:37 Dose: 300 mg Sodium Chloride (Ns 0.9% 1000 Ml) 1,000 mls @ 150 mls/hr IV PER RATE [facility] Last Admin: 05/24/19 05:03 Dose: 150 mls/hr Norepinephrine Bitartrate (Levophed 16 Mcg/Ml Premix*) 4,000 mcg in 250 mls @ 18.75 mls/hr IV .PER PROTOCOL [facility]; Protocol Last Admin: 05/23/19 22:20 Dose: 18.75 mls/hr Piperacillin Sod/Tazobactam (Sod 3.375 gm/ Sodium Chloride) 100 mls @ 25 mls/ hr IVPB Q8H [facility] Last Admin: 05/24/19 06:01 Dose: 25 mls/hr Vancomycin HCl 1,250 mg/ (Sodium Chloride) 250 mls @ 166.667 mls/hr IV Q12H [facility] Last Admin: 05/24/19 08:32 Dose: 166.667 mls/hr Insulin Human Lispro (Humalog*) 0 units SUBCUT Q6HR [facility]; Protocol Last Admin: 05/24/19 05:31 Dose: Not Given Methylprednisolone Sodium Succinate (Solu-Medrol 40 Mg) 40 mg IV Q8HR [facility] Last Admin: 05/24/19 06:01 Dose: 40 mg Ondansetron HCl (Zofran Tab*) 4 mg PO Q8HR PRN PRN Reason: NAUSEA Pantoprazole Sodium (Protonix Iv*) 40 mg IV DAILY [facility] Last Admin: 05/24/19 08:38 Dose: 40 mg Pharmacy Consult (Vancomycin Per Pharmacy*) 1 note FOLLOW UP .VANC PER PHARMACY [facility]; Protocol Pharmacy Consult (Zosyn Per Pharmacy*) 1 note FOLLOW UP .ZOSYN PER PHARMACY [facility] Pharmacy Profile Note (Scopolamine Patch Remove*) 1 note PATCH OFF Q72H [facility] Pharmacy Profile Note (Vancomycin Trough Check) 1 note FOLLOW UP 0730 ONE Stop: 05/25/19 07:31 Polyethylene Glycol/Electrolytes (Miralax (17 Gm Dose Db)) 17 gm PO DAILY [facility] Last Admin: 05/24/19 08:37 Dose: 17 gm Scopolamine (Transderm-Scop 1.5 Mg Patch*) 1 patch TRANSDERM Q72H [facility] Last Admin: 05/23/19 22:41 Dose: 1 patch Senna (Senokot 8.6 Mg Tab*) 2 tab PO BEDTIME [facility] Assessment: 74 yo M w IgG kappa MM and subsequent cervical cord compression, not a candidate for further palliative therapy, admitted with sepsis (presumably from sacral decub) now clinically improved. Plan: He continues not to be a candidate for further therapy of his underlying myeloma. I have discussed at length with the ICU team and social work that from a medical perspective he is most appropriate for comfort measures, though this does need to come through the State, and is "in the works". We would be happy to provide any additional documentation to help support this as needed.
--- NOTE | 2019-05-24 12:56 | PN ---
Date of Service: 05/24/19 Critical Care Services: Reports right shoulder pain. Also has pain when repositioning and at sacral wound. Denies shortness of breath, chest pain, or abdominal pain. Denies nausea. Levophed weaned off at about 0100. Vital Signs: Temp Pulse Resp BP SpO2 FiO2 96.5 F 75 17 112/64 98 05/24/19 11:29 05/24/19 11:15 05/24/19 11:15 05/24/19 11:15 05/24/19 11:15 Physical Exam: Gen: NAD. HEENT: Normocephalic, atraumatic. Pupils equal. Moist mucous membranes. C collar in place. Lungs: Clear to auscultation Cardiac: RRR Abdomen: Soft, nontender, nondistended Extremities: Warm. Skin: Eschar to the left of gluteal cleft, maceration of skin to the right of gluteal cleft. Eschar superior to anus. Nontender. No erythema or fluctuance. Neuro: Alert and awake. Answers most questions appropriately. Fluid Balance (Past 24 Hours): I= O= Net Intake & Output 05/22/19 05/23/19 05/24/19 05/25/19 06:59 06:59 06:59 06:59 Intake Total 4608 Output Total 895 475 Balance 3713 -475 Weight 183 lb 10.321 oz Intake: IV Fluids 4193 NS 1093 IVPB 386 Vanco 275 zosyn 111 Medicated IV 29 CC - Norepinephrine/ 29 Levophed Output: Jaffe 845 475 Residual 50 16 Fr Temperature Probe 50 Other: Estimated Stool Amount Small Labs: Laboratory Results - last 24 hr 05/23/19 05/23/19 05/23/19 17:42 17:42 17:42 WBC 18.2 H RBC 3.10 L Hgb 10.6 L Hct 33 L MCV 105 H MCH 34 H MCHC 33 RDW 17 H Plt Count 149 L MPV 9.8 Neut % (Auto) 90.4 Lymph % (Auto) 2.2 Keith % (Auto) 7.1 Eos % (Auto) 0.1 Baso % (Auto) 0.2 Absolute Neuts (auto) 16.5 H Absolute Lymphs (auto) 0.4 L Absolute Monos (auto) 1.3 H Absolute Eos (auto) 0.0 Absolute Basos (auto) 0.0 Absolute Nucleated RBC 0.0 Nucleated RBC % 0.0 INR (Anticoag Therapy) 1.36 H APTT 31.3 Sodium 137 Potassium 4.4 Chloride 101 Carbon Dioxide 30 Anion Gap 6 BUN 37 H Creatinine 1.46 H Est GFR ( Amer) 57.4 Est GFR (Non-Af Amer) 47.5 BUN/Creatinine Ratio 25.3 H Glucose 131 H POC Glucose (mg/dL) Lactic Acid Calcium 9.0 Total Bilirubin 0.40 AST 22 ALT 26 Alkaline Phosphatase 105 H Ammonia Troponin I 0.04 H* Total Protein 6.5 Albumin 2.3 L Globulin 4.2 H Albumin/Globulin Ratio 0.5 L TSH 3.71 Urine Color Urine Appearance Urine pH Ur Specific [place] Urine Protein Urine Ketones Urine Blood Urine Nitrate Urine Bilirubin Urine Urobilinogen Ur Leukocyte Esterase Urine Glucose Urine Ascorbic Acid Serum Alcohol < 10 Influenza A (Rapid) Influenza B (Rapid) 05/23/19 05/23/19 05/23/19 17:42 17:50 19:40 WBC RBC Hgb Hct MCV MCH MCHC RDW Plt Count MPV Neut % (Auto) Lymph % (Auto) Keith % (Auto) Eos % (Auto) Baso % (Auto) Absolute Neuts (auto) Absolute Lymphs (auto) Absolute Monos (auto) Absolute Eos (auto) Absolute Basos (auto) Absolute Nucleated RBC Nucleated RBC % INR (Anticoag Therapy) APTT Sodium Potassium Chloride Carbon Dioxide Anion Gap BUN Creatinine Est GFR ( Amer) Est GFR (Non-Af Amer) BUN/Creatinine Ratio Glucose POC Glucose (mg/dL) Lactic Acid 3.4 H* Calcium Total Bilirubin AST ALT Alkaline Phosphatase Ammonia 30 Troponin I Total Protein Albumin Globulin Albumin/Globulin Ratio TSH Urine Color Yellow Urine Appearance Clear Urine pH 6.0 Ur Specific [place] 1.013 Urine Protein Negative Urine Ketones Negative Urine Blood Negative Urine Nitrate Negative Urine Bilirubin Negative Urine Urobilinogen Negative Ur Leukocyte Esterase Negative Urine Glucose 3+(>=500 mg/dl) A Urine Ascorbic Acid * A Serum Alcohol Influenza A (Rapid) Influenza B (Rapid) 05/23/19 05/23/19 05/23/19 21:30 21:30 22:15 WBC RBC Hgb Hct MCV MCH MCHC RDW Plt Count MPV Neut % (Auto) Lymph % (Auto) Keith % (Auto) Eos % (Auto) Baso % (Auto) Absolute Neuts (auto) Absolute Lymphs (auto) Absolute Monos (auto) Absolute Eos (auto) Absolute Basos (auto) Absolute Nucleated RBC Nucleated RBC % INR (Anticoag Therapy) APTT Sodium Potassium Chloride Carbon Dioxide Anion Gap BUN Creatinine Est GFR ( Amer) Est GFR (Non-Af Amer) BUN/Creatinine Ratio Glucose POC Glucose (mg/dL) Lactic Acid 1.9 Calcium Total Bilirubin AST ALT Alkaline Phosphatase Ammonia Troponin I 0.03 H* Total Protein Albumin Globulin Albumin/Globulin Ratio TSH Urine Color Urine Appearance Urine pH Ur Specific [place] Urine Protein Urine Ketones Urine Blood Urine Nitrate Urine Bilirubin Urine Urobilinogen Ur Leukocyte Esterase Urine Glucose Urine Ascorbic Acid Serum Alcohol Influenza A (Rapid) Negative Influenza B (Rapid) Negative 05/24/19 05/24/19 05/24/19 00:20 05:00 05:00 WBC 18.0 H RBC 2.72 L Hgb 9.3 L Hct 29 L MCV 105 H MCH 34 H MCHC 33 RDW 17 H Plt Count 121 L MPV 9.6 Neut % (Auto) 95.6 Lymph % (Auto) 0.8 Keith % (Auto) 3.4 Eos % (Auto) 0.0 Baso % (Auto) 0.2 Absolute Neuts (auto) 17.2 H Absolute Lymphs (auto) 0.1 L Absolute Monos (auto) 0.6 Absolute Eos (auto) 0.0 Absolute Basos (auto) 0.0 Absolute Nucleated RBC 0.0 Nucleated RBC % 0.0 INR (Anticoag Therapy) APTT Sodium 138 Potassium 4.1 Chloride 107 Carbon Dioxide 26 Anion Gap 5 BUN 32 H Creatinine 1.14 Est GFR ( Amer) 76.4 Est GFR (Non-Af Amer) 63.1 BUN/Creatinine Ratio 28.1 H Glucose 100 POC Glucose (mg/dL) 107 H Lactic Acid Calcium 8.0 L Total Bilirubin AST ALT Alkaline Phosphatase Ammonia Troponin I Total Protein Albumin Globulin Albumin/Globulin Ratio TSH Urine Color Urine Appearance Urine pH Ur Specific [place] Urine Protein Urine Ketones Urine Blood Urine Nitrate Urine Bilirubin Urine Urobilinogen Ur Leukocyte Esterase Urine Glucose Urine Ascorbic Acid Serum Alcohol Influenza A (Rapid) Influenza B (Rapid) Nutrition: Consistent carb. [place] thick, pureed Impression: 74M presenting with AMS and septic shock. Metabolic encephalopathy due to sepsis Septic shock due to decubitus wounds of sacrum Multiple myeloma Quadriplegia due to C spine compression lesions DM type 2 Developmental delay Hepatitis B HTN COPD, chronic. GERD Plan: Neuro: Encephalopathy resolved. Continue home wellbutrin and citalopram, gabapentin Tylenol prn for pain Delirium precautions. Avoid benzodiazepines. CV: Goal MAP >65. No longer requiring Levophed. Has femoral central line, will try for PICC or midline Continue home ASA. Holding home spironolactone and lasix due to hypotension. Plan to restart tomorrow if remains normotensive. Resp: Wean FiO2 to keep O2 sat >90%. Continue DuoNeb prn, Flonase GI: Consistent carb diet. Protonix for GERD and prophylaxis while on steroids Renal: GARY resolving. Jaffe for accurate I&Os ID: Afebrile and leukocytosis stable (at 18) Source of sepsis likely wounds on sacrum. Continue Zosyn and vanco. Entecavir for hepatits B, will d/w pharmacy since medication not carried in hospital Heme/Onc Dr Singh saw the patient today. No further treatments available for the multiple myeloma Continue home fondaparinux. Daily CBC Endo: Sliding scale insulin. Blood glucose within normal limits now, hole home Lantus for now. Will continue high dose steroids since patient was on Decadron as outpatient. Plan to de-escalate steroids and return to outpatient decadron today. MSK: Bedrest due to quadriplegia. Continue C collar Wounds: Surgery consulted to evaluate for debridement. Will continue antibiotics to cover possible infected wounds for now. Code status: Full code. Dr Portillo consulted to help with goals of care and MOLST form. Patient is [facility] of the [facility], and [facility] will be the decision maker for code status, possible hospice (due to multiple myeloma and no additional treatment available), and for any procedures needed. Status: Guarded Dispo: ICU for septic shock, plan for transfer to floor later today if remains hemodynamically stable Critical Care Time: 30 minutes
--- NOTE | 2019-05-24 13:34 | CONSULT ---
Palliative / Hospice Consult Ordering Provider: Nilsa Rowland - PCP-Deferrante Referal Reason: Goals of care/PEG,senna & dulcolax/no narcotics - Subjective Code Status: Full Code Advance Directives Location: In Chart - History or Present Illness History or Present Illness: 74yo male with developmental delay [facility] of the [facility] with multiple myeloma and mets to cervical spine resident of [facility] presents with altered mental status. PMH- DM type 2, CAD, hypercholesterolemia, HTN, syncope, COPD, sleep apnea, GERD/ ulcer, BPH, arthritis, depression inpt 05/1992, prostate CA 2006, multiple myeloma with mets to cervical spine resulting in cord compression and quadriplegia, anemia, CVA and sacral decubitus. PSHx- lives at [facility] [phone] from DDS no tob, no etoh, no drugs. [id number], brain CT-moderate generalized atrophy and chronic ischemic changes, no changes from previous study, wbc 18.2, H/H 10.6/33, plt 149, BUN/Cr 37/1.46, egfr 47.5, lactic acid 3.4, troponin .04, alb 2.3 and INR 1.36. Pt is admitted with sepsis , multiple myeloma and demand ischemia. Pt has 1 prior ER visit. All history form pt and medical record, pt unable to contribute significantly. Lab Values: Abnormal Lab Results 05/23/19 05/23/19 05/23/19 17:42 17:42 17:42 WBC 18.2 H RBC 3.10 L Hgb 10.6 L Hct 33 L MCV 105 H MCH 34 H MCHC 33 RDW 17 H Plt Count 149 L MPV 9.8 Neut % (Auto) 90.4 Lymph % (Auto) 2.2 [place] % (Auto) 7.1 Eos % (Auto) 0.1 Baso % (Auto) 0.2 Absolute Neuts (auto) 16.5 H Absolute Lymphs (auto) 0.4 L Absolute Monos (auto) 1.3 H Absolute Eos (auto) 0.0 Absolute Basos (auto) 0.0 Absolute Nucleated RBC 0.0 Nucleated RBC % 0.0 INR (Anticoag Therapy) 1.36 H APTT 31.3 Sodium 137 Potassium 4.4 Chloride 101 Carbon Dioxide 30 Anion Gap 6 BUN 37 H Creatinine 1.46 H Est GFR ( Amer) 57.4 Est GFR (Non-Af Amer) 47.5 BUN/Creatinine Ratio 25.3 H Glucose 131 H POC Glucose (mg/dL) Lactic Acid Calcium 9.0 Total Bilirubin 0.40 AST 22 ALT 26 Alkaline Phosphatase 105 H Ammonia Troponin I 0.04 H* Total Protein 6.5 Albumin 2.3 L Globulin 4.2 H Albumin/Globulin Ratio 0.5 L TSH 3.71 Urine Color Urine Appearance Urine pH Ur Specific [place] Urine Protein Urine Ketones Urine Blood Urine Nitrate Urine Bilirubin Urine Urobilinogen Ur Leukocyte Esterase Urine Glucose Urine Ascorbic Acid Serum Alcohol < 10 Influenza A (Rapid) Influenza B (Rapid) 05/23/19 05/23/19 05/23/19 17:42 17:50 19:40 WBC RBC Hgb Hct MCV MCH MCHC RDW Plt Count MPV Neut % (Auto) Lymph % (Auto) [place] % (Auto) Eos % (Auto) Baso % (Auto) Absolute Neuts (auto) Absolute Lymphs (auto) Absolute Monos (auto) Absolute Eos (auto) Absolute Basos (auto) Absolute Nucleated RBC Nucleated RBC % INR (Anticoag Therapy) APTT Sodium Potassium Chloride Carbon Dioxide Anion Gap BUN Creatinine Est GFR ( Amer) Est GFR (Non-Af Amer) BUN/Creatinine Ratio Glucose POC Glucose (mg/dL) Lactic Acid 3.4 H* Calcium Total Bilirubin AST ALT Alkaline Phosphatase Ammonia 30 Troponin I Total Protein Albumin Globulin Albumin/Globulin Ratio TSH Urine Color Yellow Urine Appearance Clear Urine pH 6.0 Ur Specific [place] 1.013 Urine Protein Negative Urine Ketones Negative Urine Blood Negative Urine Nitrate Negative Urine Bilirubin Negative Urine Urobilinogen Negative Ur Leukocyte Esterase Negative Urine Glucose 3+(>=500 mg/dl) A Urine Ascorbic Acid * A Serum Alcohol Influenza A (Rapid) Influenza B (Rapid) 05/23/19 05/23/19 05/23/19 21:30 21:30 22:15 WBC RBC Hgb Hct MCV MCH MCHC RDW Plt Count MPV Neut % (Auto) Lymph % (Auto) [place] % (Auto) Eos % (Auto) Baso % (Auto) Absolute Neuts (auto) Absolute Lymphs (auto) Absolute Monos (auto) Absolute Eos (auto) Absolute Basos (auto) Absolute Nucleated RBC Nucleated RBC % INR (Anticoag Therapy) APTT Sodium Potassium Chloride Carbon Dioxide Anion Gap BUN Creatinine Est GFR ( Amer) Est GFR (Non-Af Amer) BUN/Creatinine Ratio Glucose POC Glucose (mg/dL) Lactic Acid 1.9 Calcium Total Bilirubin AST ALT Alkaline Phosphatase Ammonia Troponin I 0.03 H* Total Protein Albumin Globulin Albumin/Globulin Ratio TSH Urine Color Urine Appearance Urine pH Ur Specific [place] Urine Protein Urine Ketones Urine Blood Urine Nitrate Urine Bilirubin Urine Urobilinogen Ur Leukocyte Esterase Urine Glucose Urine Ascorbic Acid Serum Alcohol Influenza A (Rapid) Negative Influenza B (Rapid) Negative 05/24/19 05/24/19 05/24/19 00:20 05:00 05:00 WBC 18.0 H RBC 2.72 L Hgb 9.3 L Hct 29 L MCV 105 H MCH 34 H MCHC 33 RDW 17 H Plt Count 121 L MPV 9.6 Neut % (Auto) 95.6 Lymph % (Auto) 0.8 [place] % (Auto) 3.4 Eos % (Auto) 0.0 Baso % (Auto) 0.2 Absolute Neuts (auto) 17.2 H Absolute Lymphs (auto) 0.1 L Absolute Monos (auto) 0.6 Absolute Eos (auto) 0.0 Absolute Basos (auto) 0.0 Absolute Nucleated RBC 0.0 Nucleated RBC % 0.0 INR (Anticoag Therapy) APTT Sodium 138 Potassium 4.1 Chloride 107 Carbon Dioxide 26 Anion Gap 5 BUN 32 H Creatinine 1.14 Est GFR ( Amer) 76.4 Est GFR (Non-Af Amer) 63.1 BUN/Creatinine Ratio 28.1 H Glucose 100 POC Glucose (mg/dL) 107 H Lactic Acid Calcium 8.0 L Total Bilirubin AST ALT Alkaline Phosphatase Ammonia Troponin I Total Protein Albumin Globulin Albumin/Globulin Ratio TSH Urine Color Urine Appearance Urine pH Ur Specific [place] Urine Protein Urine Ketones Urine Blood Urine Nitrate Urine Bilirubin Urine Urobilinogen Ur Leukocyte Esterase Urine Glucose Urine Ascorbic Acid Serum Alcohol Influenza A (Rapid) Influenza B (Rapid) Laboratory Last Values WBC 18.0 10^3/uL (3.5-10.8) H 05/24/19 05:00 RBC 2.72 10^6 /uL (4.18-5.48) L 05/24/19 05:00 Hgb 9.3 g/dL (14.0-18.0) L 05/24/19 05:00 Hct 29 % (42-52) L 05/24/19 05:00 MCV 105 fL (80-94) H 05/24/19 05:00 MCH 34 pg (27-31) H 05/24/19 05:00 MCHC 33 g/dL (31-36) 05/24/19 05:00 RDW 17 % (10-15) H 05/24/19 05:00 Plt Count 121 10^3/uL (150-450) L 05/24/19 05:00 MPV 9.6 fL (7.4-10.4) 05/24/19 05:00 Neut % (Auto) 95.6 % 05/24/19 05:00 Lymph % (Auto) 0.8 % 05/24/19 05:00 [place] % (Auto) 3.4 % 05/24/19 05:00 Eos % (Auto) 0.0 % 05/24/19 05:00 Baso % (Auto) 0.2 % 05/24/19 05:00 Absolute Neuts (auto) 17.2 10^3/ul (1.5-7.7) H 05/24/19 05:00 Absolute Lymphs (auto) 0.1 10^3/ul (1.0-4.8) L 05/24/19 05:00 Absolute Monos (auto) 0.6 10^3/ul (0-0.8) 05/24/19 05:00 Absolute Eos (auto) 0.0 10^3/ul (0-0.6) 05/24/19 05:00 Absolute Basos (auto) 0.0 10^3/ul (0-0.2) 05/24/19 05:00 Absolute Nucleated RBC 0.0 10^3/ul 05/24/19 05:00 Nucleated RBC % 0.0 05/24/19 05:00 INR (Anticoag Therapy) 1.36 (0.82-1.09) H 05/23/19 17:42 APTT 31.3 seconds (26.0-38.0) 05/23/19 17:42 Sodium 138 mmol/L (135-145) 05/24/19 05:00 Potassium 4.1 mmol/L (3.5-5.0) 05/24/19 05:00 Chloride 107 mmol/L (101-111) 05/24/19 05:00 Carbon Dioxide 26 mmol/L (22-32) 05/24/19 05:00 Anion Gap 5 mmol/L (2-11) 05/24/19 05:00 BUN 32 mg/dL (6-24) H 05/24/19 05:00 Creatinine 1.14 mg/dL (0.67-1.17) 05/24/19 05:00 Est GFR ( Amer) 76.4 (>60) 05/24/19 05:00 Est GFR (Non-Af Amer) 63.1 (>60) 05/24/19 05:00 BUN/Creatinine Ratio 28.1 (8-20) H 05/24/19 05:00 Glucose 100 mg/dL (70-100) 05/24/19 05:00 POC Glucose (mg/dL) 107 mg/dL (70-100) H 05/24/19 00:20 Lactic Acid 1.9 mmol/L (0.5-2.0) 05/23/19 21:30 Calcium 8.0 mg/dL (8.6-10.3) L 05/24/19 05:00 Total Bilirubin 0.40 mg/dL (0.2-1.0) 05/23/19 17:42 AST 22 U/L (13-39) 05/23/19 17:42 ALT 26 U/L (7-52) 05/23/19 17:42 Alkaline Phosphatase 105 U/L (34-104) H 05/23/19 17:42 Ammonia 30 mcmol/L (16-53) 05/23/19 17:50 Troponin I 0.03 ng/mL (<0.03) H* 05/23/19 21:30 Total Protein 6.5 g/dL (6.4-8.9) 05/23/19 17:42 Albumin 2.3 g/dL (3.2-5.2) L 05/23/19 17:42 Globulin 4.2 g/dL (2-4) H 05/23/19 17:42 Albumin/Globulin Ratio 0.5 (1-3) L 05/23/19 17:42 TSH 3.71 mcIU/mL (0.34-5.60) 05/23/19 17:42 Urine Color Yellow 05/23/19 19:40 Urine Appearance Clear 05/23/19 19:40 Urine pH 6.0 (5-9) 05/23/19 19:40 Ur Specific [place] 1.013 (1.010-1.030) 05/23/19 19:40 Urine Protein Negative (Negative) 05/23/19 19:40 Urine Ketones Negative (Negative) 05/23/19 19:40 Urine Blood Negative (Negative) 05/23/19 19:40 Urine Nitrate Negative (Negative) 05/23/19 19:40 Urine Bilirubin Negative (Negative) 05/23/19 19:40 Urine Urobilinogen Negative (Negative) 05/23/19 19:40 Ur Leukocyte Esterase Negative (Negative) 05/23/19 19:40 Urine Glucose 3+(>=500 mg/dl) (Negative) A 05/23/19 19:40 Urine Ascorbic Acid * (Negative) A 05/23/19 19:40 Serum Alcohol < 10 mg/dL (<10) 05/23/19 17:42 Influenza A (Rapid) Negative (Negative) 05/23/19 22:15 Influenza B (Rapid) Negative (Negative) 05/23/19 22:15 - Objective Active Medications: Acetaminophen (Tylenol Tab*) 650 mg PO Q4H PRN PRN Reason: PAIN-MILD/TEMP >/= 100.4 Last Admin: 05/24/19 08:37 Dose: 650 mg Al Hydrox/Mg Hydrox/Simethicone (Maalox Plus*) 30 ml PO Q6H PRN PRN Reason: INDIGESTION Albuterol/Ipratropium (Duoneb (Albuterol 2.5 Mg/Ipratropium 0.5 Mg)) 1 neb INH Q4HR PRN PRN Reason: SHORTNESS OF BREATH Aspirin (Aspirin Ec Tab*) 81 mg PO DAILY [facility] Last Admin: 05/24/19 08:37 Dose: 81 mg Bisacodyl (Dulcolax Supp*) 10 mg [place] DAILY PRN PRN Reason: CONSTIPATION Bupropion HCl (Wellbutrin Xl *) 150 mg PO BID [facility] Last Admin: 05/24/19 08:38 Dose: Not Given Citalopram Hydrobromide (Celexa Tab*) 20 mg PO DAILY [facility] Last Admin: 05/24/19 08:37 Dose: 20 mg Dextrose (D50w Syringe 50 Ml*) 12.5 gm IV PUSH .FOR FS < 60 - SS PRN PRN Reason: FS < 60 Entecavir (Baraclude (Nf)) 0.5 mg PO DAILY [facility] Last Admin: 05/24/19 08:38 Dose: Not Given Fluticasone Propionate (Flonase Nasal [place] 50mcg*) 2 spray BOTH NARES DAILY [facility] Last Admin: 05/24/19 08:37 Dose: 2 spray Fondaparinux (Arixtra*) 2.5 mg SUBCUT DAILY [facility] Last Admin: 05/24/19 08:37 Dose: 2.5 mg Gabapentin (Neurontin Cap(*)) 300 mg PO TID [facility] Last Admin: 05/24/19 08:37 Dose: 300 mg Sodium Chloride (Ns 0.9% 1000 Ml) 1,000 mls @ 150 mls/hr IV PER RATE [facility] Last Admin: 05/24/19 11:57 Dose: 150 mls/hr Norepinephrine Bitartrate (Levophed 16 Mcg/Ml Premix*) 4,000 mcg in 250 mls @ 18.75 mls/hr IV .PER PROTOCOL [facility]; Protocol Last Admin: 05/23/19 22:20 Dose: 18.75 mls/hr Piperacillin Sod/Tazobactam (Sod 3.375 gm/ Sodium Chloride) 100 mls @ 25 mls/ hr IVPB Q8H [facility] Last Admin: 05/24/19 06:01 Dose: 25 mls/hr Vancomycin HCl 1,250 mg/ (Sodium Chloride) 250 mls @ 166.667 mls/hr IV Q12H [facility] Last Admin: 05/24/19 08:32 Dose: 166.667 mls/hr Insulin Human Lispro (Humalog*) 0 units SUBCUT ACHS [facility]; Protocol Methylprednisolone Sodium Succinate (Solu-Medrol 40 Mg) 40 mg IV Q8HR [facility] Last Admin: 05/24/19 06:01 Dose: 40 mg Ondansetron HCl (Zofran Tab*) 4 mg PO Q8HR PRN PRN Reason: NAUSEA Pantoprazole Sodium (Protonix Iv*) 40 mg IV DAILY [facility] Last Admin: 05/24/19 08:38 Dose: 40 mg Pharmacy Consult (Vancomycin Per Pharmacy*) 1 note FOLLOW UP .VANC PER PHARMACY [facility]; Protocol Pharmacy Consult (Zosyn Per Pharmacy*) 1 note FOLLOW UP .ZOSYN PER PHARMACY [facility] Pharmacy Profile Note (Scopolamine Patch Remove*) 1 note PATCH OFF Q72H [facility] Pharmacy Profile Note (Vancomycin Trough Check) 1 note FOLLOW UP 07 ONE Stop: 05/25/19 07:31 Polyethylene Glycol/Electrolytes (Miralax (17 Gm Dose Db)) 17 gm PO DAILY [facility] Last Admin: 05/24/19 08:37 Dose: 17 gm Scopolamine (Transderm-Scop 1.5 Mg Patch*) 1 patch TRANSDERM Q72H [facility] Last Admin: 05/23/19 22:41 Dose: 1 patch Senna (Senokot 8.6 Mg Tab*) 2 tab PO BEDTIME [facility] Vital Signs: Vital Signs: Temp Pulse Resp BP Pulse Ox 95.7 F 81 16 113/64 99 05/24/19 13:15 05/24/19 13:15 05/24/19 13:15 05/24/19 13:15 05/24/19 13:15 Patient Weight: Weight 83.3 kg Intake and Output: Intake & Output 05/22/19 05/23/19 05/24/19 05/25/19 06:59 06:59 06:59 06:59 Intake Total 4608 350 Output Total 895 475 Balance 3713 -125 Weight 83.3 kg Intake: IV Fluids 4193 NS 1093 IVPB 386 Vanco 275 zosyn 111 Medicated IV 29 CC - Norepinephrine/ 29 Levophed Oral 350 Output: Jaffe 845 475 Residual 50 16 Fr Temperature Probe 50 Other: Estimated Stool Amount Medium ADLs: Meal Record Start: 05/23/19 21: 30 Freq: 09,,18 Status: Active Protocol: Created 05/23/19 21:30 System (Rec: 05/23/19 21:30 System [id number]) Document 05/24/19 09:00 [id number] (Rec: 05/24/19 10:29 [id number] ICU-C16) Document 05/24/19 13:19 [id number] (Rec: 05/24/19 13:20 [id number] ICU-C16) Intake and Output Start: 05/23/19 18: 06 Freq: Status: Active Protocol: Created 05/23/19 18:06 System (Rec: 05/23/19 18:06 System [id number]) Intake and Output Start: 05/23/19 21: 30 Freq: Q1HR Status: Active Protocol: Created 05/23/19 21:30 System (Rec: 05/23/19 21:30 System [id number]) Document 05/23/19 22:00 [id number] (Rec: 05/23/19 22:39 [id number] ICU-M35) Document 05/23/19 22:52 [id number] (Rec: 05/23/19 22:53 [id number] ICU-M35) Document 05/24/19 00:00 [id number] (Rec: 05/24/19 00:15 [id number] ICU-C06) Document 05/24/19 01:00 [id number] (Rec: 05/24/19 01:08 [id number] ICU-C06) Document 05/24/19 02:00 [id number] (Rec: 05/24/19 02:04 [id number] ICU-C06) Document 05/24/19 03:00 [id number] (Rec: 05/24/19 03:01 [id number] ICU-C06) Document 05/24/19 04:57 [id number] (Rec: 05/24/19 04:57 [id number] ICU-M35) Document 05/24/19 06:00 [id number] (Rec: 05/24/19 06:00 [id number] ICU-M35) Document 05/24/19 07:00 [id number] (Rec: 05/24/19 08:58 [id number] ICU-C16) Document 05/24/19 08:00 [id number] (Rec: 05/24/19 10:27 [id number] ICU-C16) Document 05/24/19 09:00 [id number] (Rec: 05/24/19 12:05 [id number] ICU-C16) Document 05/24/19 10:00 [id number] (Rec: 05/24/19 12:05 [id number] ICU-C16) Document 05/24/19 11:00 [id number] (Rec: 05/24/19 12:05 [id number] ICU-C16) Document 05/24/19 12:00 [id number] (Rec: 05/24/19 12:05 [id number] ICU-C16) Head: Normal Eyes: No Scleral Icterus Ears/Nose/Mouth/Throat: NL Teeth, Lips, Gums Neck: NL Appearance and Movements; NL JVP Cardiovascular: NL Sounds; No Murmurs; No JVD, RRR Respiratory: Symmetrical Chest Expansion and Respiratory Effort Abdominal: NL Sounds; No Tenderness; No Distention Neurological: - - oriented to self - Assessment Assessment: 74yo male with multiple medical problems including multiple myeloma unable to tolerate treatment now with quadriplegia due to tumor admitted with sepsis - Plan Consult Plan (MU): Palliative Plan: Spoke with pt but he has limited understanding. Reached out to [facility] and spoke with Christiano Ocampo [phone] she is planning to reach out to Jarad Salcedo his assistant case manager and see where the [facility] stands. I am requesting DNR/DNI with hospice. Pt has a terminal condition with multiple myeloma not responding to therapy oncologist is recommending comfort care/hospice which I agree. His quality of life would be diminished if he has to keep coming back to the hospital instead of being kept comfortable at assisted home. Hospice eligibility based on multiple myeloma with metastasis. KPS 40%, PPS 30% - Time On Unit Date of Evaluation: 05/24/19 Hospice Consult Time in: 12:45 Hospice Consult Time Out: 13:45 Hospice Consult Time Total: 60 > 50% of Time Spend In Counseling or Coordinating Care: Yes
[2019-05-24] MEDS: buPROPion TAB* 75 MG PO SCH (20:39)
[2019-05-24] MEDS: Senna TAB 8.6 mg* TAB PO SCH (20:40)
[2019-05-25] MEDS: ZOSYN 3.375 GM Q8H per EXTENDED INFUSION IVPB SCH ×2 (06:23)
[2019-05-25] MEDS ORDERED: Vancomycin Trough Check NOTE FOLLOW UP ONE (07:30)
[2019-05-25] MEDS: buPROPion TAB* 75 MG PO SCH ×2 (09:39→21:08)
[2019-05-25] MEDS: Pantoprazole TAB * 40 MG TAB PO SCH (09:39)
[2019-05-25] MEDS: Spironolactone TAB* 25 MG PO SCH (09:39)
[2019-05-25] MEDS: Furosemide TAB* 40 MG PO SCH (09:39)
[2019-05-25] MEDS: Aspirin EC TAB* 81 MG TAB.EC PO SCH (09:39)
[2019-05-25] MEDS: Citalopram TAB* 20 MG PO SCH (09:40)
[2019-05-25] MEDS: Gabapentin CAP(*) 300 MG PO SCH ×3 (09:40→21:07)
[2019-05-25] MEDS: Dexamethasone TAB* 4 MG PO SCH (09:40)
[2019-05-25] MEDS: Insulin GLARGINE(*) 1 UNITS UNIT SUBCUT SCH (09:41)
[2019-05-25] MEDS: ENTECAVIR 0.5 MG PO SCH (09:41)
[2019-05-25] MEDS: Fluticasone NASAL SPRAY 50MCG* 16 gm SPRAY BTL BOTH NARES SCH (09:41)
[2019-05-25] MEDS: Insulin LISPRO* 1 UNITS UNIT SUBCUT SCH ×5 (09:41→23:13)
[2019-05-25] MEDS: Vancomycin(*) 1,250 MG in NS 0.9% 250 ML* 250 ML IV SCH (09:42)
[2019-05-25] MEDS: Polyethylene Glycol 3350* 17 GM PACKET PO SCH (09:43)
[2019-05-25] MEDS: Fondaparinux* 2.5 MG/0.5 ML SYRINGE SUBCUT SCH (10:00)
[2019-05-25 11:20] LABS: ABS Lymphocytes 0.1 10^3/ul (1.0-4.8); ABS Monocytes 0.5 10^3/ul (0-0.8); ABS Neutrophils 11.4 10^3/ul (1.5-7.7); Hematocrit 28 % (42-52); Hemoglobin 9.1 g/dL (14.0-18.0); Mean Corpuscular HGB Conc 32 g/dL (31-36); Mean Corpuscular Hemoglobin 34 pg (27-31); Mean Corpuscular Volume 104 fL (80-94); Mean Platelet Volume 10.2 fL (7.4-10.4); Platelet Count 114 10^3/uL (150-450); Red Blood Count 2.72 10^6 /uL (4.18-5.48); Red Cell Distribution Width 17 % (10-15); White Blood Count 12.1 10^3/uL (3.5-10.8)
[2019-05-25 11:30] LABS: BUN/Creatinine Ratio 34.2 (8-20); Calcium 8.2 mg/dL (8.6-10.3); EGFR Non-African American 100.8 (>60); Potassium 3.8 mmol/L (3.5-5.0)
[2019-05-25] MEDS: Acetaminophen TAB* 325 MG PO PRN (11:55)
--- NOTE | 2019-05-25 12:59 | PN ---
Subjective Date of Service: 05/25/19 Interval History: Patient states he is feeling well today. Patient has no pain. Patient denies difficulty breathing. Patient denies F/C, N/V, abdominal pain, diarrhea, CP, or other pain. Family History: Unchanged from Admission Social History: Unchanged from Admission Past Medical History: Unchanged from Admission Objective Active Medications: Acetaminophen (Tylenol Tab*) 650 mg PO Q4H PRN PRN Reason: PAIN-MILD/TEMP >/= 100.4 Last Admin: 05/25/19 11:55 Dose: 650 mg Al Hydrox/Mg Hydrox/Simethicone (Maalox Plus*) 30 ml PO Q6H PRN PRN Reason: INDIGESTION Albuterol/Ipratropium (Duoneb (Albuterol 2.5 Mg/Ipratropium 0.5 Mg)) 1 neb INH Q4HR PRN PRN Reason: SHORTNESS OF BREATH Aspirin (Aspirin Ec Tab*) 81 mg PO DAILY [facility] Last Admin: 05/25/19 09:39 Dose: 81 mg Bisacodyl (Dulcolax Supp*) 10 mg [place] DAILY PRN PRN Reason: CONSTIPATION Bupropion HCl (Wellbutrin Tab*) 150 mg PO BID [facility] Last Admin: 05/25/19 09:39 Dose: 150 mg Citalopram Hydrobromide (Celexa Tab*) 20 mg PO DAILY [facility] Last Admin: 05/25/19 09:40 Dose: 20 mg Dexamethasone (Decadron Tab*) 4 mg PO DAILY [facility] Last Admin: 05/25/19 09:40 Dose: 4 mg Dextrose (D50w Syringe 50 Ml*) 12.5 gm IV PUSH .FOR FS < 60 - SS PRN PRN Reason: FS < 60 Entecavir (Baraclude (Nf)) 0.5 mg PO DAILY [facility] Last Admin: 05/25/19 09:41 Dose: Not Given Fluticasone Propionate (Flonase Nasal [place] 50mcg*) 2 spray BOTH NARES DAILY [facility] Last Admin: 05/25/19 09:41 Dose: 2 spray Fondaparinux (Arixtra*) 2.5 mg SUBCUT DAILY [facility] Last Admin: 05/25/19 10:00 Dose: 2.5 mg Furosemide (Lasix Tab*) 80 mg PO DAILY [facility] Last Admin: 05/25/19 09:39 Dose: 80 mg Gabapentin (Neurontin Cap(*)) 300 mg PO TID [facility] Last Admin: 05/25/19 09:40 Dose: 300 mg Piperacillin Sod/Tazobactam (Sod 3.375 gm/ Sodium Chloride) 100 mls @ 25 mls/ hr IVPB Q8H [facility] Last Admin: 05/25/19 06:23 Dose: 25 mls/hr Vancomycin HCl 1,250 mg/ (Sodium Chloride) 250 mls @ 166.667 mls/hr IV Q12H [facility] Last Admin: 05/25/19 09:42 Dose: 166.667 mls/hr Insulin Glargine (Lantus(*)) 30 units SUBCUT DAILY [facility] Last Admin: 05/25/19 09:41 Dose: 30 unit Insulin Human Lispro (Humalog*) 0 units SUBCUT ACHS [facility]; Protocol Last Admin: 05/25/19 09:41 Dose: 4 units Ondansetron HCl (Zofran Tab*) 4 mg PO Q8HR PRN PRN Reason: NAUSEA Pantoprazole Sodium (Protonix Tab*) 40 mg PO DAILY [facility] Last Admin: 05/25/19 09:39 Dose: 40 mg Pharmacy Consult (Vancomycin Per Pharmacy*) 1 note FOLLOW UP .VANC PER PHARMACY [facility]; Protocol Pharmacy Consult (Zosyn Per Pharmacy*) 1 note FOLLOW UP .ZOSYN PER PHARMACY [facility] Pharmacy Profile Note (Scopolamine Patch Remove*) 1 note PATCH OFF Q72H [facility] Polyethylene Glycol/Electrolytes (Miralax (17 Gm Dose Db)) 17 gm PO DAILY [facility] Last Admin: 05/25/19 09:43 Dose: 17 gm Scopolamine (Transderm-Scop 1.5 Mg Patch*) 1 patch TRANSDERM Q72H [facility] Last Admin: 05/23/19 22:41 Dose: 1 patch Senna (Senokot 8.6 Mg Tab*) 2 tab PO BEDTIME [facility] Last Admin: 05/24/19 20:40 Dose: 2 tab Spironolactone (Aldactone Tab*) 50 mg PO DAILY [facility] Last Admin: 05/25/19 09:39 Dose: 50 mg Vital Signs - 8 hr 05/25/19 05/25/19 05/25/19 07:33 09:40 11:11 Temperature 97.3 F 97.0 F Pulse Rate 88 88 Respiratory 18 20 14 Rate Blood Pressure 131/73 118/70 (mmHg) O2 Sat by Pulse 100 99 Oximetry 05/25/19 11:40 Temperature Pulse Rate Respiratory 18 Rate Blood Pressure (mmHg) O2 Sat by Pulse Oximetry Oxygen Devices in Use Now: None Appearance: Patient is a 74yo female who appears stated age and is sitting in the bed in NAD. Patient has a Cervical Collar in place. Eyes: No Scleral Icterus, PERRLA Ears/Nose/Mouth/Throat: NL Teeth, Lips, Gums, Clear Oropharnyx, Mucous Membranes Moist Neck: NL Appearance and Movements; NL JVP, Trachea Midline Respiratory: Symmetrical Chest Expansion and Respiratory Effort, Clear to Auscultation Cardiovascular: NL Sounds; No Murmurs; No JVD, RRR, No Edema Abdominal: NL Sounds; No Tenderness; No Distention, No Hepatosplenomegaly Lymphatic: No Cervical Adenopathy Extremities: No Edema, No Clubbing, Cyanosis Skin: No Nodules or Sclerosis, - - Decubitus Ulcer not visualized. Neurological: NL Sensation, NL Muscle Strength and Tone, - - CN II-XII intact. Result Diagrams: 05/25/19 08:09 05/25/19 08:09 Microbiology and Other Data: Microbiology 05/23/19 18:01 Aerobic Blood Culture - Preliminary Blood Venous No Growth Day 1 Anaerobic Blood Culture - Preliminary No Growth Day 1 05/23/19 17:42 Aerobic Blood Culture - Preliminary Blood Venous No Growth Day 1 Anaerobic Blood Culture - Preliminary No Growth Day 1 05/23/19 22:15 Nasal Screen MRSA (PCR) - Final Nasal Mrsa Detected Assess/Plan/Problems-Billing Assessment: Patient is a 74yo male with a PMH for Developmental Delay, MM with Spinal Cord involvement, DM II, CVA, Hepatitis B, here with acute on chronic weakness and altered mental status. Patient has concern for an infection with elevated WBC count and shock, now improving on antibiotics without a clear source. Patient has been recommended to have comfort care previously as he has failed multiple myeloma treatment. - Patient Problems (1) Septic shock Current Visit: Yes Status: Acute Code(s): A41.9 - SEPSIS, UNSPECIFIED ORGANISM; R65.21 - SEVERE SEPSIS WITH SEPTIC SHOCK SNOMED Code(s): 58142540 Comment: - Unclear source, possibly due to decubitus ulcers - CXR negative, Check UA - BC NTD - Briefly needed vasopressive agents, now weaned off and out of ICU. (2) Decubital ulcer Current Visit: Yes Status: Acute Code(s): L89.90 - PRESSURE ULCER OF UNSPECIFIED SITE, UNSPECIFIED STAGE SNOMED Code(s): 131494760 Comment: - Possible source of infection, continue aggressive pressure reduction strategies. (3) Multiple myeloma Current Visit: No Status: Acute Code(s): C90.00 - MULTIPLE MYELOMA NOT HAVING ACHIEVED REMISSION SNOMED Code(s): 962255718 Comment: - Failed treatment, complicated by chronic pain, - Oncology recommends comfort care - Continue Decadron. (4) Diabetes mellitus type 2 Current Visit: No Status: Acute Priority: Medium Code(s): E11.9 - TYPE 2 DIABETES MELLITUS WITHOUT COMPLICATIONS SNOMED Code(s): 73596735 Comment: - Resume long acting insulin and SSI - Poor Control today. (5) Chronic hepatitis B Current Visit: No Status: Chronic Code(s): B18.1 - CHRONIC VIRAL HEPATITIS B WITHOUT DELTA-AGENT SNOMED Code(s): 24192894 Comment: - Continue Barcluda. (6) Essential hypertension Current Visit: No Status: Chronic Priority: Medium Code(s): I10 - ESSENTIAL (PRIMARY) HYPERTENSION SNOMED Code(s): 04630337 Comment: - Normotensive, resume Lasix and Spironolactone on 05/24 - Continue to hold ARB (7) Steroid-induced hyperglycemia Current Visit: No Status: Resolved Code(s): R73.9 - HYPERGLYCEMIA, UNSPECIFIED; T38.0X5A - ADVERSE EFFECT OF GLUCOCORT/SYNTH ANALOG, INIT SNOMED Code(s): 785121102 Comment: - Increased Insulin Dosing. - Now on home dose steroids. (8) DVT prophylaxis Current Visit: Yes Status: Acute Code(s): Z29.9 - ENCOUNTER FOR PROPHYLACTIC MEASURES, UNSPECIFIED SNOMED Code(s): 902293579 Comment: - Continue Arixtra (9) Full code status Current Visit: Yes Status: Acute Code(s): Z78.9 - OTHER SPECIFIED HEALTH STATUS SNOMED Code(s): 077096278 (10) Goals of care, counseling/discussion Current Visit: Yes Status: Acute Code(s): Z71.89 - OTHER SPECIFIED COUNSELING SNOMED Code(s): 130141247 Comment: - DNR/DNI checklist pending through the state. - Still FC at this time - Appreciate Palliative care input Status and Disposition: Inpatient. D/C back to [facility].
[2019-05-25 14:15] LABS: Urine Appearance Clear; Urine Bilirubin Negative (Negative); Urine Blood 2+ (Negative); Urine Color Straw; Urine Glucose 3+(>=500 mg/dL) (Negative); Urine Ketones Negative (Negative); Urine Nitrite Negative (Negative); Urine Protein Negative (Negative); Urine Specific Gravity 1.007 (1.010-1.030); Urine Urobilinogen Negative (Negative)
[2019-05-25 14:21] LABS: Urine Bacteria Absent (Absent); Urine Red Blood Cell 3+(>10/hpf) (Absent); Urine White Blood Cell 1+(6-10/hpf) (Absent)
[2019-05-25] MEDS: DOXYcycline CAP(*) 100 MG PO SCH (21:08)
[2019-05-25] MEDS: Senna TAB 8.6 mg* TAB PO SCH (21:08)
[2019-05-25] MEDS: Amoxicillin/Clavulanate TAB* 875 MG PO SCH (21:08)
[2019-05-26] MEDS: Fluticasone NASAL SPRAY 50MCG* 16 gm SPRAY BTL BOTH NARES SCH (08:14)
[2019-05-26] MEDS: Polyethylene Glycol 3350* 17 GM PACKET PO SCH (08:14)
[2019-05-26] MEDS: Fondaparinux* 2.5 MG/0.5 ML SYRINGE SUBCUT SCH (08:15)
[2019-05-26] MEDS: Insulin GLARGINE(*) 1 UNITS UNIT SUBCUT SCH (08:15)
[2019-05-26] MEDS: Insulin LISPRO* 1 UNITS UNIT SUBCUT SCH ×2 (08:15→12:37)
[2019-05-26] MEDS: Aspirin EC TAB* 81 MG TAB.EC PO SCH (08:15)
[2019-05-26] MEDS: Spironolactone TAB* 25 MG PO SCH (08:16)
[2019-05-26] MEDS: Citalopram TAB* 20 MG PO SCH (08:16)
[2019-05-26] MEDS: Dexamethasone TAB* 4 MG PO SCH (08:16)
[2019-05-26] MEDS: buPROPion TAB* 75 MG PO SCH (08:16)
[2019-05-26] MEDS: Amoxicillin/Clavulanate TAB* 875 MG PO SCH (08:16)
[2019-05-26] MEDS: Pantoprazole TAB * 40 MG TAB PO SCH (08:16)
[2019-05-26] MEDS: Furosemide TAB* 40 MG PO SCH (08:16)
[2019-05-26] MEDS: Gabapentin CAP(*) 300 MG PO SCH ×2 (08:16→15:00)
[2019-05-26] MEDS: DOXYcycline CAP(*) 100 MG PO SCH (08:16)
[2019-05-26] MEDS: ENTECAVIR 0.5 MG PO SCH (08:17)
[2019-05-26 11:56] VITALS: BP 124/67
--- NOTE | 2019-05-26 14:46 | DS ---
CC: Dr. Anne Dyer* DATE OF ADMISSION: 05/23/2019. DATE OF DISCHARGE: 05/26/2019. PRIMARY CARE PHYSICIAN: Dr. Anne Dyer. ATTENDING PHYSICIAN: Dr. Minerva Freitas* (dictated by Altagracia Mejia NP). PRIMARY DIAGNOSIS: 1. Septic shock. 2. Decubital ulcer. 3. Steroid-induced hyperglycemia. 4. Acute kidney injury. SECONDARY DIAGNOSES: 1. Multiple myeloma with spinal cord involvement. 2. Diabetes mellitus type 2. 3. Chronic hepatitis B. 4. Hypertension. 5. History of CVA. 6. Developmental delay. STUDIES WHILE IN THE HOSPITAL: 1. Chest x-ray on 05/23/2019, reads as: No active cardiopulmonary disease. 2. EKG on 05/23/2019 shows normal sinus rhythm with a rate of 95, no ST changes. 3. Brain CT on 05/23/2019, reads as: Moderate generalized atrophy and chronic ischemic changes, similar to previous examination. No acute intracranial process. No intracranial hemorrhage. CONSULTATIONS WHILE IN THE HOSPITAL: Dr. Portillo from Palliative [facility]. HISTORY OF PRESENT ILLNESS/HOSPITAL COURSE: Mr. 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 Please see the history and physical by Dr. Rowland for a complete summary of the events leading up to this hospitalization. In short, the patient was brought to the emergency room by EMS as he was noted to not be acting like himself and was unable to speak. In the emergency room, the patient was noted to be hypotensive with leukocytosis and acute renal failure. At that point, he was in septic shock and required Levophed. He was admitted to the Intensive Care Unit. The patient was placed on Zosyn and Vanco. Source of the septic shock was presumed to be decubital ulcer. There was no evidence of pneumonia or urinary tract infection. Oncology did follow the patient while here in the hospital and they did indicate that the patient is not a candidate for further therapy for multiple myeloma treatment and that hospice was recommended. Reportedly, hospice has been previously recommended in the past. The patient was weaned off pressors and transferred out of the ICU on 05/24/2019. Since being up on the floor, the patient seems to be at his baseline. He is able to answer some simple questions, though is unable to provide any significant history of subjective information. At this point, sepsis has resolved. Acute kidney injury also has resolved. Vital signs have been stable. The patient has been transitioned to oral antibiotics. Today, he reports feeling well and offers no complaints. The patient was seen by Dr. Portillo from Palliative Care while here in the hospital and Social Work has been working with the patient. Dr. Portillo also recommended that the patient be DNR/DNI and indicated that he was hospice eligible due to multiple myeloma with metastases. Our social group worker has been in contact with the patient's decision maker as he is a grijalva of the [facility] and at this point we do have a valid signed MOLST form indicating that the patient will be a DNR/DNI. The plan will be to sign on with hospice once he returns back to the senior care facility. Just prior to discharge, the patient was noted to have a large amount of bright red blood per rectum with many large clots. He is still awake, responsive, and stable, and is worried that his sheet has blood on it. Again, the patient is comfort measures only per his MOSLT, so there is no indication for further evaluation or treatment of this new GI bleed. The patient is alert, minimally verbal, only responding with one word answers to most questions or simply nodding his head, so orientation is difficult to decipher. The heart is a regular rate and rhythm without murmurs, rubs, or gallops. Lung sounds are clear to auscultation without rhonchi, wheezes or rubs. There is no edema. Abdomen is soft, nontender. There is noted to be a decubitus ulcer which was not visualized. Mr. Rios is stable for discharge. Most recent vitals are as follows: Temperature 98.0, heart rate 79, respiratory rate 18, oxygen saturation 100 percent on room air, blood pressure 124/67. DISCHARGE MEDICATIONS: New: 1. Augmentin 875 mg p.o. b.i.d. times 7 days. 2. Doxycycline 100 mg p.o. b.i.d. times 7 days. Continued: 1. Aspirin 81 mg p.o. daily. 2. Dulcolax 10 mg p.r. daily prn constipation. 3. Citalopram 20 mg p.o. daily. 4. Entecavir 0.5 mg p.o. daily. 5. Fluticasone two sprays both nares daily. 6. Fondaparinux 2.5 mg subcu daily. 7. Furosemide 80 mg p.o. daily. 8. Gabapentin 300 mg p.o. t.i.d. 9. Glargine 30 units subcu daily. 10. DuoNeb one neb q.4 hours prn shortness of breath. 11. Ondansetron 4 mg p.o. q.8 hours prn nausea or vomiting. 12. MiraLax 17 gm p.o. daily. 13. Scopolamine patch one transdermal q.72 hours. 14. Senna two tabs p.o. at bedtime. 15. Spironolactone 50 mg p.o. daily. 16. Bupropion 150 mg p.o. b.i.d. 17. Dexamethasone 6 mg p.o. daily. 18. Lortab 7.5/325 15 ml p.o. t.i.d. 19. Lispro subcu a.c. sliding scale (resume previous sliding scale). 20. Roxanol 5 mg p.o. q.3 hours prn pain. 21. Omeprazole 20 mg p.o. daily. DISCHARGE PLAN: Mr. Rios will be discharged back to [facility]. Medications are noted above. He will be comfort care, so it is not absolutely necessary that the patient take his medications at this point. The patient can complete seven additional days of Augmentin and Doxycycline to complete a total of ten days of antibiotics for a decubitus ulcer infection. He can resume his other usual medications as noted above. The patient should be signed on with hospice and a referral will be made to hospice upon his arrival to [facility]. At this point, he can continue his usual meds, as noted above, though these can be readdressed once hospice care is initiated. He has sufficient pain medications should he require them. He does have a valid MOLST form coming back with him which indicates he is a DNR/DNI, comfort measures only. The MOLST also indicates that the patient is a do not hospitalize, so he should not return to the hospital unless he has symptoms which are not able to be managed as an outpatient. He should follow-up with his provider at the nursing facility upon his arrival. ACTIVITY: As tolerated, though the patient is quadriplegic. DIET: As tolerated. CONDITION ON DISCHARGE: Fair. DISCHARGE DISPOSITION: [facility] facility, [facility]. This is a summarized report of a complex medical history and hospital stay. For further details, please see the entire medical record. TIME SPENT: Approximately 45 minutes were spent on this discharge. ALTAGRACIA MEJIA, [employer] INSPECTOR [id number]/CPS #: [id number] [place]
[2019-05-26] MEDS ORDERED: Scopolamine PATCH Remove* 1 NOTE MISC PATCH OFF SCH (22:00)
== END 2019-05-26 15:15 | DRG 871 ==
LOC: ED 17:27 → ICU 20:52 → MED 05-24 11:28
PROVIDERS: ADMIT Internal Medicine; ATTEND Internal Medicine
DX: A41.9 Sepsis, unspecified organism (principal); L89.153 Pressure ulcer of sacral region, stage 3; R65.21 Severe sepsis with septic shock; J18.9 Pneumonia, unspecified organism; G93.41 Metabolic encephalopathy; G82.50 Quadriplegia, unspecified; N17.9 Acute kidney failure, unspecified; C90.00 Multiple myeloma not having achieved remission; G95.20 Unspecified cord compression; I24.8 Other forms of acute ischemic heart disease; B18.1 Chronic viral hepatitis B without delta-agent; Z66 Do not resuscitate; E78.5 Hyperlipidemia, unspecified; K74.0 Hepatic fibrosis; I10 Essential (primary) hypertension; J44.9 Chronic obstructive pulmonary disease, unspecified; N40.0 Benign prostatic hyperplasia without lower urinary tract symptoms; G47.33 Obstructive sleep apnea (adult) (pediatric); T38.0X5A Adverse effect of glucocorticoids and synthetic analogues, initial encounter; E11.622 Type 2 diabetes mellitus with other skin ulcer; K21.9 Gastro-esophageal reflux disease without esophagitis; G89.3 Neoplasm related pain (acute) (chronic); M25.511 Pain in right shoulder; R62.50 Unspecified lack of expected normal physiological development in childhood; M19.90 Unspecified osteoarthritis, unspecified site; Z86.19 Personal history of other infectious and parasitic diseases; Z86.73 Personal history of transient ischemic attack (TIA), and cerebral infarction without residual deficits; Z79.82 Long term (current) use of aspirin; Z79.4 Long term (current) use of insulin; Z79.899 Other long term (current) drug therapy; Z88.8 Allergy status to other drugs, medicaments and biological substances
CPT/HCPCS: 36415; 70450; 71045; 80048; 80053; 80202; 80320; 81003; 81015; 82140; 82947; 83605; 84443; 84484; 85025; 85610; 85730; 87040; 87086; 87641; 93005; 96365; 96376; 99285; A9270-GY; G0480; J2543; J2920; J3370; J8540